=== PATIENT | female | born 1940 | race Caucasian/White ===

== ENCOUNTER 2016-10-13 11:01 | Outpatient (RCR) | payer MEDICARE, MEDICAID ==
--- OUTSIDE RECORDS SUMMARY | 2016-07-18 08:12 | XMS REPORT | Continuity of Care Document ---
Author Author [facility] Organization [facility] Address Unknown Phone Unavailable Care Team Providers Care Prn Occupational Therapist Name Role Phone Kendal Carvalho PCP [phone] Source Comments Some departments are not documenting in the electronic medical record. If you do not see the information that you expected, contact Release of Information in the Health Information Management department at [phone] for further assistance in locating additional records.[facility] Active Allergies and Adverse Reactions No Known Allergies Current Medications Prescription Sig. Disp. Refills Start End Date Status Date enalapril (VASOTEC) 10 mg Take 10 mg by mouth Active tablet daily. pioglitazone (ACTOS) 15 Take 15 mg by mouth Active mg tablet daily. gabapentin (NEURONTIN) Take 300 mg by mouth Active 300 mg capsule three times daily. glimepiride (AMARYL) 4 mg Take 4 mg by mouth daily Active tablet with breakfast. aspirin EC 81 mg tablet Take 81 mg by mouth Active daily. omeprazole DR(+) Take 20 mg by mouth Active (PRILOSEC) 20 mg capsule daily. timolol (TIMOPTIC) 0.5 % Apply 1 Drop to both eyes 1 Bottle 4 Active ophthalmic solution daily. 14 predniSONE (DELTASONE) 20 Start at 40mg po qday for 90 Tab 1 10/03/20 Active mg tablet 2 week,then 30mg x 2 14 weeks, then 20 mg po qday latanoprost (XALATAN) INSTILL ONE DROP INTO 5 mL 5 02/17/20 Active 0.005 % ophthalmic EACH EYE AT BEDTIME DAILY 15 solution Active Problems Problem Noted Date Brachial plexus dysfunction 08/26/2014 Peripheral neuropathy (HCC) 08/26/2014 Breast cancer metastasized to axillary lymph node (HCC) 08/26/2014 Right arm weakness 08/26/2014 POAG (primary open-angle glaucoma) 03/18/2014 Overview: Severe, OS>OD L ast Assessment & Plan: Visual field worse by agustin scale interpretation left eye. Dense cataract OU affecting vision. Good IOP. Stable NFL by optic nerve OCT. CPM. NS (nuclear sclerosis) 03/18/2014 Overview: Symmetric OU and symptomatic L ast Assessment & Plan: Functional but symptomatic. Rec: Phaco/IOL OS topical MAC. Reviewed procedure and risks including loss of eye, loss of vision, IOL complication, inflammation and retinal swelling. She understands and desires procedure. Social History Tobacco Use Types Packs/Day Years Used Date Never Smoker Alcohol Use Drinks/Week oz/Week Comments No Last Filed Vital Signs Vital Sign Reading Time Taken Blood Pressure 160/85 08/21/2014 9:59 AM UNDERWATER ROBOTICIST Pulse 91 08/21/2014 9:59 AM UNDERWATER ROBOTICIST Temperature - - Respiratory Rate - - Height 1.727 m (5' 7.99") 12/22/2014 11:18 AM CDT Weight 68.04 kg (150 lb) 12/22/2014 11:18 AM CDT Body Mass Index 22.81 12/22/2014 11:18 AM CDT Oxygen Saturation - - Plan of Care Health Maintenance Due Date Last Done Comments Physical (Comprehensive) 1949 Exam Pertussis Vaccine 1953 Tetanus Vaccine 1959 Breast Cancer Screening 1982 Colorectal Cancer 1992 Screening Shingles Vaccine 2002 Osteoporosis Screening 2007 Prevnar/Pneumovax (#1) 2007 Influenza Vaccine 06/16/2016 Results from Last 3 Months Not on file
[2016-08-19 10:03] LABS: BASOPHILS % (AUTO) 1 % (0-10); EOSINOPHILS # (AUTO) 0.2 10^3/uL (0.0-0.3); EOSINOPHILS % (AUTO) 5 % (0-10); LYMPHOCYTES # (AUTO) 0.5 X 10^3 (1.0-4.0); LYMPHOCYTES % (AUTO) 12 % (12-44); MEAN CORPUSCULAR HEMOGLOBIN 29 PG (25-34); MEAN CORPUSCULAR HGB CONC 32 G/DL (32-36); MEAN CORPUSCULAR VOLUME 90 FL (80-99); MEAN PLATELET VOLUME 10.3 FL (7.4-10.4); MONOCYTES # (AUTO) 0.6 X 10^3 (0.0-1.0); MONOCYTES % (AUTO) 12 % (0-12); NEUTROPHILS # (AUTO) 3.2 X 10^3 (1.8-7.8); NEUTROPHILS % (AUTO) 70 % (42-75); PLATELET COUNT 183 10^3/uL (130-400); RED BLOOD COUNT 3.84 10^6/uL (4.35-5.85); RED CELL DISTRIBUTION WIDTH 17.8 % (10.0-14.5); WHITE BLOOD COUNT 4.5 10^3/uL (4.3-11.0)
[2016-08-19 10:21] LABS: ALANINE AMINOTRANSFERASE 17 U/L (0-55); ALBUMIN 3.6 G/DL (3.2-4.5); ANION GAP 11 MMOL/L (5-14); ASPARTATE AMINO TRANSFERASE 20 U/L (5-34); BILIRUBIN,TOTAL 0.4 MG/DL (0.1-1.0); BLOOD UREA NITROGEN 11 MG/DL (7-18); BUN/CREATININE RATIO 13; CALCIUM 9.2 MG/DL (8.5-10.1); CARBON DIOXIDE 24 MMOL/L (21-32); CHLORIDE 104 MMOL/L (98-107); CREATININE SERUM 0.83 MG/DL (0.60-1.30); GFR ESTIMATED > 60; GLUCOSE 304 MG/DL (70-105); POTASSIUM 4.3 MMOL/L (3.6-5.0); SODIUM 139 MMOL/L (135-145); TOTAL PROTEIN 6.3 G/DL (6.4-8.2)
[2016-09-15 09:46] LABS: BASOPHILS % (AUTO) 1 % (0-10); EOSINOPHILS # (AUTO) 0.2 10^3/uL (0.0-0.3); EOSINOPHILS % (AUTO) 4 % (0-10); LYMPHOCYTES # (AUTO) 0.6 X 10^3 (1.0-4.0); LYMPHOCYTES % (AUTO) 15 % (12-44); MEAN CORPUSCULAR HEMOGLOBIN 29 PG (25-34); MEAN CORPUSCULAR HGB CONC 32 G/DL (32-36); MEAN CORPUSCULAR VOLUME 89 FL (80-99); MEAN PLATELET VOLUME 10.2 FL (7.4-10.4); MONOCYTES # (AUTO) 0.6 X 10^3 (0.0-1.0); MONOCYTES % (AUTO) 13 % (0-12); NEUTROPHILS # (AUTO) 2.8 X 10^3 (1.8-7.8); NEUTROPHILS % (AUTO) 67 % (42-75); PLATELET COUNT 138 10^3/uL (130-400); RED BLOOD COUNT 3.74 10^6/uL (4.35-5.85); RED CELL DISTRIBUTION WIDTH 15.9 % (10.0-14.5); WHITE BLOOD COUNT 4.2 10^3/uL (4.3-11.0)
[2016-09-15 10:12] LABS: ALANINE AMINOTRANSFERASE 12 U/L (0-55); ALBUMIN 3.7 G/DL (3.2-4.5); ANION GAP 9 MMOL/L (5-14); ASPARTATE AMINO TRANSFERASE 19 U/L (5-34); BILIRUBIN,TOTAL 0.4 MG/DL (0.1-1.0); BLOOD UREA NITROGEN 14 MG/DL (7-18); BUN/CREATININE RATIO 18; CALCIUM 9.1 MG/DL (8.5-10.1); CARBON DIOXIDE 22 MMOL/L (21-32); CHLORIDE 106 MMOL/L (98-107); CREATININE SERUM 0.78 MG/DL (0.60-1.30); GFR ESTIMATED > 60; GLUCOSE 272 MG/DL (70-105); POTASSIUM 3.7 MMOL/L (3.6-5.0); SODIUM 137 MMOL/L (135-145); TOTAL PROTEIN 6.3 G/DL (6.4-8.2)
[2016-09-22 10:09] LABS: BASOPHILS % (AUTO) 0 % (0-10); EOSINOPHILS # (AUTO) 0.2 10^3/uL (0.0-0.3); EOSINOPHILS % (AUTO) 5 % (0-10); LYMPHOCYTES # (AUTO) 0.5 X 10^3 (1.0-4.0); LYMPHOCYTES % (AUTO) 11 % (12-44); MEAN CORPUSCULAR HEMOGLOBIN 29 PG (25-34); MEAN CORPUSCULAR HGB CONC 32 G/DL (32-36); MEAN CORPUSCULAR VOLUME 89 FL (80-99); MEAN PLATELET VOLUME 10.2 FL (7.4-10.4); MONOCYTES # (AUTO) 0.6 X 10^3 (0.0-1.0); MONOCYTES % (AUTO) 13 % (0-12); NEUTROPHILS # (AUTO) 3.2 X 10^3 (1.8-7.8); NEUTROPHILS % (AUTO) 71 % (42-75); PLATELET COUNT 89 10^3/uL (130-400); RED BLOOD COUNT 3.76 10^6/uL (4.35-5.85); RED CELL DISTRIBUTION WIDTH 15.5 % (10.0-14.5); WHITE BLOOD COUNT 4.5 10^3/uL (4.3-11.0)
[2016-09-22 10:46] LABS: ANION GAP 10 MMOL/L (5-14); BLOOD UREA NITROGEN 6 MG/DL (7-18); BUN/CREATININE RATIO 8; CALCIUM 7.5 MG/DL (8.5-10.1); CARBON DIOXIDE 21 MMOL/L (21-32); CHLORIDE 110 MMOL/L (98-107); CREATININE SERUM 0.73 MG/DL (0.60-1.30); GFR ESTIMATED > 60; GLUCOSE 250 MG/DL (70-105); POTASSIUM 3.7 MMOL/L (3.6-5.0); SODIUM 141 MMOL/L (135-145)
[2016-09-29 10:20] LABS: BASOPHILS % (AUTO) 1 % (0-10); EOSINOPHILS # (AUTO) 0.2 10^3/uL (0.0-0.3); EOSINOPHILS % (AUTO) 3 % (0-10); LYMPHOCYTES # (AUTO) 0.7 X 10^3 (1.0-4.0); LYMPHOCYTES % (AUTO) 16 % (12-44); MEAN CORPUSCULAR HEMOGLOBIN 29 PG (25-34); MEAN CORPUSCULAR HGB CONC 32 G/DL (32-36); MEAN CORPUSCULAR VOLUME 90 FL (80-99); MEAN PLATELET VOLUME 9.7 FL (7.4-10.4); MONOCYTES # (AUTO) 0.6 X 10^3 (0.0-1.0); MONOCYTES % (AUTO) 13 % (0-12); NEUTROPHILS % (AUTO) 68 % (42-75); PLATELET COUNT 142 10^3/uL (130-400); RED CELL DISTRIBUTION WIDTH 15.7 % (10.0-14.5); WHITE BLOOD COUNT 4.4 10^3/uL (4.3-11.0)
[2016-09-29 11:38] LABS: ANION GAP 8 MMOL/L (5-14); BLOOD UREA NITROGEN 10 MG/DL (7-18); BUN/CREATININE RATIO 13; CALCIUM 8.8 MG/DL (8.5-10.1); CARBON DIOXIDE 25 MMOL/L (21-32); CHLORIDE 107 MMOL/L (98-107); CREATININE SERUM 0.75 MG/DL (0.60-1.30); GFR ESTIMATED > 60; GLUCOSE 241 MG/DL (70-105); SODIUM 140 MMOL/L (135-145)
[2016-10-06 09:16] LABS: BASOPHILS % (AUTO) 1 % (0-10); EOSINOPHILS # (AUTO) 0.1 10^3/uL (0.0-0.3); EOSINOPHILS % (AUTO) 3 % (0-10); LYMPHOCYTES # (AUTO) 0.5 X 10^3 (1.0-4.0); LYMPHOCYTES % (AUTO) 15 % (12-44); MEAN CORPUSCULAR HEMOGLOBIN 29 PG (25-34); MEAN CORPUSCULAR HGB CONC 31 G/DL (32-36); MEAN CORPUSCULAR VOLUME 92 FL (80-99); MEAN PLATELET VOLUME 10.5 FL (7.4-10.4); MONOCYTES # (AUTO) 0.5 X 10^3 (0.0-1.0); MONOCYTES % (AUTO) 14 % (0-12); NEUTROPHILS # (AUTO) 2.5 X 10^3 (1.8-7.8); NEUTROPHILS % (AUTO) 69 % (42-75); PLATELET COUNT 155 10^3/uL (130-400); RED BLOOD COUNT 3.76 10^6/uL (4.35-5.85); RED CELL DISTRIBUTION WIDTH 15.2 % (10.0-14.5); WHITE BLOOD COUNT 3.6 10^3/uL (4.3-11.0)
[2016-10-06 09:47] LABS: ALANINE AMINOTRANSFERASE 17 U/L (0-55); ALBUMIN 3.6 G/DL (3.2-4.5); ANION GAP 9 MMOL/L (5-14); ASPARTATE AMINO TRANSFERASE 24 U/L (5-34); BILIRUBIN,TOTAL 0.4 MG/DL (0.1-1.0); BLOOD UREA NITROGEN 12 MG/DL (7-18); BUN/CREATININE RATIO 16; CALCIUM 8.1 MG/DL (8.5-10.1); CARBON DIOXIDE 23 MMOL/L (21-32); CHLORIDE 108 MMOL/L (98-107); CREATININE SERUM 0.76 MG/DL (0.60-1.30); GFR ESTIMATED > 60; GLUCOSE 250 MG/DL (70-105); POTASSIUM 3.9 MMOL/L (3.6-5.0); SODIUM 140 MMOL/L (135-145); TOTAL PROTEIN 6.1 G/DL (6.4-8.2)
[~2016-10-13 11:01] MED LIST: AC325T PO; ACC15GT EXT; ACET325T38 PO; ACTOS15 MG PO; ADO TRASTUZUMAB EMTANSINE IV SCH; AMLO5TAB2 PO; ASP81CT; ASP81CT PO; ASP81TEC PO; ASPI-587 PO; BP MED; CALC-140 PO; CALC-80 PO; CALC300T4 PO; CEPH-506 PO; CHOL10003 PO; CLOP75TA PO; DENO60DI SQ; DENOSUMAB 60 MG/1 ML (PROLIA) SQ SCH; DOCU-163 PO; DULO30CA3 PO; DULO60CA58 PO; ENAL10TA PO; FAMOTIDINE 20MG/2ML IV (CANCER CTR) IV SCH; FNT25TD TD; GABA-488 PO; GABA300C PO; GABA600T2 PO; GBPN300C; GBPN300C PO; GLIM4TAB PO; GLMP1T; GLMP4T PO; HERCEPTIN; HYDR-3454 PO; HYDR-3583; HYDR-3812 PO; HYDR-757 PO; IBUP-2055 PO; INSU100I10 SC; INSU100V6 SQ; INSULIN PEN; LATA2.5D19 OU; LATA2.5D5 OU; LEVO500T80 PO; LORazepam 0.5 MG (ATIVAN) TABLET CANCER CTR PO PRN; MELO7.5T PO; METO-354 PO; NORCO 5/325; NS (IVPB) CANCER CENTER 250 ML IV SCH; NS IV 1000 ML (CANCER CTR) IV SCH; NS IV 500 ML (CANCER CENTER) 500 ML ONE; NS IV SCH; OMEP20TA2 PO; OMEP40CA36 PO; ONDA8TAB6 PO; ONDA8TAB9 PO; ONDAN4ODT PO; PALONOSETRON HCL 0.25 MG, DEXAMETHASONE PF INJECTION 10 MG in NS (IVPB) 50 ML IV PRN; PANT40TA2 PO; PIOG15TA22 PO; PIOG15TA9 PO; PNT40TEC PO; PRV20T PO; SILV25CR TP; Sucralfate PO; TELM40T; TICA90TA PO; TML5OP2.5 OU; TRAM50TA2 PO; VALA100033 PO; diphenhydrAMINE 25 MG TAB (BENADRYL) CANCER CENTER PO SCH
[2016-10-13 11:17] LABS: BASOPHILS % (AUTO) 0 % (0-10); EOSINOPHILS # (AUTO) 0.1 10^3/uL (0.0-0.3); EOSINOPHILS % (AUTO) 3 % (0-10); LYMPHOCYTES # (AUTO) 0.5 X 10^3 (1.0-4.0); LYMPHOCYTES % (AUTO) 13 % (12-44); MEAN CORPUSCULAR HEMOGLOBIN 28 PG (25-34); MEAN CORPUSCULAR HGB CONC 31 G/DL (32-36); MEAN CORPUSCULAR VOLUME 91 FL (80-99); MEAN PLATELET VOLUME 10.9 FL (7.4-10.4); MONOCYTES # (AUTO) 0.5 X 10^3 (0.0-1.0); MONOCYTES % (AUTO) 13 % (0-12); NEUTROPHILS # (AUTO) 2.8 X 10^3 (1.8-7.8); NEUTROPHILS % (AUTO) 70 % (42-75); PLATELET COUNT 115 10^3/uL (130-400); RED BLOOD COUNT 3.95 10^6/uL (4.35-5.85); WHITE BLOOD COUNT 3.9 10^3/uL (4.3-11.0)
[2016-10-13 13:11] LABS: ANION GAP 11 MMOL/L (5-14); BLOOD UREA NITROGEN 12 MG/DL (7-18); BUN/CREATININE RATIO 15; CALCIUM 8.4 MG/DL (8.5-10.1); CARBON DIOXIDE 24 MMOL/L (21-32); CHLORIDE 101 MMOL/L (98-107); CREATININE SERUM 0.78 MG/DL (0.60-1.30); GFR ESTIMATED > 60; GLUCOSE 218 MG/DL (70-105); POTASSIUM 3.2 MMOL/L (3.6-5.0); SODIUM 136 MMOL/L (135-145)
== END 2016-10-16 | disposition home or self-care (01) ==
LOC: ONC 11:01
PROVIDERS: ATTEND Internal Medicine Hematology & Oncology
DX: Z51.0 Encounter for antineoplastic radiation therapy (principal); Z51.11 Encounter for antineoplastic chemotherapy; C50.411 Malignant neoplasm of upper-outer quadrant of right female breast; C77.3 Secondary and unspecified malignant neoplasm of axilla and upper limb lymph nodes; C78.02 Secondary malignant neoplasm of left lung; I89.0 Lymphedema, not elsewhere classified; M81.0 Age-related osteoporosis without current pathological fracture; G54.0 Brachial plexus disorders; Z17.1 Estrogen receptor negative status [ER-]; Z79.899 Other long term (current) drug therapy; Z90.11 Acquired absence of right breast and nipple
CPT/HCPCS: 36415; 36591; 77280; 77300; 77307; 77334; 77336; 77386; 77412; 77417; 80048; 80053; 85025; 86300; 96372; 96375; 96413; 99213

== ENCOUNTER → 2016-11-03 | Outpatient (CLI) | payer MEDICARE, MEDICAID ==
--- OUTSIDE RECORDS SUMMARY | 2016-10-27 14:25 | XMS REPORT | Continuity of Care Document ---
Author Author [facility] Organization [facility] Address Unknown Phone Unavailable Care Team Providers Care Nutrition Aides Teacher Name Role Phone Kendal Carvalho PCP [phone] Source Comments Some departments are not documenting in the electronic medical record. If you do not see the information that you expected, contact Release of Information in the Health Information Management department at [phone] for further assistance in locating additional records.[facility] Active Allergies and Adverse Reactions No [...] Taken Blood Pressure 160/85 08/21/2014 9:59 AM BACK FEEDER [employer] LINE Pulse 91 08/21/2014 9:59 AM BACK FEEDER [employer] LINE Temperature - - Respiratory Rate - - [...]
[~2016-11-03] MED LIST changes: -ADO TRASTUZUMAB EMTANSINE IV SCH; -DENOSUMAB 60 MG/1 ML (PROLIA) SQ SCH; -FAMOTIDINE 20MG/2ML IV (CANCER CTR) IV SCH; -LORazepam 0.5 MG (ATIVAN) TABLET CANCER CTR PO PRN; -NS (IVPB) CANCER CENTER 250 ML IV SCH; -NS IV 1000 ML (CANCER CTR) IV SCH; -NS IV 500 ML (CANCER CENTER) 500 ML ONE; -NS IV SCH; -PALONOSETRON HCL 0.25 MG, DEXAMETHASONE PF INJECTION 10 MG in NS (IVPB) 50 ML IV PRN; -diphenhydrAMINE 25 MG TAB (BENADRYL) CANCER CENTER PO SCH
--- OUTSIDE RECORDS SUMMARY | 2016-11-03 08:23 | XMS REPORT | Continuity of Care Document ---
Author Author [facility] Organization [facility] Address Unknown Phone Unavailable Care Team Providers Care Carroting Machine Operator Name Role Phone Kendal Carvalho PCP [phone] Source Comments Some departments are not documenting in the electronic medical record. If you do not see the information that you expected, contact Release of Information in the Health Information Management department at [phone] for further assistance in locating additional records.[facility] Active Allergies and Adverse Reactions No Known [...] Taken Blood Pressure 160/85 08/21/2014 9:59 AM ORAL HYGIENIST Pulse 91 08/21/2014 9:59 AM ORAL HYGIENIST Temperature - - Respiratory Rate - - [...]
[2016-11-03 10:06] LABS: THYROID STIMULATING HORMONE 3.5 UIU/ML (0.35-4.94)
== END ==
LOC: LAB 10-27 14:21
PROVIDERS: ATTEND Internal Medicine
DX: E11.9 Type 2 diabetes mellitus without complications (principal); E78.4 Other hyperlipidemia; Z79.899 Other long term (current) drug therapy
CPT/HCPCS: 36415; 80061; 83036; 84443

== ENCOUNTER → 2016-12-22 | Outpatient (CLI) | payer MEDICARE, MEDICAID ==
--- OUTSIDE RECORDS SUMMARY | 2016-12-22 08:46 | XMS REPORT | Continuity of Care Document ---
Author Author [facility] Organization [facility] Address Unknown Phone Unavailable Care Team Providers Care Tier In Name Role Phone Kendal Carvalho PCP [phone] Source Comments Some departments are not documenting in the electronic medical record. If you do not see the information that you expected, contact Release of Information in the Health Information Management department at [phone] for further assistance in locating additional records.[facility] [...] Taken Blood Pressure 160/85 08/21/2014 9:59 AM ENDOSCOPY SPECIALTY TECHNICIAN Pulse 91 08/21/2014 9:59 AM ENDOSCOPY SPECIALTY TECHNICIAN Temperature - - Respiratory Rate - - [...]
--- NOTE | 2016-12-25 11:38 | ECHOCARDIOGRAPHY REPORT ---
PROCEDURE PHYSICIAN: JU VALERO DATE OF PROCEDURE: 12/22/2016 TWO DIMENSIONAL ECHOCARDIOGRAM REPORT PRIMARY PHYSICIAN: Dr. Carvalho OTHER PHYSICIAN: REFERRING PHYSICIAN: ORDERING PHYSICIAN: Garrett Harrington APRN INDICATION FOR THE PROCEDURE: D51.8 MEASUREMENTS DERIVED VALUES LV DIAMETER (LAX) NORMALS NORMALS Diastolic 4.8 (3.6-5.2) Eject. Fract. (60%+/-6%) Systolic (2.3-3.9) Diastolic Vol. % Shortening (0.22-0.42) Systolic Vol. Aortic Root 2.7 IVS THICKNESS Diastolic 1.1 (0.6-1.1) LVPW THICKNESS Diastolic 1.1 (0.6-1.1) LA DIAMETER Systolic 3.3 (2.1-3.7) DESCRIPTION: 2-dimensional echocardiography shows normal global left ventricular systolic function with normal regional wall motion. Aortic, mitral and tricuspid valve leaflets show good leaflet excursion. There is mild mitral annular calcification. There is no significant pericardial effusion. Doppler imaging shows trivial, mitral, tricuspid and pulmonic regurgitation. There is no Doppler evidence of any significant valvular stenosis. Aortic valve appears to be trileaflet. Pulmonary artery systolic pressure is estimated to be approximately 35 mmHg. There is no evidence of significant intracardiac shunt on this transthoracic echocardiographic study. Inferior vena cava does not appear to be dilated and appears mostly collapsed on this study. CONCLUSION: 1. Normal global left ventricular systolic function with an ejection fraction of 60%, 2. Trivial, mitral, tricuspid and pulmonic regurgitation. 3. Pulmonary artery systolic pressure is estimated to be approximately 35 mmHg. 4. No evidence of significant valvular stenosis. Job ID: [id number] Dictated Date: 12/24/2016 17:35:28 Lei Seller Date: 12/25/2016 11:32:22 / [place]
== END ==
LOC: CARD 08:43
PROVIDERS: ATTEND Nurse Practitioner Adult Health
DX: Z51.81 Encounter for therapeutic drug level monitoring (principal); C50.411 Malignant neoplasm of upper-outer quadrant of right female breast; Z79.899 Other long term (current) drug therapy
CPT/HCPCS: 93306

== ENCOUNTER 2017-01-12 08:51 | Outpatient (RCR) | payer MEDICARE, MEDICAID ==
--- OUTSIDE RECORDS SUMMARY | 2016-10-20 09:29 | XMS REPORT | Continuity of Care Document ---
Author Author [facility] Organization [facility] Address Unknown Phone Unavailable Care Team Providers Care Account General Manager Name Role Phone Kendal Carvalho PCP [phone] Source Comments Some departments are not documenting in the electronic medical record. If you do not see the information that you expected, contact Release of Information in the Health Information Management department at [phone] for further assistance in locating additional records.[facility] Active Allergies and Adverse Reactions No [...] Taken Blood Pressure 160/85 08/21/2014 9:59 AM BALLASTER Pulse 91 08/21/2014 9:59 AM BALLASTER Temperature - - Respiratory Rate - - [...]
[2016-10-20 09:40] LABS: BASOPHILS % (AUTO) 1 % (0-10); EOSINOPHILS # (AUTO) 0.2 10^3/uL (0.0-0.3); EOSINOPHILS % (AUTO) 3 % (0-10); LYMPHOCYTES # (AUTO) 0.7 X 10^3 (1.0-4.0); LYMPHOCYTES % (AUTO) 15 % (12-44); MEAN CORPUSCULAR HEMOGLOBIN 28 PG (25-34); MEAN CORPUSCULAR HGB CONC 31 G/DL (32-36); MEAN CORPUSCULAR VOLUME 90 FL (80-99); MEAN PLATELET VOLUME 10.2 FL (7.4-10.4); MONOCYTES # (AUTO) 0.6 X 10^3 (0.0-1.0); MONOCYTES % (AUTO) 12 % (0-12); NEUTROPHILS # (AUTO) 3.4 X 10^3 (1.8-7.8); NEUTROPHILS % (AUTO) 69 % (42-75); PLATELET COUNT 155 10^3/uL (130-400); RED BLOOD COUNT 4.03 10^6/uL (4.35-5.85); WHITE BLOOD COUNT 4.9 10^3/uL (4.3-11.0)
[2016-10-20 10:19] LABS: ANION GAP 9 MMOL/L (5-14); BLOOD UREA NITROGEN 11 MG/DL (7-18); BUN/CREATININE RATIO 14; CALCIUM 8.3 MG/DL (8.5-10.1); CARBON DIOXIDE 25 MMOL/L (21-32); CHLORIDE 107 MMOL/L (98-107); CREATININE SERUM 0.77 MG/DL (0.60-1.30); GFR ESTIMATED > 60; GLUCOSE 221 MG/DL (70-105); POTASSIUM 3.8 MMOL/L (3.6-5.0); SODIUM 141 MMOL/L (135-145)
[2016-10-27 14:55] LABS: BASOPHILS % (AUTO) 1 % (0-10); EOSINOPHILS # (AUTO) 0.1 10^3/uL (0.0-0.3); EOSINOPHILS % (AUTO) 3 % (0-10); LYMPHOCYTES # (AUTO) 0.7 X 10^3 (1.0-4.0); LYMPHOCYTES % (AUTO) 17 % (12-44); MEAN CORPUSCULAR HGB CONC 32 G/DL (32-36); MEAN CORPUSCULAR VOLUME 89 FL (80-99); MEAN PLATELET VOLUME 10.2 FL (7.4-10.4); MONOCYTES # (AUTO) 0.5 X 10^3 (0.0-1.0); MONOCYTES % (AUTO) 12 % (0-12); NEUTROPHILS # (AUTO) 2.9 X 10^3 (1.8-7.8); NEUTROPHILS % (AUTO) 67 % (42-75); PLATELET COUNT 149 10^3/uL (130-400); RED BLOOD COUNT 3.93 10^6/uL (4.35-5.85); RED CELL DISTRIBUTION WIDTH 14.9 % (10.0-14.5); WHITE BLOOD COUNT 4.3 10^3/uL (4.3-11.0)
[2016-10-27 14:56] LABS: MEAN CORPUSCULAR HEMOGLOBIN 28 PG (25-34)
[2016-10-27 15:23] LABS: ALANINE AMINOTRANSFERASE 18 U/L (0-55); ALBUMIN 3.8 G/DL (3.2-4.5); ANION GAP 10 MMOL/L (5-14); ASPARTATE AMINO TRANSFERASE 26 U/L (5-34); BILIRUBIN,TOTAL 0.5 MG/DL (0.1-1.0); BLOOD UREA NITROGEN 9 MG/DL (7-18); BUN/CREATININE RATIO 13; CALCIUM 8.5 MG/DL (8.5-10.1); CARBON DIOXIDE 22 MMOL/L (21-32); CHLORIDE 108 MMOL/L (98-107); CREATININE SERUM 0.69 MG/DL (0.60-1.30); GFR ESTIMATED > 60; GLUCOSE 134 MG/DL (70-105); POTASSIUM 3.8 MMOL/L (3.6-5.0); SODIUM 140 MMOL/L (135-145); TOTAL PROTEIN 6.7 G/DL (6.4-8.2)
[2016-11-03 08:45] LABS: BASOPHILS % (AUTO) 1 % (0-10); EOSINOPHILS # (AUTO) 0.2 10^3/uL (0.0-0.3); EOSINOPHILS % (AUTO) 5 % (0-10); LYMPHOCYTES # (AUTO) 0.6 X 10^3 (1.0-4.0); LYMPHOCYTES % (AUTO) 16 % (12-44); MEAN CORPUSCULAR HEMOGLOBIN 29 PG (25-34); MEAN CORPUSCULAR HGB CONC 32 G/DL (32-36); MEAN CORPUSCULAR VOLUME 89 FL (80-99); MEAN PLATELET VOLUME 11.3 FL (7.4-10.4); MONOCYTES # (AUTO) 0.6 X 10^3 (0.0-1.0); MONOCYTES % (AUTO) 14 % (0-12); NEUTROPHILS # (AUTO) 2.5 X 10^3 (1.8-7.8); NEUTROPHILS % (AUTO) 64 % (42-75); PLATELET COUNT 98 10^3/uL (130-400); RED BLOOD COUNT 3.95 10^6/uL (4.35-5.85); RED CELL DISTRIBUTION WIDTH 14.9 % (10.0-14.5); WHITE BLOOD COUNT 3.9 10^3/uL (4.3-11.0)
[2016-11-03 09:42] LABS: ANION GAP 9 MMOL/L (5-14); BLOOD UREA NITROGEN 9 MG/DL (7-18); BUN/CREATININE RATIO 13; CALCIUM 8.3 MG/DL (8.5-10.1); CARBON DIOXIDE 23 MMOL/L (21-32); CHLORIDE 110 MMOL/L (98-107); GFR ESTIMATED > 60; GLUCOSE 90 MG/DL (70-105); POTASSIUM 3.8 MMOL/L (3.6-5.0); SODIUM 142 MMOL/L (135-145)
[2016-11-11 10:29] LABS: BASOPHILS % (AUTO) 0 % (0-10); EOSINOPHILS # (AUTO) 0.2 10^3/uL (0.0-0.3); EOSINOPHILS % (AUTO) 4 % (0-10); LYMPHOCYTES # (AUTO) 0.7 X 10^3 (1.0-4.0); LYMPHOCYTES % (AUTO) 15 % (12-44); MEAN CORPUSCULAR HEMOGLOBIN 28 PG (25-34); MEAN CORPUSCULAR HGB CONC 32 G/DL (32-36); MEAN CORPUSCULAR VOLUME 89 FL (80-99); MEAN PLATELET VOLUME 10.5 FL (7.4-10.4); MONOCYTES # (AUTO) 0.6 X 10^3 (0.0-1.0); MONOCYTES % (AUTO) 12 % (0-12); NEUTROPHILS # (AUTO) 3.2 X 10^3 (1.8-7.8); NEUTROPHILS % (AUTO) 69 % (42-75); PLATELET COUNT 130 10^3/uL (130-400); RED CELL DISTRIBUTION WIDTH 14.9 % (10.0-14.5); WHITE BLOOD COUNT 4.7 10^3/uL (4.3-11.0)
[2016-11-11 10:46] LABS: ANION GAP 9 MMOL/L (5-14); BLOOD UREA NITROGEN 9 MG/DL (7-18); BUN/CREATININE RATIO 12; CALCIUM 8.6 MG/DL (8.5-10.1); CARBON DIOXIDE 25 MMOL/L (21-32); CHLORIDE 106 MMOL/L (98-107); CREATININE SERUM 0.73 MG/DL (0.60-1.30); GFR ESTIMATED > 60; GLUCOSE 180 MG/DL (70-105); POTASSIUM 3.4 MMOL/L (3.6-5.0); SODIUM 140 MMOL/L (135-145)
[2016-11-17 11:09] LABS: BASOPHILS % (AUTO) 1 % (0-10); EOSINOPHILS # (AUTO) 0.2 10^3/uL (0.0-0.3); EOSINOPHILS % (AUTO) 4 % (0-10); LYMPHOCYTES # (AUTO) 0.7 X 10^3 (1.0-4.0); LYMPHOCYTES % (AUTO) 18 % (12-44); MEAN CORPUSCULAR HEMOGLOBIN 28 PG (25-34); MEAN CORPUSCULAR HGB CONC 31 G/DL (32-36); MEAN CORPUSCULAR VOLUME 88 FL (80-99); MEAN PLATELET VOLUME 10.4 FL (7.4-10.4); MONOCYTES # (AUTO) 0.5 X 10^3 (0.0-1.0); MONOCYTES % (AUTO) 13 % (0-12); NEUTROPHILS # (AUTO) 2.6 X 10^3 (1.8-7.8); NEUTROPHILS % (AUTO) 65 % (42-75); PLATELET COUNT 134 10^3/uL (130-400); RED CELL DISTRIBUTION WIDTH 15.1 % (10.0-14.5); WHITE BLOOD COUNT 3.9 10^3/uL (4.3-11.0)
[2016-11-17 11:44] LABS: ALANINE AMINOTRANSFERASE 16 U/L (0-55); ALBUMIN 3.5 G/DL (3.2-4.5); ANION GAP 9 MMOL/L (5-14); ASPARTATE AMINO TRANSFERASE 24 U/L (5-34); BILIRUBIN,TOTAL 0.5 MG/DL (0.1-1.0); BLOOD UREA NITROGEN 10 MG/DL (7-18); BUN/CREATININE RATIO 14; CALCIUM 7.5 MG/DL (8.5-10.1); CARBON DIOXIDE 23 MMOL/L (21-32); CHLORIDE 107 MMOL/L (98-107); CREATININE SERUM 0.71 MG/DL (0.60-1.30); GFR ESTIMATED > 60; GLUCOSE 261 MG/DL (70-105); POTASSIUM 3.7 MMOL/L (3.6-5.0); SODIUM 139 MMOL/L (135-145); TOTAL PROTEIN 6.4 G/DL (6.4-8.2)
[2016-11-24 10:32] LABS: BASOPHILS % (AUTO) 0 % (0-10); EOSINOPHILS # (AUTO) 0.2 10^3/uL (0.0-0.3); EOSINOPHILS % (AUTO) 3 % (0-10); LYMPHOCYTES # (AUTO) 0.6 X 10^3 (1.0-4.0); LYMPHOCYTES % (AUTO) 14 % (12-44); MEAN CORPUSCULAR HEMOGLOBIN 27 PG (25-34); MEAN CORPUSCULAR HGB CONC 31 G/DL (32-36); MEAN CORPUSCULAR VOLUME 87 FL (80-99); MEAN PLATELET VOLUME 10.3 FL (7.4-10.4); MONOCYTES # (AUTO) 0.7 X 10^3 (0.0-1.0); MONOCYTES % (AUTO) 14 % (0-12); NEUTROPHILS # (AUTO) 3.3 X 10^3 (1.8-7.8); NEUTROPHILS % (AUTO) 69 % (42-75); PLATELET COUNT 122 10^3/uL (130-400); RED BLOOD COUNT 4.04 10^6/uL (4.35-5.85); RED CELL DISTRIBUTION WIDTH 15.3 % (10.0-14.5); WHITE BLOOD COUNT 4.7 10^3/uL (4.3-11.0)
[2016-11-24 11:16] LABS: ANION GAP 10 MMOL/L (5-14); BLOOD UREA NITROGEN 9 MG/DL (7-18); BUN/CREATININE RATIO 12; CALCIUM 8.4 MG/DL (8.5-10.1); CARBON DIOXIDE 23 MMOL/L (21-32); CHLORIDE 105 MMOL/L (98-107); CREATININE SERUM 0.78 MG/DL (0.60-1.30); GFR ESTIMATED > 60; GLUCOSE 312 MG/DL (70-105); POTASSIUM 3.6 MMOL/L (3.6-5.0); SODIUM 138 MMOL/L (135-145)
[2016-12-01 08:58] LABS: BASOPHILS % (AUTO) 0 % (0-10); EOSINOPHILS # (AUTO) 0.2 10^3/uL (0.0-0.3); EOSINOPHILS % (AUTO) 4 % (0-10); LYMPHOCYTES # (AUTO) 0.7 X 10^3 (1.0-4.0); LYMPHOCYTES % (AUTO) 14 % (12-44); MEAN CORPUSCULAR HEMOGLOBIN 27 PG (25-34); MEAN CORPUSCULAR HGB CONC 32 G/DL (32-36); MEAN CORPUSCULAR VOLUME 87 FL (80-99); MEAN PLATELET VOLUME 10.2 FL (7.4-10.4); MONOCYTES # (AUTO) 0.6 X 10^3 (0.0-1.0); MONOCYTES % (AUTO) 13 % (0-12); NEUTROPHILS # (AUTO) 3.5 X 10^3 (1.8-7.8); NEUTROPHILS % (AUTO) 69 % (42-75); PLATELET COUNT 137 10^3/uL (130-400); RED BLOOD COUNT 4.12 10^6/uL (4.35-5.85); RED CELL DISTRIBUTION WIDTH 15.2 % (10.0-14.5); WHITE BLOOD COUNT 5.1 10^3/uL (4.3-11.0)
[2016-12-01 10:00] LABS: ANION GAP 8 MMOL/L (5-14); BLOOD UREA NITROGEN 9 MG/DL (7-18); BUN/CREATININE RATIO 12; CALCIUM 8.6 MG/DL (8.5-10.1); CARBON DIOXIDE 25 MMOL/L (21-32); CHLORIDE 106 MMOL/L (98-107); CREATININE SERUM 0.73 MG/DL (0.60-1.30); GFR ESTIMATED > 60; GLUCOSE 246 MG/DL (70-105); POTASSIUM 4.2 MMOL/L (3.6-5.0); SODIUM 139 MMOL/L (135-145)
[2016-12-08 11:25] LABS: BASOPHILS % (AUTO) 0 % (0-10); EOSINOPHILS # (AUTO) 0.1 10^3/uL (0.0-0.3); EOSINOPHILS % (AUTO) 2 % (0-10); LYMPHOCYTES # (AUTO) 0.8 X 10^3 (1.0-4.0); LYMPHOCYTES % (AUTO) 17 % (12-44); MEAN CORPUSCULAR HEMOGLOBIN 28 PG (25-34); MEAN CORPUSCULAR HGB CONC 32 G/DL (32-36); MEAN CORPUSCULAR VOLUME 87 FL (80-99); MEAN PLATELET VOLUME 10.1 FL (7.4-10.4); MONOCYTES # (AUTO) 0.6 X 10^3 (0.0-1.0); MONOCYTES % (AUTO) 14 % (0-12); NEUTROPHILS % (AUTO) 67 % (42-75); PLATELET COUNT 137 10^3/uL (130-400); RED BLOOD COUNT 4.14 10^6/uL (4.35-5.85); RED CELL DISTRIBUTION WIDTH 15.5 % (10.0-14.5); WHITE BLOOD COUNT 4.5 10^3/uL (4.3-11.0)
[2016-12-08 11:53] LABS: ALANINE AMINOTRANSFERASE 21 U/L (0-55); ALBUMIN 3.5 G/DL (3.2-4.5); ANION GAP 9 MMOL/L (5-14); ASPARTATE AMINO TRANSFERASE 28 U/L (5-34); BILIRUBIN,TOTAL 0.6 MG/DL (0.1-1.0); BLOOD UREA NITROGEN 13 MG/DL (7-18); BUN/CREATININE RATIO 16; CALCIUM 8.8 MG/DL (8.5-10.1); CARBON DIOXIDE 25 MMOL/L (21-32); CHLORIDE 107 MMOL/L (98-107); CREATININE SERUM 0.79 MG/DL (0.60-1.30); GFR ESTIMATED > 60; GLUCOSE 209 MG/DL (70-105); POTASSIUM 3.9 MMOL/L (3.6-5.0); SODIUM 141 MMOL/L (135-145); TOTAL PROTEIN 6.8 G/DL (6.4-8.2)
[2016-12-15 10:08] LABS: BASOPHILS % (AUTO) 0 % (0-10); EOSINOPHILS # (AUTO) 0.2 10^3/uL (0.0-0.3); EOSINOPHILS % (AUTO) 5 % (0-10); LYMPHOCYTES # (AUTO) 0.7 X 10^3 (1.0-4.0); LYMPHOCYTES % (AUTO) 16 % (12-44); MEAN CORPUSCULAR HEMOGLOBIN 27 PG (25-34); MEAN CORPUSCULAR HGB CONC 32 G/DL (32-36); MEAN CORPUSCULAR VOLUME 86 FL (80-99); MEAN PLATELET VOLUME 11.4 FL (7.4-10.4); MONOCYTES # (AUTO) 0.6 X 10^3 (0.0-1.0); MONOCYTES % (AUTO) 15 % (0-12); NEUTROPHILS # (AUTO) 2.7 X 10^3 (1.8-7.8); NEUTROPHILS % (AUTO) 64 % (42-75); PLATELET COUNT 97 10^3/uL (130-400); RED CELL DISTRIBUTION WIDTH 15.6 % (10.0-14.5); WHITE BLOOD COUNT 4.2 10^3/uL (4.3-11.0)
[2016-12-15 10:38] LABS: ANION GAP 9 MMOL/L (5-14); BLOOD UREA NITROGEN 12 MG/DL (7-18); BUN/CREATININE RATIO 15; CARBON DIOXIDE 26 MMOL/L (21-32); CHLORIDE 104 MMOL/L (98-107); GFR ESTIMATED > 60; GLUCOSE 225 MG/DL (70-105); POTASSIUM 3.5 MMOL/L (3.6-5.0); SODIUM 139 MMOL/L (135-145)
[2016-12-22 10:19] LABS: BASOPHILS % (AUTO) 1 % (0-10); EOSINOPHILS # (AUTO) 0.2 10^3/uL (0.0-0.3); EOSINOPHILS % (AUTO) 4 % (0-10); LYMPHOCYTES # (AUTO) 0.7 X 10^3 (1.0-4.0); LYMPHOCYTES % (AUTO) 15 % (12-44); MEAN CORPUSCULAR HEMOGLOBIN 27 PG (25-34); MEAN CORPUSCULAR HGB CONC 32 G/DL (32-36); MEAN CORPUSCULAR VOLUME 86 FL (80-99); MEAN PLATELET VOLUME 11.2 FL (7.4-10.4); MONOCYTES # (AUTO) 0.6 X 10^3 (0.0-1.0); MONOCYTES % (AUTO) 15 % (0-12); NEUTROPHILS # (AUTO) 2.9 X 10^3 (1.8-7.8); NEUTROPHILS % (AUTO) 66 % (42-75); PLATELET COUNT 108 10^3/uL (130-400); RED BLOOD COUNT 4.38 10^6/uL (4.35-5.85); RED CELL DISTRIBUTION WIDTH 15.9 % (10.0-14.5); WHITE BLOOD COUNT 4.3 10^3/uL (4.3-11.0)
[2016-12-22 11:11] LABS: ANION GAP 10 MMOL/L (5-14); BLOOD UREA NITROGEN 9 MG/DL (7-18); BUN/CREATININE RATIO 12; CALCIUM 9.3 MG/DL (8.5-10.1); CARBON DIOXIDE 27 MMOL/L (21-32); CHLORIDE 105 MMOL/L (98-107); CREATININE SERUM 0.77 MG/DL (0.60-1.30); GFR ESTIMATED > 60; GLUCOSE 218 MG/DL (70-105); POTASSIUM 3.5 MMOL/L (3.6-5.0); SODIUM 142 MMOL/L (135-145)
[2016-12-29 09:18] LABS: BASOPHILS % (AUTO) 1 % (0-10); EOSINOPHILS # (AUTO) 0.2 10^3/uL (0.0-0.3); EOSINOPHILS % (AUTO) 5 % (0-10); LYMPHOCYTES # (AUTO) 0.7 X 10^3 (1.0-4.0); LYMPHOCYTES % (AUTO) 19 % (12-44); MEAN CORPUSCULAR HEMOGLOBIN 27 PG (25-34); MEAN CORPUSCULAR HGB CONC 31 G/DL (32-36); MEAN CORPUSCULAR VOLUME 86 FL (80-99); MEAN PLATELET VOLUME 10.7 FL (7.4-10.4); MONOCYTES # (AUTO) 0.5 X 10^3 (0.0-1.0); MONOCYTES % (AUTO) 15 % (0-12); NEUTROPHILS % (AUTO) 60 % (42-75); PLATELET COUNT 105 10^3/uL (130-400); RED BLOOD COUNT 4.06 10^6/uL (4.35-5.85); RED CELL DISTRIBUTION WIDTH 15.7 % (10.0-14.5); WHITE BLOOD COUNT 3.4 10^3/uL (4.3-11.0)
[2016-12-29 09:42] LABS: ALANINE AMINOTRANSFERASE 22 U/L (0-55); ALBUMIN 3.4 G/DL (3.2-4.5); ANION GAP 10 MMOL/L (5-14); ASPARTATE AMINO TRANSFERASE 29 U/L (5-34); BILIRUBIN,TOTAL 0.7 MG/DL (0.1-1.0); BLOOD UREA NITROGEN 15 MG/DL (7-18); BUN/CREATININE RATIO 20; CALCIUM 8.8 MG/DL (8.5-10.1); CARBON DIOXIDE 24 MMOL/L (21-32); CHLORIDE 108 MMOL/L (98-107); CREATININE SERUM 0.76 MG/DL (0.60-1.30); GFR ESTIMATED > 60; GLUCOSE 224 MG/DL (70-105); MAGNESIUM 1.7 MG/DL (1.8-2.4); POTASSIUM 3.5 MMOL/L (3.6-5.0); SODIUM 142 MMOL/L (135-145); TOTAL PROTEIN 6.3 G/DL (6.4-8.2)
[2017-01-05 10:32] LABS: BASOPHILS % (AUTO) 0 % (0-10); EOSINOPHILS # (AUTO) 0.2 10^3/uL (0.0-0.3); EOSINOPHILS % (AUTO) 5 % (0-10); LYMPHOCYTES # (AUTO) 0.6 X 10^3 (1.0-4.0); LYMPHOCYTES % (AUTO) 15 % (12-44); MEAN CORPUSCULAR HEMOGLOBIN 27 PG (25-34); MEAN CORPUSCULAR HGB CONC 31 G/DL (32-36); MEAN CORPUSCULAR VOLUME 86 FL (80-99); MEAN PLATELET VOLUME 10.7 FL (7.4-10.4); MONOCYTES # (AUTO) 0.6 X 10^3 (0.0-1.0); MONOCYTES % (AUTO) 15 % (0-12); NEUTROPHILS # (AUTO) 2.5 X 10^3 (1.8-7.8); NEUTROPHILS % (AUTO) 65 % (42-75); PLATELET COUNT 93 10^3/uL (130-400); RED BLOOD COUNT 4.11 10^6/uL (4.35-5.85); WHITE BLOOD COUNT 3.9 10^3/uL (4.3-11.0)
[2017-01-05 11:06] LABS: ANION GAP 11 MMOL/L (5-14); BLOOD UREA NITROGEN 8 MG/DL (7-18); BUN/CREATININE RATIO 10; CALCIUM 9.4 MG/DL (8.5-10.1); CARBON DIOXIDE 24 MMOL/L (21-32); CHLORIDE 104 MMOL/L (98-107); CREATININE SERUM 0.82 MG/DL (0.60-1.30); GFR ESTIMATED > 60; GLUCOSE 268 MG/DL (70-105); SODIUM 139 MMOL/L (135-145)
[~2017-01-12] VITALS: Ht 170.2 cm; Wt 69.9 kg
[~2017-01-12 08:51] MED LIST changes: +ADO TRASTUZUMAB EMTANSINE IV SCH; +DENOSUMAB 60 MG/1 ML (PROLIA) SQ SCH; +FAMOTIDINE 20MG/2ML IV (CANCER CTR) IV SCH; +LORazepam 0.5 MG (ATIVAN) TABLET CANCER CTR PO PRN; +NS (IVPB) CANCER CENTER 250 ML IV SCH; +NS IV 1000 ML (CANCER CTR) IV SCH; +NS IV 500 ML (CANCER CENTER) 500 ML ONE; +NS IV SCH; +PALONOSETRON HCL 0.25 MG, DEXAMETHASONE PF INJECTION 10 MG in NS (IVPB) 50 ML IV PRN; +diphenhydrAMINE 25 MG TAB (BENADRYL) CANCER CENTER PO SCH
[2017-01-12 09:29] LABS: BASOPHILS % (AUTO) 1 % (0-10); EOSINOPHILS # (AUTO) 0.1 10^3/uL (0.0-0.3); EOSINOPHILS % (AUTO) 4 % (0-10); LYMPHOCYTES # (AUTO) 0.7 X 10^3 (1.0-4.0); LYMPHOCYTES % (AUTO) 18 % (12-44); MEAN CORPUSCULAR HEMOGLOBIN 26 PG (25-34); MEAN CORPUSCULAR HGB CONC 31 G/DL (32-36); MEAN CORPUSCULAR VOLUME 85 FL (80-99); MONOCYTES # (AUTO) 0.7 X 10^3 (0.0-1.0); MONOCYTES % (AUTO) 16 % (0-12); NEUTROPHILS # (AUTO) 2.5 X 10^3 (1.8-7.8); NEUTROPHILS % (AUTO) 62 % (42-75); PLATELET COUNT 99 10^3/uL (130-400); RED BLOOD COUNT 4.15 10^6/uL (4.35-5.85)
[2017-01-12 10:19] LABS: ANION GAP 5 MMOL/L (5-14); BLOOD UREA NITROGEN 11 MG/DL (7-18); BUN/CREATININE RATIO 13; CALCIUM 9.2 MG/DL (8.5-10.1); CARBON DIOXIDE 30 MMOL/L (21-32); CHLORIDE 104 MMOL/L (98-107); CREATININE SERUM 0.83 MG/DL (0.60-1.30); GFR ESTIMATED > 60; GLUCOSE 239 MG/DL (70-105); POTASSIUM 3.8 MMOL/L (3.6-5.0); SODIUM 139 MMOL/L (135-145)
== END 2017-01-18 | disposition home or self-care (01) ==
LOC: ONC 08:51
PROVIDERS: ATTEND Internal Medicine Hematology & Oncology
DX: Z51.11 Encounter for antineoplastic chemotherapy (principal); C50.911 Malignant neoplasm of unspecified site of right female breast; C77.3 Secondary and unspecified malignant neoplasm of axilla and upper limb lymph nodes; C77.0 Secondary and unspecified malignant neoplasm of lymph nodes of head, face and neck; C78.00 Secondary malignant neoplasm of unspecified lung; G54.0 Brachial plexus disorders; M85.80 Other specified disorders of bone density and structure, unspecified site; Z79.899 Other long term (current) drug therapy
CPT/HCPCS: 36415; 36591; 80048; 80053; 82306; 83735; 85025; 86300; 96375; 96413; 99213

== ENCOUNTER 2017-01-26 08:56 | Emergency (ER) | payer MEDICARE, MEDICAID ==
[~2017-01-26] VITALS: Ht 172.7 cm; Wt 68.9 kg
[~2017-01-26 08:56] MED LIST changes: -ADO TRASTUZUMAB EMTANSINE IV SCH; -DENOSUMAB 60 MG/1 ML (PROLIA) SQ SCH; -FAMOTIDINE 20MG/2ML IV (CANCER CTR) IV SCH; -LORazepam 0.5 MG (ATIVAN) TABLET CANCER CTR PO PRN; -NS (IVPB) CANCER CENTER 250 ML IV SCH; -NS IV 1000 ML (CANCER CTR) IV SCH; -NS IV 500 ML (CANCER CENTER) 500 ML ONE; -NS IV SCH; -PALONOSETRON HCL 0.25 MG, DEXAMETHASONE PF INJECTION 10 MG in NS (IVPB) 50 ML IV PRN; -diphenhydrAMINE 25 MG TAB (BENADRYL) CANCER CENTER PO SCH
--- NOTE | 2017-01-26 10:02 | ED Upper Extremity ---
General Chief Complaint: Upper Extremity Stated Complaint: FALL/RIGHT ARM INJURY Nursing Triage Note: TO ED PER W/C REPORTS FELL THIS AM HAVING PAIN IN R SHOULDER. ARM SWOLLEN FROM LYMPHEDEMA Nursing Sepsis Screen: No Definite Risk Source: patient Exam Limitations: no limitations History of Present Illness Time seen by provider: 09:45 Initial Comments The patient is a 76-year-old white female who presents to the emergency room with complaints of right shoulder pain after a fall. She had a right breast cancer with an extensive axillary exploration some years ago. She has significant lymphedema. Recently she has been found to have metastases. She is undergoing chemotherapy as a result. She sees Dr. Roe in the cancer center. A bone scan done in August 2016 showed no evidence of bony metastases. She reports she has little use of the right arm because of the lymphedema. Onset: just prior to arrival Pain/Injury Location: right shoulder Method of Injury: fell Allergies and Home Medications Allergies Coded Allergies: No Known Drug Allergies (Unverified , 04/07/16) Home Medications Acetaminophen 325 Mg Tablet, 650 MG PO Q4H PRN for PAIN, (Reported) TAKES 2 (325 MG) TABLETS Aspirin 81 Mg Chew, 81 MG PO DAILY, (Reported) Calcium Carbonate 300 Mg Tab.chew, 300 MG PO DAILY, (Reported) Denosumab 60 Mg/1 Ml Disp.syrin, 60 MG SQ EVERY 6 MONTHS, (Reported) LAST RECEIVED DECEMBER 2015 Docusate Sodium 100 Mg Capsule, 100 MG PO DAILY, (Reported) Enalapril Maleate 10 Mg Tablet, 10 MG PO BID, (Reported) LAST FILLED #60 02-21-16 Gabapentin 600 Mg Tablet, 600 MG PO TID, (Reported) LAST FILLED #270 12-04-16 Glimepiride 4 Mg Tablet, 8 MG PO DAILY, (Reported) TAKES 2 (4MG) TABLETS Hydrocodone/Acetaminophen 1 Each Tablet, 0.5-1 TAB PO Q6H PRN for PAIN, #30 Prescribed by: MARICRUZ NIETO on 04/15/16 0824 Ibuprofen 200 Mg Tablet, 400 MG PO Q8H PRN for PAIN, (Reported) TAKES 2 (200MG) TABLETS Insulin Glargine,Hum.rec.anlog 100 Unit/1 Ml Insuln.pen, 10 UNITS SC HS, ( Reported) Omeprazole 40 Mg Capsule.dr, 40 MG PO DAILY, (Reported) Pioglitazone HCl 15 Mg Tablet, 15 MG PO DAILY, (Reported) Constitutional: see HPI EENTM: no symptoms reported Respiratory: no symptoms reported Cardiovascular: no symptoms reported Gastrointestinal: no symptoms reported Musculoskeletal: see HPI Skin: no symptoms reported Psychiatric/Neurological: No Symptoms Reported Past Zkszcgj-Ygayag-Qcnoho Hx Patient Social History Alcohol Use: Denies Use Recreational Drug Use: No Smoking Status: Never a Smoker Recent Foreign Travel: No Contact w/Someone Who Travel: No Recent Infectious Disease Expo: No Recent Hopitalizations: No Immunizations Up To Date Tetanus Booster (TDap): More than 5yrs Date of Pneumonia Vaccine: Oct 15, 2013 Seasonal Allergies Seasonal Allergies: No Surgeries HX Surgeries: Yes (PORT PLACEMENT, carpal tunnel right) Surgeries: Breast, Orthopedic, Tonsillectomy Respiratory Hx Respiratory Disorders: No Cardiovascular Hx Cardiac Disorders: Yes Cardiac Disorders: Hypertension Neurological Hx Neurological Disorders: No Reproductive System Hx Reproductive Disorders: No Sexually Transmitted Disease: No HIV/AIDS: No Female Reproductive Disorders: Denies Genitourinary Hx Genitourinary Disorders: No Gastrointestinal Hx Gastrointestinal Disorders: Yes Gastrointestinal Disorders: Gastroesophageal Reflux Musculoskeletal Hx Musculoskeletal Disorders: Yes Musculoskeletal Disorders: Arthritis Endocrine Hx Endocrine Disorders: Yes Endocrine Disorders: Diabetes, Non-Insulin dep HEENT HX ENT Disorders: Yes HEENT Disorders: Cataract, Glaucoma Loss of Vision: Denies Hearing Impairment: Denies Cancer Hx Cancer: Yes (LYMPH NODES, RIGHT BREAST) Cancer: Breast Psychosocial Hx Psychiatric Problems: No Integumentary HX Skin/Integumentary Disorder: No Blood Transfusions Hx Blood Disorders: No Adverse Reaction to a Blood Tr: No Family Medical History Significant Family History: Cancer, CVA, Psychiatric Problems Family Medial History: Alzheimer's disease 19 MOTHER Arthritis 19 MOTHER Cardiovascular disease 19 MOTHER Completed stroke Grandmother FH: breast cancer Grandmother FH: multiple sclerosis 19 FATHER FHx: multiple sclerosis Myocardial infarction 19 MOTHER G8 BROTHER Physical Exam Vital Signs Vital Sign - Last 12Hours 01/26/17 09:03 Temp 97.0 Pulse 92 Resp 16 B/P (MAP) 138/70 Pulse Ox 99 O2 Delivery Room Air Capillary Refill : Less Than 3 Seconds General Appearance: mild distress HEENT: normal ENT inspection Neck: non-tender, full range of motion, supple, normal inspection Cardiovascular: normal peripheral pulses, regular rate, rhythm, no edema, no gallop, no JVD, no murmur Respiratory: chest non-tender, lungs clear, normal breath sounds, no respiratory distress, no accessory muscle use Gastrointestinal: normal bowel sounds, non tender, soft, no organomegaly, no pulsatile mass, abnormal bowel sounds Shoulder: normal inspection, pain Elbow/Forearm: normal inspection, non-tender, no evidence of injury, normal ROM Neurologic/Psychiatric: social security benefits interviewer II-XII nml as tested, no motor/sensory deficits, alert, normal mood/affect, oriented x 3 Skin: normal color, warm/dry Comments There is extensive lymphedema of the right arm from the fingertips upward. The skin is a floridalma color. There is no deformity noted at the shoulder. Splinting and Joint Reduction : Arm Sling: Medium Progress/Results/Core Measures Results/Orders My Orders Orders - KATHY FONTENOT MD Shoulder, Right, 3 Views (01/26/17 09:09) Vital Signs/I&O Vital Sign - Last 12Hours 01/26/17 09:03 Temp 97.0 Pulse 92 Resp 16 B/P (MAP) 138/70 Pulse Ox 99 O2 Delivery Room Air Blood Pressure Mean: 92 Departure Communication Progress Notes Shoulder films by my review shows a minimally displaced subcapital fracture of the right humerus Impression Impression: Primary Impression: humeral neck fracture Disposition: 01 HOME, SELF-CARE Departure-Patient Inst. Decision time for Depature: 10:02 Referrals: MACY JOHANSEN MD (PCP/Family) Primary Care Physician Patient Instructions: How to Use a Shoulder Sling Add. Discharge Instructions: All discharge instructions reviewed with patient and/or family. Voiced understanding. Use your pain medications as necessary. The sling should be useful in reducing pain. Resume other activities as tolerated. KATHY FONTENOT MD Jan 26, 2017 10:02
--- NOTE | 2017-01-26 10:04 | Diagnostic Imaging Report ---
3 views of the right shoulder. INDICATION: Pain in the right shoulder after fall. FINDINGS: There is a transverse fracture at the surgical neck of the right humerus with minimal comminution. There is no significant displacement, however due to slight abduction. There is slightly more distraction at the fracture site laterally. There is degenerative change seen in the acromioclavicular and glenohumeral joints. Surgical clips in the right axilla seen and infusion port is also noted. IMPRESSION: Transverse fracture at the surgical neck of the right humerus with mild distraction laterally secondary to slight abduction of the humeral head. Dictated by: Dictated on workstation # [id number]
[2017-01-26 10:07] VITALS: BP 138/70
== END 2017-01-26 10:07 | disposition home or self-care (01) ==
LOC: EDUNIT# 08:56 → ER 08:59
DX: S42.321A Displaced transverse fracture of shaft of humerus, right arm, initial encounter for closed fracture (principal); I97.2 Postmastectomy lymphedema syndrome; C79.9 Secondary malignant neoplasm of unspecified site; E11.9 Type 2 diabetes mellitus without complications; I10 Essential (primary) hypertension; Z79.82 Long term (current) use of aspirin; Z79.4 Long term (current) use of insulin; Z79.899 Other long term (current) drug therapy; Z85.3 Personal history of malignant neoplasm of breast; W19.XXXA Unspecified fall, initial encounter; Y99.8 Other external cause status
CPT/HCPCS: 73030; 99283

== ENCOUNTER → 2017-01-30 | Outpatient (CLI) | payer MEDICARE, MEDICAID ==
--- NOTE | 2017-01-30 18:06 | Diagnostic Imaging Report ---
Left breast diagnostic mammogram. INDICATION: History of breast cancer status post mastectomy on the right side. Left breast lump. The current study was also evaluated with a Computer Aided Detection (CAD) system. FINDINGS: Medial left breast lump is marked with no definite underlying abnormality seen in that location. There is, however, heterogeneously dense parenchyma in the rest of the breast which may decrease mammographic sensitivity. Scattered benign-appearing calcifications are also seen. IMPRESSION: Stable dense breast parenchyma with no definite suspicious abnormality. Ultrasound evaluation pending. ACR BI-RADS Category 0: Incomplete. (Needs additional imaging evaluation). Result letter will be mailed to the patient. Note: At least 10% of breast cancer is not imaged by mammography. Dictated by: Dictated on workstation # [id number]
--- NOTE | 2017-01-30 18:14 | Diagnostic Imaging Report ---
Left breast ultrasound. INDICATION: Left breast lump. FINDINGS: The retroareolar region and the four quadrants of the left breast are scanned with no underlying abnormality seen. IMPRESSION: Negative study. Clinical follow-up recommended. ACR BI-RADS Category 1: Negative. Dictated by: Dictated on workstation # [id number]
== END ==
LOC: RAD 08:03
PROVIDERS: ATTEND Nurse Practitioner Adult Health
DX: N63 Unspecified lump in breast (principal); C50.411 Malignant neoplasm of upper-outer quadrant of right female breast
CPT/HCPCS: 76641

== ENCOUNTER → 2017-04-19 | Outpatient (RCR) | payer MEDICARE, MEDICAID ==
[2017-01-19 09:12] LABS: BASOPHILS % (AUTO) 1 % (0-10); EOSINOPHILS # (AUTO) 0.1 10^3/uL (0.0-0.3); EOSINOPHILS % (AUTO) 3 % (0-10); LYMPHOCYTES # (AUTO) 0.7 X 10^3 (1.0-4.0); LYMPHOCYTES % (AUTO) 18 % (12-44); MEAN CORPUSCULAR HEMOGLOBIN 27 PG (25-34); MEAN CORPUSCULAR HGB CONC 32 G/DL (32-36); MEAN CORPUSCULAR VOLUME 85 FL (80-99); MEAN PLATELET VOLUME 11.4 FL (7.4-10.4); MONOCYTES # (AUTO) 0.4 X 10^3 (0.0-1.0); MONOCYTES % (AUTO) 12 % (0-12); NEUTROPHILS # (AUTO) 2.4 X 10^3 (1.8-7.8); NEUTROPHILS % (AUTO) 66 % (42-75); PLATELET COUNT 99 10^3/uL (130-400); RED BLOOD COUNT 4.05 10^6/uL (4.35-5.85); RED CELL DISTRIBUTION WIDTH 16.2 % (10.0-14.5); WHITE BLOOD COUNT 3.6 10^3/uL (4.3-11.0)
[2017-01-19 09:40] LABS: ALANINE AMINOTRANSFERASE 22 U/L (0-55); ALBUMIN 3.4 G/DL (3.2-4.5); ANION GAP 7 MMOL/L (5-14); ASPARTATE AMINO TRANSFERASE 34 U/L (5-34); BILIRUBIN,TOTAL 0.7 MG/DL (0.1-1.0); BLOOD UREA NITROGEN 11 MG/DL (7-18); BUN/CREATININE RATIO 14; CALCIUM 9.1 MG/DL (8.5-10.1); CARBON DIOXIDE 25 MMOL/L (21-32); CHLORIDE 106 MMOL/L (98-107); CREATININE SERUM 0.79 MG/DL (0.60-1.30); GFR ESTIMATED > 60; GLUCOSE 273 MG/DL (70-105); POTASSIUM 3.7 MMOL/L (3.6-5.0); SODIUM 138 MMOL/L (135-145); TOTAL PROTEIN 6.6 G/DL (6.4-8.2)
[2017-01-26 10:47] LABS: BASOPHILS % (AUTO) 0 % (0-10); EOSINOPHILS # (AUTO) 0.1 10^3/uL (0.0-0.3); EOSINOPHILS % (AUTO) 2 % (0-10); LYMPHOCYTES # (AUTO) 0.5 X 10^3 (1.0-4.0); LYMPHOCYTES % (AUTO) 12 % (12-44); MEAN CORPUSCULAR HEMOGLOBIN 27 PG (25-34); MEAN CORPUSCULAR HGB CONC 31 G/DL (32-36); MEAN CORPUSCULAR VOLUME 85 FL (80-99); MEAN PLATELET VOLUME 11.5 FL (7.4-10.4); MONOCYTES # (AUTO) 0.4 X 10^3 (0.0-1.0); MONOCYTES % (AUTO) 10 % (0-12); NEUTROPHILS # (AUTO) 3.4 X 10^3 (1.8-7.8); NEUTROPHILS % (AUTO) 76 % (42-75); PLATELET COUNT 88 10^3/uL (130-400); RED BLOOD COUNT 3.98 10^6/uL (4.35-5.85); RED CELL DISTRIBUTION WIDTH 16.4 % (10.0-14.5); WHITE BLOOD COUNT 4.5 10^3/uL (4.3-11.0)
[2017-01-26 11:29] LABS: ANION GAP 11 MMOL/L (5-14); BLOOD UREA NITROGEN 14 MG/DL (7-18); BUN/CREATININE RATIO 16; CALCIUM 9.2 MG/DL (8.5-10.1); CARBON DIOXIDE 24 MMOL/L (21-32); CHLORIDE 103 MMOL/L (98-107); GFR ESTIMATED > 60; GLUCOSE 336 MG/DL (70-105); POTASSIUM 3.6 MMOL/L (3.6-5.0); SODIUM 138 MMOL/L (135-145)
[2017-02-02 10:29] LABS: BASOPHILS % (AUTO) 1 % (0-10); EOSINOPHILS # (AUTO) 0.1 10^3/uL (0.0-0.3); EOSINOPHILS % (AUTO) 3 % (0-10); LYMPHOCYTES # (AUTO) 0.6 X 10^3 (1.0-4.0); LYMPHOCYTES % (AUTO) 14 % (12-44); MEAN CORPUSCULAR HEMOGLOBIN 27 PG (25-34); MEAN CORPUSCULAR HGB CONC 31 G/DL (32-36); MEAN CORPUSCULAR VOLUME 85 FL (80-99); MEAN PLATELET VOLUME 10.4 FL (7.4-10.4); MONOCYTES # (AUTO) 0.5 X 10^3 (0.0-1.0); MONOCYTES % (AUTO) 12 % (0-12); NEUTROPHILS # (AUTO) 2.9 X 10^3 (1.8-7.8); NEUTROPHILS % (AUTO) 70 % (42-75); PLATELET COUNT 124 10^3/uL (130-400); RED BLOOD COUNT 3.78 10^6/uL (4.35-5.85); RED CELL DISTRIBUTION WIDTH 16.8 % (10.0-14.5); WHITE BLOOD COUNT 4.2 10^3/uL (4.3-11.0)
[2017-02-02 11:03] LABS: ANION GAP 7 MMOL/L (5-14); BLOOD UREA NITROGEN 12 MG/DL (7-18); BUN/CREATININE RATIO 16; CALCIUM 8.9 MG/DL (8.5-10.1); CARBON DIOXIDE 28 MMOL/L (21-32); CHLORIDE 105 MMOL/L (98-107); CREATININE SERUM 0.77 MG/DL (0.60-1.30); GFR ESTIMATED > 60; GLUCOSE 217 MG/DL (70-105); POTASSIUM 3.7 MMOL/L (3.6-5.0); SODIUM 140 MMOL/L (135-145)
[2017-02-09 11:24] LABS: BASOPHILS % (AUTO) 1 % (0-10); EOSINOPHILS # (AUTO) 0.1 10^3/uL (0.0-0.3); EOSINOPHILS % (AUTO) 4 % (0-10); LYMPHOCYTES # (AUTO) 0.6 X 10^3 (1.0-4.0); LYMPHOCYTES % (AUTO) 19 % (12-44); MEAN CORPUSCULAR HEMOGLOBIN 26 PG (25-34); MEAN CORPUSCULAR HGB CONC 30 G/DL (32-36); MEAN CORPUSCULAR VOLUME 86 FL (80-99); MEAN PLATELET VOLUME 10.6 FL (7.4-10.4); MONOCYTES # (AUTO) 0.4 X 10^3 (0.0-1.0); MONOCYTES % (AUTO) 13 % (0-12); NEUTROPHILS % (AUTO) 64 % (42-75); PLATELET COUNT 131 10^3/uL (130-400); RED BLOOD COUNT 3.92 10^6/uL (4.35-5.85); RED CELL DISTRIBUTION WIDTH 16.9 % (10.0-14.5); WHITE BLOOD COUNT 3.2 10^3/uL (4.3-11.0)
[2017-02-09 11:46] LABS: ALANINE AMINOTRANSFERASE 19 U/L (0-55); ALBUMIN 3.5 G/DL (3.2-4.5); ANION GAP 11 MMOL/L (5-14); ASPARTATE AMINO TRANSFERASE 28 U/L (5-34); BLOOD UREA NITROGEN 12 MG/DL (7-18); BUN/CREATININE RATIO 15; CALCIUM 9.4 MG/DL (8.5-10.1); CARBON DIOXIDE 23 MMOL/L (21-32); CHLORIDE 106 MMOL/L (98-107); CREATININE SERUM 0.82 MG/DL (0.60-1.30); GFR ESTIMATED > 60; GLUCOSE 231 MG/DL (70-105); POTASSIUM 3.7 MMOL/L (3.6-5.0); SODIUM 140 MMOL/L (135-145); TOTAL PROTEIN 6.5 G/DL (6.4-8.2)
[2017-02-16 09:04] LABS: BASOPHILS % (AUTO) 1 % (0-10); EOSINOPHILS # (AUTO) 0.2 10^3/uL (0.0-0.3); EOSINOPHILS % (AUTO) 5 % (0-10); LYMPHOCYTES # (AUTO) 0.8 X 10^3 (1.0-4.0); LYMPHOCYTES % (AUTO) 17 % (12-44); MEAN CORPUSCULAR HEMOGLOBIN 27 PG (25-34); MEAN CORPUSCULAR HGB CONC 31 G/DL (32-36); MEAN CORPUSCULAR VOLUME 86 FL (80-99); MEAN PLATELET VOLUME 10.6 FL (7.4-10.4); MONOCYTES # (AUTO) 0.6 X 10^3 (0.0-1.0); MONOCYTES % (AUTO) 14 % (0-12); NEUTROPHILS # (AUTO) 2.8 X 10^3 (1.8-7.8); NEUTROPHILS % (AUTO) 64 % (42-75); PLATELET COUNT 107 10^3/uL (130-400); RED BLOOD COUNT 3.95 10^6/uL (4.35-5.85); RED CELL DISTRIBUTION WIDTH 17.3 % (10.0-14.5); WHITE BLOOD COUNT 4.4 10^3/uL (4.3-11.0)
[2017-02-16 09:56] LABS: ANION GAP 9 MMOL/L (5-14); BLOOD UREA NITROGEN 10 MG/DL (7-18); BUN/CREATININE RATIO 13; CALCIUM 9.4 MG/DL (8.5-10.1); CARBON DIOXIDE 27 MMOL/L (21-32); CHLORIDE 105 MMOL/L (98-107); GFR ESTIMATED > 60; GLUCOSE 259 MG/DL (70-105); POTASSIUM 3.4 MMOL/L (3.6-5.0); SODIUM 141 MMOL/L (135-145)
[2017-02-23 10:06] LABS: BASOPHILS % (AUTO) 1 % (0-10); EOSINOPHILS # (AUTO) 0.2 10^3/uL (0.0-0.3); EOSINOPHILS % (AUTO) 4 % (0-10); LYMPHOCYTES # (AUTO) 0.7 X 10^3 (1.0-4.0); LYMPHOCYTES % (AUTO) 17 % (12-44); MEAN CORPUSCULAR HEMOGLOBIN 26 PG (25-34); MEAN CORPUSCULAR HGB CONC 31 G/DL (32-36); MEAN CORPUSCULAR VOLUME 86 FL (80-99); MEAN PLATELET VOLUME 10.6 FL (7.4-10.4); MONOCYTES # (AUTO) 0.6 X 10^3 (0.0-1.0); MONOCYTES % (AUTO) 15 % (0-12); NEUTROPHILS # (AUTO) 2.6 X 10^3 (1.8-7.8); NEUTROPHILS % (AUTO) 64 % (42-75); PLATELET COUNT 92 10^3/uL (130-400); RED BLOOD COUNT 3.99 10^6/uL (4.35-5.85); RED CELL DISTRIBUTION WIDTH 17.5 % (10.0-14.5); WHITE BLOOD COUNT 4.2 10^3/uL (4.3-11.0)
[2017-02-23 10:39] LABS: ANION GAP 9 MMOL/L (5-14); BLOOD UREA NITROGEN 10 MG/DL (7-18); BUN/CREATININE RATIO 12; CALCIUM 9.9 MG/DL (8.5-10.1); CARBON DIOXIDE 28 MMOL/L (21-32); CHLORIDE 103 MMOL/L (98-107); CREATININE SERUM 0.82 MG/DL (0.60-1.30); GFR ESTIMATED > 60; GLUCOSE 242 MG/DL (70-105); POTASSIUM 3.9 MMOL/L (3.6-5.0); SODIUM 140 MMOL/L (135-145)
[2017-03-02 14:19] LABS: BASOPHILS % (AUTO) 1 % (0-10); EOSINOPHILS # (AUTO) 0.1 10^3/uL (0.0-0.3); EOSINOPHILS % (AUTO) 3 % (0-10); LYMPHOCYTES # (AUTO) 0.7 X 10^3 (1.0-4.0); LYMPHOCYTES % (AUTO) 17 % (12-44); MEAN CORPUSCULAR HEMOGLOBIN 27 PG (25-34); MEAN CORPUSCULAR HGB CONC 31 G/DL (32-36); MEAN CORPUSCULAR VOLUME 86 FL (80-99); MEAN PLATELET VOLUME 10.9 FL (7.4-10.4); MONOCYTES # (AUTO) 0.6 X 10^3 (0.0-1.0); MONOCYTES % (AUTO) 13 % (0-12); NEUTROPHILS # (AUTO) 2.8 X 10^3 (1.8-7.8); NEUTROPHILS % (AUTO) 66 % (42-75); PLATELET COUNT 88 10^3/uL (130-400); RED BLOOD COUNT 3.86 10^6/uL (4.35-5.85); RED CELL DISTRIBUTION WIDTH 16.8 % (10.0-14.5); WHITE BLOOD COUNT 4.2 10^3/uL (4.3-11.0)
[2017-03-02 14:39] LABS: ALANINE AMINOTRANSFERASE 23 U/L (0-55); ALBUMIN 3.4 G/DL (3.2-4.5); ANION GAP 7 MMOL/L (5-14); ASPARTATE AMINO TRANSFERASE 33 U/L (5-34); BILIRUBIN,TOTAL 1.1 MG/DL (0.1-1.0); BLOOD UREA NITROGEN 9 MG/DL (7-18); BUN/CREATININE RATIO 12; CALCIUM 9.8 MG/DL (8.5-10.1); CARBON DIOXIDE 28 MMOL/L (21-32); CHLORIDE 102 MMOL/L (98-107); CREATININE SERUM 0.78 MG/DL (0.60-1.30); GFR ESTIMATED > 60; GLUCOSE 241 MG/DL (70-105); MAGNESIUM 1.6 MG/DL (1.8-2.4); POTASSIUM 3.6 MMOL/L (3.6-5.0); SODIUM 137 MMOL/L (135-145); TOTAL PROTEIN 6.4 G/DL (6.4-8.2)
[2017-03-15 09:54] LABS: BASOPHILS % (AUTO) 1 % (0-10); EOSINOPHILS # (AUTO) 0.2 10^3/uL (0.0-0.3); EOSINOPHILS % (AUTO) 6 % (0-10); LYMPHOCYTES # (AUTO) 0.6 X 10^3 (1.0-4.0); LYMPHOCYTES % (AUTO) 20 % (12-44); MEAN CORPUSCULAR HEMOGLOBIN 27 PG (25-34); MEAN CORPUSCULAR HGB CONC 32 G/DL (32-36); MEAN CORPUSCULAR VOLUME 85 FL (80-99); MEAN PLATELET VOLUME 10.8 FL (7.4-10.4); MONOCYTES # (AUTO) 0.5 X 10^3 (0.0-1.0); MONOCYTES % (AUTO) 15 % (0-12); NEUTROPHILS # (AUTO) 1.8 X 10^3 (1.8-7.8); NEUTROPHILS % (AUTO) 58 % (42-75); PLATELET COUNT 82 10^3/uL (130-400); RED CELL DISTRIBUTION WIDTH 17.3 % (10.0-14.5); WHITE BLOOD COUNT 3.1 10^3/uL (4.3-11.0)
[2017-03-15 10:27] LABS: ALANINE AMINOTRANSFERASE 20 U/L (0-55); ALBUMIN 3.2 G/DL (3.2-4.5); ANION GAP 11 MMOL/L (5-14); ASPARTATE AMINO TRANSFERASE 34 U/L (5-34); BILIRUBIN,TOTAL 0.8 MG/DL (0.1-1.0); BLOOD UREA NITROGEN 12 MG/DL (7-18); BUN/CREATININE RATIO 16; CALCIUM 9.9 MG/DL (8.5-10.1); CARBON DIOXIDE 23 MMOL/L (21-32); CHLORIDE 107 MMOL/L (98-107); CREATININE SERUM 0.76 MG/DL (0.60-1.30); GFR ESTIMATED > 60; GLUCOSE 225 MG/DL (70-105); MAGNESIUM 1.4 MG/DL (1.8-2.4); POTASSIUM 3.6 MMOL/L (3.6-5.0); SODIUM 141 MMOL/L (135-145); TOTAL PROTEIN 6.4 G/DL (6.4-8.2)
[2017-03-22 09:51] LABS: BASOPHILS % (AUTO) 0 % (0-10); EOSINOPHILS # (AUTO) 0.2 10^3/uL (0.0-0.3); EOSINOPHILS % (AUTO) 6 % (0-10); LYMPHOCYTES # (AUTO) 0.7 X 10^3 (1.0-4.0); LYMPHOCYTES % (AUTO) 18 % (12-44); MEAN CORPUSCULAR HEMOGLOBIN 27 PG (25-34); MEAN CORPUSCULAR HGB CONC 31 G/DL (32-36); MEAN CORPUSCULAR VOLUME 86 FL (80-99); MEAN PLATELET VOLUME 11.3 FL (7.4-10.4); MONOCYTES # (AUTO) 0.6 X 10^3 (0.0-1.0); MONOCYTES % (AUTO) 14 % (0-12); NEUTROPHILS # (AUTO) 2.5 X 10^3 (1.8-7.8); NEUTROPHILS % (AUTO) 62 % (42-75); PLATELET COUNT 62 10^3/uL (130-400); RED BLOOD COUNT 3.91 10^6/uL (4.35-5.85); WHITE BLOOD COUNT 4.1 10^3/uL (4.3-11.0)
[2017-03-22 10:13] LABS: ANION GAP 10 MMOL/L (5-14); BLOOD UREA NITROGEN 12 MG/DL (7-18); BUN/CREATININE RATIO 15; CALCIUM 9.8 MG/DL (8.5-10.1); CARBON DIOXIDE 25 MMOL/L (21-32); CHLORIDE 106 MMOL/L (98-107); CREATININE SERUM 0.81 MG/DL (0.60-1.30); GFR ESTIMATED > 60; GLUCOSE 257 MG/DL (70-105); MAGNESIUM 1.7 MG/DL (1.8-2.4); POTASSIUM 3.7 MMOL/L (3.6-5.0); SODIUM 141 MMOL/L (135-145)
[2017-03-29 10:28] LABS: BASOPHILS % (AUTO) 1 % (0-10); EOSINOPHILS # (AUTO) 0.2 10^3/uL (0.0-0.3); EOSINOPHILS % (AUTO) 4 % (0-10); LYMPHOCYTES # (AUTO) 0.7 X 10^3 (1.0-4.0); LYMPHOCYTES % (AUTO) 15 % (12-44); MEAN CORPUSCULAR HEMOGLOBIN 27 PG (25-34); MEAN CORPUSCULAR HGB CONC 31 G/DL (32-36); MEAN CORPUSCULAR VOLUME 87 FL (80-99); MEAN PLATELET VOLUME 11.4 FL (7.4-10.4); MONOCYTES # (AUTO) 0.6 X 10^3 (0.0-1.0); MONOCYTES % (AUTO) 13 % (0-12); NEUTROPHILS % (AUTO) 68 % (42-75); PLATELET COUNT 76 10^3/uL (130-400); RED BLOOD COUNT 3.88 10^6/uL (4.35-5.85); RED CELL DISTRIBUTION WIDTH 16.9 % (10.0-14.5); WHITE BLOOD COUNT 4.4 10^3/uL (4.3-11.0)
[2017-03-29 10:53] LABS: ANION GAP 10 MMOL/L (5-14); BLOOD UREA NITROGEN 10 MG/DL (7-18); BUN/CREATININE RATIO 12 (0-20); CALCIUM 9.7 MG/DL (8.5-10.1); CARBON DIOXIDE 26 MMOL/L (21-32); CHLORIDE 105 MMOL/L (98-107); CREATININE SERUM 0.81 MG/DL (0.60-1.30); GFR ESTIMATED > 60; GLUCOSE 301 MG/DL (70-105); MAGNESIUM 1.6 MG/DL (1.8-2.4); POTASSIUM 3.7 MMOL/L (3.6-5.0); SODIUM 141 MMOL/L (135-145)
[2017-04-06 11:20] LABS: BASOPHILS % (AUTO) 1 % (0-10); EOSINOPHILS # (AUTO) 0.1 10^3/uL (0.0-0.3); EOSINOPHILS % (AUTO) 4 % (0-10); LYMPHOCYTES # (AUTO) 0.7 X 10^3 (1.0-4.0); LYMPHOCYTES % (AUTO) 17 % (12-44); MEAN CORPUSCULAR HEMOGLOBIN 27 PG (25-34); MEAN CORPUSCULAR HGB CONC 31 G/DL (32-36); MEAN CORPUSCULAR VOLUME 87 FL (80-99); MEAN PLATELET VOLUME 10.6 FL (7.4-10.4); MONOCYTES # (AUTO) 0.5 X 10^3 (0.0-1.0); MONOCYTES % (AUTO) 13 % (0-12); NEUTROPHILS # (AUTO) 2.5 X 10^3 (1.8-7.8); NEUTROPHILS % (AUTO) 65 % (42-75); PLATELET COUNT 85 10^3/uL (130-400); RED BLOOD COUNT 3.94 10^6/uL (4.35-5.85); RED CELL DISTRIBUTION WIDTH 16.8 % (10.0-14.5); WHITE BLOOD COUNT 3.8 10^3/uL (4.3-11.0)
[2017-04-06 11:56] LABS: ALBUMIN 3.2 GM/DL (3.2-4.5); BILIRUBIN,TOTAL 0.8 MG/DL (0.1-1.0); CALCIUM 9.7 MG/DL (8.5-10.1); CREATININE SERUM 0.91 MG/DL (0.60-1.30); ICTERUS 0.9 (-100-1.9); MAGNESIUM 1.7 MG/DL (1.8-2.4); POTASSIUM 3.8 MMOL/L (3.6-5.0); TOTAL PROTEIN 6.5 GM/DL (6.4-8.2)
[2017-04-13 10:34] LABS: BASOPHILS % (AUTO) 1 % (0-10); EOSINOPHILS # (AUTO) 0.2 10^3/uL (0.0-0.3); EOSINOPHILS % (AUTO) 4 % (0-10); LYMPHOCYTES # (AUTO) 0.9 X 10^3 (1.0-4.0); LYMPHOCYTES % (AUTO) 20 % (12-44); MEAN CORPUSCULAR HEMOGLOBIN 27 PG (25-34); MEAN CORPUSCULAR HGB CONC 31 G/DL (32-36); MEAN CORPUSCULAR VOLUME 86 FL (80-99); MEAN PLATELET VOLUME 10.4 FL (7.4-10.4); MONOCYTES # (AUTO) 0.8 X 10^3 (0.0-1.0); MONOCYTES % (AUTO) 18 % (0-12); NEUTROPHILS # (AUTO) 2.5 X 10^3 (1.8-7.8); NEUTROPHILS % (AUTO) 58 % (42-75); PLATELET COUNT 87 10^3/uL (130-400); RED BLOOD COUNT 3.99 10^6/uL (4.35-5.85); WHITE BLOOD COUNT 4.3 10^3/uL (4.3-11.0)
[2017-04-13 11:18] LABS: ANION GAP 10 MMOL/L (5-14); BLOOD UREA NITROGEN 11 MG/DL (7-18); BUN/CREATININE RATIO 14; CALCIUM 9.7 MG/DL (8.5-10.1); CARBON DIOXIDE 25 MMOL/L (21-32); CHLORIDE 106 MMOL/L (98-107); CREATININE SERUM 0.77 MG/DL (0.60-1.30); GFR ESTIMATED > 60; GLUCOSE 208 MG/DL (70-105); POTASSIUM 3.6 MMOL/L (3.6-5.0); SODIUM 141 MMOL/L (135-145)
[~2017-04-19] VITALS: Ht 170.2 cm; Wt 67.1 kg
[~2017-04-19] MED LIST changes: +ACET-93 PO; +ADO TRASTUZUMAB EMTANSINE IV SCH; +DENOSUMAB 60 MG/1 ML (PROLIA) SQ SCH; +FAMOTIDINE 20MG/2ML IV (CANCER CTR) IV SCH; +LORazepam 0.5 MG (ATIVAN) TABLET CANCER CTR PO PRN; +NS (IVPB) CANCER CENTER 250 ML IV SCH; +NS IV 1000 ML (CANCER CTR) IV SCH; +NS IV SCH; +PALONOSETRON HCL 0.25 MG, DEXAMETHASONE PF INJECTION 10 MG in NS (IVPB) 50 ML IV PRN; +diphenhydrAMINE 25 MG TAB (BENADRYL) CANCER CENTER PO SCH
[2017-04-19 11:10] LABS: BASOPHILS % (AUTO) 1 % (0-10); EOSINOPHILS # (AUTO) 0.2 10^3/uL (0.0-0.3); EOSINOPHILS % (AUTO) 4 % (0-10); LYMPHOCYTES # (AUTO) 0.7 X 10^3 (1.0-4.0); LYMPHOCYTES % (AUTO) 17 % (12-44); MEAN CORPUSCULAR HEMOGLOBIN 27 PG (25-34); MEAN CORPUSCULAR HGB CONC 31 G/DL (32-36); MEAN CORPUSCULAR VOLUME 85 FL (80-99); MEAN PLATELET VOLUME 10.3 FL (7.4-10.4); MONOCYTES # (AUTO) 0.6 X 10^3 (0.0-1.0); MONOCYTES % (AUTO) 14 % (0-12); NEUTROPHILS # (AUTO) 2.8 X 10^3 (1.8-7.8); NEUTROPHILS % (AUTO) 65 % (42-75); PLATELET COUNT 97 10^3/uL (130-400); RED BLOOD COUNT 4.33 10^6/uL (4.35-5.85); RED CELL DISTRIBUTION WIDTH 16.9 % (10.0-14.5); WHITE BLOOD COUNT 4.3 10^3/uL (4.3-11.0)
[2017-04-19 12:08] LABS: ANION GAP 10 MMOL/L (5-14); BLOOD UREA NITROGEN 9 MG/DL (7-18); BUN/CREATININE RATIO 11; CALCIUM 9.9 MG/DL (8.5-10.1); CARBON DIOXIDE 27 MMOL/L (21-32); CHLORIDE 104 MMOL/L (98-107); CREATININE SERUM 0.79 MG/DL (0.60-1.30); GFR ESTIMATED > 60; GLUCOSE 303 MG/DL (70-105); MAGNESIUM 1.7 MG/DL (1.8-2.4); POTASSIUM 3.6 MMOL/L (3.6-5.0); SODIUM 141 MMOL/L (135-145)
== END | disposition home or self-care (01) ==
LOC: ONC 01-19 08:57
PROVIDERS: ATTEND Internal Medicine Hematology & Oncology
DX: Z51.11 Encounter for antineoplastic chemotherapy (principal); C50.411 Malignant neoplasm of upper-outer quadrant of right female breast; C77.3 Secondary and unspecified malignant neoplasm of axilla and upper limb lymph nodes; C77.0 Secondary and unspecified malignant neoplasm of lymph nodes of head, face and neck; C78.02 Secondary malignant neoplasm of left lung; G54.0 Brachial plexus disorders; M85.80 Other specified disorders of bone density and structure, unspecified site; Z79.899 Other long term (current) drug therapy
CPT/HCPCS: 36415; 36591; 80048; 80053; 83735; 85025; 96375; 96413; 99213

== ENCOUNTER → 2017-05-15 | Outpatient (CLI) | payer MEDICARE, MEDICAID ==
[~2017-05-15] MED LIST changes: -ADO TRASTUZUMAB EMTANSINE IV SCH; +BARIUM SUSPENSION 2.1% (VANILLA SILQ) 450 ML PO ONE; +CATHETER FLUSH 10 ML SYR IV PRN; -DENOSUMAB 60 MG/1 ML (PROLIA) SQ SCH; -FAMOTIDINE 20MG/2ML IV (CANCER CTR) IV SCH; +IOHEXOL 350 MG/ML 100 ML (OMNIPAQUE 350) VIAL IV ONE; -LORazepam 0.5 MG (ATIVAN) TABLET CANCER CTR PO PRN; -NS (IVPB) CANCER CENTER 250 ML IV SCH; +NS 100 ML (IVPB) BAG IV ONE; -NS IV 1000 ML (CANCER CTR) IV SCH; -NS IV SCH; -PALONOSETRON HCL 0.25 MG, DEXAMETHASONE PF INJECTION 10 MG in NS (IVPB) 50 ML IV PRN; -diphenhydrAMINE 25 MG TAB (BENADRYL) CANCER CENTER PO SCH
--- NOTE | 2017-05-15 10:56 | Diagnostic Imaging Report ---
EXAM: CT NECK/CHEST/ABDOMEN W INDICATION: BREAST CA C50.411 COMPARISON: CT neck, chest and abdomen 08/23/2016. Nuclear medicine FDG PET/CT 05/31/2016. FINDINGS: NECK: Since the prior exam, there has been interval improvement of the ill-defined soft tissue attenuation in the supraclavicular right neck, lateral to the anterior scalene musculature. This measures approximately 1.0 x 1.9 x 0.8 cm (LR x AP x SI), previously 2.2 x 1.3 x 1.4 cm. The right anterior scalene musculature remains prominent compared to the contralateral side. Persistent pleural thickening in the right lung apex may be related to treatment. No cervical lymphadenopathy. No new mass or fluid collection. The pharyngeal and laryngeal soft tissues are symmetric bilaterally with no focal mass or enhancement. Mild arterial calcifications including the carotid bifurcations. The thyroid and major salivary glands are unremarkable. The cervical, carotid and vertebral arteries are widely patent on this nondedicated exam. Moderate spondylotic changes in the cervical spine. The skull base, mastoids and visualized intracranial contents are unremarkable. Minimal mucosal thickening in the left maxillary sinus. CHEST: Right mastectomy and postoperative changes in the right axilla. There is a mildly enhancing soft tissue nodule in the right axilla along the medial margin of the surgical clips measuring approximately 1.4 x 1.1 x 1.9 cm. This has progressed since the prior exam. Stable right apical pleural thickening. Mild scarring in the right lung base and posterior left lower lobe. Mild groundglass opacities in the medial right lower lobe are new since the prior exam. Stable calcified pleural plaques. No mediastinal or hilar lymphadenopathy. Mild atherosclerotic calcifications. No thoracic aortic aneurysm or dissection or pulmonary artery filling defects on this nondedicated exam. Postoperative changes in the right axilla. Right IJ tunneled port CVC catheter tip is obscured by contrast. No pleural or pericardial effusion. Mild spondylotic changes in the thoracic spine. No new suspicious osteoblastic or lytic osseous lesions. ABDOMEN: Stable, calcified 1.6 cm splenic artery aneurysm. Advanced atherosclerotic calcifications including a normal caliber abdominal aorta. Tiny fat-containing umbilical hernia. The liver, gallbladder, pancreas, spleen, adrenals, kidneys and visualized collecting systems are negative. No lymphadenopathy, free intraperitoneal air/fluid or evidence of bowel obstruction in the visualized upper abdomen. Spondylotic changes in the lumbar spine are most advanced at L4-L5. No suspicious osteoblastic or lytic osseous lesions. IMPRESSION: 1. Continued improvement of the ill-defined soft tissue attenuation in the supraclavicular right neck. 2. Increasing soft tissue nodule in the right axilla along the postoperative changes measuring up to 1.9 cm. 3. New nonspecific groundglass opacity in the medial right lower lobe. Dictated by: Dictated on workstation # [id number]
== END ==
LOC: RAD 09:37
PROVIDERS: ATTEND Internal Medicine Hematology & Oncology
DX: R91.8 Other nonspecific abnormal finding of lung field (principal); R93.8 Abnormal findings on diagnostic imaging of other specified body structures; Z90.11 Acquired absence of right breast and nipple; C50.411 Malignant neoplasm of upper-outer quadrant of right female breast; C78.02 Secondary malignant neoplasm of left lung; C79.51 Secondary malignant neoplasm of bone
CPT/HCPCS: 70491; 71260; 74160

== ENCOUNTER 2017-05-16 21:11 | Observation (INO) | payer MEDICARE, MEDICAID ==
[~2017-05-16] VITALS: Ht 172.7 cm; Wt 64.9 kg
[~2017-05-16 21:11] MED LIST changes: -ACET-93 PO; -BARIUM SUSPENSION 2.1% (VANILLA SILQ) 450 ML PO ONE; -CATHETER FLUSH 10 ML SYR IV PRN; -IOHEXOL 350 MG/ML 100 ML (OMNIPAQUE 350) VIAL IV ONE; -NS 100 ML (IVPB) BAG IV ONE
--- NOTE | 2017-05-16 21:21 | ED Fall/Injury ---
General Chief Complaint: Trauma-Non Activation Stated Complaint: PT FELL Source: patient Exam Limitations: no limitations History of Present Illness Time seen by provider: 21:19 Initial Comments To ER per EMS from home with reports of generalized weakness for the past 24-48 hours and a fall that occurred tonight. She was walking tonight when she states that her right leg "gave out" on her. She states this has happened before for unknown reason about 6 weeks ago. She complains of pain to the right ankle and foot. Ems reports that she was too weak to walk to the cot and they ended up carrying her due to her weakness. She denies fevers or chills. She currently receives chemotherapy every other for rest cancer. When asked where the cancer has spread, she points to her neck but is not specific about the details. She does have chronic lymphedema and pain in the right arm. Occurred: just prior to arrival Severity: moderate Loss of Consciousness: no loss of consciousness Allergies and Home Medications Allergies Coded Allergies: No Known Drug Allergies (Unverified , 04/07/16) Home Medications Acetaminophen 325 Mg Tablet, 650 MG PO Q4H PRN for PAIN, (Reported) TAKES 2 (325 MG) TABLETS Aspirin 81 Mg Chew, 81 MG PO DAILY, (Reported) Calcium Carbonate 300 Mg Tab.chew, 300 MG PO DAILY, (Reported) Denosumab 60 Mg/1 Ml Disp.syrin, 60 MG SQ EVERY 6 MONTHS, (Reported) LAST RECEIVED DECEMBER 2015 Docusate Sodium 100 Mg Capsule, 100 MG PO DAILY, (Reported) Enalapril Maleate 10 Mg Tablet, 10 MG PO BID, (Reported) LAST FILLED #60 02-21-16 Gabapentin 600 Mg Tablet, 600 MG PO TID, (Reported) LAST FILLED #270 16 Glimepiride 4 Mg Tablet, 8 MG PO DAILY, (Reported) TAKES 2 (4MG) TABLETS Hydrocodone/Acetaminophen 1 Each Tablet, 0.5-1 TAB PO Q6H PRN for PAIN, #30 Prescribed by: MARICRUZ NIETO on 04/15/16 0825 Ibuprofen 200 Mg Tablet, 400 MG PO Q8H PRN for PAIN, (Reported) TAKES 2 (200MG) TABLETS Insulin Glargine,Hum.rec.anlog 100 Unit/1 Ml Insuln.pen, 10 UNITS SC HS, ( Reported) Omeprazole 40 Mg Capsule.dr, 40 MG PO DAILY, (Reported) Pioglitazone HCl 15 Mg Tablet, 15 MG PO DAILY, (Reported) Constitutional: see HPI Eyes: No Symptoms Reported Ears, Nose, Mouth, Throat: no symptoms reported Respiratory: no symptoms reported Cardiovascular: no symptoms reported Genitourinary: no symptoms reported Musculoskeletal: see HPI Skin: no symptoms reported Psychiatric/Neurological: No Symptoms Reported Past Smbrrck-Mbajmb-Xtmzzs Hx Patient Social History Recent Foreign Travel: No Contact w/Someone Who Travel: No Recent Hopitalizations: No Immunizations Up To Date Tetanus Booster (TDap): More than 5yrs Date of Pneumonia Vaccine: Oct 15, 2013 Seasonal Allergies Seasonal Allergies: No Surgeries HX Surgeries: Yes (PORT PLACEMENT, carpal tunnel right) Surgeries: Breast, Orthopedic, Tonsillectomy Respiratory Hx Respiratory Disorders: No Cardiovascular Hx Cardiac Disorders: Yes Cardiac Disorders: Hypertension Neurological Hx Neurological Disorders: No Reproductive System Hx Reproductive Disorders: No Sexually Transmitted Disease: No HIV/AIDS: No Female Reproductive Disorders: Denies Genitourinary Hx Genitourinary Disorders: No Gastrointestinal Hx Gastrointestinal Disorders: Yes Gastrointestinal Disorders: Gastroesophageal Reflux Musculoskeletal Hx Musculoskeletal Disorders: Yes Musculoskeletal Disorders: Arthritis Endocrine Hx Endocrine Disorders: Yes Endocrine Disorders: Diabetes, Non-Insulin dep HEENT HX ENT Disorders: Yes HEENT Disorders: Cataract, Glaucoma Loss of Vision: Denies Hearing Impairment: Denies Cancer Hx Cancer: Yes (LYMPH NODES, RIGHT BREAST) Cancer: Breast Psychosocial Hx Psychiatric Problems: No Integumentary HX Skin/Integumentary Disorder: No Blood Transfusions Hx Blood Disorders: No Adverse Reaction to a Blood Tr: No Family Medical History Significant Family History: Cancer, CVA, Psychiatric Problems Family Medial History: Alzheimer's disease 19 MOTHER Arthritis 19 MOTHER Cardiovascular disease 19 MOTHER Completed stroke Grandmother FH: breast cancer Grandmother FH: multiple sclerosis 19 FATHER FHx: multiple sclerosis Myocardial infarction 19 MOTHER G8 BROTHER Physical Exam Vital Signs Vital Sign - Last 12Hours 05/16/17 21:11 Temp 98.9 Pulse 108 Resp 20 B/P (MAP) 130/63 Pulse Ox 98 O2 Delivery Room Air Capillary Refill : General Appearance: WD/WN, no apparent distress HEENT: PERRL/EOMI, normal ENT inspection Neck: non-tender, full range of motion Respiratory: no respiratory distress, no accessory muscle use Gastrointestinal: normal bowel sounds, non tender, soft Extremities: normal range of motion, non-tender (S) Neurologic/Psychiatric: alert, normal mood/affect, oriented x 3 Skin: normal color, warm/dry [place] Coma Score Best Eye Response: (4) Open Spontaneously Best Verbal Response: (5) Oriented Best Motor Response: (6) Obeys Commands Emelia Total: 15 Progress/Results/Core Measures Results/Orders Lab Results Laboratory Tests Test 05/16/17 21:18 05/16/17 22:38 Range/Units White Blood Count 7.3 4.3-11.0 10^3/uL Red Blood Count 4.05 L 4.35-5.85 10^6/uL Hemoglobin 11.0 L 11.5-16.0 G/DL Hematocrit 34 L 35-52 % Mean Corpuscular Volume 85 80-99 FL Mean Corpuscular Hemoglobin 27 25-34 PG Mean Corpuscular Hemoglobin Concent 32 32-36 G/DL Red Cell Distribution Width 17.3 H 10.0-14.5 % Platelet Count 85 L 130-400 10^3/uL Mean Platelet Volume 11.3 H 7.4-10.4 FL Neutrophils (%) (Auto) 82 H 42-75 % Lymphocytes (%) (Auto) 8 L 12-44 % Monocytes (%) (Auto) 9 0-12 % Eosinophils (%) (Auto) 1 0-10 % Basophils (%) (Auto) 0 0-10 % Neutrophils # (Auto) 5.9 1.8-7.8 X 10^3 Lymphocytes # (Auto) 0.6 L 1.0-4.0 X 10^3 Monocytes # (Auto) 0.7 0.0-1.0 X 10^3 Eosinophils # (Auto) 0.1 0.0-0.3 10^3/uL Basophils # (Auto) 0.0 0.0-0.1 10^3/uL Neutrophils % (Manual) 84 % Lymphocytes % (Manual) 10 % Monocytes % (Manual) 3 % Eosinophils % (Manual) 2 % Basophils % (Manual) 1 % Band Neutrophils 0 % Blood Morphology Comment NORMAL Sodium Level 137 135-145 MMOL/L Potassium Level 3.5 L 3.6-5.0 MMOL/L Chloride Level 104 98-107 MMOL/L Carbon Dioxide Level 24 21-32 MMOL/L Anion Gap 9 5-14 MMOL/L Blood Urea Nitrogen 13 7-18 MG/DL Creatinine 0.89 0.60-1.30 MG/DL Estimat Glomerular Filtration Rate > 60 BUN/Creatinine Ratio 15 Glucose Level 221 H 70-105 MG/DL Calcium Level 9.7 8.5-10.1 MG/DL Total Bilirubin 1.4 H 0.1-1.0 MG/DL Aspartate Amino Transf (AST/SGOT) 44 H 5-34 U/L Alanine Aminotransferase (ALT/SGPT) 36 0-55 U/L Alkaline Phosphatase 183 H 40-136 U/L Troponin I < 0.30 <0.30 NG/ML Total Protein 6.5 6.4-8.2 GM/DL Albumin 3.2 3.2-4.5 GM/DL My Orders Orders - QUINTIN LOPEZ APRN Cbc With Automated Diff (05/16/17 21:18) Ct Head Wo (05/16/17 21:18) Comprehensive Metabolic Panel (05/16/17 21:18) Ua Culture If Indicated (05/16/17 21:18) Saline Lock/Iv-Start (05/16/17 21:18) Troponin I (05/16/17 21:18) Ekg Tracing (05/16/17 21:18) Chest 1 View, Ap/Pa Only (05/16/17 21:21) Foot, Right, 3 View (05/16/17 21:22) Ankle, Right, 3 Views (05/16/17 21:22) Lidocaine 2% Injection 20 Ml (Xylocaine (05/16/17 21:22) Manual Differential (05/16/17 21:18) Ns Iv 500 Ml (Sodium Chloride 0.9%) (05/16/17 22:15) Vital Signs/I&O Vital Sign - Last 12Hours 05/16/17 21:11 Temp 98.9 Pulse 108 Resp 20 B/P (MAP) 130/63 Pulse Ox 98 O2 Delivery Room Air Diagnostic Imaging Diagonstic Imaging: Xray Comments NAME: TAHIR JOYNER [facility] REC#: [id number] PT STATUS: REG ER : 1940 PHYSICIAN: QUINTIN LOPEZ APRN ADMIT DATE: 05/16/17/ER Draft Date of Exam:05/16/17 CT HEAD WO INDICATION: Fall with injury to head. EXAM: Noncontrast brain CT is performed. COMPARISON: 02/26/2009. FINDINGS: There are patchy low-density changes throughout the deep white matter compatible with chronic ischemic change. There is no acute hemorrhage, mass effect or midline shift. The ventricles are normal in size for age. Calvarial windows are unremarkable, except for a trace of fluid in the left maxillary sinus. There is no calvarial fracture. IMPRESSION: Patchy low-density changes throughout the deep white matter compatible with chronic ischemic change. There is no intracranial hemorrhage or calvarial fracture. There is a trace of fluid in the left maxillary sinus. Dictated on workstation # [id number] Dict: 05/16/17 2148 Trans: 05/16/17 2153 [facility] [id number] Interpreted by: JAYDON DURAN MD Electronically signed by: Departure Communication Time/Spoke to Admitting Phy: 22:46 Communication [phone]- I did discuss the case with Dr. Cash was most gracious and agreed to admit the patient given the absence of any significant findings other than weakness. Communication/Consulting [phone]- when discussing a discharge disposition with the patient, she states that she is very scared to go home because she doesn't feel that she could safely take care of herself at home without falling and her is not able to help her much either. Her right arm is not much use to her secondary to lymphedema of the right arm Progress Notes CT report from 05/15/17: IMPRESSION: 1. Continued improvement of the ill-defined soft tissue attenuation in the supraclavicular right neck. 2. Increasing soft tissue nodule in the right axilla along the postoperative changes measuring up to 1.9 cm. 3. New nonspecific groundglass opacity in the medial right lower lobe. Dictated by: Dictated on workstation # [id number] Dict: 05/15/17 1027 Trans: 05/15/17 1138 Impression Impression: Primary Impression: Lymphedema of right upper extremity Additional Impressions: Breast cancer Weakness Disposition: ADMITTED INPATIENT Condition: Stable Departure-Patient Inst. Referrals: MACY JOHANSEN MD (PCP/Family) Primary Care Physician QUINTIN LOPEZ APRN May 16, 2017 21:21
[2017-05-16] MEDS ORDERED: LIDOCAINE 2% 20 ML (XYLOCAINE) VIAL ONE (21:22)
[2017-05-16 21:30] LABS: BASOPHILS % (AUTO) 0 % (0-10); EOSINOPHILS # (AUTO) 0.1 10^3/uL (0.0-0.3); EOSINOPHILS % (AUTO) 1 % (0-10); LYMPHOCYTES # (AUTO) 0.6 X 10^3 (1.0-4.0); LYMPHOCYTES % (AUTO) 8 % (12-44); MEAN CORPUSCULAR HEMOGLOBIN 27 PG (25-34); MEAN CORPUSCULAR HGB CONC 32 G/DL (32-36); MEAN CORPUSCULAR VOLUME 85 FL (80-99); MEAN PLATELET VOLUME 11.3 FL (7.4-10.4); MONOCYTES # (AUTO) 0.7 X 10^3 (0.0-1.0); MONOCYTES % (AUTO) 9 % (0-12); NEUTROPHILS # (AUTO) 5.9 X 10^3 (1.8-7.8); NEUTROPHILS % (AUTO) 82 % (42-75); PLATELET COUNT 85 10^3/uL (130-400); RED BLOOD COUNT 4.05 10^6/uL (4.35-5.85); RED CELL DISTRIBUTION WIDTH 17.3 % (10.0-14.5); WHITE BLOOD COUNT 7.3 10^3/uL (4.3-11.0)
[2017-05-16 21:45] LABS: BAND NEUTROPHILS 0 %; BASOPHILS % (MANUAL) 1 %; EOSINOPHILS % (MANUAL) 2 %; LYMPHOCYTES % (MANUAL) 10 %; NEUTROPHILS % (MANUAL) 84 %
[2017-05-16 21:49] LABS: ALANINE AMINOTRANSFERASE 36 U/L (0-55); ALBUMIN 3.2 GM/DL (3.2-4.5); ANION GAP 9 MMOL/L (5-14); ASPARTATE AMINO TRANSFERASE 44 U/L (5-34); BILIRUBIN,TOTAL 1.4 MG/DL (0.1-1.0); BLOOD UREA NITROGEN 13 MG/DL (7-18); BUN/CREATININE RATIO 15; CALCIUM 9.7 MG/DL (8.5-10.1); CARBON DIOXIDE 24 MMOL/L (21-32); CHLORIDE 104 MMOL/L (98-107); CREATININE SERUM 0.89 MG/DL (0.60-1.30); GFR ESTIMATED > 60; GLUCOSE 221 MG/DL (70-105); POTASSIUM 3.5 MMOL/L (3.6-5.0); SODIUM 137 MMOL/L (135-145); TOTAL PROTEIN 6.5 GM/DL (6.4-8.2)
--- NOTE | 2017-05-16 21:53 | Diagnostic Imaging Report ---
INDICATION: Fall with injury to head. EXAM: Noncontrast brain CT is performed. COMPARISON: 02/26/2009. FINDINGS: There are patchy low-density changes throughout the deep white matter compatible with chronic ischemic change. There is no acute hemorrhage, mass effect or midline shift. The ventricles are normal in size for age. Calvarial windows are unremarkable, except for a trace of fluid in the left maxillary sinus. There is no calvarial fracture. IMPRESSION: Patchy low-density changes throughout the deep white matter compatible with chronic ischemic change. There is no intracranial hemorrhage or calvarial fracture. There is a trace of fluid in the left maxillary sinus. Dictated by: Dictated on workstation # [id number]
[2017-05-16 21:55] LABS: TROPONIN I < 0.30 NG/ML (<0.30)
--- NOTE | 2017-05-16 21:58 | Diagnostic Imaging Report ---
INDICATION: Fall with injury to right foot AP, oblique, and lateral views of the right foot are obtained. There is osteopenia. There is diffuse degenerative change throughout the interphalangeal joints and first MTP joint. There is posterior calcaneal spurring. There is degenerative change throughout the tarsal bones. IMPRESSION: Chronic findings as above with no acute fracture or acute bony abnormality. Dictated by: Dictated on workstation # [id number]
--- NOTE | 2017-05-16 22:00 | Diagnostic Imaging Report ---
INDICATION: Fall with right ankle pain AP, oblique, and lateral views of the right ankle were obtained. There is osteopenia. There is posterior calcaneal spurring. There is no acute fracture or acute bony abnormality. IMPRESSION: No acute abnormality of right ankle. Dictated by: Dictated on workstation # [id number]
--- NOTE | 2017-05-16 22:02 | Diagnostic Imaging Report ---
INDICATION: Status post fall with chest pain. FINDINGS: Frontal chest obtained at 9:48 hours p.m. COMPARISON: 11/13/2015. FINDINGS: Heart is normal in size. There are chronic appearing increased interstitial markings with chronic infiltrate or scarring in the right medial base. Port-A-Cath is seen over the right chest, unchanged compared to the prior study. There are surgical clips in the right axilla. There is no pneumothorax or pleural fluid. There is an apparent right humeral neck fracture which appears subacute, see previous right shoulder dictation of 01/26/17. There is chronic right apical pleural thickening. IMPRESSION: Chronic appearing increased interstitial markings with chronic scarring or infiltrate in the right medial base. No pneumothorax or pleural fluid. Postop changes, as above. Subacute right humeral neck fracture. There is chronic right apical pleural thickening. Dictated by: Dictated on workstation # [id number]
[2017-05-16] MEDS ORDERED: NS IV 500 ML 500 ML IV SCH (22:15)
[2017-05-16 22:43] LABS: BILIRUBIN,URINE NEGATIVE (NEGATIVE); KETONES,URINE NEGATIVE (NEGATIVE); LEUKOCYTE ESTERASE ,URINE 1+ (NEGATIVE); NITRITE,URINE NEGATIVE (NEGATIVE); PH,URINE 5 (5-9); PROTEIN,URINE 1+ (NEGATIVE); UROBILINOGEN,URINE 4 MG/DL (NORMAL)
[2017-05-16] MEDS ORDERED: cefTRIAXone INJECTION 1,000 MG in NS (IVPB) 50 ML IV ONE (23:15)
[2017-05-16 23:50] VITALS: BP 122/57
[2017-05-17] MEDS: NS IV 1000 ML 1,000 ML IV SCH ×2 (02:46→04:11)
[2017-05-17 04:15] VITALS: BP 123/57
[2017-05-17 08:00] VITALS: BP 125/63
[2017-05-17] MEDS ORDERED: ACET-93 PO (10:05)
--- NOTE | 2017-05-17 10:55 | History & Physical-Hospitalist ---
HPI History of Present Illness: HPI/Chief Complaint CC: Fall with weakness HPI: This is a 77[address]WF pt of Dr. Carvalho with hx of breast cancer with metastasis who presented to ER via EMS due to fall and weakness. WBC 7.3, platelets 85k, K + 3.5, AP 183. Head CT showed chronic ischemic changes, CXR was negative, foot X -ray and ankle X-ray were negative for fracture as well. Ua showed 1+ LE, placed empirically on Rocephin but pt is scared to go home because her cannot take care of her so will order PT/OT, public health social worker for possible facility placement, and rehab eval SW Review: Pt is not interested in NH, but would do well DC on PT/OT PT/OT/Rehab eval are indicated Patient Interview: Pt confirms soreness from fall. X-rays discussed and nothing looks broken Pt confirms cancer doctor as Dr. Zee. Pt has chemo every [address] Zee is gone today and I informed the pt that Dr. Smyth will be conferred with Confirms PCP as Dr. Carvalho Pt confirms that she has been eating and drinking and had breakfast this am Physical exam is stable. Pt had a fall 6 weeks ago as well Early UTI and abx discussed, but I do not believe this was the cause of fall Pt confirms using walker at home and confirms living with Fluids discussed Scribed by Leora Downing under the direct supervision of Dr. Nieto. Source: patient Exam Limitations: no limitations Date Seen 05/17/17 Time Seen by Provider: 10:30 Attending Physician Laureano Cash MD PCP Walter Carvalho MD Referring Physician Date of Admission May 16, 2017 at 22:10 Home Medications & Allergies Home Medications Reviewed patient Home Medication Reconciliation Form Allergies Allergies Coded Allergies No Known Drug Allergies (Unverified04/07/16) Past Lwsjeye-Awhqnf-Ymwohv Hx Patient Social History Marrital Status: Employed/Student: retired Alcohol Use: Denies Use Recreational Drug Use: No Smoking Status: Never a Smoker Physical Abuse Screen: No Sexual Abuse: No Recent Foreign Travel: No Contact w/other who traveled: No Recent Hopitalizations: No Recent Infectious Disease Expo: No Immunizations Up To Date Tetanus Booster (TDap): More than 5yrs Date of Pneumonia Vaccine: Oct 15, 2013 Seasonal Allergies Seasonal Allergies: No Surgeries HX Surgeries: Yes (PORT PLACEMENT, carpal tunnel right) Surgeries: Breast, Orthopedic, Tonsillectomy Respiratory Hx Respiratory Disorders: No Cardiovascular Hx Cardiovascular Disorders: Yes Cardiac Disorders: Hypertension Neurological Hx Neurological Disorders: No Reproductive System Hx Reproductive Disorders: No Sexually Transmitted Disease: No HIV/AIDS: No Female Reproductive Disorders: Denies Genitourinary Hx Genitourinary Disorders: No Genitourinary Disorders: UTI-Chronic Gastrointestinal Hx Gastrointestinal Disorders: Yes Gastrointestinal Disorders: Gastroesophageal Reflux, Chronic Constipation Musculoskeletal Hx Musculoskeletal Disorders: Yes Musculoskeletal Disorders: Arthritis, Fractures Endocrine Hx Endocrine Disorders: Yes Endocrine Disorders: Diabetes, Non-Insulin dep HEENT HX ENT Disorders: Yes HEENT Disorders: Cataract, Glaucoma Loss of Vision: Denies Hearing Impairment: Denies Cancer Hx Cancer: Yes (LYMPH NODES, RIGHT BREAST) Cancer: Breast Psychosocial Hx Psychiatric Problems: No Integumentary HX Skin/Integumentary Disorder: No Blood Transfusions Hx Blood Disorders: No Adverse Reaction to a Blood Tr: No Family Medical History Significant Family History: Cancer, CVA, Psychiatric Problems Family Hx: Alzheimer's disease 19 MOTHER Arthritis 19 MOTHER Cardiovascular disease 19 MOTHER Completed stroke Grandmother FH: breast cancer Grandmother FH: multiple sclerosis 19 FATHER FHx: multiple sclerosis Myocardial infarction 19 MOTHER G8 BROTHER Review of Systems Constitutional: see HPI, dizziness, weakness EENTM: no symptoms reported Respiratory: no symptoms reported Cardiovascular: no symptoms reported Gastrointestinal: no symptoms reported Genitourinary: no symptoms reported Musculoskeletal: back pain Skin: no symptoms reported Psychiatric/Neurological: No Symptoms Reported All Other Systems Reviewed Negative Unless Noted: Yes Physical Exam Physical Exam Vital Signs Vital Sign - Last 12Hours 05/16/17 21:11 Temp 98.9 Pulse 108 Resp 20 B/P (MAP) 130/63 Pulse Ox 98 O2 Delivery Room Air Capillary Refill : Less Than 3 Seconds General Appearance: No Apparent Distress, WD/WN Eyes: Bilateral Eye Normal Inspection, Bilateral Eye PERRL HEENT: PERRL/EOMI, Normal ENT Inspection, Pharynx Normal Neck: Full Range of Motion, Normal Inspection, Non Tender, Supple, Carotid Bruit Respiratory: Chest Non Tender, Lungs Clear, Normal Breath Sounds, No Accessory Muscle Use, No Respiratory Distress Cardiovascular: Regular Rate, Rhythm, No Edema, No Gallop, No JVD, No Murmur, Normal Peripheral Pulses Gastrointestinal: Normal Bowel Sounds, No Organomegaly, No Pulsatile Mass, Non Tender, Soft Back: Normal Inspection, No CVA Tenderness, No Vertebral Tenderness Extremity: Normal Capillary Refill, Normal Inspection, Normal Range of Motion, Non Tender, No Calf Tenderness, No Pedal Edema Neurologic/Psychiatric: Alert, Oriented x3, No Motor/Sensory Deficits, Normal Mood/Affect Skin: Normal Color, Warm/Dry Lymphatic: No Adenopathy Results Results/Procedures Lab Laboratory Tests 05/16/17 21:18 Assessment/Plan Admission Diagnosis Assessment: Generalized weakness and debility with multiple falls in need of therapy prior to returning home Breast cancer in active treatment Diabetes mellitus Hypertension Chronic pain Osteoarthritis GERD Abnl UA without signs of infection so will stop abx Assessment and Plan Plan: fluids Reconcile home meds Case management evaluation of in-pt status: Observation Possible rehab placement PT/OT/Rehab eval Stop abx Clinical Quality Measures DVT/VTE Risk/Contraindication: Risk Factor Score Per Nursin RFS Level Per Nursing on Admit: 4+=Very High MARICRUZ NIETO DO May 17, 2017 10:55
[2017-05-17] MEDS ORDERED: IBUPROFEN TABLET 200 MG TAB PO PRN (11:30)
[2017-05-17] MEDS ORDERED: ACETAMINOPHEN 500 MG TAB (TYLENOL) PO PRN (11:30)
--- NOTE | 2017-05-17 11:53 | Physical Therapy Evaluation ---
PT Evaluation-General Medical Diagnosis Admission Date May 16, 2017 at 22:10 Medical Diagnosis: weakness Onset Date: May 16, 2017 Therapy Diagnosis Therapy Diagnosis: impaired mobility, strength, endurance, balance Height/Weight Height (Feet): 5 Height (Inches): 8.00 Weight (Pounds): 143 Weight (Ounces): 0.0 Precautions Precautions/Isolations: Fall Prevention, Standard Precautions, Pressure Ulcer Referral Physician: Gissell Hussein DO Reason for Referral: Evaluation/Treatment Medical History Pertinent Medical History: Arthritis, Breast CA S/P Mastectomy, CAD, DM, GERD, HTN, Neuropathy Additional Medical History UTI-chronic, chronic constipation, fractures, cataracts, glaucoma, surg (port placement, right carpal tunnel, breast, orthopedic, tonsillectomy) Current History Patient went to ER via EMS after a fall. Reviewed History: Yes Social History Home: Single Level Entry Into Home: Level Entry Prior/Core FIM Prior Level of Function Functional [place] Measure 0=Not Assessed/NA 4=Minimal Assistance 1=Total Assistance 5=Supervision or Setup 2=Maximal Assistance 6=Modified [place] 3=Moderate Assistance 7=Complete [place] Bed Mobility: 7 Transfers (B,C,W/C) (FIM): 7 Gait: 7 Patient state she would hold onto furniture when walking in the home. PT Evaluation-Current Subjective Patient in bed pre tx, agrees to PT, has a significant amount of pain in her right ankle, she says she "bent it backwards", /. Pt/Family Goals "to not go to a correction" Objective Patient Orientation: Person, Place, Situation Attachments: SCD's, IV ROM/Strength ROM Lower Extremities WNL, right ankle not tested due to pain Strenght Lower Extremities 4/5 gross bilateral lower extremities, right ankle not tested due to pain Sensory Vision: Sensation Right Lower Extremit: Impaired Sensation Left Lower Extremity: Impaired Sensation Lower Extremities Patient has decreased light touch sensation from the knees down bilaterally. Transfers Functional [place] Measure 0=Not Assessed/NA 4=Minimal Assistance 1=Total Assistance 5=Supervision or Setup 2=Maximal Assistance 6=Modified [place] 3=Moderate Assistance 7=Complete [place] Transfers (B, C, W/C) (FIM): 4 Scootin Rollin Supine to/from Sit: 4 Sit to/from Stand: 4 bed t/f WC(FIM only if WC use): 4 Patient performs bed mobility with SBA, supine to sit with min assist to help with her right leg, sit to stand with min assist, and bed to chair transfer with min assist. Gait Gait (FIM): 1 Distance: 3' Gait Level of Assist: 4 Gait Persons Needed: 1 Gait Assistive Device: FWW Comments/Gait Description Patient ambulated just a few steps from the bed to a chair. She needs assist guiding the walker because she cannot use her right arm. Balance Sitting Static: Normal Sitting Dynamic: Normal Standing Static: Fair Standing Dynamic: Fair Treatment seated exercises x20 (AP, LAQ) Assessment/Needs Patient has weakness and impaired mobility, endurance, balance, fall risk Rehab Potential: Fair PT History Professor Goals History Professor Goals PT Fdc Goals Time Frame: May 24, 2017 Transfers (B,C,W/C) (FIM): 5 Gait (FIM): 1 Distance: 30' Gait Level of Assist: 4 Gait Assistive Device: Cane Large Base Quad PT Plan Problem List Problem List: Activity Tolerance, Functional Strength, Safety, Balance, Gait, Transfer, Bed Mobility, ROM Treatment/Plan Treatment Plan: Continue Plan of Care Treatment Plan: Bed Mobility, Education, Functional Activity Vincent, Functional Strength, Gait, Safety, Therapeutic Exercise, Transfers Treatment Duration: May 24, 2017 Frequency: 6 times per week (Daily during the week and on monday) Estimated Hrs Per Day: .25 hour per day (15-30 min) Patient and/or Family Agrees t: Yes Safety Risks/Education Patient Education: Gait Training, Transfer Techniques, Correct Positioning, Safety Issues Teaching Recipient: Patient Teaching Methods: Demonstration, Discussion Response to Teaching: Reinforcement Needed Discharge Recommendations Plan Patient will perform bed mobility and transfer training, balance and endurance training, functional strengthening, stair training, gait training, and education to improve functional mobility and independence at home. Therapy D/C Recommendations: Acute Rehab, Home w/ Family Support, Correction (TCU/NH) Time/GCodes Time In: 1130 Time Out: 1145 Total Billed Treatment Time: 15 Total Billed Treatment 1 visit ANDREWS 15' MILKA BLACK PT May 17, 2017 11:53
[2017-05-17 12:00] VITALS: BP 141/64
[2017-05-17] MEDS: GABAPENTIN 600 MG (NEURONTIN) TAB PO SCH ×2 (13:13→20:55)
[2017-05-17] MEDS: inSUlin ASPART (NovoLOG) 1 UNIT/0.01 ML (CHARGE PER UNIT) SC PRN ×2 (13:14→17:06)
--- NOTE | 2017-05-17 15:30 | Occ Therapy Progress Note ---
Therapy Progress Note Order received for OT eval and treat. Attempted evaluation at 1500. Pt in bed, tearful, states "It's all just so much. The cancer and now this." Pt declined therapy, states she does not feel like participating at this time. Pt states she will be going to [facility] tomorrow. Education provided regarding role of OT and what to expect on rehab. Pt states understanding of education and states will participate tomorrow. Pt denied needs at this time. Pt in bed with needs met. RN notified. IRAM GIBSON OT May 17, 2017 15:30
[2017-05-17 16:00] VITALS: BP 139/71
--- NOTE | 2017-05-17 16:50 | Oncology Consultation ---
Visit Information Visit Information Date of Admission May 16, 2017 at 22:10 Attending Physician Laureano Cash MD Admitting Physician Walter Carvalho MD Chief Complaint generalized weakness and fell at home. Breast cancer with mets on chemo. Interval History is a 77 year old white female with metastatic HER-2/roxane positive breast cancer to lungs, lymph nodes and to the spinal canal at C7 required palliative radiation therapy completed in July 2016. She is currently on palliative chemotherapy with Kadcyla and has completed 11 courses, last dose given . She has been slowly getting weaker since the last treatment and became shaky and fell this morning at home. She was evaluated at ER today and she did not feel comfortable to home because she does not have enough care at home. She cried a lot and worried that she might fall again if she goes home. Therefore, she was admitted for PT/OT. PMH: 1. Metastatic ER negative, [place] negative and HER-2/roxane positive right breast cancer to lungs. diagnosed in September 2006, status post right modified radical mastectomy and axillary node dissection followed by initial chemotherapy with weekly Herceptin and paclitaxel until February 2007 followed by high-dose Taxol plus Herceptin with significant toxicity. 2. On Herceptin alone from mid-2006 until mid 2012 with clinical and radiographic complete response. Off treatment for approximately 6 months . 3. Recurrent disease in the right supraclavicular and axillary lymph nodes, Kadcyla. Patient has completed 12 cycles so far. I consulted the patient on: 05/17/17 16:44 Time Seen by Provider: 16:20 Constitutional: weakness EENTM: no symptoms reported Respiratory: no symptoms reported Cardiovascular: no symptoms reported Gastrointestinal: no symptoms reported Health Status Allergies Coded Allergies: No Known Drug Allergies (Unverified , 04/07/16) Home Medications Acetaminophen (Acetaminophen) 500 Mg Tablet, 1,000 MG PO DAILY PRN for PAIN-MILD , (Reported) TAKES 2 (500 MG) TABLETS / ALTERNATES WITH IBUPROFEN Aspirin (Baby Aspirin Chewable Tablet) 81 Mg Chew, 81 MG PO DAILY, (Reported) Denosumab (Prolia) 60 Mg/1 Ml Disp.syrin, 60 MG SQ EVERY 6 MONTHS, (Reported) Docusate Sodium (Dulcolax Stool Softener) 100 Mg Capsule, 100 MG PO DAILY, ( Reported) Enalapril Maleate (Enalapril Maleate) 10 Mg Tablet, 10 MG PO BID, (Reported) LAST FILLED 03/17/17 #60 Gabapentin (Gabapentin) 600 Mg Tablet, 600 MG PO TID, (Reported) LAST FILLED 02/07/17 #270 Glimepiride (Glimepiride) 4 Mg Tablet, 8 MG PO DAILY, (Reported) TAKES 2 (4 MG) TABLETS Ibuprofen (Ibuprofen) 200 Mg Tablet, 400 MG PO DAILY PRN for PAIN-MILD, ( Reported) TAKES 2 (200MG) TABLETS / ALTERNATES WITH ACETAMINOPHEN Omeprazole (Omeprazole) 40 Mg Capsule.dr, 40 MG PO DAILY, (Reported) LAST FILLED 04/03/17 #30 QTW-[id number]-Nnhtse Hx Patient Social History Marrital Status: Employed/Student: retired Alcohol Use: Denies Use Recreational Drug Use: No Smoking Status: Never a Smoker Recent Foreign Travel: No Contact w/other who traveled: No Recent Infectious Disease Expo: No Recent Hopitalizations: No Physical Abuse Screen: No Sexual Abuse: No Immunizations Up To Date Tetanus Booster (TDap): More than 5yrs Date of Pneumonia Vaccine: Oct 15, 2013 Family Medical History Significant Family History: Cancer, CVA, Psychiatric Problems Family History: Alzheimer's disease 19 MOTHER Arthritis 19 MOTHER Cardiovascular disease 19 MOTHER Completed stroke Grandmother FH: breast cancer Grandmother FH: multiple sclerosis 19 FATHER FHx: multiple sclerosis Myocardial infarction 19 MOTHER G8 BROTHER Physical Exam Vital Signs Vital Sign - Last 12Hours 05/16/17 21:11 Temp 98.9 Pulse 108 Resp 20 B/P (MAP) 130/63 Pulse Ox 98 O2 Delivery Room Air Capillary Refill : Less Than 3 Seconds General Appearance: Thin HEENT: PERRL/EOMI Neck: Supple Respiratory: Lungs Clear, No Accessory Muscle Use, No Respiratory Distress Cardiovascular: Regular Rate, Rhythm Gastrointestinal: Non Tender, Soft Extremity: Swelling Neurologic/Psychiatric: Alert, Oriented x3 Data Review Labs Laboratory Tests 05/16/17 21:18 Laboratory Tests 05/16/17 21:18: Red Blood Count 4.05L, Hemoglobin 11.0L, Hematocrit 34L, Red Cell Distribution Width 17.3H, Platelet Count 85L, Mean Platelet Volume 11.3H, Neutrophils (%) ( Auto) 82H, Lymphocytes (%) (Auto) 8L, Lymphocytes # (Auto) 0.6L, Potassium Level 3.5L, Glucose Level 221H, Total Bilirubin 1.4H, Aspartate Amino Transf ( AST/SGOT) 44H, Alkaline Phosphatase 183H 05/16/17 22:38: Urine Specific Christine 1.015L, Urine Protein 1+H, Urine Glucose (UA) 4+H, Urine Urobilinogen 4H, Urine Leukocyte Esterase 1+H, Urine Hyaline Casts 2-5H 05/17/17 12:07: Glucometer 249H Impression & Plan Impression & Plan 1. Stage IV breast cancer with bone mets and lung mets on Kadcyla last dose given 04/26/[address] Zee. 2. Thrombocytopenia 2nd to Kadcyla. Will hold off treatment for now 3. General weakness, possible related to the chemo and cancer. If not better in 1-2 weeks after her Plt recover, we may need to scan her head as out -pt. In the meantime, PT/OT 4. 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
[2017-05-17 19:00] VITALS: BP 128/75
[2017-05-17] MEDS: ENALAPRIL 10 MG (VASOTEC) TAB PO SCH (20:54)
[2017-05-17 23:45] VITALS: BP 136/64
[2017-05-18] MEDS ORDERED: cefTRIAXone INJECTION 1,000 MG in NS (IVPB) 50 ML IV SCH ×2
[2017-05-18] MEDS ORDERED: GLIMEPIRIDE 4 MG (AMARYL) TAB PO SCH (07:00)
[2017-05-18] MEDS ORDERED: PANTOPRAZOLE 40 MG (PROTONIX) TAB PO SCH (07:00)
[2017-05-18 08:00] VITALS: BP 118/58
--- NOTE | 2017-05-18 08:40 | Discharge Summary-Hospitalist ---
Diagnosis/Chief Complaint Date of Admission May 16, 2017 at 22:10 Date of Discharge Discharge Date: May 18, 2017 Admission Diagnosis Assessment: Generalized weakness and debility with multiple falls in need of therapy prior to returning home Breast cancer in active treatment Diabetes mellitus Hypertension Chronic pain Osteoarthritis GERD Abnl UA without signs of infection so will stop abx Discharge Diagnosis Assessment: Generalized weakness and debility with multiple falls in need of IRU prior to returning home Breast cancer in active treatment Diabetes mellitus Hypertension Chronic pain Osteoarthritis GERD Abnl UA without signs of infection so will stop abx Plan: HL fluids Reconcile home meds Case management evaluation of in-pt status: Observation Possible rehab placement PT/OT/Rehab eval Stop abx Notes from 05/18/17 Patient Interview: Pt was ordering breakfast prior to interview Rehab was discussed, she will be moved today. I discussed that she will need to build Physical exam stable. Lungs sound perfect Pt confirms having BMs Pt confirms seeing Dr. Bruner this am Plan: DC to Rehab Scribed by Leora Downing under the direct supervision of Dr. Hussein. Discharge Summary Discharge Physical Examination Allergies: Coded Allergies: No Known Drug Allergies (Unverified , 04/07/16) Vitals & I&Os Vital Signs Date Time Temp Pulse Resp B/P (MAP) Pulse Ox O2 Delivery O2 Flow Rate FiO2 05/18/17 08:00 96.7 67 20 118/58 94 Room Air Hospital Course Labs (last 24 hrs) Laboratory Tests 05/17/17 12:07: Glucometer 249H 05/17/17 15:54: Glucometer 300H 05/17/17 20:32: Glucometer 76 05/18/17 05:54: Glucometer 141H Microbiology 05/16/17 Blood Culture - Preliminary, Resulted No growth Pending Labs Laboratory Tests 05/18/17 05:54: Glucometer 141 Discharge Home Medications: Active Scripts Active Reported Acetaminophen 500 Mg Tablet 1,000 Mg PO DAILY PRN TAKES 2 (500 MG) TABLETS / ALTERNATES WITH IBUPROFEN Ibuprofen 200 Mg Tablet 400 Mg PO DAILY PRN TAKES 2 (200MG) TABLETS / ALTERNATES WITH ACETAMINOPHEN Enalapril Maleate 10 Mg Tablet 10 Mg PO BID LAST FILLED 03/17/17 #60 Omeprazole 40 Mg Capsule.dr 40 Mg PO DAILY LAST FILLED 04/03/17 #30 Gabapentin 600 Mg Tablet 600 Mg PO TID LAST FILLED 02/07/17 #270 Glimepiride 4 Mg Tablet 8 Mg PO DAILY TAKES 2 (4 MG) TABLETS Prolia (Denosumab) 60 Mg/1 Ml Disp.syrin 60 Mg SQ EVERY 6 MONTHS Dulcolax Stool Softener (Docusate Sodium) 100 Mg Capsule 100 Mg PO DAILY Baby Aspirin Chewable Tablet (Aspirin) 81 Mg Chew 81 Mg PO DAILY Instructions to patient/family Please see electonic discharge instructions given to patient. Clinical Quality Measures DVT/VTE Risk/Contraindication: Risk Factor Score Per Nursin RFS Level Per Nursing on Admit: 4+=Very High MARICRUZ HUSSEIN DO May 18, 2017 08:40
[2017-05-18] MEDS ORDERED: NON-FORMULARY MEDICATION 1 EA EA (Omeprazole 40 MG) PO SCH (09:00)
[2017-05-18] MEDS ORDERED: DOCUSATE SODIUM 100 MG (COLACE) CAP PO SCH (09:00)
[2017-05-18] MEDS ORDERED: ASPIRIN 81 MG CHEW (CHILDREN'S ASA) PO SCH (09:00)
[2017-05-18] MEDS: ENALAPRIL 10 MG (VASOTEC) TAB PO SCH (10:10)
[2017-05-18] MEDS: GABAPENTIN 600 MG (NEURONTIN) TAB PO SCH (10:10)
[2017-05-18] MEDS: inSUlin ASPART (NovoLOG) 1 UNIT/0.01 ML (CHARGE PER UNIT) SC PRN (10:56)
[2017-09-14] MEDS ORDERED: PROLIA 60 MG SQ SCH (11:30)
== END 2017-05-18 11:05 ==
LOC: EDUNIT# 21:11 → ER 21:12 → INTOOBSV 22:10 → 4TH 22:10
PROVIDERS: ADMIT Internal Medicine; ATTEND Internal Medicine
DX: R53.1 Weakness (principal); R53.81 Other malaise; C50.911 Malignant neoplasm of unspecified site of right female breast; C79.51 Secondary malignant neoplasm of bone; C78.00 Secondary malignant neoplasm of unspecified lung; C77.3 Secondary and unspecified malignant neoplasm of axilla and upper limb lymph nodes; I89.0 Lymphedema, not elsewhere classified; R82.99 Other abnormal findings in urine; I10 Essential (primary) hypertension; E11.9 Type 2 diabetes mellitus without complications; S99.911A Unspecified injury of right ankle, initial encounter; K21.9 Gastro-esophageal reflux disease without esophagitis; M19.91 Primary osteoarthritis, unspecified site; H40.9 Unspecified glaucoma; Z79.84 Long term (current) use of oral hypoglycemic drugs; Z79.4 Long term (current) use of insulin; Z79.82 Long term (current) use of aspirin; Z79.899 Other long term (current) drug therapy; Z91.81 History of falling; Z90.11 Acquired absence of right breast and nipple
CPT/HCPCS: 36415; 70450; 71010; 73610; 73630; 80053; 81000; 82962; 84484; 85007; 85025; 85027; 87040; 93005; 96365; G0378

== ENCOUNTER 2017-05-18 10:06 | Inpatient (IN) | payer MEDICARE, MEDICAID ==
[~2017-05-18] VITALS: Ht 172.7 cm; Wt 64.9 kg
[~2017-05-18 10:06] MED LIST changes: +ACET-93 PO
[2017-05-18 11:13] VITALS: BP 135/84
--- NOTE | 2017-05-18 11:58 | Physical Therapy Evaluation ---
PT Evaluation-General Medical Diagnosis Admission Date 05/18/17 Medical Diagnosis: weakness Onset Date: May 16, 2017 Therapy Diagnosis Therapy Diagnosis: impaired mobility, strength, endurance, balance Height/Weight Height (Feet): 5 Height (Inches): 8.00 Weight (Pounds): 143 Weight (Ounces): 0.0 Referral Physician: Munir Reason for Referral: Evaluation/Treatment Medical History Pertinent Medical History: Arthritis, Breast CA S/P Mastectomy, CAD, DM, GERD, HTN, Neuropathy Additional Medical History UTI-chronic, chronic constipation, fractures, cataracts, glaucoma, surg (port placement, right carpal tunnel, breast, orthopedic, tonsillectomy) Current History Patient went to ER via EMS after a fall. Reviewed History: Yes Social History Home: Single Level Current Living Status: Spouse Patient states she has one small step to enter her home. Prior/Core FIM Prior Level of Function Functional [place] Measure 0=Not Assessed/NA 4=Minimal Assistance 1=Total Assistance 5=Supervision or Setup 2=Maximal Assistance 6=Modified [place] 3=Moderate Assistance 7=Complete [place] Bed Mobility: 6 Transfers (B,C,W/C) (FIM): 6 Gait: 6 Patient states she was holding onto furniture when walking in the home PT Evaluation-Current Subjective Patient in wheelchair pre tx, agrees to PT, has no complaints of pain. Patient will need to get dressed. She has a lot of edema in her right arm and little use of it post breast cancer and mastectomy. Pt/Family Goals "to get stronger and go home" Objective Patient Orientation: Person, Place, Situation ROM/Strength ROM Lower Extremities WNL Strenght Lower Extremities 4/5 gross bilateral lower extremities, patient has neuropathy and significant ankle weakness, dorsiflexion 2/5 bilaterally Integumentary/Posture Bowel Incontinence: No Bladder Incontinence: No Sensory Vision: Functional Hearing: Functional Sensation Right Lower Extremit: Impaired Sensation Left Lower Extremity: Impaired Sensation Lower Extremities Patient has decreased light touch sensation from the knees down bilaterally. Transfers Functional [place] Measure 0=Not Assessed/NA 4=Minimal Assistance 1=Total Assistance 5=Supervision or Setup 2=Maximal Assistance 6=Modified [place] 3=Moderate Assistance 7=Complete IndependenceIRFPAI Quality Coding Scale 6 Independent with activity with or without an assistive device 5 Patient requires set up or clean up by helper. Patient completes activity by themselves 4 Supervision or touching assist (CGA). [place] provide cues , steadying assist 3 The helper provides less than half the effort to complete the activity 2 The helper provides more than half the effort to complete the activity 1 Dependent. The helper does all the effort to complete an activity 7 Patient refused to complete or attempt activity 9 The patient did not perform the activity before the current illness or injury 88 Not attempted due to Medical conditions or safety concerns Transfers (B, C, W/C) (FIM): 4 Scootin Rollin Roll Left to Right (QC): 4 Supine to/from Sit: 5 Sit to/from Stand: 4 bed t/f WC(FIM only if WC use): 3 Sit to Lying (QC): 4 Lying to Sitting/Side of Bed(Q: 4 Sit to Stand (QC): 3 Chair/Oxy-zr-Xurip Xfer(QC): 3 Patient performs bed mobility with SBA, sit to stand with min assist, and bed to chair transfer with Lucy. Cues for safety and hand placement. Gait Does the Patient Walk?: Yes Mode of Locomotion: Walk Anticipated Mode of Locomotion: Walk Gait (FIM): 1 Walk 10 feet (QC): 4 Walk 50 ft with 2 Turns(QC): 88 Walk 150 ft (QC): 88 Walking 10ft/uneven surface-QC: 4 Distance: 20' Gait Level of Assist: 4 Gait Persons Needed: 1 Gait Assistive Device: Walker [place] Comments/Gait Description Patient can ambulate 20' with a [place] walker with min assist, including 10' over an uneven surface. She needs occasional assist with her balance. Slow ambulation, cues for safety and placement of AD. Wheelchair Training Does the Pt Use a Wheelchair?: Yes Wheelchair (FIM): 4 Distance: 150' Wheelchair Level of Assist: 4 Wheel 50 ft with 2 turns (QC): 3 Wheel 150 ft (QC): 3 Type of Wheelchair: Manual Patient can propel a manual wheelchair 150' with min assist. She needs some assist because only her toes touch the floor and she cant assist much with them. Stairs Stairs (FIM): 1 #of Steps: 1 Level of Assist: 4 1 Step (curb) (QC): 3 4 Steps (QC): 88 12 Steps (QC): 88 Patient can go up and down 1 step using a [place] walker with min assist. She needs assist with balance. Balance Sitting Static: Normal Sitting Dynamic: Normal Standing Static: Poor Standing Dynamic: Poor Picking up an Object (QC): 88 Treatment Patient was dressed upper and lower extremity with min assist. Assessment/Needs Patient has impaired mobility, strength, endurance, balance, is a fall risk as this time. Rehab Potential: Fair PT Short Term Goals Short Term Goals Time Frame: May 25, 2017 Transfers (B,C,W/C) (FIM): 4 (CGA) Gait (FIM): 2 Gait Distance Comment: 50' Gait Level of Assist: 4 (CGA) Gait Assistive Device: FWW PT Manager Leadership Development Goals Manager Leadership Development Goals PT Usp Goals Time Frame: Jun 08, 2017 Transfers (B,C,W/C) (FIM): 5 Sit to Lying (QC): 4 Lying-Sitting on Side/Bed(QC): 4 Sit to Stand (QC): 4 Rollin Roll Left to Right (QC): 4 Chair/Bhi-qr-Absja Xfer(QC): 4 Car Transfer (QC): 4 Gait (FIM): 5 Distance: 150' Walk 10 feet (QC): 4 Walk 10ft-Uneven Surface(QC): 4 Walk 50ft with 2 Turns (QC): 4 Walk 150 ft (QC): 4 Gait Level of Assist: 5 Gait Assistive Device: Cane Large Base Quad Stairs (FIM): 2 # of Steps: 4 1 Step (curb) (QC): 4 4 Steps (QC): 4 Stairs Level Of Assist: 4 PT Plan Problem List Problem List: Activity Tolerance, Functional Strength, Safety, Balance, Gait, Transfer, Bed Mobility, ROM Treatment/Plan Treatment Plan: Continue Plan of Care Treatment Plan: Bed Mobility, Education, Functional Activity Vincent, Functional Strength, Group Therapy, Gait, Safety, Therapeutic Exercise, Transfers Treatment Duration: Jun 08, 2017 Frequency: At least 5-7 days/Wk (IRF) Estimated Hrs Per Day: 1.5 hours per day Patient and/or Family Agrees t: Yes Safety Risks/Education Patient Education: Gait Training, Transfer Techniques, Steps, Correct Positioning, W/C Management, Safety Issues Teaching Recipient: Patient Teaching Methods: Demonstration, Discussion Response to Teaching: Reinforcement Needed Discharge Recommendations Plan Patient will perform bed mobility and transfer training, balance and endurance training, functional strengthening, stair training, gait training, and education , to improve functional mobility and independence at home. Therapy D/C Recommendations: Home w/ Family Support Time/GCodes Time In: 1100 Time Out: 1200 Total Billed Treatment Time: 60 Total Billed Treatment 1 visit EV 30' FA 15' GT 15' MILKA BLACK PT May 18, 2017 11:58
[2017-05-18] MEDS ORDERED: ACETAMINOPHEN 500 MG TAB (TYLENOL) PO PRN (12:00)
[2017-05-18] MEDS ORDERED: IBUPROFEN TABLET 200 MG TAB PO PRN (12:00)
[2017-05-18] MEDS ORDERED: DOCUSATE SODIUM 100 MG (COLACE) CAP PO PRN (12:00)
[2017-05-18] MEDS: GABAPENTIN 600 MG (NEURONTIN) TAB PO SCH ×2 (12:47→20:06)
--- NOTE | 2017-05-18 13:13 | ST Cognitive Linguistic Eval ---
Speech Evaluation-General Medical Diagnosis Debility, Weakness (right leg) Onset Date: May 16, 2017 Therapy Diagnosis Therapy Diagnosis: Cognitive Linguistic Skills WNL Precautions Precautions/Isolations: Fall Prevention, Standard Precautions Referral Referring Physician: Dr. Eh Amaral Reason for Referral: Evaluation/Treatment Cognitive Evaluation Medical History Pertinent Medical History: Arthritis, Breast CA S/P Mastectomy, CAD, DM, GERD, HTN, Neuropathy Reviewed History: Yes Social History Current Living Status: Spouse Speech PLF-Current Status Prior Level of Function The patient denied prior challenges with speech, language, or cognition. Subjective The patient was recently admitted to [facility] with a diagnosis of weakness/debility. The patient greeted the clinician appropriately and was agreeable to participation in the cognitive evaluation. Language Eval: Auditory Comprehends Simple Yes/No Ques: Functional Indent/Objects Multiple [place]: Functional Ident/Pics in Multiple [place]: Functional Follows 1-Step Commands: Functional Follows Complex Directions: Functional Follows General Conversations: Functional Language Eval: Verbal Language Completes Spontaneous Greeting: Functional Produces Auto, Serial Info: Functional Imitates Simple Words/Phrases: Functional Word Finding: Functional Requests Basic Needs: Functional States Basic Personal Info: Functional Expresses Complex Ideas: Functional Cognitive Patient Orientation The patient was independently oriented to month, day of week, date, and year. Objective Cognitive Domain Memory: WNL Problem Solving: Functional Executive Functions: WNL Objective Impression The patient demonstrated cognitive linguistic skills within normal limits and appropriate for completion of ADL's. Communication/Social Cognition Comprehension: 6 Expression: 7 Social Interaction: 7 Problem Solvin Memory: 6 Speech Patient Assess Expression of Ideas/Wants: Expression (4) Understanding [place] Content: Understands (4) Brief Interview-Mental Status: Yes Repetition of Three Words: Three (3) Temporal Orientation: Year: Correct (3) Temporal Orientation: Month: Accurate within 5 days(2) Temporal Orientation: Day: Correct (1) Recall : Wear to say "Sock": Yes, no cue required (2) Recall : Color: Yes, no cue required (2) Recall : Bed: Yes, no cue required (2) Speech-Plan Treatment Plan Speech Therapy Treatment Plan: Discontinue ST Evaluation, only. Frequency: Modified Program (IRF) Estimated Hrs Per Day: .25 hour per day (Evaluation, only.) Rehab Potential: Good Safety Risks/Education Teaching Recipient: Patient Teaching Methods: Discussion Response to Teaching: Verbalize Understanding Education Topics Provided: Plan of Care, Results, Recommendations Time Speech Therapy Time In: 11:55 Speech Therapy Time Out: 12:10 Total Billed Time: 15 Billed Treatment Time 1, GLENN AYALA May 18, 2017 13:13
--- NOTE | 2017-05-18 15:22 | Occupational Therapy Eval ---
OT Evaluation-General/PLF Medical Diagnosis Admission Date May 18, 2017 at 11:07 Medical Diagnosis: Debility, Weakness (right leg) Onset Date: May 16, 2017 Therapy Diagnosis Therapy Diagnosis: Weakness Height/Weight Height (Feet): 5 Height (Inches): 8.00 Weight (Pounds): 143 Weight (Ounces): 0.0 Precautions Precautions/Isolations: Fall Prevention, Standard Precautions Weight Bear Status Weight Bearing Restriction: Weight Bearing/Tolerated Referral Physician: Munir Referral Reason: Activity Tolerance, Self Care, Evaluation/Treatment, Strengthening/ROM Medical History Pertinent Medical History: Arthritis, Breast CA S/P Mastectomy, CAD, DM, GERD, HTN, Neuropathy Additional Medical History UTI, Carpal tunnel, 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 Current History Pt. states that she has began to fall more recently. States that she is unsure why. Pt. has severe lymphedema in right UE. States that she was getting in wrapped by Dr. Zee. However, due to recent cellulitis and now continued redness/heat, she is no longer supposed to wrap it. Pt. has a sling that she puts on to keep it from handing at side. Pt. states that she had recent right humeral head fx due to fall. It healed on its own and she has been cleared by orthopedic surgeon. Reviewed History: Yes Social History Home: Single Level Current Living Status: Spouse Entry Into Home: Stairs With Railing Steps Into Home: 1 (1 small step off of porch to get into house.) ADL-Prior Level of Function ADL PLOF Comments Pt. states that her assisted her into and out of shower due to balance, and assisted with bathing her left UE. She was able to do all other activities on her own. Pt. and spouse are raising their great grandchild. DME/Equipment: Bath Chair, Tub/Shower DME/Equipment Comments Pt. has walker and quad cane. However, she states that she mainly either "furniture walked" in her house, or held onto her . 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 Drive Self: No OT Current Status Subjective No pain reported. Pt. does state that she is "fearful" of getting up on her own. Appearance Pt. up in chair. Agrees to work with OT. Mental Status/Objective Patient Orientation: Person, Place, Time, Situation Current Dentures/Partials: Yes Hand Dominance: Right Upper Extremity ROM Left- WFL Right-no active movement due to 2 year old injury Upper Extremity Coordination left-intact right-no movement Upper Extremity Sensation Pt. states that she has no sensation in right UE. In fact, she states that she has burnt her hand twice on the stove, and did not feel it. States that her no longer lets her cook. Upper Extremity Strength Left- WFL Right- NA Edema: Pt. demonstrates significant edema in right UE. Due to recent diagnosis of cellulitis, pt. states that her cancer doctor will no longer wrap her UE. Retrograde massage contraindicated. ADL-Treatment Functional [place] Measure 0=Not Assessed/NA 4=Minimal Assistance 1=Total Assistance 5=Supervision or Setup 2=Maximal Assistance 6=Modified [place] 3=Moderate Assistance 7=Complete IndependenceIRFPAI Quality Coding Scale 6 Independent with activity with or without an assistive device 5 Patient requires set up or clean up by helper. Patient completes activity by themselves 4 Supervision or touching assist (CGA). [place] provide cues , steadying assist 3 The helper provides less than half the effort to complete the activity 2 The helper provides more than half the effort to complete the activity 1 Dependent. The helper does all the effort to complete an activity 7 Patient refused to complete or attempt activity 9 The patient did not perform the activity before the current illness or injury 88 Not attempted due to Medical conditions or safety concerns Eating (FIM): 5 Eating (QC): 5 Grooming (FIM): 5 (SBA to brush teeth and hair seated.) Bathing (FIM): 4 (Pt. requires min assist to wash left UE. Is able to move side to side seated to wash katlyn areas.) Shower/Bathe Self (QC): 4 Upper Body Dressing (FIM): 5 (Pt. struggles to don shirt, but is able to do it with increased time needed.) Upper Body Dressing (QC): 5 Lower Body Dressing (FIM): 3 (Pt. requires assistance to don socks over toes with one hand. Is able to don underwear and pants. CGA in stance to pull up over hips.) Lower Body Dressing (QC): 3 On/Off Footwear (QC): 3 Transfers (B, C, W/C) (FIM): 4 (Pt. requires CGA/Min assist for sit-stand and transfer to wheelchair.) Other Treatments Pt. declined showering but agreed to spongebathe. Pt. able to complete all tasks in chair. Transferred to wheelchair after ADL task. Went to therapy gym. Tolerated armbike at min resistance using left UE to increase overall strength and endurance. Pt. also donned 1 lb. wrist weight and completed peg activity to increase overall strength with upper body. Spouse to bring in arm sling. Education OT Patient Education: Correct positioning, Exercise program, Modified ADL techniques, Progress toward Goal/Update tx plan, Purpose of tx/functional activities, Reviewed precautions, Rehab process, Transfer techniques Teaching Recipient: Patient Teaching Methods: Demonstration, Discussion Response to Teaching: Verbalize Understanding, Return Demonstration OT Short Term Goals Short Term Goals Time Frame: Jun 01, 2017 Eating(FIM): 6 Grooming(FIM): 6 Bathing(FIM): 5 Upper Body Dressing(FIM): 5 Lower Body Dressing(FIM): 5 Toileting(FIM): 5 Transfers (B,C,W/C) (FIM): 5 Toilet/Commode Transfer(FIM): 5 Shower Transfer(FIM): 4 Additional Short Term Goals: 1-Demonstrate ADL Tasks, 2-Verbalize Understanding , 3-ImproveStrength/Vincent 1=Demonstrate adherence to instructed precautions during ADL tasks. 2=Patient will verbalize/demonstrate understanding of assistive devices/ modifications for ADL. 3=Patient will improve strength/tolerance for activity to enable patient to perform ADL's. OT Steam Plant Records Clerk Goals Residential Goals Time Frame: Jun 15, 2017 Eating (FIM): 6 Eating (QC): 6 Groomin Oral Hygiene (QC): 6 Bathing(FIM): 5 Shower/Bathe Self (QC): 5 Upper Body Dressing(FIM): 6 Upper Body Dressing (QC): 6 Lower Body Dressing(FIM): 6 Lower Body Dressing (QC): 6 On/Off Footwear (QC): 6 Toileting(FIM): 6 Toileting Hygiene (QC): 6 Transfers (B,C,W/C) (FIM): 6 Toilet/Commode Transfer(FIM): 6 Toilet/Commode Transfer (QC): 6 Additional Goals: 1-Demonstrate ADL Tasks, 2-Verbalize Understanding, 3- ImproveStrength/Vincent 1=Demonstrate adherence to instructed precautions during ADL tasks. 2=Patient will verbalize/demonstrate understanding of assistive devices/ modifications for ADL. 3=Patient will improve strength/tolerance for activity to enable patient to perform ADL's. OT Education/Plan Problem List/Assessment Assessment: Decreased Activ Tolerance, Dependent Transfers, Impaired Funct Balance, Impaired I ADL's, Impaired Self-Care Skills Discharge Recommendations Plan/Recommendations: Continue POC Therapy D/C Recommendations: Home w/ Family Support, Occupational Therapy Home Care Equpiment Recommendations-D/C: Extended Bath Bench, Hip Kit Patient/Family Goals Pt. would like to return home with spouse. Treatment Plan/Plan of Care Treatment,Training & Education: Yes Patient would benefit from OT for education, treatment and training to promote independence in ADL's, mobility, safety and/or upper extremity function for ADL' s. Plan of Care: ADL Retraining, Functional Mobility, Group Exercise/Act as Ind, UE Funct Exercise/Act Treatment Duration: Jun 15, 2017 Frequency: At least 5-7 days/Wk (IRF) Estimated Hrs Per Day: 1.5 hours per day Rehab Potential: Good Time/GCodes Start Time: 13:00 Stop Time: 14:30 Total Time Billed (hr/min): 90 Billed Treatment Time 1, EVhigh x 15minutes, ADL x 45minutes, Ex x 30minutes MYNOR VENTURA OT May 18, 2017 15:22
--- NOTE | 2017-05-18 15:31 | Physical Therapy Daily Note ---
PT Daily Note-Current Subjective Agreeable to PT. After ambulation, pt noted, "it felt good to walk." Transfers Functional [place] Measure 0=Not Assessed/NA 4=Minimal Assistance 1=Total Assistance 5=Supervision or Setup 2=Maximal Assistance 6=Modified [place] 3=Moderate Assistance 7=Complete IndependenceIRFPAI Quality Coding Scale 6 Independent with activity with or without an assistive device 5 Patient requires set up or clean up by helper. Patient completes activity by themselves 4 Supervision or touching assist (CGA). [place] provide cues , steadying assist 3 The helper provides less than half the effort to complete the activity 2 The helper provides more than half the effort to complete the activity 1 Dependent. The helper does all the effort to complete an activity 7 Patient refused to complete or attempt activity 9 The patient did not perform the activity before the current illness or injury 88 Not attempted due to Medical conditions or safety concerns Treatments Pt is CGA with sit to stand to steady her balance. Pt ambulated x 150 ft with hemiwalker with CGA. Toilted with SB-CGA for transfers and clothing management. Pt able to perform pericare with SBA; stood at sink to wash her left hand with CGA. Seated LE ther ex x 15 for AP< LAQ, hip flexion and hip abduction; sit to stand x 10 all to increase LE strength for functional transfers and gait. Pt in chair after treatment with needs met. Assessment Current Status: Good Progress Progressing. PT Short Term Goals Short Term Goals Time Frame: May 25, 2017 Transfers (B,C,W/C) (FIM): 4 (CGA) Gait (FIM): 2 Gait Distance Comment: 50' Gait Level of Assist: 4 (CGA) Gait Assistive Device: FWW Wheelchair Distance: 150' PT Fpc Goals Liner Worker Goals PT Liner Worker Goals Time Frame: Jun 08, 2017 Transfers (B,C,W/C) (FIM): 5 Sit to Lying (QC): 4 Lying-Sitting on Side/Bed(QC): 4 Sit to Stand (QC): 4 Rollin Roll Left to Right (QC): 4 Chair/Wsa-tx-Jycoz Xfer(QC): 4 Car Transfer (QC): 4 Gait (FIM): 5 Distance: 150' Walk 10 feet (QC): 4 Walk 10ft-Uneven Surface(QC): 4 Walk 50ft with 2 Turns (QC): 4 Walk 150 ft (QC): 4 Gait Level of Assist: 5 Gait Assistive Device: Cane Large Base Quad Stairs (FIM): 2 # of Steps: 4 1 Step (curb) (QC): 4 4 Steps (QC): 4 Stairs Level Of Assist: 4 PT Plan Problem List Problem List: Activity Tolerance, Functional Strength Treatment/Plan Treatment Plan: Continue Plan of Care Treatment Plan: Bed Mobility, Education, Functional Activity Vincent, Functional Strength, Group Therapy, Gait, Safety, Therapeutic Exercise, Transfers Treatment Duration: Jun 08, 2017 Frequency: At least 5-7 days/Wk (IRF) Estimated Hrs Per Day: 1.5 hours per day Patient and/or Family Agrees t: Yes Safety Risks/Education Patient Education: Safety Issues Teaching Recipient: Patient Teaching Methods: Discussion Response to Teaching: Reinforcement Needed Time/GCodes Time In: 1430 Time Out: 1454 Total Billed Treatment Time: 24 Total Billed Treatment visit EX 10 GT 14 KAMAR ESCOBAR PT May 18, 2017 15:31
--- NOTE | 2017-05-18 16:48 | Podiatry Progress Note ---
Standard Progress Note Progress Notes/Assess & Plan Date Seen by Provider: May 18, 2017 Time Seen by Provider: 16:47 Progress/Assessment & Plan Consult dictated. Foot care given. Diabetic neuropathy Onychomycosis Final Diagnosis Diabetic Neuropathy Onychomycosis ELDER STANFORD DPM May 18, 2017 16:48
[2017-05-18] MEDS: inSUlin ASPART (NovoLOG) 1 UNIT/0.01 ML (CHARGE PER UNIT) SC SCH ×2 (17:49→20:49)
[2017-05-18 18:20] VITALS: BP 157/75
--- NOTE | 2017-05-18 19:35 | PM&R Post Admission Assessment ---
Post Admission Physician Asses The preadmission screen agrees with the post admission assessment that the patient is a good candidate for inpatient rehabilitation. The patient will have a comprehensive program of inpatient rehabilitation with a goal of maximizing level of functional independence prior to discharge home with spouse. The patient will have PT/OT ninety minutes per day, each discipline, five days a week for gait, strengthening, conditioning, balance, ADLs, any patient/family/caregiver training as necessary. Speech therapy to do cognitive assessment and treat as indicated. Rehabilitation nursing to assist with bowel, bladder, skin, medication administration, pain management. Upward Bound Director to assist with discharge planning, community reentry. SCD's for DVT prophylaxis. She appears to be well motivated to participate in three hours of therapy a day. She should be able to tolerate three hours of therapy a day from a medical standpoint. She should benefit from the three hours of therapy a day. She has a reasonable discharge plan, reasonable discharge rehabilitation goals and a supportive family. She has various comorbidities that need to be closely monitored with medications and treatments adjusted on a daily basis as needed. 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 Risks for this patient include: 1. Fall 2. Fracture 3. DVT 4. Pulmonary embolism 5. recurrent cellulitis 6. Skin breakdown 7. Contractures 8. Poorly controlled pain 9. Urinary retention 10. UTI 11. Respiratory infection 12. Aspiration 13.Worsening Lymphedema/Peripheral edema 14. Poorly controlled DM 15. Poorly controlled HTN Estimated Length of Stay: []days Prognosis: Rehab prognosis appears good for goal of discharge home with [family ] modified independent to supervision for ADLs and mobility skills. LESLI COLEY MD May 18, 2017 19:35
--- NOTE | 2017-05-18 20:01 | CONSULTATION REPORT ---
DATE OF SERVICE: 05/18/2017 REASON FOR CONSULTATION: Diabetic foot care. This 77-year-old female was admitted for rehabilitation after apparently a significant fall. She denies any fracture, however, she indicates that she has started to fall a little more frequently than even is normal for her. The patient has difficulty reaching for and caring for her feet. She is concerned about her nails, especially the left great. She felt that she may have tripped over it that it has been so long. PAST MEDICAL HISTORY: Includes diabetes, coronary artery disease, GERD, hypertension, neuropathy, arthritis and breast CA with mastectomy. ADDITIONAL SURGICAL INTERVENTION: Has included carpal tunnel release. Apparently there was a severed nerve in the right upper extremity causing flaccidity, lymphedema, and she had past surgery for a broke humeral head approximately 6 weeks ago. She has no known drug allergies. CURRENT MEDICATIONS: Listed on the patient's chart. SOCIAL HISTORY: The patient lives with her spouse in a single level home. She denies tobacco, alcohol or illicit drug use. This is a well-developed female in no apparent distress. She is currently afebrile. She has 2/4 dorsalis pedis pulse, 0/4 posterior tibial pulse bilaterally. Cap refill time is less than 3 seconds. No digital hair growth is noted bilaterally. Neurologically, the patient has decreased protective sensation for 10 gram monofilament wire examination bilaterally. Diminished deep tendon reflexes. Diminished vibratory sensation bilaterally. Musculoskeletal findings, she has contracted toes of the 5th digit bilaterally. She has 4/5 muscle strength of the 4 major quadrants of the foot. Dermatologically, she has no open lesions noted bilaterally. She has thick, yellow, dystrophic toenail with subungual debris R1, 3, 4, 5; L1 and 5 digits. The hallux toenails are very loose back to the proximal half of the nail plate area. ASSESSMENT: 1. Diabetic neuropathy. 2. Onychomycosis and onycholysis. PLAN: Various treatment options were discussed with the patient. Her toenails were debrided mechanically, Betadine applied. We discussed diabetic foot care in general. I believe it to be appropriate for her to follow up with a social media content specialist some time in the future on a regular basis. She is welcome to follow up in the office as necessary. Job ID: [id number] DocumentID: [id number] Dictated Date: 05/18/2017 16:56:17 Machine Room Engineer Date: 05/18/2017 20:01:05 Dictated By: ELDER STANFORD DPM
[2017-05-18] MEDS: ENALAPRIL 10 MG (VASOTEC) TAB PO SCH (20:06)
--- NOTE | 2017-05-18 21:52 | HISTORY AND PHYSICAL ---
DATE OF SERVICE: 05/18/2017 CHIEF COMPLAINT: Difficulty with walking. HISTORY OF PRESENT ILLNESS: The patient is a 77-year-old female with breast cancer with metastases to the spine who was undergoing chemotherapy when she had falls at home. She was admitted to [facility] to hospitalist service on 05/16/2017. She had abnormal UA, started on antibiotic empirically. Culture was negative. This was discontinued. She complains of increased numbness in both legs. She does have a history of diabetes mellitus. There is a question of chemotherapy induced neuropathy. The patient had been receiving chemotherapy on a scheduled basis. It is currently on hold. She had been modified independent prior to this, living with her spouse in [place], but she apparently furniture walked, holding on to furniture to support herself and did not use a gait aid. She has had imaging studies of the ankles which are negative for fracture. She is now referred to inpatient rehabilitation unit for a comprehensive program with inpatient rehabilitation. She does have chronic edema and paralysis in the right hand which is her dominant side, since right carpal tunnel surgery which apparently was not successful. She now uses her left hand. She is mod assist for transfers at this point. She is reportedly continent of bowel and bladder. She is min assist for ambulation with a bhavana-walker. She is set-up for eating and grooming, min assist for bathing, set-up for upper body dressing, mod assist for lower body dressing, min assist for wheelchair transfers. PAST MEDICAL HISTORY: Breast cancer with mets to the spine, chronic constipation, chronic UTIs, glaucoma, cataracts, carpal tunnel syndrome right, arthritis, hypertension, diabetes mellitus, osteoarthritis, chronic pain, GERD. PAST SURGICAL HISTORY: She has had a port placement for chemotherapy. She is followed by Dr. Zee, medical oncology. She has had mastectomy right breast and lymph node resection. ALLERGIES: No known medication allergies. FAMILY HISTORY: Cancer, stroke, depression, multiple sclerosis. SOCIAL HISTORY: Lives with spouse in [place]. PCP is Dr. Carvalho. REVIEW OF SYSTEMS: A 10-point review of systems is significant for falls, numbness in feet, swelling and weakness in the right hand and arm. MEDICATIONS: 1. ASA 81 mg p.o. daily. 2. Protonix 40 mg p.o. daily. 3. Amaryl 8 mg p.o. daily. 4. Vasotec 10 mg p.o. b.i.d. 5. NovoLog insulin sliding scale regimen A. 6. Gabapentin 600 mg p.o. t.i.d. 7. Tylenol 500 mg p.o. q.6 hours p.r.n. mild pain. 8. Colace 100 mg p.o. daily p.r.n. constipation. 9. Ibuprofen 400 mg p.o. q.6 hours p.r.n. mild pain alternating with Tylenol. PHYSICAL EXAMINATION: GENERAL: A pleasant female appearing her stated age, alert and oriented, in no acute distress. BMI 21.7. VITAL SIGNS: She is afebrile, pulse is 100, respirations 20, blood pressure 135/84, O2 sat 98% on room air. HEENT: The patient's speech and hearing grossly intact. No oral lesion is noted. NECK: Supple without mass. HEART: Regular rhythm. LUNGS: Clear. BREASTS: She is status post right mastectomy. ABDOMEN: Soft, nontender. Bowel sounds present. EXTREMITIES: She has edema present in the right forearm and hand. MUSCULOSKELETAL: She has functional passive range of motion of the right upper limb but no active movement due to prior injury. Functional active range of motion left upper limb and both lower limbs. NEUROLOGIC: Reports no sensation in right upper limb. This is associated with significant edema in the right upper limb due to recent diagnosis cellulitis. Medical oncologist no longer wraps her right upper limb. Strength of lower extremities 4/5 bilateral other than ankle weakness, dorsiflexion 2/5 bilaterally with decreased sensation to touch below the knees. Cognition appears grossly intact to touch. IMPRESSION: 1. Ambulatory dysfunction secondary to chemotherapy induced neuropathy with prior diabetic peripheral neuropathy most likely. 2. Breast cancer with metastasis, status post right mastectomy, status post chemotherapy associated with lymphedema right upper limb. 3. Prior right carpal tunnel release with injury to the nerve and resulting paralysis and loss of sensation. 4. Diabetes mellitus, controlled with medication. 5. Hypertension, controlled with medication. 6. Chronic pain. 7. Osteoarthritis. 8. Gastroesophageal reflux disease, on medication. PLAN: The patient will have a comprehensive program of inpatient rehabilitation with goal of maximizing level of functional independence prior to discharge home with spouse. The patient will have PT and OT 90 minutes per day each, 5 days a week for strengthening, conditioning, ADLs, any patient family caregiver training necessary, any type of equipment and any training necessary. Speech therapy to do cognitive assessment, treat as indicated. Rehabilitation nursing to assist with bowel, bladder, skin care, medication administration, pain management. social services manager to assist with discharge planning, followup with hospitalist service and medical oncology as per their schedule. Therapy with cardiac and fall precautions. Elevate right upper limb as much as possible to limit dependent edema. ESTIMATED LENGTH OF STAY: Two weeks. PROGNOSIS: Fair. Progress appears good. Goal is to try to get home with spouse, modified independence, supervision for ADLs and mobility skills. DIET: Carb consistent. CODE STATUS: Full code. Job ID: [id number] DocumentID: [id number] Dictated Date: 05/18/2017 19:28:55 Transmission Maintenance Supervisor Date: 05/18/2017 21:51:21 Dictated By: LESLI COLEY MD MTDD
[2017-05-19] MEDS: inSUlin ASPART (NovoLOG) 1 UNIT/0.01 ML (CHARGE PER UNIT) SC SCH ×4 (05:16→21:57)
[2017-05-19 05:40] VITALS: BP 113/64
[2017-05-19] MEDS: PANTOPRAZOLE 40 MG (PROTONIX) TAB PO SCH (06:05)
[2017-05-19] MEDS: GLIMEPIRIDE 4 MG (AMARYL) TAB PO SCH (06:05)
[2017-05-19] MEDS: ASPIRIN E.C. 81 MG (ECOTRIN) TAB PO SCH (09:08)
[2017-05-19] MEDS: ENALAPRIL 10 MG (VASOTEC) TAB PO SCH ×2 (09:08→20:34)
[2017-05-19] MEDS: GABAPENTIN 600 MG (NEURONTIN) TAB PO SCH ×3 (09:08→20:34)
--- NOTE | 2017-05-19 09:35 | PM & R (SOAP) Progress Note ---
Subjective Time Seen by Provider: 08:05 Subjective/Events-last exam Patient was seen in her room this AM Patient contact guard for Transfers and gait Patient reports long history of diabetic Peripheral neuropathy but she has had worse symptoms since chemo begun for metastatic Breast CA Objective Exam Last Set of Vital Signs Vital Signs Date Time Temp Pulse Resp B/P (MAP) Pulse Ox O2 Delivery O2 Flow Rate FiO2 05/19/17 05:40 98.1 80 20 113/64 95 Room Air Capillary Refill : I&O Bad tableGeneral: Alert, Oriented X3, Cooperative, No Acute Distress HEENT: Atraumatic, PERRLA, EOMI, Mucous Memb Moist/[place] Neck: Supple, No JVD Lungs: Clear to Auscultation Heart: Regular Rate Abdomen: Normal Bowel Sounds, Soft Extremities: Other (plus edema both feet and rt arm) Neuro: Other (fairly flaccid rt UE Weakness both lower extremities with decreased sensation below both knees) Other physical findings s/p rt mastectomy Results Lab Laboratory Tests 05/18/17 15:59: Glucometer 315H 05/18/17 20:44: Glucometer 208H 05/19/17 05:08: Glucometer 168H Assessment/Plan Assessment Chemotherapy induced Peripheral Neuropathy superimposed upon Diabetic Peripheral neuropathy Metatstatic Breast CA s/p Rt Mastectomy and course of chemotherapy DR Merritt Dinh Prior rt carpal tunnel release with paralysis RUE DM Controlled with meds HTN controlled with meds Chronic pain OA GERD on meds Onychomycosis Onycholysis Plan Continue PT/OT/Pain management F/U with DR Blevins .Merritt and LESLI Casey MD May 19, 2017 09:35
--- NOTE | 2017-05-19 09:42 | Individualized Plan of Care ---
Individualized Plan of Care Rehab Nursing IPOC Order Admission Date May 18, 2017 at 11:07 Current Orders Orders Admission (Physician Order) (05/18/17 11:07) Admission Arrival Bed Request (05/18/17 11:07) Admission-Acute Rehab Unit (05/18/17 11:52) Vital Signs: Routine 08,16,00 (05/18/17 11:52) Social Service (05/18/17 11:52) Rehab Nursing Orders-Ipoc (05/18/17 11:52) Physical Therapy Rehab Orders (05/18/17 11:52) Occupational Therapy Rehab Ord (05/18/17 11:52) Speech Therapy Rehab Orders (05/18/17 11:52) Turn And Reposition Q2HR (05/18/17 11:52) Intake & Output Shift Assessme 06,14,22 (05/18/17 11:52) Precautions (Aru) (05/18/17 11:52) Weekly Weight (Lbs) WEEK (05/18/17 11:52) Cho 60g/M 1snack (16-2000 Luis F) (05/18/17 Lunch) Acetaminophen Tablet (Tylenol Tablet) (05/18/17 12:00) Aspirin Enteric Coated Tablet (Ecotrin T (05/19/17 09:00) Docusate Sodium Capsule (Colace Capsule) (05/18/17 12:00) Enalapril Tablet (Vasotec Tablet) (05/18/17 21:00) Gabapentin Capsule/Tablet (Neurontin Cap (05/18/17 13:00) Glimepiride Tablet (Amaryl Tablet) (05/19/17 06:30) Pantoprazole Tablet (Protonix Tablet) (05/19/17 07:00) Ibuprofen Tablet (Motrin Tablet) (05/18/17 12:00) Consult Physician (05/18/17 12:02) Patient Visit (05/18/17 ) Speech Sound Lang Comp (05/18/17 ) Consult Physician (05/18/17 14:09) Patient Visit (05/18/17 ) Pt Eval Moderate Complexity (05/18/17 ) Functional Activities, Ea 15 (05/18/17 ) Gait Training, Ea 15 Min (05/18/17 ) Exercise Therap, Ea 15 Min (05/18/17 ) Insulin Aspart (Novolog) (Novolog (Charg (05/18/17 16:00) Accucheck Achs ACHS (05/18/17 16:41) Consult Physician (05/18/17 17:14) Dietary Consult (05/18/17 17:36) Rehab Nursing Orders: Diseage Management, Edu in Press Rel Techn, Hydration Management, Nutrition Management, Pain Management Other Nursing Orders: Monitor for urinary retention and Constipation PT IPOC Problem List: Activity Tolerance, Functional Strength Treatment Plan: Continue Plan of Care Bed Mobility, Education, Functional Activity Vincent, Functional Strength, Group Therapy, Gait, Safety, Therapeutic Exercise, Transfers Treatment Duration: Jun 08, 2017 Frequency: At least 5-7 days/Wk (IRF) Estimated Hrs Per Day: 1.5 hours per day OT IPOC Problems: Decreased Activ Tolerance, Dependent Transfers, Impaired Funct Balance, Impaired I ADL's, Impaired Self-Care Skills Plan of Care: ADL Retraining, Functional Mobility, Group Exercise/Act as Ind, UE Funct Exercise/Act Treatment Duration: Jun 15, 2017 Frequency: At least 5-7 days/Wk (IRF) Estimated Hrs Per Day: 1.[address] IPOC Speech Therapy Treatment Plan: Discontinue ST Frequency: Modified Program (IRF) Estimated Hrs Per Day: .25 hour per day (Evaluation, only.) Physician IPOC Medical Issues being managed closely and that require the 24 hour availability of a physician:Pain management,DM HTN Peripheral edema Medical Issues: DVT Prophylaxis, Falls Precautions, Fluid/Electrolyte/ Nutrition Balance, Infection Protection, Pain Management, Other (List) (as per above) Brief Synthesis of Preadmission Screen, Post-Admission Evaluation, and Therapy Evaluations: 77 yo female with progressive weakness since chemo begun for metastatic breats CA s/p mastectomy with resulting falls and a decline in functional [place] Had been Independent prior to this and living with spouse.Hs HX of Diabetes and diabetic peripheral neuropathy Medical Prognosis: good Anticipated Length of Stay: 06-15-17 Rehab Goals Modified Independent for adls and mobility skills Anticipated discharge destinat: Home with spouse and [facility] LESLI COLEY MD May 19, 2017 09:42
--- NOTE | 2017-05-19 11:21 | Occupational Ther Daily Note ---
OT Current Status-Daily Note Subjective Pt in bed, agrees to treatment. Pt reports 2/10 pain in right UE. Mental Status/Objective Functional [place] Measure 0=Not Assessed/NA 4=Minimal Assistance 1=Total Assistance 5=Supervision or Setup 2=Maximal Assistance 6=Modified [place] 3=Moderate Assistance 7=Complete [place] ADL-Treatment Pt supine to sit with SBA. Pt declined bathing today and has already dressed. Would like to brush teeth. Pt sit to stand with CGA. Gait to sink with bhavana- walker. Pt stood at sink with SBA to brush teeth. Pt able to open toothpaste and place it on toothbrush using left hand. Pt places denture cream on partial and places it in mouth with SBA. Pt requires increased time for tasks. Functional [place] Measure 0=Not Assessed/NA 4=Minimal Assistance 1=Total Assistance 5=Supervision or Setup 2=Maximal Assistance 6=Modified [place] 3=Moderate Assistance 7=Complete IndependenceIRFPAI Quality Coding Scale 6 Independent with activity with or without an assistive device 5 Patient requires set up or clean up by helper. Patient completes activity by themselves 4 Supervision or touching assist (CGA). [place] provide cues , steadying assist 3 The helper provides less than half the effort to complete the activity 2 The helper provides more than half the effort to complete the activity 1 Dependent. The helper does all the effort to complete an activity 7 Patient refused to complete or attempt activity 9 The patient did not perform the activity before the current illness or injury 88 Not attempted due to Medical conditions or safety concerns Grooming (FIM): 5 Oral Hygiene (QC): 5 Other Treatment Gait to therapy gym with bhavana-walker, slow pace. Occasional CGA for balance. Pt requires cues for safety during mobility. Pt completed tabletop peg activity with left hand with 1# weight in place to increase strength needed for functional tasks. Putty activity completed with left hand to increase strength and coordination. Pt able to remove small beads from putty with increased time. Graded clothespin activity with left hand to increase human services assistant/pinch strength. Pt able to tolerate arm bike activity with left UE with minimal resistance to increase overall strength and endurance. Pt returned to room, completed sit to supine with SBA. Pt in bed with needs met after session. OT Short Term Goals Short Term Goals Time Frame: Jun 01, 2017 Eating(FIM): 6 Grooming(FIM): 6 Bathing(FIM): 5 Upper Body Dressing(FIM): 5 Lower Body Dressing(FIM): 5 Toileting(FIM): 5 Transfers (B,C,W/C) (FIM): 5 Toilet/Commode Transfer(FIM): 5 Shower Transfer(FIM): 4 Additional Short Term Goals: 1-Demonstrate ADL Tasks, 2-Verbalize Understanding , 3-ImproveStrength/Vincent 1=Demonstrate adherence to instructed precautions during ADL tasks. 2=Patient will verbalize/demonstrate understanding of assistive devices/ modifications for ADL. 3=Patient will improve strength/tolerance for activity to enable patient to perform ADL's. OT Manager Research Goals Manager Research Goals Time Frame: Jun 15, 2017 Eating (FIM): 6 Eating (QC): 6 Groomin Oral Hygiene (QC): 6 Bathing(FIM): 5 Shower/Bathe Self (QC): 5 Upper Body Dressing(FIM): 6 Upper Body Dressing (QC): 6 Lower Body Dressing(FIM): 6 Lower Body Dressing (QC): 6 On/Off Footwear (QC): 6 Toileting(FIM): 6 Toileting Hygiene (QC): 6 Transfers (B,C,W/C) (FIM): 6 Toilet/Commode Transfer(FIM): 6 Toilet/Commode Transfer (QC): 6 Additional Goals: 1-Demonstrate ADL Tasks, 2-Verbalize Understanding, 3- ImproveStrength/Vincent 1=Demonstrate adherence to instructed precautions during ADL tasks. 2=Patient will verbalize/demonstrate understanding of assistive devices/ modifications for ADL. 3=Patient will improve strength/tolerance for activity to enable patient to perform ADL's. OT Education/Plan Discharge Recommendations Plan/Recommendations: Continue POC Treatment Plan/Plan of Care Patient would benefit from OT for education, treatment and training to promote independence in ADL's, mobility, safety and/or upper extremity function for ADL' s. Plan of Care: ADL Retraining, Functional Mobility, Group Exercise/Act as Ind, UE Funct Exercise/Act Treatment Duration: Jun 15, 2017 Frequency: At least 5-7 days/Wk (IRF) Estimated Hrs Per Day: 1.5 hours per day Rehab Potential: Good Time/GCodes Start Time: 09:00 Stop Time: 10:00 Total Time Billed (hr/min): 60 Billed Treatment Time 1 visit, ADL(20minutes), EXx3(40minutes) IRAM GIBSON OT May 19, 2017 11:20
--- NOTE | 2017-05-19 11:23 | Physical Therapy Daily Note ---
PT Daily Note-Current Subjective Agreeable to PT. No complaints. Pain Numeric Pain Scale: 0-No Pain Location: No Pain Reported Mental Status Patient Orientation: Person, Place, Time, Situation Transfers Functional [place] Measure 0=Not Assessed/NA 4=Minimal Assistance 1=Total Assistance 5=Supervision or Setup 2=Maximal Assistance 6=Modified [place] 3=Moderate Assistance 7=Complete IndependenceIRFPAI Quality Coding Scale 6 Independent with activity with or without an assistive device 5 Patient requires set up or clean up by helper. Patient completes activity by themselves 4 Supervision or touching assist (CGA). [place] provide cues , steadying assist 3 The helper provides less than half the effort to complete the activity 2 The helper provides more than half the effort to complete the activity 1 Dependent. The helper does all the effort to complete an activity 7 Patient refused to complete or attempt activity 9 The patient did not perform the activity before the current illness or injury 88 Not attempted due to Medical conditions or safety concerns Transfers (B, C, W/C) (FIM): 4 Supine to/from Sit: 4 (light assist to left right leg into bed; light assist to lift trunk to sit up. ) Sit to Stand (QC): 4 (depending on attempt; CGA-min assist.) Sit to from supine in the bed x 1 reps with HOB slightly elevated and sit tofrom supine from the treatment mat x 1 rep with skilled cues for sequencing 50 % of the time and light assist. Sit to from stand x 15 reps with skilled reminders/cues for hand placemnt and sequencing 25% of the time. Gait Training Does the Patient Walk?: Yes Gait (FIM): 4 Distance: 150 ft x2; 30 ft x 2 4 ft Gait Assistive Device: Walker [place] Initially, gait very unsteady and needed min assist for balance; then as she moved more, she was only CGA for gait and her balance was better. Pt did transfer on/off the toilet and stood at sink to wash her hands with CGA. Stair Training Attempted to ambulate up/down a curb step with hemiwalker and min assist, but pt unable to step up onto the step safely. Exercises Supine Ex: Bridging, Ankle pumps, Quad Set, Glut sets, Heel Slides, Short Arc Quads, Straight leg raise, Hip abd/add Supine Reps: 15 (for LE strength to improve gait and transfer ability.) NuStep Minutes: 10 (to increase B LE strength and functional act jatin) Assessment Current Status: Good Progress Pt progressing wth her ability to ambulate and transfer; unable to step us a curb step due to LE weakness. PT Short Term Goals Short Term Goals Time Frame: May 25, 2017 Transfers (B,C,W/C) (FIM): 5 Gait (FIM): 2 Gait Distance Comment: 50' Gait Level of Assist: 4 (CGA) Gait Assistive Device: FWW Wheelchair Distance: 150' PT Assisted Goals Rubber Compounder Supervisor Goals PT Rubber Compounder Supervisor Goals Time Frame: Jun 08, 2017 Transfers (B,C,W/C) (FIM): 5 Sit to Lying (QC): 4 Lying-Sitting on Side/Bed(QC): 4 Sit to Stand (QC): 4 Rollin Roll Left to Right (QC): 4 Chair/Jec-tc-Otmwl Xfer(QC): 4 Car Transfer (QC): 4 Gait (FIM): 5 Distance: 150' Walk 10 feet (QC): 4 Walk 10ft-Uneven Surface(QC): 4 Walk 50ft with 2 Turns (QC): 4 Walk 150 ft (QC): 4 Gait Level of Assist: 5 Gait Assistive Device: Cane Large Base Quad Stairs (FIM): 2 # of Steps: 4 1 Step (curb) (QC): 4 4 Steps (QC): 4 Stairs Level Of Assist: 4 PT Plan Problem List Problem List: Activity Tolerance, Functional Strength Treatment/Plan Treatment Plan: Continue Plan of Care Treatment Plan: Bed Mobility, Education, Functional Activity Vincent, Functional Strength, Group Therapy, Gait, Safety, Therapeutic Exercise, Transfers Treatment Duration: Jun 08, 2017 Frequency: At least 5-7 days/Wk (IRF) Estimated Hrs Per Day: 1.5 hours per day Patient and/or Family Agrees t: Yes Safety Risks/Education Patient Education: Safety Issues Teaching Recipient: Patient Teaching Methods: Demonstration, Discussion Response to Teaching: Reinforcement Needed Time/GCodes Time In: 720 Time Out: 820 Total Billed Treatment Time: 60 Total Billed Treatment visit EX 25 GT 20 FA 15 KAMAR ESCOBAR PT May 19, 2017 11:23
--- NOTE | 2017-05-19 15:15 | Therapy Group Daily Note ---
Therapy Daily Group Note Patient Education Topic Other List Below (Memory Strategies) Exercises LE Seated Exercise, UE Exercise Other/Notes Pt ambulated to PT/OT Group using FWW. Group consisted of Introduction (Name, Where you are from & Childhood School Memory), Memory Strategies to use for every tasks as well as a Memory Activity used to reenforce those Memory Strategies. Pt actively participated in Group by verbally giving Introduction and what strategies pt uses to help remember. Pt also used those strategies when working on Memory Activity. Pt ambulated back to room to rest at end of tx with all needs met. Start Time: 13:00 Stop Time: 14:00 Total Billed Treatment Time: 60 Total Billed Treatment 1, GRP ALBARO HER MINERAL ECONOMIST May 19, 2017 15:15
[2017-05-19 17:37] VITALS: BP 134/74
[2017-05-20 05:00] VITALS: BP 119/66
[2017-05-20] MEDS: inSUlin ASPART (NovoLOG) 1 UNIT/0.01 ML (CHARGE PER UNIT) SC SCH ×4 (06:00→21:03)
[2017-05-20] MEDS: PANTOPRAZOLE 40 MG (PROTONIX) TAB PO SCH (06:27)
[2017-05-20] MEDS: GLIMEPIRIDE 4 MG (AMARYL) TAB PO SCH (06:27)
--- NOTE | 2017-05-20 07:53 | Physical Therapy Daily Note ---
PT Daily Note-Current Subjective Patient agrees to PT. No c/o on this date. Pain Numeric Pain Scale: 0-No Pain Location: No Pain Reported Mental Status Patient Orientation: Normal For Age Transfers Functional [place] Measure 0=Not Assessed/NA 4=Minimal Assistance 1=Total Assistance 5=Supervision or Setup 2=Maximal Assistance 6=Modified [place] 3=Moderate Assistance 7=Complete IndependenceIRFPAI Quality Coding Scale 6 Independent with activity with or without an assistive device 5 Patient requires set up or clean up by helper. Patient completes activity by themselves 4 Supervision or touching assist (CGA). [place] provide cues , steadying assist 3 The helper provides less than half the effort to complete the activity 2 The helper provides more than half the effort to complete the activity 1 Dependent. The helper does all the effort to complete an activity 7 Patient refused to complete or attempt activity 9 The patient did not perform the activity before the current illness or injury 88 Not attempted due to Medical conditions or safety concerns Transfers (B, C, W/C) (FIM): 5 Scootin Supine to/from Sit: 5 Sit to/from Stand: 5 Sit to Lying (QC): 4 Sit to Stand (QC): 4 Chair/Jjj-fw-Ertib Xfer(QC): 4 Car Transfer (QC): 4 Gait Training Does the Patient Walk?: Yes Gait (FIM): 5 Distance (FIM): 3=150 ft Distance: 150' x 2 Walk 10 feet (QC): 4 Walk 50 ft with 2 Turns(QC): 4 Walk 150 ft (QC): 4 Gait Level of Assist: 5 Gait Persons Needed: 1 Gait Assistive Device: Walker [place] step to gait sequence Exercises NuStep Minutes: 13 NuStep Workload: 2 (to increase strength and mobility to return safely to home with spouse) Assessment Current Status: Excellent Progress Patient is highly motivated with progress. Patient progressing with treatment plan. PT Short Term Goals Short Term Goals Time Frame: May 25, 2017 Transfers (B,C,W/C) (FIM): 5 Gait (FIM): 2 Gait Distance Comment: 50' Gait Level of Assist: 4 (CGA) Gait Assistive Device: FWW Wheelchair Distance: 150' PT Mcc Goals Mcc Goals PT Mcc Goals Time Frame: Jun 08, 2017 Transfers (B,C,W/C) (FIM): 5 Sit to Lying (QC): 4 Lying-Sitting on Side/Bed(QC): 4 Sit to Stand (QC): 4 Rollin Roll Left to Right (QC): 4 Chair/Cpk-yg-Nuysp Xfer(QC): 4 Car Transfer (QC): 4 Gait (FIM): 5 Distance: 150' Walk 10 feet (QC): 4 Walk 10ft-Uneven Surface(QC): 4 Walk 50ft with 2 Turns (QC): 4 Walk 150 ft (QC): 4 Gait Level of Assist: 5 Gait Assistive Device: Cane Large Base Quad Stairs (FIM): 2 # of Steps: 4 1 Step (curb) (QC): 4 4 Steps (QC): 4 Stairs Level Of Assist: 4 PT Plan Treatment/Plan Treatment Plan: Continue Plan of Care Treatment Plan: Bed Mobility, Education, Functional Activity Vincent, Functional Strength, Group Therapy, Gait, Safety, Therapeutic Exercise, Transfers Treatment Duration: Jun 08, 2017 Frequency: At least 5-7 days/Wk (IRF) Estimated Hrs Per Day: 1.5 hours per day Patient and/or Family Agrees t: Yes Time/GCodes Time In: 725 Time Out: 748 Total Billed Treatment Time: 23 Total Billed Treatment 1 visit GT 10 min EX 13 min JANA PRADO PT May 20, 2017 07:53
[2017-05-20] MEDS: ASPIRIN E.C. 81 MG (ECOTRIN) TAB PO SCH (08:00)
[2017-05-20] MEDS: GABAPENTIN 600 MG (NEURONTIN) TAB PO SCH ×3 (08:00→20:18)
[2017-05-20] MEDS: ENALAPRIL 10 MG (VASOTEC) TAB PO SCH ×2 (08:00→20:18)
[2017-05-20 17:42] VITALS: BP 163/78
[2017-05-21 05:56] VITALS: BP 116/71
[2017-05-21] MEDS: inSUlin ASPART (NovoLOG) 1 UNIT/0.01 ML (CHARGE PER UNIT) SC SCH ×4 (05:59→20:33)
[2017-05-21] MEDS: GLIMEPIRIDE 4 MG (AMARYL) TAB PO SCH (06:11)
[2017-05-21] MEDS: PANTOPRAZOLE 40 MG (PROTONIX) TAB PO SCH (06:11)
[2017-05-21] MEDS: ASPIRIN E.C. 81 MG (ECOTRIN) TAB PO SCH (08:06)
[2017-05-21] MEDS: GABAPENTIN 600 MG (NEURONTIN) TAB PO SCH ×3 (08:06→20:33)
[2017-05-21] MEDS: ENALAPRIL 10 MG (VASOTEC) TAB PO SCH ×2 (08:06→20:33)
[2017-05-21 19:00] VITALS: BP 133/70
[2017-05-22 06:09] VITALS: BP 106/61
[2017-05-22] MEDS: inSUlin ASPART (NovoLOG) 1 UNIT/0.01 ML (CHARGE PER UNIT) SC SCH ×4 (06:11→20:40)
[2017-05-22] MEDS: PANTOPRAZOLE 40 MG (PROTONIX) TAB PO SCH (06:12)
[2017-05-22] MEDS: GLIMEPIRIDE 4 MG (AMARYL) TAB PO SCH (06:12)
[2017-05-22 08:34] VITALS: BP 122/69
[2017-05-22] MEDS: GABAPENTIN 600 MG (NEURONTIN) TAB PO SCH ×3 (08:34→20:21)
[2017-05-22] MEDS: ENALAPRIL 10 MG (VASOTEC) TAB PO SCH ×2 (08:34→20:22)
[2017-05-22] MEDS: ASPIRIN E.C. 81 MG (ECOTRIN) TAB PO SCH (08:34)
--- NOTE | 2017-05-22 11:05 | Physical Therapy Daily Note ---
PT Daily Note-Current Subjective Wants to go home tomorrow or PAMELA. Admits she is a furniture walker at home and that she has nueropathy and it is progressing. Pt. states she is not open to AFOs and might use a [place] walker at home but never a walker, her home is too crowded Appearance edin foot drop, right arm in handkerchief sling Mental Status Patient Orientation: Normal For Age Attachments: Other-See Comments (sling) Transfers Functional [place] Measure 0=Not Assessed/NA 4=Minimal Assistance 1=Total Assistance 5=Supervision or Setup 2=Maximal Assistance 6=Modified [place] 3=Moderate Assistance 7=Complete IndependenceIRFPAI Quality Coding Scale 6 Independent with activity with or without an assistive device 5 Patient requires set up or clean up by helper. Patient completes activity by themselves 4 Supervision or touching assist (CGA). [place] provide cues , steadying assist 3 The helper provides less than half the effort to complete the activity 2 The helper provides more than half the effort to complete the activity 1 Dependent. The helper does all the effort to complete an activity 7 Patient refused to complete or attempt activity 9 The patient did not perform the activity before the current illness or injury 88 Not attempted due to Medical conditions or safety concerns Transfers (B, C, W/C) (FIM): 6 Scootin Rollin Supine to/from Sit: 6 Sit to/from Stand: 6 Gait Training Does the Patient Walk?: Yes Gait (FIM): 4 Distance (FIM): 3=150 ft (x2) Gait Level of Assist: 4 Gait Persons Needed: 1 Gait Assistive Device: Walker [place] hip hikes to clear feet secondary to foot drop, little slap of forefoot bilat, pt. has some DF , declines trial of AFOs Stair Training Stair Training: Handrails/: 1 handrail Stairs (FIM): 2 #of Steps: 4 Stairs: Pattern: Step to Level of Assist: 4 Exercises Supine Ex: Bridging, Ankle pumps, Quad Set, Rolling, Glut sets, Heel Slides, Short Arc Quads, Scooting, Straight leg raise, Hip abd/add Supine Reps: 15 NuStep Minutes: 10 NuStep Workload: 2 Assessment Current Status: Good Progress edin foot drop, limited to use of [place] walker as RUE is non functioning, at risk for falls PT Short Term Goals Short Term Goals Time Frame: May 25, 2017 Transfers (B,C,W/C) (FIM): 5 Gait (FIM): 2 Gait Distance Comment: 50' Gait Level of Assist: 4 (CGA) Gait Assistive Device: FWW Wheelchair Distance: 150' PT Mcc Goals Waiter/Waitress [place] Goals PT Waiter/Waitress [place] Goals Time Frame: Jun 08, 2017 Transfers (B,C,W/C) (FIM): 5 Sit to Lying (QC): 4 Lying-Sitting on Side/Bed(QC): 4 Sit to Stand (QC): 4 Rollin Roll Left to Right (QC): 4 Chair/Fkt-pm-Deasr Xfer(QC): 4 Car Transfer (QC): 4 Gait (FIM): 5 Distance: 150' Walk 10 feet (QC): 4 Walk 10ft-Uneven Surface(QC): 4 Walk 50ft with 2 Turns (QC): 4 Walk 150 ft (QC): 4 Gait Level of Assist: 5 Gait Assistive Device: Cane Large Base Quad Stairs (FIM): 2 # of Steps: 4 1 Step (curb) (QC): 4 4 Steps (QC): 4 Stairs Level Of Assist: 4 PT Plan Treatment/Plan Treatment Plan: Continue Plan of Care Treatment Plan: Bed Mobility, Education, Functional Activity Vincent, Functional Strength, Group Therapy, Gait, Safety, Therapeutic Exercise, Transfers Treatment Duration: Jun 08, 2017 Frequency: At least 5-7 days/Wk (IRF) Estimated Hrs Per Day: 1.5 hours per day Patient and/or Family Agrees t: Yes Safety Risks/Education Patient Education: Gait Training, Transfer Techniques, Steps Teaching Recipient: Patient Teaching Methods: Demonstration, Discussion Response to Teaching: Verbalize Understanding, Return Demonstration, Reinforcement Needed Time/GCodes Time In: 1000 Time Out: 1100 Total Billed Treatment Time: 60 Total Billed Treatment 1,GT30m,FA15m,EX15m G Codes Necessary: BECKY Cantrell LINE MANAGER May 22, 2017 11:05
--- NOTE | 2017-05-22 12:17 | Occupational Ther Daily Note ---
OT Current Status-Daily Note Subjective No pain reported. Appearance Pt. up in chair. Dressed and declines showering or bathing. States that she would like to go home. Agrees to work with OT. Mental Status/Objective Patient Orientation: Person, Place, Time, Situation Functional [place] Measure 0=Not Assessed/NA 4=Minimal Assistance 1=Total Assistance 5=Supervision or Setup 2=Maximal Assistance 6=Modified [place] 3=Moderate Assistance 7=Complete [place] ADL-Treatment Functional [place] Measure 0=Not Assessed/NA 4=Minimal Assistance 1=Total Assistance 5=Supervision or Setup 2=Maximal Assistance 6=Modified [place] 3=Moderate Assistance 7=Complete IndependenceIRFPAI Quality Coding Scale 6 Independent with activity with or without an assistive device 5 Patient requires set up or clean up by helper. Patient completes activity by themselves 4 Supervision or touching assist (CGA). [place] provide cues , steadying assist 3 The helper provides less than half the effort to complete the activity 2 The helper provides more than half the effort to complete the activity 1 Dependent. The helper does all the effort to complete an activity 7 Patient refused to complete or attempt activity 9 The patient did not perform the activity before the current illness or injury 88 Not attempted due to Medical conditions or safety concerns Lower Body Dressing (FIM): 4 (Pt. requires CGA when pulling up or down pants to toilet. Is able to take off pants and put fresh ones on, as she slightly soiled her underpants.) Lower Body Dressing (QC): 4 Toileting (FIM): 4 (CGA in stance to balance self. Pt. soiled self, but states that it is because nursing did "not give me enough time" earlier to cleanse [place] area thoroughly.) Toileting Hygiene (QC): 4 Transfers (B, C, W/C) (FIM): 4 (Pt. requires min assist at times to stand out of chair.) Toilet/Commode Transfer (FIM): 4 Toilet Transfer (QC): 4 Other Treatment Pt. agrees to work with OT. Ambulated with CGA to therapy gym. Completed armbike x 15minutes at min resistance with several brief rest breaks using left UE only. Pt. has a sling from home on, that holds her right UE in place. Pt. states that she is ready to go home. States that she feels that her right LE weakness has resolved, and that she is stronger now. Pt. taken to kitchen. Practiced simple kitchen task of retrieving items from high and low cabinets with support from countertops, as she does at home. Pt. able to do this, and had little difficulty. Pt. states that her spouse will be able to assist her at home. Pt. states that she is ready to go home, and really wants to be there. All needs met back in room after kitchen task. Pt. requested to use bathroom, and then changed underwear and pants during toileting task, (see above.) All needs met. Will speak with physical therapist and social worker palliative care to [place] when pt. ready for discharge. Education OT Patient Education: Correct positioning, Exercise program, Modified ADL techniques, Progress toward Goal/Update tx plan, Purpose of tx/functional activities, Reviewed precautions, Transfer techniques Teaching Recipient: Patient, Family Teaching Methods: Demonstration, Discussion Response to Teaching: Verbalize Understanding, Return Demonstration OT Short Term Goals Short Term Goals Time Frame: Jun 01, 2017 Eating(FIM): 6 Grooming(FIM): 6 Bathing(FIM): 5 Upper Body Dressing(FIM): 5 Lower Body Dressing(FIM): 5 Toileting(FIM): 5 Transfers (B,C,W/C) (FIM): 5 Toilet/Commode Transfer(FIM): 5 Shower Transfer(FIM): 4 Additional Short Term Goals: 1-Demonstrate ADL Tasks, 2-Verbalize Understanding , 3-ImproveStrength/Vincent 1=Demonstrate adherence to instructed precautions during ADL tasks. 2=Patient will verbalize/demonstrate understanding of assistive devices/ modifications for ADL. 3=Patient will improve strength/tolerance for activity to enable patient to perform ADL's. OT Manager Game Goals Alf Goals Time Frame: Jun 15, 2017 Eating (FIM): 6 Eating (QC): 6 Groomin Oral Hygiene (QC): 6 Bathing(FIM): 5 Shower/Bathe Self (QC): 5 Upper Body Dressing(FIM): 6 Upper Body Dressing (QC): 6 Lower Body Dressing(FIM): 6 Lower Body Dressing (QC): 6 On/Off Footwear (QC): 6 Toileting(FIM): 6 Toileting Hygiene (QC): 6 Transfers (B,C,W/C) (FIM): 6 Toilet/Commode Transfer(FIM): 6 Toilet/Commode Transfer (QC): 6 Additional Goals: 1-Demonstrate ADL Tasks, 2-Verbalize Understanding, 3- ImproveStrength/Vincent 1=Demonstrate adherence to instructed precautions during ADL tasks. 2=Patient will verbalize/demonstrate understanding of assistive devices/ modifications for ADL. 3=Patient will improve strength/tolerance for activity to enable patient to perform ADL's. OT Education/Plan Problem List/Assessment Assessment: Decreased Activ Tolerance, Decreased UE Strength, Dependent Transfers, Impaired Bed Mobility, Impaired Funct Balance, Impaired I ADL's, Impaired Self-Care Skills, Restricted Funct UE ROM Discharge Recommendations Plan/Recommendations: Continue POC Therapy D/C Recommendations: Home w/ Family Support, Occupational Therapy Home Care Comment Pt. would benefit from a bhavana walker. Target Placement Home with spouse and great grandson. Treatment Plan/Plan of Care Treatment,Training & Education: Yes Patient would benefit from OT for education, treatment and training to promote independence in ADL's, mobility, safety and/or upper extremity function for ADL' s. Plan of Care: ADL Retraining, Functional Mobility, Group Exercise/Act as Ind, UE Funct Exercise/Act Treatment Duration: Jun 15, 2017 Frequency: At least 5-7 days/Wk (IRF) Estimated Hrs Per Day: 1.5 hours per day Agreement: Yes Rehab Potential: Good Time/GCodes Start Time: 09:00 Stop Time: 10:00 Total Time Billed (hr/min): 60 Billed Treatment Time 1, ADL x 30minutes, EX x 30minutes MYNOR VENTURA OT May 22, 2017 12:17
--- NOTE | 2017-05-22 13:48 | Occupational Ther Daily Note ---
OT Current Status-Daily Note Subjective No pain reported. Appearance Pt. up in chair. Agrees to work with OT. Mental Status/Objective Patient Orientation: Person, Place, Time, Situation Functional [place] Measure 0=Not Assessed/NA 4=Minimal Assistance 1=Total Assistance 5=Supervision or Setup 2=Maximal Assistance 6=Modified [place] 3=Moderate Assistance 7=Complete [place] ADL-Treatment Functional [place] Measure 0=Not Assessed/NA 4=Minimal Assistance 1=Total Assistance 5=Supervision or Setup 2=Maximal Assistance 6=Modified [place] 3=Moderate Assistance 7=Complete IndependenceIRFPAI Quality Coding Scale 6 Independent with activity with or without an assistive device 5 Patient requires set up or clean up by helper. Patient completes activity by themselves 4 Supervision or touching assist (CGA). [place] provide cues , steadying assist 3 The helper provides less than half the effort to complete the activity 2 The helper provides more than half the effort to complete the activity 1 Dependent. The helper does all the effort to complete an activity 7 Patient refused to complete or attempt activity 9 The patient did not perform the activity before the current illness or injury 88 Not attempted due to Medical conditions or safety concerns Transfers (B, C, W/C) (FIM): 5 (Pt. able to ambulate to and from gym from room with bhavana cane with SBA. Pt. states that she has to "think" about how to place her feet when ambulating.) Went to therapy gym. Pt. donned 1 lb. wrist weight on left UE. Completed arm exercise with peg board, using left UE to put pegs into peg board for continued strengthening and overall endurance. Pt. tolerated well with several brief rest breaks. All needs met back in room after pt. ambulated back using bhavana cane. Education OT Patient Education: Correct positioning, Exercise program, Progress toward Goal/Update tx plan, Purpose of tx/functional activities, Reviewed precautions, Rehab process, Transfer techniques Teaching Recipient: Patient Teaching Methods: Demonstration, Discussion Response to Teaching: Verbalize Understanding, Return Demonstration OT Short Term Goals Short Term Goals Time Frame: Jun 01, 2017 Eating(FIM): 6 Grooming(FIM): 6 Bathing(FIM): 5 Upper Body Dressing(FIM): 5 Lower Body Dressing(FIM): 5 Toileting(FIM): 5 Transfers (B,C,W/C) (FIM): 5 Toilet/Commode Transfer(FIM): 5 Shower Transfer(FIM): 4 Additional Short Term Goals: 1-Demonstrate ADL Tasks, 2-Verbalize Understanding , 3-ImproveStrength/Vincent 1=Demonstrate adherence to instructed precautions during ADL tasks. 2=Patient will verbalize/demonstrate understanding of assistive devices/ modifications for ADL. 3=Patient will improve strength/tolerance for activity to enable patient to perform ADL's. OT Skilled Nursing Goals Admittance Attendant Goals Time Frame: Jun 15, 2017 Eating (FIM): 6 Eating (QC): 6 Groomin Oral Hygiene (QC): 6 Bathing(FIM): 5 Shower/Bathe Self (QC): 5 Upper Body Dressing(FIM): 6 Upper Body Dressing (QC): 6 Lower Body Dressing(FIM): 6 Lower Body Dressing (QC): 6 On/Off Footwear (QC): 6 Toileting(FIM): 6 Toileting Hygiene (QC): 6 Transfers (B,C,W/C) (FIM): 6 Toilet/Commode Transfer(FIM): 6 Toilet/Commode Transfer (QC): 6 Additional Goals: 1-Demonstrate ADL Tasks, 2-Verbalize Understanding, 3- ImproveStrength/Vincent 1=Demonstrate adherence to instructed precautions during ADL tasks. 2=Patient will verbalize/demonstrate understanding of assistive devices/ modifications for ADL. 3=Patient will improve strength/tolerance for activity to enable patient to perform ADL's. OT Education/Plan Problem List/Assessment Assessment: Decreased Activ Tolerance, Impaired I ADL's Discharge Recommendations Plan/Recommendations: Continue POC Therapy D/C Recommendations: Home w/ Family Support, Occupational Therapy Home Care Treatment Plan/Plan of Care Treatment,Training & Education: Yes Patient would benefit from OT for education, treatment and training to promote independence in ADL's, mobility, safety and/or upper extremity function for ADL' s. Plan of Care: ADL Retraining, Functional Mobility, Group Exercise/Act as Ind, UE Funct Exercise/Act Treatment Duration: Jun 15, 2017 Frequency: At least 5-7 days/Wk (IRF) Estimated Hrs Per Day: 1.5 hours per day Agreement: Yes Rehab Potential: Good Time/GCodes Start Time: 13:00 Stop Time: 13:30 Total Time Billed (hr/min): 30 Billed Treatment Time 1, EX x 2 MYNOR VENTURA OT May 22, 2017 13:48
--- NOTE | 2017-05-22 14:44 | Physical Therapy Daily Note ---
PT Daily Note-Current Subjective Pt. again inquires as to when she can go home. Discussed her Tinetti score after todays Rx and her high risk for falling. Pt. states she had been told this before and realizes that she could fall but is determined to go home soon. Pt. shares her CA history and that she has had progressive neuropathy since receiving chemo. Pt. declines w/c training and states her home is too small for a w/c. Is open to use of richmond walker at home Pain Numeric Pain Scale: 0-No Pain Mental Status Patient Orientation: Normal For Age Attachments: Other-See Comments (home made sling right arm) Transfers Functional [place] Measure 0=Not Assessed/NA 4=Minimal Assistance 1=Total Assistance 5=Supervision or Setup 2=Maximal Assistance 6=Modified [place] 3=Moderate Assistance 7=Complete IndependenceIRFPAI Quality Coding Scale 6 Independent with activity with or without an assistive device 5 Patient requires set up or clean up by helper. Patient completes activity by themselves 4 Supervision or touching assist (CGA). [place] provide cues , steadying assist 3 The helper provides less than half the effort to complete the activity 2 The helper provides more than half the effort to complete the activity 1 Dependent. The helper does all the effort to complete an activity 7 Patient refused to complete or attempt activity 9 The patient did not perform the activity before the current illness or injury 88 Not attempted due to Medical conditions or safety concerns CGA for TRFs, some near LOB upon initial stance x 1 this RX Gait Training Gait Assistive Device: Walker [place] gait [id number], 50x2 with Tinetti balance scoring Balance Special Test Comments Tinetti score: gait 9/10, balance 9/16, Total 18/28 : high fall risk Assessment Current Status: Good Progress improved use of richmond walker, better sequence PT Short Term Goals Short Term Goals Time Frame: May 25, 2017 Transfers (B,C,W/C) (FIM): 5 Gait (FIM): 2 Gait Distance Comment: 50' Gait Level of Assist: 4 (CGA) Gait Assistive Device: FWW Wheelchair Distance: 150' PT [place] Blind Worker Goals Shelter Goals PT Shelter Goals Time Frame: Jun 08, 2017 Transfers (B,C,W/C) (FIM): 5 Sit to Lying (QC): 4 Lying-Sitting on Side/Bed(QC): 4 Sit to Stand (QC): 4 Rollin Roll Left to Right (QC): 4 Chair/Gkx-ri-Zblly Xfer(QC): 4 Car Transfer (QC): 4 Gait (FIM): 5 Distance: 150' Walk 10 feet (QC): 4 Walk 10ft-Uneven Surface(QC): 4 Walk 50ft with 2 Turns (QC): 4 Walk 150 ft (QC): 4 Gait Level of Assist: 5 Gait Assistive Device: Cane Large Base Quad Stairs (FIM): 2 # of Steps: 4 1 Step (curb) (QC): 4 4 Steps (QC): 4 Stairs Level Of Assist: 4 PT Plan Treatment/Plan Treatment Plan: Continue Plan of Care Treatment Plan: Bed Mobility, Education, Functional Activity Vincent, Functional Strength, Group Therapy, Gait, Safety, Therapeutic Exercise, Transfers Treatment Duration: Jun 08, 2017 Frequency: At least 5-7 days/Wk (IRF) Estimated Hrs Per Day: 1.5 hours per day Patient and/or Family Agrees t: Yes Safety Risks/Education Patient Education: Gait Training, Transfer Techniques, Correct Positioning, Disease Process, Safety Issues Teaching Recipient: Patient Teaching Methods: Demonstration, Discussion Response to Teaching: Verbalize Understanding, Return Demonstration, Reinforcement Needed Time/GCodes Time In: 1405 Time Out: 1435 Total Billed Treatment Time: 30 Total Billed Treatment 1,NM30m G Codes Necessary: BECKY Cantrell GREASE MAKER HEAD May 22, 2017 14:44
[2017-05-22 17:09] VITALS: BP 138/73
--- NOTE | 2017-05-22 21:14 | PM & R (SOAP) Progress Note ---
Subjective Time Seen by Provider: 20:55 Subjective/Events-last exam Patient was seen in her room this evening Patient CGA for transfers Objective Exam Last Set of Vital Signs Vital Signs Date Time Temp Pulse Resp B/P (MAP) Pulse Ox O2 Delivery O2 Flow Rate FiO2 05/22/17 17:09 85 19 138/73 99 Room Air 05/22/17 06:09 98.1 Capillary Refill : I&O Intake and Output 05/22/17 00:00 Intake Total 1180 ml Balance 1180 ml Intake Oral 1180 ml # Voids 6 General: Alert, Oriented X3, Cooperative, No Acute Distress HEENT: Atraumatic, PERRLA, EOMI, Mucous Memb Moist/[place] Neck: Supple, No JVD Lungs: Clear to Auscultation Heart: Regular Rate Abdomen: Normal Bowel Sounds, Soft Extremities: Other (plus edema both feet and rt arm) Neuro: Other (fairly flaccid rt UE Weakness both lower extremities with decreased sensation below both knees) Results Lab Laboratory Tests 05/19/17 21:51: Glucometer 243H 05/20/17 05:42: Glucometer 124H 05/20/17 11:20: Glucometer 237H 05/20/17 15:54: Glucometer 246H 05/20/17 20:54: Glucometer 239H 05/21/17 05:43: Glucometer 161H 05/21/17 10:58: Glucometer 256H 05/21/17 16:00: Glucometer 238H 05/21/17 20:26: Glucometer 231H 05/22/17 06:11: Glucometer 177H 05/22/17 10:56: Glucometer 355H 05/22/17 16:02: Glucometer 123H 05/22/17 20:30: Glucometer 237H Assessment/Plan Assessment 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
[2017-05-23 05:28] VITALS: BP 106/65
[2017-05-23] MEDS: inSUlin ASPART (NovoLOG) 1 UNIT/0.01 ML (CHARGE PER UNIT) SC SCH ×4 (05:34→20:52)
[2017-05-23] MEDS: PANTOPRAZOLE 40 MG (PROTONIX) TAB PO SCH (06:33)
[2017-05-23] MEDS: GLIMEPIRIDE 4 MG (AMARYL) TAB PO SCH (06:33)
[2017-05-23] MEDS: GABAPENTIN 600 MG (NEURONTIN) TAB PO SCH ×3 (08:01→20:53)
[2017-05-23] MEDS: ASPIRIN E.C. 81 MG (ECOTRIN) TAB PO SCH (08:01)
[2017-05-23] MEDS: ENALAPRIL 10 MG (VASOTEC) TAB PO SCH ×2 (08:02→20:53)
[2017-05-23 08:03] VITALS: BP 111/63
--- NOTE | 2017-05-23 10:01 | Physical Therapy Daily Note ---
PT Daily Note-Current Subjective Pt. agrees to Rx, hopes she is getting stronger and has better balance. Looking forward to going home Thurs Pain Numeric Pain Scale: 0-No Pain Mental Status Patient Orientation: Normal For Age Attachments: Other-See Comments (handkerchief sling right arm) Transfers Functional [place] Measure 0=Not Assessed/NA 4=Minimal Assistance 1=Total Assistance 5=Supervision or Setup 2=Maximal Assistance 6=Modified [place] 3=Moderate Assistance 7=Complete IndependenceIRFPAI Quality Coding Scale 6 Independent with activity with or without an assistive device 5 Patient requires set up or clean up by helper. Patient completes activity by themselves 4 Supervision or touching assist (CGA). [place] provide cues , steadying assist 3 The helper provides less than half the effort to complete the activity 2 The helper provides more than half the effort to complete the activity 1 Dependent. The helper does all the effort to complete an activity 7 Patient refused to complete or attempt activity 9 The patient did not perform the activity before the current illness or injury 88 Not attempted due to Medical conditions or safety concerns Transfers (B, C, W/C) (FIM): 5 Scootin Rollin Roll Left to Right (QC): 6 Supine to/from Sit: 6 Sit to/from Stand: 5 Sit to Lying (QC): 6 Sit to Stand (QC): 6 Gait Training Does the Patient Walk?: Yes Gait (FIM): 5 Distance (FIM): 3=150 ft (200x2) Walk 10 feet (QC): 5 Walk 50 ft with 2 Turns(QC): 5 Walk 150 ft (QC): 5 Walking 10ft/uneven surface-QC: 5 Gait Level of Assist: 5 Gait Persons Needed: 1 gait improved with better safety habits, emphasized safety while approaching chair and turning to approach etc Stair Training Stair Training: Handrails/: 1 handrail Stairs (FIM): 2 #of Steps: 4 Stairs: Pattern: Step to Level of Assist: 4 Exercises Supine Ex: Bridging, Ankle pumps, Quad Set, Rolling, Glut sets, Heel Slides, Short Arc Quads, Scooting, Hip abd/add Supine Reps: 15 Standing: Hip Abduction, Heel/toe raises, Marching, Mini squats, Sit to Stand, Side steps Standing Reps: 20 NuStep Minutes: 8 NuStep Workload: 1 Assessment Current Status: Good Progress anxious to DC, attempting to build safety habits PT Short Term Goals Short Term Goals Time Frame: May 25, 2017 Transfers (B,C,W/C) (FIM): 5 Gait (FIM): 2 Gait Distance Comment: 50' Gait Level of Assist: 4 (CGA) Gait Assistive Device: FWW Wheelchair Distance: 150' PT Usp Goals Remote Sensing Advisor Goals PT Remote Sensing Advisor Goals Time Frame: Jun 08, 2017 Transfers (B,C,W/C) (FIM): 5 Sit to Lying (QC): 4 Lying-Sitting on Side/Bed(QC): 4 Sit to Stand (QC): 4 Rollin Roll Left to Right (QC): 4 Chair/Qcj-wn-Wetav Xfer(QC): 4 Car Transfer (QC): 4 Gait (FIM): 5 Distance: 150' Walk 10 feet (QC): 4 Walk 10ft-Uneven Surface(QC): 4 Walk 50ft with 2 Turns (QC): 4 Walk 150 ft (QC): 4 Gait Level of Assist: 5 Gait Assistive Device: Cane Large Base Quad Stairs (FIM): 2 # of Steps: 4 1 Step (curb) (QC): 4 4 Steps (QC): 4 Stairs Level Of Assist: 4 PT Plan Treatment/Plan Treatment Plan: Continue Plan of Care Treatment Plan: Bed Mobility, Education, Functional Activity Vincent, Functional Strength, Group Therapy, Gait, Safety, Therapeutic Exercise, Transfers Treatment Duration: Jun 08, 2017 Frequency: At least 5-7 days/Wk (IRF) Estimated Hrs Per Day: 1.5 hours per day Patient and/or Family Agrees t: Yes Safety Risks/Education Patient Education: Gait Training, Transfer Techniques, Steps Teaching Recipient: Patient Teaching Methods: Demonstration, Discussion Response to Teaching: Verbalize Understanding, Return Demonstration, Reinforcement Needed Time/GCodes Time In: 900 Time Out: 1000 Total Billed Treatment Time: 60 Total Billed Treatment 1,EX25m,FA15m,GT20m G Codes Necessary: BECKY Cantrell PIERCER OPERATOR May 23, 2017 10:01
--- NOTE | 2017-05-23 10:16 | PM & R (SOAP) Progress Note ---
Subjective Time Seen by Provider: 08:15 Subjective/Events-last exam Patient was seen in her room this AM Patient Modified Independent for transfers, Progressing well with therapies with marked improvement in strength and endurance. Objective Exam Last Set of Vital Signs Vital Signs Date Time Temp Pulse Resp B/P (MAP) Pulse Ox O2 Delivery O2 Flow Rate FiO2 05/23/17 08:34 Room Air 05/23/17 08:03 78 111/63 05/23/17 05:28 97.7 16 96 Capillary Refill : I&O Intake and Output 05/23/17 00:00 Intake Total 1750 ml Balance 1750 ml Intake Oral 1750 ml # Voids 6 # Bowel Movements 1 General: Alert, Oriented X3, Cooperative, No Acute Distress HEENT: Atraumatic, PERRLA, EOMI, Mucous Memb Moist/[place] Neck: Supple, No JVD Lungs: Clear to Auscultation Heart: Regular Rate Abdomen: Normal Bowel Sounds, Soft Extremities: Other (plus edema both feet and rt arm) Neuro: Other (fairly flaccid rt UE Weakness both lower extremities with decreased sensation below both knees) Results Lab Laboratory Tests 05/20/17 11:20: Glucometer 237H 05/20/17 15:54: Glucometer 246H 05/20/17 20:54: Glucometer 239H 05/21/17 05:43: Glucometer 161H 05/21/17 10:58: Glucometer 256H 05/21/17 16:00: Glucometer 238H 05/21/17 20:26: Glucometer 231H 05/22/17 06:11: Glucometer 177H 05/22/17 10:56: Glucometer 355H 05/22/17 16:02: Glucometer 123H 05/22/17 20:30: Glucometer 237H 05/23/17 05:23: Glucometer 150H Assessment/Plan Assessment 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
--- NOTE | 2017-05-23 12:20 | Occupational Ther Daily Note ---
OT Current Status-Daily Note Subjective No pain reported. Appearance Pt. agrees to work with OT. Mental Status/Objective Patient Orientation: Person, Place, Time, Situation Functional [place] Measure 0=Not Assessed/NA 4=Minimal Assistance 1=Total Assistance 5=Supervision or Setup 2=Maximal Assistance 6=Modified [place] 3=Moderate Assistance 7=Complete [place] ADL-Treatment Functional [place] Measure 0=Not Assessed/NA 4=Minimal Assistance 1=Total Assistance 5=Supervision or Setup 2=Maximal Assistance 6=Modified [place] 3=Moderate Assistance 7=Complete IndependenceIRFPAI Quality Coding Scale 6 Independent with activity with or without an assistive device 5 Patient requires set up or clean up by helper. Patient completes activity by themselves 4 Supervision or touching assist (CGA). Marilla provide cues , steadying assist 3 The helper provides less than half the effort to complete the activity 2 The helper provides more than half the effort to complete the activity 1 Dependent. The helper does all the effort to complete an activity 7 Patient refused to complete or attempt activity 9 The patient did not perform the activity before the current illness or injury 88 Not attempted due to Medical conditions or safety concerns Bathing (FIM): 5 (Pt. is able to shower with SBA.) Shower/Bathe Self (QC): 4 Upper Body (FIM): 5 (Pt. requires increased time to doff/don sweatshirt, but is able to do it. States that at home it just "takes me awhile.") Upper Body Dressing (QC): 4 Lower Body Dressing (FIM): 5 (Pt. is able to don underwear, pants, and shoes with SBA.) Lower Body Dressing (QC): 4 On/Off Footwear (QC): 5 Transfers (B, C, W/C) (FIM): 5 (Pt. requires SBA to ambulate with bhavana cane. Does require several "tries" at times to stand.) Shower Transfer(FIM): 5 (SBA) Other Treatment After ADL task, pt. ambulated with bhavana cane to therapy gym. Required increased time. Completed 15 minutes on armbike to increase overall strength and endurance. Required several brief rest breaks during this time. Donned 1 lb. wrist weight and completed series of UE activities with weight on, to increase overall strength and endurance. Tolerated this well. Pt. ambulated back to room. All needs met in room. Education OT Patient Education: Correct positioning, Exercise program, Modified ADL techniques, Progress toward Goal/Update tx plan, Purpose of tx/functional activities, Reviewed precautions, Rehab process, Transfer techniques Teaching Recipient: Patient Teaching Methods: Demonstration, Discussion Response to Teaching: Verbalize Understanding, Return Demonstration OT Short Term Goals Short Term Goals Time Frame: Jun 01, 2017 Eating(FIM): 6 Grooming(FIM): 6 Bathing(FIM): 5 Upper Body Dressing(FIM): 5 Lower Body Dressing(FIM): 5 Toileting(FIM): 5 Transfers (B,C,W/C) (FIM): 5 Toilet/Commode Transfer(FIM): 5 Shower Transfer(FIM): 4 Additional Short Term Goals: 1-Demonstrate ADL Tasks, 2-Verbalize Understanding , 3-ImproveStrength/Vincent 1=Demonstrate adherence to instructed precautions during ADL tasks. 2=Patient will verbalize/demonstrate understanding of assistive devices/ modifications for ADL. 3=Patient will improve strength/tolerance for activity to enable patient to perform ADL's. OT Custodial Goals Custodial Goals Time Frame: Jun 15, 2017 Eating (FIM): 6 Eating (QC): 6 Groomin Oral Hygiene (QC): 6 Bathing(FIM): 5 Shower/Bathe Self (QC): 5 Upper Body Dressing(FIM): 6 Upper Body Dressing (QC): 6 Lower Body Dressing(FIM): 6 Lower Body Dressing (QC): 6 On/Off Footwear (QC): 6 Toileting(FIM): 6 Toileting Hygiene (QC): 6 Transfers (B,C,W/C) (FIM): 6 Toilet/Commode Transfer(FIM): 6 Toilet/Commode Transfer (QC): 6 Additional Goals: 1-Demonstrate ADL Tasks, 2-Verbalize Understanding, 3- ImproveStrength/Vincent 1=Demonstrate adherence to instructed precautions during ADL tasks. 2=Patient will verbalize/demonstrate understanding of assistive devices/ modifications for ADL. 3=Patient will improve strength/tolerance for activity to enable patient to perform ADL's. OT Education/Plan Problem List/Assessment Assessment: Decreased Activ Tolerance, Impaired I ADL's Discharge Recommendations Plan/Recommendations: Continue POC Therapy D/C Recommendations: Home w/ Family Support, Occupational Therapy Home Care Treatment Plan/Plan of Care Treatment,Training & Education: Yes Patient would benefit from OT for education, treatment and training to promote independence in ADL's, mobility, safety and/or upper extremity function for ADL' s. Plan of Care: ADL Retraining, Functional Mobility, Group Exercise/Act as Ind, UE Funct Exercise/Act Treatment Duration: Jun 15, 2017 Frequency: At least 5-7 days/Wk (IRF) Estimated Hrs Per Day: 1.5 hours per day Agreement: Yes Rehab Potential: Good Time/GCodes Start Time: 10:00 Stop Time: 11:30 Total Time Billed (hr/min): 90 Billed Treatment Time 1, ADL x 45minutes, Ex x 45minutes MYNOR VENTURA OT May 23, 2017 12:20
--- NOTE | 2017-05-23 12:55 | Physical Therapy Daily Note ---
PT Daily Note-Current Subjective Patient states she feels depressed and wants to go home. Pain Numeric Pain Scale: 0-No Pain Location: No Pain Reported Mental Status Patient Orientation: Normal For Age Transfers Functional [place] Measure 0=Not Assessed/NA 4=Minimal Assistance 1=Total Assistance 5=Supervision or Setup 2=Maximal Assistance 6=Modified [place] 3=Moderate Assistance 7=Complete IndependenceIRFPAI Quality Coding Scale 6 Independent with activity with or without an assistive device 5 Patient requires set up or clean up by helper. Patient completes activity by themselves 4 Supervision or touching assist (CGA). [place] provide cues , steadying assist 3 The helper provides less than half the effort to complete the activity 2 The helper provides more than half the effort to complete the activity 1 Dependent. The helper does all the effort to complete an activity 7 Patient refused to complete or attempt activity 9 The patient did not perform the activity before the current illness or injury 88 Not attempted due to Medical conditions or safety concerns Transfers (B, C, W/C) (FIM): 6 Scootin Sit to/from Stand: 6 Sit to Stand (QC): 5 Car Transfer (QC): 5 Gait Training Does the Patient Walk?: Yes Gait (FIM): 5 Distance (FIM): 3=150 ft Distance: 150' x 2 Walk 10 feet (QC): 4 Walk 50 ft with 2 Turns(QC): 4 Walk 150 ft (QC): 4 Gait Level of Assist: 5 Gait Assistive Device: Walker [place] safe and functional Exercises Seated Therapy Exercises: Ankle pumps, Long arc quads, Hip flexion Seated Reps: 25 (2 sets) NuStep Minutes: 15 NuStep Workload: 4 (to increase strength and mobility to return safely to home with family) Assessment Current Status: Excellent Progress PT Short Term Goals Short Term Goals Time Frame: May 25, 2017 Transfers (B,C,W/C) (FIM): 5 Gait (FIM): 2 Gait Distance Comment: 50' Gait Level of Assist: 4 (CGA) Gait Assistive Device: FWW Wheelchair Distance: 150' PT Fdc Goals Fdc Goals PT Fdc Goals Time Frame: Jun 08, 2017 Transfers (B,C,W/C) (FIM): 5 Sit to Lying (QC): 4 Lying-Sitting on Side/Bed(QC): 4 Sit to Stand (QC): 4 Rollin Roll Left to Right (QC): 4 Chair/Vxn-pn-Wosbx Xfer(QC): 4 Car Transfer (QC): 4 Gait (FIM): 5 Distance: 150' Walk 10 feet (QC): 4 Walk 10ft-Uneven Surface(QC): 4 Walk 50ft with 2 Turns (QC): 4 Walk 150 ft (QC): 4 Gait Level of Assist: 5 Gait Assistive Device: Cane Large Base Quad Stairs (FIM): 2 # of Steps: 4 1 Step (curb) (QC): 4 4 Steps (QC): 4 Stairs Level Of Assist: 4 PT Plan Treatment/Plan Treatment Plan: Continue Plan of Care Treatment Plan: Bed Mobility, Education, Functional Activity Vincent, Functional Strength, Group Therapy, Gait, Safety, Therapeutic Exercise, Transfers Treatment Duration: Jun 08, 2017 Frequency: At least 5-7 days/Wk (IRF) Estimated Hrs Per Day: 1.5 hours per day Patient and/or Family Agrees t: Yes Time/GCodes Time In: 1225 Time Out: 1255 Total Billed Treatment Time: 30 Total Billed Treatment 1 visit EX 20 min GT 10 min JANA PRADO PT May 23, 2017 12:55
[2017-05-23 19:30] VITALS: BP 146/70
[2017-05-24] MEDS ORDERED: CATHETER FLUSH 10 ML SYR IV PRN (05:00)
[2017-05-24] MEDS: inSUlin ASPART (NovoLOG) 1 UNIT/0.01 ML (CHARGE PER UNIT) SC SCH (05:48)
[2017-05-24 06:00] VITALS: BP 127/69
[2017-05-24] MEDS: GLIMEPIRIDE 4 MG (AMARYL) TAB PO SCH (06:04)
[2017-05-24] MEDS: PANTOPRAZOLE 40 MG (PROTONIX) TAB PO SCH (06:04)
--- NOTE | 2017-05-24 08:28 | PM & R (SOAP) Progress Note ---
Subjective Time Seen by Provider: 08:10 Subjective/Events-last exam Patient was seen in her room this AM Has progressed well Strength and endurance all improved. Therapy notes reviewed Accuchecks noted Objective Exam Last Set of Vital Signs Vital Signs Date Time Temp Pulse Resp B/P (MAP) Pulse Ox O2 Delivery O2 Flow Rate FiO2 05/24/17 06:00 97.9 91 20 127/69 96 Room Air Capillary Refill : I&O Intake and Output 05/24/17 00:00 Intake Total 1700 ml Balance 1700 ml Intake Oral 1700 ml # Voids 5 General: Alert, Oriented X3, Cooperative, No Acute Distress HEENT: Atraumatic, PERRLA, EOMI, Mucous Memb Moist/[place] Neck: Supple, No JVD Lungs: Clear to Auscultation Heart: Regular Rate Abdomen: Normal Bowel Sounds, Soft Extremities: Other (plus edema both feet and rt arm) Neuro: Other (fairly flaccid rt UE Weakness both lower extremities with decreased sensation below both knees) Results Lab Laboratory Tests 05/21/17 10:58: Glucometer 256H 05/21/17 16:00: Glucometer 238H 05/21/17 20:26: Glucometer 231H 05/22/17 06:11: Glucometer 177H 05/22/17 10:56: Glucometer 355H 05/22/17 16:02: Glucometer 123H 05/22/17 20:30: Glucometer 237H 05/23/17 05:23: Glucometer 150H 05/23/17 11:01: Glucometer 343H 05/23/17 16:21: Glucometer 146H 05/23/17 20:31: Glucometer 259H 05/24/17 05:39: Glucometer 148H Assessment/Plan Assessment 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
[2017-05-24 08:48] VITALS: BP 108/63
[2017-05-24] MEDS: GABAPENTIN 600 MG (NEURONTIN) TAB PO SCH (08:48)
[2017-05-24] MEDS: ASPIRIN E.C. 81 MG (ECOTRIN) TAB PO SCH (08:48)
[2017-05-24] MEDS: ENALAPRIL 10 MG (VASOTEC) TAB PO SCH (08:48)
--- NOTE | 2017-05-24 09:10 | Therapy Team Discharge Summary ---
Therapy Discharge Summary Discharge Recommendations Date of Discharge Therapy D/C Recommendations: Home w/ Family Support, Occupational Therapy Home Care Physical Therapy Patient came to rehab with a diagnosis of weakness. Upon evaluation patient performed bed mobility with SBA, sit to stand with min assist, and bed to chair transfer with Lucy, ambulated 20' with a bhavana walker with min assist, including 10' over an uneven surface, patient can propel a manual wheelchair 150' with min assist, and she can go up and down 1 step using a bhavana walker with min assist. Patient has been performing bed mobility and transfer training, balance and endurance training, functional strengthening, stair training, gait training, and education. Patient has made good progress and has met all of her retirement goals. Now, patient performs bed mobility and transfers with mod I, ambulates 200' with a rolling walker (including 50' with at least 2 turns of 90 degrees and 10' over an uneven surface), and she can go up and down 4 steps using 1 handrail with CGA. Patient is being discharged from this facility today and will be discharged from PT at this time. PT Prison Goals Elevated Guard Goals PT Elevated Guard Goals Time Frame: Jun 08, 2017 Transfers (B,C,W/C) (FIM): 5 Roll Left to Right (QC): 4 Sit to Lying (QC): 4 Lying-Sitting on Side/Bed(QC): 4 Sit to Stand (QC): 4 Chair/Bce-fv-Llybk Xfer(QC): 4 Car Transfer (QC): 4 Gait (FIM): 5 Distance: 150' Walk 10 feet (QC): 4 Walk 10ft-Uneven Surface(QC): 4 Walk 50ft with 2 Turns (QC): 4 Walk 150 ft (QC): 4 Gait Level of Assist: 5 Gait Assistive Device: Cane Large Base Quad Stairs (FIM): 2 # of Steps: 4 1 Step (curb) (QC): 4 4 Steps (QC): 4 Stairs Level Of Assist: 4 OT Elevated Guard Goals Prison Goals Time Frame: Jun 15, 2017 Eating (FIM): 6 Eating (QC): 6 Oral Hygiene (QC): 6 Grooming(FIM): 6 Bathing(FIM): 5 Shower/Bathe Self (QC): 5 Upper Body Dressing(FIM): 6 Upper Body Dressing (QC): 6 Lower Body Dressing(FIM): 6 Lower Body Dressing (QC): 6 On/Off Footwear (QC): 6 Toileting(FIM): 6 Toileting Hygiene (QC): 6 Transfers (B,C,W/C) (FIM): 6 Toilet/Commode Transfer(FIM): 6 Toilet/Commode Transfer (QC): 6 Additional Goals: 1-Demonstrate ADL Tasks, 2-Verbalize Understanding, 3- ImproveStrength/Vincent 1=Demonstrate adherence to instructed precautions during ADL tasks. 2=Patient will verbalize/demonstrate understanding of assistive devices/ modifications for ADL. 3=Patient will improve strength/tolerance for activity to enable patient to perform ADL's. MILKA BLACK PT May 24, 2017 09:10
--- NOTE | 2017-05-24 09:32 | Therapy Team Discharge Summary ---
Therapy Discharge Summary Discharge Recommendations Date of Discharge 05-24-17 Therapy D/C Recommendations: Home w/ Family Support, Occupational Therapy Home Care Occupational Therapy Pt. has been seen by occupational therapy to increase overall strength and independence with daily tasks. Pt., at discharge still requires Min assistance/ SBA with most tasks. Goals not met. However, requires assistance possibly due to unfamiliar environment, and system that is not completely like hers at home. Pt. is adamant that spouse can assist her, and that she is at baseline level. Pt. states that she is really ready to go home. No adaptive equipment needed at this time. Pt. would benefit from home health OT if willing to increase overall safety in the home,and to make possible recommendations as needed to encourage safe and easy ADLs/transfers. 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 PT Retirement Goals Time Frame: Jun 08, 2017 Transfers (B,C,W/C) (FIM): 5 Roll Left to Right (QC): 4 Sit to Lying (QC): 4 Lying-Sitting on Side/Bed(QC): 4 Sit to Stand (QC): 4 Chair/Tyo-wj-Bqcyl Xfer(QC): 4 Car Transfer (QC): 4 Gait (FIM): 5 Distance: 150' Walk 10 feet (QC): 4 Walk 10ft-Uneven Surface(QC): 4 Walk 50ft with 2 Turns (QC): 4 Walk 150 ft (QC): 4 Gait Level of Assist: 5 Gait Assistive Device: Cane Large Base Quad Stairs (FIM): 2 # of Steps: 4 1 Step (curb) (QC): 4 4 Steps (QC): 4 Stairs Level Of Assist: 4 OT Retirement Goals Retirement Goals Time Frame: Jun 15, 2017 Eating (FIM): 6 (not met) Eating (QC): 6 (not met) Oral Hygiene (QC): 6 (not met) Grooming(FIM): 6 (not met) Bathing(FIM): 5 (met) Shower/Bathe Self (QC): 5 (not met- SBA) Upper Body Dressing(FIM): 6 (not met) Upper Body Dressing (QC): 6 (not met) Lower Body Dressing(FIM): 6 (not met) Lower Body Dressing (QC): 6 (not met) On/Off Footwear (QC): 6 (not met) Toileting(FIM): 6 (not met) Toileting Hygiene (QC): 6 (not met) Transfers (B,C,W/C) (FIM): 6 (not met) Toilet/Commode Transfer(FIM): 6 (not met) Toilet/Commode Transfer (QC): 6 (not met) Additional Goals: 1-Demonstrate ADL Tasks, 2-Verbalize Understanding, 3- ImproveStrength/Vnicent 1=Demonstrate adherence to instructed precautions during ADL tasks. 2=Patient will verbalize/demonstrate understanding of assistive devices/ modifications for ADL. 3=Patient will improve strength/tolerance for activity to enable patient to perform ADL's. MYNOR VENTURA OT May 24, 2017 09:32
--- NOTE | 2017-05-24 10:38 | Progress Note-Hospitalist ---
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 Carvalho AFVSS, [place], O x 3 RRR, CTAB Right arm lymphedema Plan: Maintain in rehab but DC soon Scribed by Leora Downing under the direct supervision of Dr. Hussein. MARICRUZ HUSSEIN DO May 24, 2017 10:38
== END 2017-05-24 18:08 | disposition home health service (06) | DRG 74 ==
LOC: ENPENDDIS 05-24 12:00
PROVIDERS: ADMIT Physical Medicine & Rehabilitation; ATTEND Physical Medicine & Rehabilitation
DX: G62.0 Drug-induced polyneuropathy (principal); T45.1X5A Adverse effect of antineoplastic and immunosuppressive drugs, initial encounter; E11.42 Type 2 diabetes mellitus with diabetic polyneuropathy; C79.51 Secondary malignant neoplasm of bone; G83.21 Monoplegia of upper limb affecting right dominant side; I25.10 Atherosclerotic heart disease of native coronary artery without angina pectoris; I10 Essential (primary) hypertension; M19.90 Unspecified osteoarthritis, unspecified site; K21.9 Gastro-esophageal reflux disease without esophagitis; B35.1 Tinea unguium; L60.1 Onycholysis; Z85.3 Personal history of malignant neoplasm of breast
CPT/HCPCS: 82962

== ENCOUNTER → 2017-05-31 | Outpatient (CLI) | payer MEDICARE, MEDICAID | LOC: LAB 13:01 | PROVIDERS: ATTEND Internal Medicine | DX: E11.9 Type 2 diabetes mellitus without complications (principal) | CPT/HCPCS: 83036 ==

== ENCOUNTER 2017-07-11 09:17 | Outpatient (RCR) | payer MEDICARE, MEDICAID ==
[2017-04-26 09:09] LABS: BASOPHILS % (AUTO) 1 % (0-10); EOSINOPHILS # (AUTO) 0.2 10^3/uL (0.0-0.3); EOSINOPHILS % (AUTO) 5 % (0-10); LYMPHOCYTES # (AUTO) 0.8 X 10^3 (1.0-4.0); LYMPHOCYTES % (AUTO) 23 % (12-44); MEAN CORPUSCULAR HEMOGLOBIN 27 PG (25-34); MEAN CORPUSCULAR HGB CONC 31 G/DL (32-36); MEAN CORPUSCULAR VOLUME 85 FL (80-99); MEAN PLATELET VOLUME 11.1 FL (7.4-10.4); MONOCYTES # (AUTO) 0.5 X 10^3 (0.0-1.0); MONOCYTES % (AUTO) 14 % (0-12); NEUTROPHILS % (AUTO) 58 % (42-75); PLATELET COUNT 81 10^3/uL (130-400); RED BLOOD COUNT 3.93 10^6/uL (4.35-5.85); WHITE BLOOD COUNT 3.4 10^3/uL (4.3-11.0)
[2017-04-26 09:38] LABS: ALANINE AMINOTRANSFERASE 39 U/L (0-55); ALBUMIN 3.2 GM/DL (3.2-4.5); ANION GAP 8 MMOL/L (5-14); ASPARTATE AMINO TRANSFERASE 51 U/L (5-34); BILIRUBIN,TOTAL 0.8 MG/DL (0.1-1.0); BLOOD UREA NITROGEN 11 MG/DL (7-18); BUN/CREATININE RATIO 13; CALCIUM 9.6 MG/DL (8.5-10.1); CARBON DIOXIDE 24 MMOL/L (21-32); CHLORIDE 105 MMOL/L (98-107); CREATININE SERUM 0.85 MG/DL (0.60-1.30); GFR ESTIMATED > 60; GLUCOSE 243 MG/DL (70-105); MAGNESIUM 1.6 MG/DL (1.8-2.4); POTASSIUM 4.1 MMOL/L (3.6-5.0); SODIUM 137 MMOL/L (135-145); TOTAL PROTEIN 6.3 GM/DL (6.4-8.2)
[2017-05-04 10:41] LABS: BASOPHILS % (AUTO) 1 % (0-10); EOSINOPHILS # (AUTO) 0.2 10^3/uL (0.0-0.3); EOSINOPHILS % (AUTO) 4 % (0-10); LYMPHOCYTES # (AUTO) 0.6 X 10^3 (1.0-4.0); LYMPHOCYTES % (AUTO) 16 % (12-44); MEAN CORPUSCULAR HEMOGLOBIN 27 PG (25-34); MEAN CORPUSCULAR HGB CONC 32 G/DL (32-36); MEAN CORPUSCULAR VOLUME 85 FL (80-99); MEAN PLATELET VOLUME 10.5 FL (7.4-10.4); MONOCYTES # (AUTO) 0.6 X 10^3 (0.0-1.0); MONOCYTES % (AUTO) 16 % (0-12); NEUTROPHILS # (AUTO) 2.3 X 10^3 (1.8-7.8); NEUTROPHILS % (AUTO) 63 % (42-75); PLATELET COUNT 78 10^3/uL (130-400); RED BLOOD COUNT 3.93 10^6/uL (4.35-5.85); RED CELL DISTRIBUTION WIDTH 17.4 % (10.0-14.5); WHITE BLOOD COUNT 3.7 10^3/uL (4.3-11.0)
[2017-05-04 11:19] LABS: CALCIUM 9.5 MG/DL (8.5-10.1); CREATININE SERUM 0.98 MG/DL (0.60-1.30); POTASSIUM 4.4 MMOL/L (3.6-5.0)
[2017-05-11 10:02] LABS: BASOPHILS % (AUTO) 1 % (0-10); EOSINOPHILS # (AUTO) 0.2 10^3/uL (0.0-0.3); EOSINOPHILS % (AUTO) 5 % (0-10); LYMPHOCYTES # (AUTO) 0.7 X 10^3 (1.0-4.0); LYMPHOCYTES % (AUTO) 21 % (12-44); MEAN CORPUSCULAR HEMOGLOBIN 27 PG (25-34); MEAN CORPUSCULAR HGB CONC 32 G/DL (32-36); MEAN CORPUSCULAR VOLUME 86 FL (80-99); MEAN PLATELET VOLUME 10.7 FL (7.4-10.4); MONOCYTES # (AUTO) 0.4 X 10^3 (0.0-1.0); MONOCYTES % (AUTO) 14 % (0-12); NEUTROPHILS % (AUTO) 60 % (42-75); PLATELET COUNT 83 10^3/uL (130-400); RED BLOOD COUNT 3.91 10^6/uL (4.35-5.85); RED CELL DISTRIBUTION WIDTH 17.3 % (10.0-14.5); WHITE BLOOD COUNT 3.3 10^3/uL (4.3-11.0)
[2017-05-11 10:50] LABS: ANION GAP 12 MMOL/L (5-14); BLOOD UREA NITROGEN 13 MG/DL (7-18); BUN/CREATININE RATIO 15; CALCIUM 9.5 MG/DL (8.5-10.1); CARBON DIOXIDE 21 MMOL/L (21-32); CHLORIDE 108 MMOL/L (98-107); CREATININE SERUM 0.85 MG/DL (0.60-1.30); GFR ESTIMATED > 60; GLUCOSE 252 MG/DL (70-105); POTASSIUM 3.6 MMOL/L (3.6-5.0); SODIUM 141 MMOL/L (135-145)
[2017-05-31 13:13] LABS: BASOPHILS % (AUTO) 1 % (0-10); EOSINOPHILS # (AUTO) 0.1 10^3/uL (0.0-0.3); EOSINOPHILS % (AUTO) 3 % (0-10); LYMPHOCYTES # (AUTO) 0.7 X 10^3 (1.0-4.0); LYMPHOCYTES % (AUTO) 16 % (12-44); MEAN CORPUSCULAR HEMOGLOBIN 28 PG (25-34); MEAN CORPUSCULAR HGB CONC 32 G/DL (32-36); MEAN CORPUSCULAR VOLUME 88 FL (80-99); MEAN PLATELET VOLUME 10.4 FL (7.4-10.4); MONOCYTES # (AUTO) 0.5 X 10^3 (0.0-1.0); MONOCYTES % (AUTO) 10 % (0-12); NEUTROPHILS # (AUTO) 3.2 X 10^3 (1.8-7.8); NEUTROPHILS % (AUTO) 70 % (42-75); PLATELET COUNT 115 10^3/uL (130-400); RED BLOOD COUNT 3.84 10^6/uL (4.35-5.85); RED CELL DISTRIBUTION WIDTH 18.4 % (10.0-14.5); WHITE BLOOD COUNT 4.6 10^3/uL (4.3-11.0)
[2017-05-31 13:42] LABS: ALANINE AMINOTRANSFERASE 28 U/L (0-55); ALBUMIN 3.3 GM/DL (3.2-4.5); ANION GAP 8 MMOL/L (5-14); ASPARTATE AMINO TRANSFERASE 35 U/L (5-34); BILIRUBIN,TOTAL 1.1 MG/DL (0.1-1.0); BLOOD UREA NITROGEN 11 MG/DL (7-18); BUN/CREATININE RATIO 15; CALCIUM 9.7 MG/DL (8.5-10.1); CARBON DIOXIDE 25 MMOL/L (21-32); CHLORIDE 107 MMOL/L (98-107); CREATININE SERUM 0.74 MG/DL (0.60-1.30); GFR ESTIMATED > 60; GLUCOSE 268 MG/DL (70-105); POTASSIUM 3.7 MMOL/L (3.6-5.0); SODIUM 140 MMOL/L (135-145); TOTAL PROTEIN 6.5 GM/DL (6.4-8.2)
[2017-06-08 10:15] LABS: BASOPHILS % (AUTO) 1 % (0-10); EOSINOPHILS # (AUTO) 0.2 10^3/uL (0.0-0.3); EOSINOPHILS % (AUTO) 4 % (0-10); LYMPHOCYTES # (AUTO) 0.8 X 10^3 (1.0-4.0); LYMPHOCYTES % (AUTO) 16 % (12-44); MEAN CORPUSCULAR HEMOGLOBIN 28 PG (25-34); MEAN CORPUSCULAR HGB CONC 32 G/DL (32-36); MEAN CORPUSCULAR VOLUME 87 FL (80-99); MEAN PLATELET VOLUME 11.5 FL (7.4-10.4); MONOCYTES # (AUTO) 0.7 X 10^3 (0.0-1.0); MONOCYTES % (AUTO) 15 % (0-12); NEUTROPHILS # (AUTO) 3.2 X 10^3 (1.8-7.8); NEUTROPHILS % (AUTO) 65 % (42-75); PLATELET COUNT 97 10^3/uL (130-400); RED BLOOD COUNT 3.87 10^6/uL (4.35-5.85); WHITE BLOOD COUNT 4.9 10^3/uL (4.3-11.0)
[2017-06-08 10:46] LABS: ANION GAP 10 MMOL/L (5-14); BLOOD UREA NITROGEN 9 MG/DL (7-18); BUN/CREATININE RATIO 12; CALCIUM 9.7 MG/DL (8.5-10.1); CARBON DIOXIDE 25 MMOL/L (21-32); CHLORIDE 103 MMOL/L (98-107); CREATININE SERUM 0.75 MG/DL (0.60-1.30); GFR ESTIMATED > 60; GLUCOSE 258 MG/DL (70-105); POTASSIUM 3.6 MMOL/L (3.6-5.0); SODIUM 138 MMOL/L (135-145)
[2017-06-15 09:42] LABS: BASOPHILS % (AUTO) 1 % (0-10); EOSINOPHILS # (AUTO) 0.2 10^3/uL (0.0-0.3); EOSINOPHILS % (AUTO) 4 % (0-10); LYMPHOCYTES # (AUTO) 0.8 X 10^3 (1.0-4.0); LYMPHOCYTES % (AUTO) 20 % (12-44); MEAN CORPUSCULAR HEMOGLOBIN 28 PG (25-34); MEAN CORPUSCULAR HGB CONC 32 G/DL (32-36); MEAN CORPUSCULAR VOLUME 88 FL (80-99); MEAN PLATELET VOLUME 11.2 FL (7.4-10.4); MONOCYTES # (AUTO) 0.5 X 10^3 (0.0-1.0); MONOCYTES % (AUTO) 12 % (0-12); NEUTROPHILS # (AUTO) 2.5 X 10^3 (1.8-7.8); NEUTROPHILS % (AUTO) 63 % (42-75); PLATELET COUNT 92 10^3/uL (130-400); RED BLOOD COUNT 4.03 10^6/uL (4.35-5.85); RED CELL DISTRIBUTION WIDTH 17.5 % (10.0-14.5)
[2017-06-15 10:00] LABS: ANION GAP 7 MMOL/L (5-14); BLOOD UREA NITROGEN 10 MG/DL (7-18); BUN/CREATININE RATIO 14; CALCIUM 9.6 MG/DL (8.5-10.1); CARBON DIOXIDE 28 MMOL/L (21-32); CHLORIDE 106 MMOL/L (98-107); CREATININE SERUM 0.73 MG/DL (0.60-1.30); GFR ESTIMATED > 60; GLUCOSE 220 MG/DL (70-105); POTASSIUM 3.4 MMOL/L (3.6-5.0); SODIUM 141 MMOL/L (135-145)
[2017-06-20 09:47] LABS: BASOPHILS % (AUTO) 1 % (0-10); EOSINOPHILS # (AUTO) 0.2 10^3/uL (0.0-0.3); EOSINOPHILS % (AUTO) 4 % (0-10); LYMPHOCYTES # (AUTO) 0.8 X 10^3 (1.0-4.0); LYMPHOCYTES % (AUTO) 14 % (12-44); MEAN CORPUSCULAR HEMOGLOBIN 28 PG (25-34); MEAN CORPUSCULAR HGB CONC 32 G/DL (32-36); MEAN CORPUSCULAR VOLUME 88 FL (80-99); MEAN PLATELET VOLUME 10.8 FL (7.4-10.4); MONOCYTES # (AUTO) 0.6 X 10^3 (0.0-1.0); MONOCYTES % (AUTO) 11 % (0-12); NEUTROPHILS # (AUTO) 3.8 X 10^3 (1.8-7.8); NEUTROPHILS % (AUTO) 70 % (42-75); PLATELET COUNT 90 10^3/uL (130-400); RED BLOOD COUNT 3.85 10^6/uL (4.35-5.85); RED CELL DISTRIBUTION WIDTH 17.3 % (10.0-14.5); WHITE BLOOD COUNT 5.5 10^3/uL (4.3-11.0)
[2017-06-20 10:11] LABS: ALANINE AMINOTRANSFERASE 24 U/L (0-55); ALBUMIN 3.2 GM/DL (3.2-4.5); ANION GAP 11 MMOL/L (5-14); ASPARTATE AMINO TRANSFERASE 34 U/L (5-34); BILIRUBIN,TOTAL 1.4 MG/DL (0.1-1.0); BLOOD UREA NITROGEN 10 MG/DL (7-18); BUN/CREATININE RATIO 13; CALCIUM 9.4 MG/DL (8.5-10.1); CARBON DIOXIDE 23 MMOL/L (21-32); CHLORIDE 107 MMOL/L (98-107); CREATININE SERUM 0.79 MG/DL (0.60-1.30); GFR ESTIMATED > 60; GLUCOSE 239 MG/DL (70-105); POTASSIUM 3.4 MMOL/L (3.6-5.0); SODIUM 141 MMOL/L (135-145); TOTAL PROTEIN 6.4 GM/DL (6.4-8.2)
[2017-06-27 10:17] LABS: BASOPHILS % (AUTO) 1 % (0-10); EOSINOPHILS # (AUTO) 0.2 10^3/uL (0.0-0.3); EOSINOPHILS % (AUTO) 5 % (0-10); LYMPHOCYTES # (AUTO) 0.8 X 10^3 (1.0-4.0); LYMPHOCYTES % (AUTO) 18 % (12-44); MEAN CORPUSCULAR HEMOGLOBIN 28 PG (25-34); MEAN CORPUSCULAR HGB CONC 32 G/DL (32-36); MEAN CORPUSCULAR VOLUME 88 FL (80-99); MEAN PLATELET VOLUME 10.8 FL (7.4-10.4); MONOCYTES # (AUTO) 0.7 X 10^3 (0.0-1.0); MONOCYTES % (AUTO) 16 % (0-12); NEUTROPHILS # (AUTO) 2.6 X 10^3 (1.8-7.8); NEUTROPHILS % (AUTO) 60 % (42-75); PLATELET COUNT 97 10^3/uL (130-400); RED BLOOD COUNT 3.81 10^6/uL (4.35-5.85); RED CELL DISTRIBUTION WIDTH 17.4 % (10.0-14.5); WHITE BLOOD COUNT 4.3 10^3/uL (4.3-11.0)
[2017-06-27 10:56] LABS: ANION GAP 10 MMOL/L (5-14); BLOOD UREA NITROGEN 9 MG/DL (7-18); BUN/CREATININE RATIO 11; CALCIUM 9.5 MG/DL (8.5-10.1); CARBON DIOXIDE 25 MMOL/L (21-32); CHLORIDE 102 MMOL/L (98-107); CREATININE SERUM 0.81 MG/DL (0.60-1.30); GFR ESTIMATED > 60; GLUCOSE 376 MG/DL (70-105); POTASSIUM 3.7 MMOL/L (3.6-5.0); SODIUM 137 MMOL/L (135-145)
[2017-07-04 09:42] LABS: BASOPHILS % (AUTO) 1 % (0-10); EOSINOPHILS # (AUTO) 0.2 10^3/uL (0.0-0.3); EOSINOPHILS % (AUTO) 5 % (0-10); LYMPHOCYTES # (AUTO) 0.6 X 10^3 (1.0-4.0); LYMPHOCYTES % (AUTO) 14 % (12-44); MEAN CORPUSCULAR HEMOGLOBIN 28 PG (25-34); MEAN CORPUSCULAR HGB CONC 32 G/DL (32-36); MEAN CORPUSCULAR VOLUME 89 FL (80-99); MEAN PLATELET VOLUME 10.4 FL (7.4-10.4); MONOCYTES # (AUTO) 0.6 X 10^3 (0.0-1.0); MONOCYTES % (AUTO) 14 % (0-12); NEUTROPHILS # (AUTO) 2.7 X 10^3 (1.8-7.8); NEUTROPHILS % (AUTO) 66 % (42-75); PLATELET COUNT 95 10^3/uL (130-400); RED CELL DISTRIBUTION WIDTH 17.1 % (10.0-14.5)
[2017-07-04 10:12] LABS: ANION GAP 10 MMOL/L (5-14); BLOOD UREA NITROGEN 10 MG/DL (7-18); BUN/CREATININE RATIO 13; CALCIUM 9.4 MG/DL (8.5-10.1); CARBON DIOXIDE 27 MMOL/L (21-32); CHLORIDE 102 MMOL/L (98-107); CREATININE SERUM 0.77 MG/DL (0.60-1.30); GFR ESTIMATED > 60; GLUCOSE 244 MG/DL (70-105); POTASSIUM 3.7 MMOL/L (3.6-5.0); SODIUM 139 MMOL/L (135-145)
[~2017-07-11] VITALS: Ht 170.2 cm; Wt 64.0 kg
[~2017-07-11 09:17] MED LIST changes: +ADO TRASTUZUMAB EMTANSINE IV SCH; +DENOSUMAB 60 MG/1 ML (PROLIA) SQ SCH; +FAMOTIDINE 20MG/2ML IV (CANCER CTR) IV SCH; +LORazepam 0.5 MG (ATIVAN) TABLET CANCER CTR PO PRN; +NS (IVPB) CANCER CENTER 250 ML IV SCH; +NS IV 1000 ML (CANCER CTR) IV SCH; +NS IV 500 ML (CANCER CENTER) 500 ML ONE; +NS IV SCH; +PALONOSETRON HCL 0.25 MG, DEXAMETHASONE PF INJECTION 10 MG in NS (IVPB) 50 ML IV PRN; +diphenhydrAMINE 25 MG TAB (BENADRYL) CANCER CENTER PO SCH
[2017-07-11 09:43] LABS: BASOPHILS % (AUTO) 1 % (0-10); EOSINOPHILS # (AUTO) 0.2 10^3/uL (0.0-0.3); EOSINOPHILS % (AUTO) 5 % (0-10); LYMPHOCYTES # (AUTO) 0.8 X 10^3 (1.0-4.0); LYMPHOCYTES % (AUTO) 22 % (12-44); MEAN CORPUSCULAR HEMOGLOBIN 29 PG (25-34); MEAN CORPUSCULAR HGB CONC 32 G/DL (32-36); MEAN CORPUSCULAR VOLUME 90 FL (80-99); MEAN PLATELET VOLUME 11.5 FL (7.4-10.4); MONOCYTES # (AUTO) 0.5 X 10^3 (0.0-1.0); MONOCYTES % (AUTO) 13 % (0-12); NEUTROPHILS # (AUTO) 2.1 X 10^3 (1.8-7.8); NEUTROPHILS % (AUTO) 60 % (42-75); PLATELET COUNT 86 10^3/uL (130-400); RED BLOOD COUNT 3.72 10^6/uL (4.35-5.85); RED CELL DISTRIBUTION WIDTH 16.7 % (10.0-14.5); WHITE BLOOD COUNT 3.5 10^3/uL (4.3-11.0)
[2017-07-11 10:04] LABS: ALANINE AMINOTRANSFERASE 31 U/L (0-55); ALBUMIN 3.3 GM/DL (3.2-4.5); ANION GAP 10 MMOL/L (5-14); ASPARTATE AMINO TRANSFERASE 44 U/L (5-34); BILIRUBIN,TOTAL 1.1 MG/DL (0.1-1.0); BLOOD UREA NITROGEN 10 MG/DL (7-18); BUN/CREATININE RATIO 13; CALCIUM 9.4 MG/DL (8.5-10.1); CARBON DIOXIDE 24 MMOL/L (21-32); CHLORIDE 105 MMOL/L (98-107); CREATININE SERUM 0.78 MG/DL (0.60-1.30); GFR ESTIMATED > 60; GLUCOSE 255 MG/DL (70-105); POTASSIUM 3.7 MMOL/L (3.6-5.0); SODIUM 139 MMOL/L (135-145); TOTAL PROTEIN 6.7 GM/DL (6.4-8.2)
== END 2017-07-15 | disposition home or self-care (01) ==
LOC: ONC 09:17
PROVIDERS: ATTEND Internal Medicine Hematology & Oncology
DX: Z51.11 Encounter for antineoplastic chemotherapy (principal); C50.411 Malignant neoplasm of upper-outer quadrant of right female breast; C77.3 Secondary and unspecified malignant neoplasm of axilla and upper limb lymph nodes; C77.0 Secondary and unspecified malignant neoplasm of lymph nodes of head, face and neck; C78.02 Secondary malignant neoplasm of left lung; G54.0 Brachial plexus disorders; M85.80 Other specified disorders of bone density and structure, unspecified site; E55.9 Vitamin D deficiency, unspecified; D64.9 Anemia, unspecified; I25.10 Atherosclerotic heart disease of native coronary artery without angina pectoris; I12.9 Hypertensive chronic kidney disease with stage 1 through stage 4 chronic kidney disease, or unspecified chronic kidney disease; N18.3 Chronic kidney disease, stage 3 (moderate); E11.22 Type 2 diabetes mellitus with diabetic chronic kidney disease; E78.5 Hyperlipidemia, unspecified; E83.51 Hypocalcemia; E83.42 Hypomagnesemia; Z79.899 Other long term (current) drug therapy
CPT/HCPCS: 36415; 36591; 80048; 80053; 82306; 83735; 85025; 93005; 96375; 96413

== ENCOUNTER → 2017-07-11 | Outpatient (CLI) | payer MEDICARE, MEDICAID | LOC: LAB 09:18 | PROVIDERS: ATTEND Internal Medicine | DX: E11.9 Type 2 diabetes mellitus without complications (principal) | CPT/HCPCS: 36415; 83036 ==

== ENCOUNTER 2017-08-01 08:16 | Outpatient (RCR) | payer MEDICARE, MEDICAID ==
[2017-07-18 09:58] LABS: BASOPHILS % (AUTO) 0 % (0-10); EOSINOPHILS # (AUTO) 0.1 10^3/uL (0.0-0.3); EOSINOPHILS % (AUTO) 3 % (0-10); LYMPHOCYTES # (AUTO) 0.8 X 10^3 (1.0-4.0); LYMPHOCYTES % (AUTO) 14 % (12-44); MEAN CORPUSCULAR HEMOGLOBIN 28 PG (25-34); MEAN CORPUSCULAR HGB CONC 32 G/DL (32-36); MEAN CORPUSCULAR VOLUME 89 FL (80-99); MEAN PLATELET VOLUME 10.8 FL (7.4-10.4); MONOCYTES # (AUTO) 0.8 X 10^3 (0.0-1.0); MONOCYTES % (AUTO) 15 % (0-12); NEUTROPHILS # (AUTO) 3.5 X 10^3 (1.8-7.8); NEUTROPHILS % (AUTO) 67 % (42-75); PLATELET COUNT 81 10^3/uL (130-400); RED BLOOD COUNT 3.84 10^6/uL (4.35-5.85); RED CELL DISTRIBUTION WIDTH 16.4 % (10.0-14.5); WHITE BLOOD COUNT 5.3 10^3/uL (4.3-11.0)
[2017-07-18 10:21] LABS: ANION GAP 8 MMOL/L (5-14); BLOOD UREA NITROGEN 10 MG/DL (7-18); BUN/CREATININE RATIO 13; CALCIUM 9.2 MG/DL (8.5-10.1); CARBON DIOXIDE 27 MMOL/L (21-32); CHLORIDE 105 MMOL/L (98-107); CREATININE SERUM 0.78 MG/DL (0.60-1.30); GFR ESTIMATED > 60; GLUCOSE 265 MG/DL (70-105); POTASSIUM 3.4 MMOL/L (3.6-5.0); SODIUM 140 MMOL/L (135-145)
[2017-07-25 10:06] LABS: BASOPHILS % (AUTO) 1 % (0-10); EOSINOPHILS # (AUTO) 0.2 10^3/uL (0.0-0.3); EOSINOPHILS % (AUTO) 5 % (0-10); LYMPHOCYTES # (AUTO) 0.8 X 10^3 (1.0-4.0); LYMPHOCYTES % (AUTO) 20 % (12-44); MEAN CORPUSCULAR HEMOGLOBIN 28 PG (25-34); MEAN CORPUSCULAR HGB CONC 32 G/DL (32-36); MEAN CORPUSCULAR VOLUME 90 FL (80-99); MEAN PLATELET VOLUME 10.8 FL (7.4-10.4); MONOCYTES # (AUTO) 0.5 X 10^3 (0.0-1.0); MONOCYTES % (AUTO) 12 % (0-12); NEUTROPHILS # (AUTO) 2.6 X 10^3 (1.8-7.8); NEUTROPHILS % (AUTO) 62 % (42-75); PLATELET COUNT 93 10^3/uL (130-400); RED BLOOD COUNT 3.82 10^6/uL (4.35-5.85); RED CELL DISTRIBUTION WIDTH 16.5 % (10.0-14.5); WHITE BLOOD COUNT 4.1 10^3/uL (4.3-11.0)
[2017-07-25 10:21] LABS: ANION GAP 9 MMOL/L (5-14); BLOOD UREA NITROGEN 8 MG/DL (7-18); BUN/CREATININE RATIO 10; CALCIUM 9.7 MG/DL (8.5-10.1); CARBON DIOXIDE 27 MMOL/L (21-32); CHLORIDE 104 MMOL/L (98-107); CREATININE SERUM 0.78 MG/DL (0.60-1.30); GFR ESTIMATED > 60; GLUCOSE 254 MG/DL (70-105); POTASSIUM 3.7 MMOL/L (3.6-5.0); SODIUM 140 MMOL/L (135-145)
[~2017-08-01 08:16] MED LIST changes: -FAMOTIDINE 20MG/2ML IV (CANCER CTR) IV SCH; -LORazepam 0.5 MG (ATIVAN) TABLET CANCER CTR PO PRN; -NS IV 500 ML (CANCER CENTER) 500 ML ONE
[2017-08-01 08:37] LABS: BASOPHILS % (AUTO) 1 % (0-10); EOSINOPHILS # (AUTO) 0.2 10^3/uL (0.0-0.3); EOSINOPHILS % (AUTO) 5 % (0-10); LYMPHOCYTES # (AUTO) 0.9 X 10^3 (1.0-4.0); LYMPHOCYTES % (AUTO) 24 % (12-44); MEAN CORPUSCULAR HEMOGLOBIN 29 PG (25-34); MEAN CORPUSCULAR HGB CONC 32 G/DL (32-36); MEAN CORPUSCULAR VOLUME 90 FL (80-99); MEAN PLATELET VOLUME 11.1 FL (7.4-10.4); MONOCYTES # (AUTO) 0.4 X 10^3 (0.0-1.0); MONOCYTES % (AUTO) 12 % (0-12); NEUTROPHILS % (AUTO) 58 % (42-75); PLATELET COUNT 96 10^3/uL (130-400); RED BLOOD COUNT 3.64 10^6/uL (4.35-5.85); RED CELL DISTRIBUTION WIDTH 16.1 % (10.0-14.5); WHITE BLOOD COUNT 3.5 10^3/uL (4.3-11.0)
[2017-08-01 08:57] LABS: ALANINE AMINOTRANSFERASE 30 U/L (0-55); ALBUMIN 3.2 GM/DL (3.2-4.5); ANION GAP 9 MMOL/L (5-14); ASPARTATE AMINO TRANSFERASE 41 U/L (5-34); BILIRUBIN,TOTAL 1.1 MG/DL (0.1-1.0); BLOOD UREA NITROGEN 7 MG/DL (7-18); BUN/CREATININE RATIO 10; CALCIUM 9.5 MG/DL (8.5-10.1); CARBON DIOXIDE 25 MMOL/L (21-32); CHLORIDE 105 MMOL/L (98-107); CREATININE SERUM 0.73 MG/DL (0.60-1.30); GFR ESTIMATED > 60; GLUCOSE 290 MG/DL (70-105); POTASSIUM 3.6 MMOL/L (3.6-5.0); SODIUM 139 MMOL/L (135-145); TOTAL PROTEIN 6.6 GM/DL (6.4-8.2)
== END 2017-08-09 09:08 | disposition home or self-care (01) ==
LOC: ONC 08:16
PROVIDERS: ATTEND Internal Medicine Hematology & Oncology
DX: C50.411 Malignant neoplasm of upper-outer quadrant of right female breast (principal); C79.51 Secondary malignant neoplasm of bone; C77.3 Secondary and unspecified malignant neoplasm of axilla and upper limb lymph nodes; C77.0 Secondary and unspecified malignant neoplasm of lymph nodes of head, face and neck; C78.02 Secondary malignant neoplasm of left lung; G54.0 Brachial plexus disorders; M85.80 Other specified disorders of bone density and structure, unspecified site; Z79.899 Other long term (current) drug therapy; Z90.11 Acquired absence of right breast and nipple
CPT/HCPCS: 36415; 36591; 80048; 80053; 85025

== ENCOUNTER → 2017-08-10 | Outpatient (CLI) | payer MEDICARE, MEDICAID ==
[~2017-08-10] MED LIST changes: -ADO TRASTUZUMAB EMTANSINE IV SCH; -DENOSUMAB 60 MG/1 ML (PROLIA) SQ SCH; -NS (IVPB) CANCER CENTER 250 ML IV SCH; -NS IV 1000 ML (CANCER CTR) IV SCH; -NS IV SCH; -PALONOSETRON HCL 0.25 MG, DEXAMETHASONE PF INJECTION 10 MG in NS (IVPB) 50 ML IV PRN; -diphenhydrAMINE 25 MG TAB (BENADRYL) CANCER CENTER PO SCH
== END ==
LOC: WOUNDCARE 08:07
PROVIDERS: ATTEND Internal Medicine
DX: T23.361A Burn of third degree of back of right hand, initial encounter (principal); E11.622 Type 2 diabetes mellitus with other skin ulcer; I97.2 Postmastectomy lymphedema syndrome
CPT/HCPCS: 11042

== ENCOUNTER → 2017-08-17 | Outpatient (CLI) | payer MEDICARE, MEDICAID | LOC: WOUNDCARE 09:55 | PROVIDERS: ATTEND Internal Medicine | DX: T23.361A Burn of third degree of back of right hand, initial encounter (principal); E11.622 Type 2 diabetes mellitus with other skin ulcer; I97.2 Postmastectomy lymphedema syndrome | CPT/HCPCS: 16020 ==

== ENCOUNTER → 2017-08-31 | Outpatient (CLI) | payer MEDICARE, MEDICAID | LOC: WOUNDCARE 10:28 | PROVIDERS: ATTEND Internal Medicine | DX: E11.622 Type 2 diabetes mellitus with other skin ulcer (principal); I97.2 Postmastectomy lymphedema syndrome; T23.361A Burn of third degree of back of right hand, initial encounter | CPT/HCPCS: 16020; 87070; 87075; 87101; 87205 ==

== ENCOUNTER → 2017-09-05 | Outpatient (CLI) | payer MEDICARE, MEDICAID | LOC: WOUNDCARE 09:54 | PROVIDERS: ATTEND Nurse Practitioner | DX: T23.361D Burn of third degree of back of right hand, subsequent encounter (principal); E11.622 Type 2 diabetes mellitus with other skin ulcer; I97.2 Postmastectomy lymphedema syndrome; Z85.3 Personal history of malignant neoplasm of breast; X58.XXXD Exposure to other specified factors, subsequent encounter; Y99.8 Other external cause status | CPT/HCPCS: 16020 ==

== ENCOUNTER → 2017-09-11 | Outpatient (CLI) | payer MEDICARE, MEDICAID ==
[~2017-09-11] MED LIST changes: +BARIUM SUSPENSION 2.1% (VANILLA SILQ) 450 ML PO ONE; +CATHETER FLUSH 10 ML SYR IV PRN; +IOHEXOL 350 MG/ML 100 ML (OMNIPAQUE 350) VIAL IV ONE; +NS 100 ML (IVPB) BAG IV ONE
[2017-09-11] MEDS: CATHETER FLUSH 10 ML SYR IV PRN ×2 (11:42→12:09)
--- NOTE | 2017-09-11 15:18 | Diagnostic Imaging Report ---
Whole body bone scan. Technique: After the intravenous administration of 26.8 mCi of Technetium 99m MDP, whole body delayed phase bone scan images were obtained with lateral views of the head and neck and the chest regions. Indication: Breast cancer. Findings: When compared to 08/23/2016, similar findings of increased activity in the lower lumbar spine, the cervical spine, sternoclavicular joints, shoulders, knees and in the ankles and feet are again seen suggestive of stable degenerative changes. No suspicious intense areas of increased uptake are noted in a pattern to suggest metastatic disease. Renal and urinary bladder activity is noted reflective of excretion of the tracer. IMPRESSION: Stable bone scan with no findings to suggest osseous metastasis. Dictated by: Dictated on workstation # [id number]
--- NOTE | 2017-09-11 17:13 | Diagnostic Imaging Report ---
CT neck, chest, and abdomen performed with contrast with abdominal portion performed without contrast as well. Coronal reconstructions are performed. INDICATION: Breast cancer with metastasis to the lungs and lymph nodes. Cough. 100 mL of Omnipaque 350 is administered intravenously. COMPARISON: 05/15/17. FINDINGS: CT neck: There is increased soft tissue fullness around the right scalene muscles and around the right subclavian vessels similar to the previous exam. There is no discrete new mass identified and no significant lymphadenopathy seen. The mucosal pharyngeal space appears unremarkable. The right internal jugular vein is patent with right IJ venous line in place. The right carotid artery and left IJ and carotid vascular enhancement is satisfactory. The thyroid gland, the submandibular and the parotid glands appear unremarkable. The osseous structures demonstrate moderate degenerative changes. CT chest: There are calcified plaques seen in the anterior aspect of the right pleural space. There is no significant consolidation, mass or suspicious nodule identified. There is pleural parenchymal thickening in the right lung apex seen. This is similar to the previous study. Surgical clips in the right axilla and changes of right lumpectomy or mastectomy are seen. The thoracic aorta is normal in caliber. No mediastinal, hilar or axillary lymphadenopathy is seen. No pleural or pericardial effusion. The osseous structures demonstrate mild degenerative changes. CT abdomen: The liver, gallbladder, spleen and adrenal glands and pancreas appear unremarkable. There is a stable splenic artery aneurysm measuring 1.5 cm similar to the previous exam. The kidneys have symmetric enhancement and contrast excretion. The unenhanced phase demonstrates no kidney stones. No para-aortic significantly enlarged lymph node is seen. The osseous structures demonstrate mild degenerative changes in lumbar spine and SI joints. IMPRESSION: CT neck: Stable soft tissue fullness around the right supraclavicular area without change, potentially related to scarring from prior treatment. CT chest: Stable pleural parenchymal thickening in the right lung apex and calcified pleural plaques anteriorly in the right chest. No evidence of metastasis. CT abdomen: 1. No evidence of metastasis. 2. Stable 1.5 cm splenic artery aneurysm. Dictated by: Dictated on workstation # [id number]
== END ==
LOC: CARD 11:24
PROVIDERS: ATTEND Internal Medicine Hematology & Oncology
DX: C50.411 Malignant neoplasm of upper-outer quadrant of right female breast (principal); C78.02 Secondary malignant neoplasm of left lung; C77.8 Secondary and unspecified malignant neoplasm of lymph nodes of multiple regions; I72.8 Aneurysm of other specified arteries
CPT/HCPCS: 70491; 71260; 74170; 78306

== ENCOUNTER → 2017-09-14 | Outpatient (CLI) | payer MEDICARE, MEDICAID ==
[~2017-09-14] MED LIST changes: -BARIUM SUSPENSION 2.1% (VANILLA SILQ) 450 ML PO ONE; -CATHETER FLUSH 10 ML SYR IV PRN; -IOHEXOL 350 MG/ML 100 ML (OMNIPAQUE 350) VIAL IV ONE; -NS 100 ML (IVPB) BAG IV ONE
== END ==
LOC: WOUNDCARE 10:10
PROVIDERS: ATTEND Internal Medicine
DX: E11.622 Type 2 diabetes mellitus with other skin ulcer (principal); I97.2 Postmastectomy lymphedema syndrome; T23.361A Burn of third degree of back of right hand, initial encounter
CPT/HCPCS: 16020

== ENCOUNTER → 2017-09-21 | Outpatient (CLI) | payer MEDICARE, MEDICAID | LOC: WOUNDCARE 09:49 | PROVIDERS: ATTEND Internal Medicine | DX: T23.361A Burn of third degree of back of right hand, initial encounter (principal); E11.622 Type 2 diabetes mellitus with other skin ulcer; I97.2 Postmastectomy lymphedema syndrome | CPT/HCPCS: 16020 ==

== ENCOUNTER → 2017-09-28 | Outpatient (CLI) | payer MEDICARE, MEDICAID | LOC: WOUNDCARE 10:22 | PROVIDERS: ATTEND Nurse Practitioner | DX: I97.2 Postmastectomy lymphedema syndrome (principal); T23.361A Burn of third degree of back of right hand, initial encounter; E11.622 Type 2 diabetes mellitus with other skin ulcer | CPT/HCPCS: 16020 ==

== ENCOUNTER → 2017-10-05 | Outpatient (CLI) | payer MEDICARE, MEDICAID | LOC: WOUNDCARE 10:05 | PROVIDERS: ATTEND Internal Medicine | DX: E11.622 Type 2 diabetes mellitus with other skin ulcer (principal); T23.361A Burn of third degree of back of right hand, initial encounter; I97.2 Postmastectomy lymphedema syndrome | CPT/HCPCS: 16020 ==

== ENCOUNTER → 2017-10-12 | Outpatient (CLI) | payer MEDICARE, MEDICAID ==
[~2017-10-12] MED LIST changes: +ACHD5005 PO; -HYDR-3812 PO
== END ==
LOC: WOUNDCARE 10:07
PROVIDERS: ATTEND Internal Medicine
DX: I97.2 Postmastectomy lymphedema syndrome (principal); T23.361A Burn of third degree of back of right hand, initial encounter; E11.622 Type 2 diabetes mellitus with other skin ulcer
CPT/HCPCS: 15275; 87070; 87075; 87101; 87205

== ENCOUNTER → 2017-10-12 | Outpatient (CLI) | payer MEDICARE, MEDICAID ==
[2017-10-12 13:17] LABS: ALANINE AMINOTRANSFERASE 56 U/L (0-55); ALBUMIN 3.6 GM/DL (3.2-4.5); ALKALINE PHOSPHATASE 319 U/L (40-136); BILIRUBIN,TOTAL 1.3 MG/DL (0.1-1.0); BUN/CREATININE RATIO 13; CALCIUM 9.8 MG/DL (8.5-10.1); CARBON DIOXIDE 28 MMOL/L (21-32); CHLORIDE 105 MMOL/L (98-107); CHOLESTEROL 216 MG/DL (< 200); CREATININE SERUM 0.75 MG/DL (0.60-1.30); GFR ESTIMATED > 60; GLUCOSE 225 MG/DL (70-105); HDL CHOLESTEROL 66 MG/DL (40-60); POTASSIUM 3.6 MMOL/L (3.6-5.0); SODIUM 141 MMOL/L (135-145); TOTAL PROTEIN 7.3 GM/DL (6.4-8.2); TRIGLYCERIDES 79 MG/DL (<150); VLDL CHOLESTEROL 16 MG/DL (5-40)
--- NOTE | 2017-10-12 14:00 | Diagnostic Imaging Report ---
EXAM: 3 views of the right hand. INDICATION: Evaluate for osteomyelitis. FINDINGS: There is focal ossification seen along the dorsal aspect of the base of the second finger at the level of the base of the proximal phalanx. This could relate to the prior injury. The dorsal aspect of the proximal phalanx of the second toe is not well seen on the lateral view due to the overlap with the other digits with question of a periosteal reaction. There is no grossly destructed bone and there is no fracture, dislocation or subluxation seen. There is deformity along the waist of the scaphoid, favored to be related to sequelae of old injury. There is osteopenia seen. IMPRESSION: Suggestion of periosteal reaction along the dorsal aspect of the base of the proximal phalanx, not well seen due to overlap with other fingers in the lateral projection. This is concerning for early osteomyelitis. Correlation with 3 phase bone scan or MRI of the right hand can be helpful. Dictated by: Dictated on workstation # [id number]
== END ==
LOC: LAB 11:04
PROVIDERS: ATTEND Internal Medicine
DX: I10 Essential (primary) hypertension (principal); E78.5 Hyperlipidemia, unspecified; Z79.899 Other long term (current) drug therapy; I97.2 Postmastectomy lymphedema syndrome; T23.361A Burn of third degree of back of right hand, initial encounter; E11.622 Type 2 diabetes mellitus with other skin ulcer; X58.XXXA Exposure to other specified factors, initial encounter
CPT/HCPCS: 36415; 73130; 80053; 80061; 83036; 84443

== ENCOUNTER 2017-10-19 13:54 | Outpatient (RCR) | payer MEDICARE, MEDICAID ==
[2017-08-09 09:38] LABS: BASOPHILS % (AUTO) 1 % (0-10); EOSINOPHILS # (AUTO) 0.2 10^3/uL (0.0-0.3); EOSINOPHILS % (AUTO) 4 % (0-10); HEMATOCRIT 35 % (35-52); HEMOGLOBIN 11.1 G/DL (11.5-16.0); LYMPHOCYTES # (AUTO) 0.8 X 10^3 (1.0-4.0); LYMPHOCYTES % (AUTO) 21 % (12-44); MEAN CORPUSCULAR HEMOGLOBIN 29 PG (25-34); MEAN CORPUSCULAR HGB CONC 32 G/DL (32-36); MEAN CORPUSCULAR VOLUME 90 FL (80-99); MEAN PLATELET VOLUME 11.7 FL (7.4-10.4); MONOCYTES # (AUTO) 0.5 X 10^3 (0.0-1.0); MONOCYTES % (AUTO) 12 % (0-12); NEUTROPHILS # (AUTO) 2.6 X 10^3 (1.8-7.8); NEUTROPHILS % (AUTO) 63 % (42-75); PLATELET COUNT 105 10^3/uL (130-400); RED BLOOD COUNT 3.86 10^6/uL (4.35-5.85); RED CELL DISTRIBUTION WIDTH 15.8 % (10.0-14.5)
[2017-08-09 10:00] LABS: ALANINE AMINOTRANSFERASE 24 U/L (0-55); ALBUMIN 3.3 GM/DL (3.2-4.5); ALKALINE PHOSPHATASE 246 U/L (40-136); BILIRUBIN,TOTAL 1.2 MG/DL (0.1-1.0); BUN/CREATININE RATIO 14; CALCIUM 9.6 MG/DL (8.5-10.1); CARBON DIOXIDE 27 MMOL/L (21-32); CHLORIDE 103 MMOL/L (98-107); CREATININE SERUM 0.78 MG/DL (0.60-1.30); GFR ESTIMATED > 60; GLUCOSE 262 MG/DL (70-105); POTASSIUM 3.6 MMOL/L (3.6-5.0); SODIUM 138 MMOL/L (135-145); TOTAL PROTEIN 6.9 GM/DL (6.4-8.2)
[2017-08-16 09:13] LABS: BASOPHILS % (AUTO) 1 % (0-10); EOSINOPHILS # (AUTO) 0.2 10^3/uL (0.0-0.3); EOSINOPHILS % (AUTO) 4 % (0-10); HEMATOCRIT 34 % (35-52); HEMOGLOBIN 11.1 G/DL (11.5-16.0); LYMPHOCYTES # (AUTO) 0.9 X 10^3 (1.0-4.0); LYMPHOCYTES % (AUTO) 23 % (12-44); MEAN CORPUSCULAR HEMOGLOBIN 29 PG (25-34); MEAN CORPUSCULAR HGB CONC 33 G/DL (32-36); MEAN CORPUSCULAR VOLUME 90 FL (80-99); MEAN PLATELET VOLUME 11.3 FL (7.4-10.4); MONOCYTES # (AUTO) 0.4 X 10^3 (0.0-1.0); MONOCYTES % (AUTO) 11 % (0-12); NEUTROPHILS # (AUTO) 2.4 X 10^3 (1.8-7.8); NEUTROPHILS % (AUTO) 61 % (42-75); PLATELET COUNT 99 10^3/uL (130-400); RED BLOOD COUNT 3.78 10^6/uL (4.35-5.85); RED CELL DISTRIBUTION WIDTH 15.7 % (10.0-14.5); WHITE BLOOD COUNT 3.9 10^3/uL (4.3-11.0)
[2017-08-16 09:39] LABS: ALANINE AMINOTRANSFERASE 27 U/L (0-55); ALBUMIN 3.3 GM/DL (3.2-4.5); ALKALINE PHOSPHATASE 239 U/L (40-136); BILIRUBIN,TOTAL 0.9 MG/DL (0.1-1.0); BUN/CREATININE RATIO 15; CALCIUM 9.6 MG/DL (8.5-10.1); CARBON DIOXIDE 22 MMOL/L (21-32); CHLORIDE 105 MMOL/L (98-107); CREATININE SERUM 0.73 MG/DL (0.60-1.30); GFR ESTIMATED > 60; GLUCOSE 314 MG/DL (70-105); POTASSIUM 3.5 MMOL/L (3.6-5.0); SODIUM 137 MMOL/L (135-145); TOTAL PROTEIN 6.5 GM/DL (6.4-8.2)
[2017-08-24 08:26] LABS: BASOPHILS % (AUTO) 1 % (0-10); EOSINOPHILS # (AUTO) 0.2 10^3/uL (0.0-0.3); EOSINOPHILS % (AUTO) 5 % (0-10); HEMATOCRIT 34 % (35-52); HEMOGLOBIN 11.1 G/DL (11.5-16.0); LYMPHOCYTES # (AUTO) 0.9 X 10^3 (1.0-4.0); LYMPHOCYTES % (AUTO) 24 % (12-44); MEAN CORPUSCULAR HEMOGLOBIN 30 PG (25-34); MEAN CORPUSCULAR HGB CONC 33 G/DL (32-36); MEAN CORPUSCULAR VOLUME 90 FL (80-99); MEAN PLATELET VOLUME 10.9 FL (7.4-10.4); MONOCYTES # (AUTO) 0.5 X 10^3 (0.0-1.0); MONOCYTES % (AUTO) 14 % (0-12); NEUTROPHILS # (AUTO) 2.2 X 10^3 (1.8-7.8); NEUTROPHILS % (AUTO) 58 % (42-75); PLATELET COUNT 95 10^3/uL (130-400); RED BLOOD COUNT 3.73 10^6/uL (4.35-5.85); RED CELL DISTRIBUTION WIDTH 15.5 % (10.0-14.5); WHITE BLOOD COUNT 3.8 10^3/uL (4.3-11.0)
[2017-08-24 08:42] LABS: ALANINE AMINOTRANSFERASE 29 U/L (0-55); ALBUMIN 3.3 GM/DL (3.2-4.5); ALKALINE PHOSPHATASE 221 U/L (40-136); BILIRUBIN,TOTAL 0.9 MG/DL (0.1-1.0); BUN/CREATININE RATIO 14; CALCIUM 9.6 MG/DL (8.5-10.1); CARBON DIOXIDE 24 MMOL/L (21-32); CHLORIDE 107 MMOL/L (98-107); CREATININE SERUM 0.72 MG/DL (0.60-1.30); GFR ESTIMATED > 60; GLUCOSE 221 MG/DL (70-105); POTASSIUM 3.7 MMOL/L (3.6-5.0); SODIUM 140 MMOL/L (135-145); TOTAL PROTEIN 6.5 GM/DL (6.4-8.2)
[2017-08-31 10:37] LABS: BASOPHILS % (AUTO) 1 % (0-10); EOSINOPHILS # (AUTO) 0.2 10^3/uL (0.0-0.3); EOSINOPHILS % (AUTO) 6 % (0-10); HEMATOCRIT 34 % (35-52); LYMPHOCYTES # (AUTO) 0.8 X 10^3 (1.0-4.0); LYMPHOCYTES % (AUTO) 18 % (12-44); MEAN CORPUSCULAR HEMOGLOBIN 29 PG (25-34); MEAN CORPUSCULAR HGB CONC 33 G/DL (32-36); MEAN CORPUSCULAR VOLUME 90 FL (80-99); MEAN PLATELET VOLUME 11.3 FL (7.4-10.4); MONOCYTES # (AUTO) 0.5 X 10^3 (0.0-1.0); MONOCYTES % (AUTO) 12 % (0-12); NEUTROPHILS # (AUTO) 2.7 X 10^3 (1.8-7.8); NEUTROPHILS % (AUTO) 63 % (42-75); PLATELET COUNT 93 10^3/uL (130-400); RED BLOOD COUNT 3.77 10^6/uL (4.35-5.85); RED CELL DISTRIBUTION WIDTH 15.5 % (10.0-14.5); WHITE BLOOD COUNT 4.3 10^3/uL (4.3-11.0)
[2017-08-31 10:58] LABS: BUN/CREATININE RATIO 14; CALCIUM 9.6 MG/DL (8.5-10.1); CARBON DIOXIDE 26 MMOL/L (21-32); CHLORIDE 105 MMOL/L (98-107); CREATININE SERUM 0.77 MG/DL (0.60-1.30); GFR ESTIMATED > 60; GLUCOSE 270 MG/DL (70-105); POTASSIUM 3.7 MMOL/L (3.6-5.0); SODIUM 139 MMOL/L (135-145)
[2017-09-05 12:32] LABS: BASOPHILS % (AUTO) 0 % (0-10); EOSINOPHILS # (AUTO) 0.2 10^3/uL (0.0-0.3); EOSINOPHILS % (AUTO) 5 % (0-10); HEMATOCRIT 34 % (35-52); HEMOGLOBIN 10.9 G/DL (11.5-16.0); LYMPHOCYTES # (AUTO) 0.9 X 10^3 (1.0-4.0); LYMPHOCYTES % (AUTO) 19 % (12-44); MEAN CORPUSCULAR HEMOGLOBIN 29 PG (25-34); MEAN CORPUSCULAR HGB CONC 32 G/DL (32-36); MEAN CORPUSCULAR VOLUME 89 FL (80-99); MEAN PLATELET VOLUME 11.2 FL (7.4-10.4); MONOCYTES # (AUTO) 0.6 X 10^3 (0.0-1.0); MONOCYTES % (AUTO) 12 % (0-12); NEUTROPHILS % (AUTO) 64 % (42-75); PLATELET COUNT 102 10^3/uL (130-400); RED BLOOD COUNT 3.78 10^6/uL (4.35-5.85); RED CELL DISTRIBUTION WIDTH 15.5 % (10.0-14.5); WHITE BLOOD COUNT 4.7 10^3/uL (4.3-11.0)
[2017-09-05 12:47] LABS: BUN/CREATININE RATIO 13; CALCIUM 9.4 MG/DL (8.5-10.1); CARBON DIOXIDE 26 MMOL/L (21-32); CHLORIDE 105 MMOL/L (98-107); CREATININE SERUM 0.71 MG/DL (0.60-1.30); GFR ESTIMATED > 60; GLUCOSE 203 MG/DL (70-105); POTASSIUM 3.6 MMOL/L (3.6-5.0); SODIUM 141 MMOL/L (135-145)
[2017-09-14 08:18] LABS: BASOPHILS % (AUTO) 1 % (0-10); EOSINOPHILS # (AUTO) 0.2 10^3/uL (0.0-0.3); EOSINOPHILS % (AUTO) 5 % (0-10); HEMATOCRIT 33 % (35-52); HEMOGLOBIN 10.8 G/DL (11.5-16.0); LYMPHOCYTES # (AUTO) 0.9 X 10^3 (1.0-4.0); LYMPHOCYTES % (AUTO) 24 % (12-44); MEAN CORPUSCULAR HEMOGLOBIN 30 PG (25-34); MEAN CORPUSCULAR HGB CONC 33 G/DL (32-36); MEAN CORPUSCULAR VOLUME 90 FL (80-99); MEAN PLATELET VOLUME 10.8 FL (7.4-10.4); MONOCYTES # (AUTO) 0.5 X 10^3 (0.0-1.0); MONOCYTES % (AUTO) 13 % (0-12); NEUTROPHILS # (AUTO) 2.2 X 10^3 (1.8-7.8); NEUTROPHILS % (AUTO) 58 % (42-75); PLATELET COUNT 90 10^3/uL (130-400); RED BLOOD COUNT 3.66 10^6/uL (4.35-5.85); RED CELL DISTRIBUTION WIDTH 15.3 % (10.0-14.5); WHITE BLOOD COUNT 3.8 10^3/uL (4.3-11.0)
[2017-09-14 08:36] LABS: ALANINE AMINOTRANSFERASE 33 U/L (0-55); ALBUMIN 3.2 GM/DL (3.2-4.5); ALKALINE PHOSPHATASE 238 U/L (40-136); BILIRUBIN,TOTAL 0.9 MG/DL (0.1-1.0); BUN/CREATININE RATIO 10; CALCIUM 9.5 MG/DL (8.5-10.1); CARBON DIOXIDE 25 MMOL/L (21-32); CHLORIDE 105 MMOL/L (98-107); CREATININE SERUM 0.72 MG/DL (0.60-1.30); GFR ESTIMATED > 60; GLUCOSE 233 MG/DL (70-105); POTASSIUM 3.7 MMOL/L (3.6-5.0); SODIUM 139 MMOL/L (135-145); TOTAL PROTEIN 6.1 GM/DL (6.4-8.2)
[2017-09-21 09:56] LABS: BASOPHILS % (AUTO) 1 % (0-10); EOSINOPHILS # (AUTO) 0.2 10^3/uL (0.0-0.3); EOSINOPHILS % (AUTO) 5 % (0-10); HEMATOCRIT 33 % (35-52); HEMOGLOBIN 10.4 G/DL (11.5-16.0); LYMPHOCYTES # (AUTO) 0.7 X 10^3 (1.0-4.0); LYMPHOCYTES % (AUTO) 17 % (12-44); MEAN CORPUSCULAR HEMOGLOBIN 29 PG (25-34); MEAN CORPUSCULAR HGB CONC 32 G/DL (32-36); MEAN CORPUSCULAR VOLUME 91 FL (80-99); MEAN PLATELET VOLUME 10.6 FL (7.4-10.4); MONOCYTES # (AUTO) 0.6 X 10^3 (0.0-1.0); MONOCYTES % (AUTO) 13 % (0-12); NEUTROPHILS # (AUTO) 2.8 X 10^3 (1.8-7.8); NEUTROPHILS % (AUTO) 65 % (42-75); PLATELET COUNT 84 10^3/uL (130-400); RED BLOOD COUNT 3.59 10^6/uL (4.35-5.85); RED CELL DISTRIBUTION WIDTH 15.8 % (10.0-14.5); WHITE BLOOD COUNT 4.4 10^3/uL (4.3-11.0)
[2017-09-21 10:11] LABS: BUN/CREATININE RATIO 12; CALCIUM 9.5 MG/DL (8.5-10.1); CARBON DIOXIDE 28 MMOL/L (21-32); CHLORIDE 103 MMOL/L (98-107); CREATININE SERUM 0.75 MG/DL (0.60-1.30); GFR ESTIMATED > 60; GLUCOSE 254 MG/DL (70-105); SODIUM 138 MMOL/L (135-145)
[2017-09-28 10:37] LABS: BASOPHILS % (AUTO) 1 % (0-10); EOSINOPHILS # (AUTO) 0.2 10^3/uL (0.0-0.3); EOSINOPHILS % (AUTO) 4 % (0-10); HEMATOCRIT 33 % (35-52); HEMOGLOBIN 10.5 G/DL (11.5-16.0); LYMPHOCYTES # (AUTO) 0.7 X 10^3 (1.0-4.0); LYMPHOCYTES % (AUTO) 15 % (12-44); MEAN CORPUSCULAR HEMOGLOBIN 29 PG (25-34); MEAN CORPUSCULAR HGB CONC 32 G/DL (32-36); MEAN CORPUSCULAR VOLUME 91 FL (80-99); MEAN PLATELET VOLUME 10.9 FL (7.4-10.4); MONOCYTES # (AUTO) 0.6 X 10^3 (0.0-1.0); MONOCYTES % (AUTO) 14 % (0-12); NEUTROPHILS # (AUTO) 3.1 X 10^3 (1.8-7.8); NEUTROPHILS % (AUTO) 67 % (42-75); PLATELET COUNT 86 10^3/uL (130-400); RED BLOOD COUNT 3.62 10^6/uL (4.35-5.85); WHITE BLOOD COUNT 4.6 10^3/uL (4.3-11.0)
[2017-09-28 11:04] LABS: BUN/CREATININE RATIO 14; CALCIUM 9.3 MG/DL (8.5-10.1); CARBON DIOXIDE 26 MMOL/L (21-32); CHLORIDE 102 MMOL/L (98-107); CREATININE SERUM 0.76 MG/DL (0.60-1.30); GFR ESTIMATED > 60; GLUCOSE 308 MG/DL (70-105); POTASSIUM 3.8 MMOL/L (3.6-5.0); SODIUM 137 MMOL/L (135-145)
[2017-10-05 13:17] LABS: BASOPHILS % (AUTO) 1 % (0-10); EOSINOPHILS # (AUTO) 0.1 10^3/uL (0.0-0.3); EOSINOPHILS % (AUTO) 3 % (0-10); HEMATOCRIT 31 % (35-52); HEMOGLOBIN 10.3 G/DL (11.5-16.0); LYMPHOCYTES # (AUTO) 0.8 X 10^3 (1.0-4.0); LYMPHOCYTES % (AUTO) 20 % (12-44); MEAN CORPUSCULAR HEMOGLOBIN 30 PG (25-34); MEAN CORPUSCULAR HGB CONC 33 G/DL (32-36); MEAN CORPUSCULAR VOLUME 91 FL (80-99); MEAN PLATELET VOLUME 10.7 FL (7.4-10.4); MONOCYTES # (AUTO) 0.5 X 10^3 (0.0-1.0); MONOCYTES % (AUTO) 13 % (0-12); NEUTROPHILS # (AUTO) 2.7 X 10^3 (1.8-7.8); NEUTROPHILS % (AUTO) 64 % (42-75); PLATELET COUNT 86 10^3/uL (130-400); RED BLOOD COUNT 3.45 10^6/uL (4.35-5.85); RED CELL DISTRIBUTION WIDTH 15.9 % (10.0-14.5); WHITE BLOOD COUNT 4.2 10^3/uL (4.3-11.0)
[2017-10-05 13:35] LABS: ALANINE AMINOTRANSFERASE 33 U/L (0-55); ALBUMIN 3.3 GM/DL (3.2-4.5); ALKALINE PHOSPHATASE 283 U/L (40-136); BILIRUBIN,TOTAL 1.2 MG/DL (0.1-1.0); BUN/CREATININE RATIO 14; CALCIUM 9.2 MG/DL (8.5-10.1); CARBON DIOXIDE 25 MMOL/L (21-32); CHLORIDE 104 MMOL/L (98-107); CREATININE SERUM 0.76 MG/DL (0.60-1.30); GFR ESTIMATED > 60; GLUCOSE 283 MG/DL (70-105); SODIUM 138 MMOL/L (135-145); TOTAL PROTEIN 6.7 GM/DL (6.4-8.2)
[2017-10-12 12:32] LABS: BASOPHILS % (AUTO) 1 % (0-10); EOSINOPHILS # (AUTO) 0.2 10^3/uL (0.0-0.3); EOSINOPHILS % (AUTO) 4 % (0-10); HEMATOCRIT 35 % (35-52); HEMOGLOBIN 11.2 G/DL (11.5-16.0); LYMPHOCYTES # (AUTO) 0.8 X 10^3 (1.0-4.0); LYMPHOCYTES % (AUTO) 18 % (12-44); MEAN CORPUSCULAR HEMOGLOBIN 29 PG (25-34); MEAN CORPUSCULAR HGB CONC 32 G/DL (32-36); MEAN CORPUSCULAR VOLUME 91 FL (80-99); MEAN PLATELET VOLUME 10.9 FL (7.4-10.4); MONOCYTES # (AUTO) 0.5 X 10^3 (0.0-1.0); MONOCYTES % (AUTO) 10 % (0-12); NEUTROPHILS % (AUTO) 67 % (42-75); PLATELET COUNT 101 10^3/uL (130-400); RED BLOOD COUNT 3.84 10^6/uL (4.35-5.85); RED CELL DISTRIBUTION WIDTH 15.8 % (10.0-14.5); WHITE BLOOD COUNT 4.5 10^3/uL (4.3-11.0)
[2017-10-12 12:50] LABS: BUN/CREATININE RATIO 13; CALCIUM 9.7 MG/DL (8.5-10.1); CARBON DIOXIDE 26 MMOL/L (21-32); CHLORIDE 104 MMOL/L (98-107); CREATININE SERUM 0.76 MG/DL (0.60-1.30); GFR ESTIMATED > 60; GLUCOSE 217 MG/DL (70-105); POTASSIUM 3.5 MMOL/L (3.6-5.0); SODIUM 141 MMOL/L (135-145)
[~2017-10-19 13:54] MED LIST changes: +ADO TRASTUZUMAB EMTANSINE IV SCH; +DENOSUMAB 60 MG/1 ML (PROLIA) SQ SCH; +NS (IVPB) CANCER CENTER 250 ML IV SCH; +NS IV 1000 ML (CANCER CTR) IV SCH; +NS IV SCH; +PALONOSETRON HCL 0.25 MG, DEXAMETHASONE PF INJECTION 10 MG in NS (IVPB) 50 ML IV PRN; +diphenhydrAMINE 25 MG TAB (BENADRYL) CANCER CENTER PO SCH
[2017-10-24 09:34] LABS: BASOPHILS % (AUTO) 1 % (0-10); EOSINOPHILS # (AUTO) 0.2 10^3/uL (0.0-0.3); EOSINOPHILS % (AUTO) 6 % (0-10); HEMATOCRIT 32 % (35-52); HEMOGLOBIN 10.5 G/DL (11.5-16.0); LYMPHOCYTES # (AUTO) 0.8 X 10^3 (1.0-4.0); LYMPHOCYTES % (AUTO) 25 % (12-44); MEAN CORPUSCULAR HEMOGLOBIN 30 PG (25-34); MEAN CORPUSCULAR HGB CONC 33 G/DL (32-36); MEAN CORPUSCULAR VOLUME 91 FL (80-99); MONOCYTES # (AUTO) 0.4 X 10^3 (0.0-1.0); MONOCYTES % (AUTO) 12 % (0-12); NEUTROPHILS # (AUTO) 1.9 X 10^3 (1.8-7.8); NEUTROPHILS % (AUTO) 57 % (42-75); PLATELET COUNT 95 10^3/uL (130-400); RED BLOOD COUNT 3.47 10^6/uL (4.35-5.85); RED CELL DISTRIBUTION WIDTH 15.4 % (10.0-14.5); WHITE BLOOD COUNT 3.4 10^3/uL (4.3-11.0)
[2017-10-24 09:55] LABS: ALANINE AMINOTRANSFERASE 34 U/L (0-55); ALBUMIN 3.4 GM/DL (3.2-4.5); ALKALINE PHOSPHATASE 257 U/L (40-136); BUN/CREATININE RATIO 16; CALCIUM 9.3 MG/DL (8.5-10.1); CARBON DIOXIDE 24 MMOL/L (21-32); CHLORIDE 105 MMOL/L (98-107); CREATININE SERUM 0.76 MG/DL (0.60-1.30); GFR ESTIMATED > 60; GLUCOSE 301 MG/DL (70-105); POTASSIUM 3.8 MMOL/L (3.6-5.0); SODIUM 140 MMOL/L (135-145); TOTAL PROTEIN 6.4 GM/DL (6.4-8.2)
== END 2017-10-23 15:43 | disposition home or self-care (01) ==
LOC: ONC 13:54
PROVIDERS: ATTEND Internal Medicine Hematology & Oncology
DX: Z51.11 Encounter for antineoplastic chemotherapy (principal); C50.411 Malignant neoplasm of upper-outer quadrant of right female breast; C79.51 Secondary malignant neoplasm of bone; C77.3 Secondary and unspecified malignant neoplasm of axilla and upper limb lymph nodes; C77.0 Secondary and unspecified malignant neoplasm of lymph nodes of head, face and neck; C78.02 Secondary malignant neoplasm of left lung; G54.0 Brachial plexus disorders; M85.80 Other specified disorders of bone density and structure, unspecified site; Z79.899 Other long term (current) drug therapy; Z90.11 Acquired absence of right breast and nipple
CPT/HCPCS: 36415; 36591; 80048; 80053; 85025; 96375; 96413; 99212

== ENCOUNTER → 2017-10-19 | Outpatient (CLI) | payer MEDICARE, MEDICAID | LOC: WOUNDCARE 12:56 | PROVIDERS: ATTEND Nurse Practitioner | DX: I97.2 Postmastectomy lymphedema syndrome (principal); T23.361A Burn of third degree of back of right hand, initial encounter; E11.622 Type 2 diabetes mellitus with other skin ulcer | CPT/HCPCS: 15275 ==

== ENCOUNTER → 2017-10-19 | Outpatient (CLI) | payer MEDICARE, MEDICAID ==
[2017-10-19 14:25] LABS: BASOPHILS % (AUTO) 1 % (0-10); EOSINOPHILS # (AUTO) 0.1 10^3/uL (0.0-0.3); EOSINOPHILS % (AUTO) 3 % (0-10); HEMATOCRIT 29 % (35-52); HEMOGLOBIN 10.9 G/DL (11.5-16.0); LYMPHOCYTES # (AUTO) 0.7 X 10^3 (1.0-4.0); LYMPHOCYTES % (AUTO) 16 % (12-44); MEAN CORPUSCULAR HEMOGLOBIN 30 PG (25-34); MEAN CORPUSCULAR HGB CONC 38 G/DL (32-36); MEAN CORPUSCULAR VOLUME 80 FL (80-99); MEAN PLATELET VOLUME 10.5 FL (7.4-10.4); MONOCYTES # (AUTO) 0.4 X 10^3 (0.0-1.0); MONOCYTES % (AUTO) 10 % (0-12); NEUTROPHILS # (AUTO) 3.1 X 10^3 (1.8-7.8); NEUTROPHILS % (AUTO) 72 % (42-75); PLATELET COUNT 103 10^3/uL (130-400); RED BLOOD COUNT 3.65 10^6/uL (4.35-5.85); RED CELL DISTRIBUTION WIDTH 15.1 % (10.0-14.5); WHITE BLOOD COUNT 4.3 10^3/uL (4.3-11.0)
[2017-10-19 14:42] LABS: BUN/CREATININE RATIO 16; CALCIUM 9.5 MG/DL (8.5-10.1); CARBON DIOXIDE 26 MMOL/L (21-32); CHLORIDE 105 MMOL/L (98-107); CREATININE SERUM 0.76 MG/DL (0.60-1.30); GFR ESTIMATED > 60; GLUCOSE 285 MG/DL (70-105); POTASSIUM 3.7 MMOL/L (3.6-5.0); SODIUM 141 MMOL/L (135-145)
== END ==
LOC: LAB 14:01
PROVIDERS: ATTEND Nurse Practitioner
DX: E11.622 Type 2 diabetes mellitus with other skin ulcer (principal); L98.499 Non-pressure chronic ulcer of skin of other sites with unspecified severity
CPT/HCPCS: 36415; 80048; 85025; 85652

== ENCOUNTER → 2017-10-26 | Outpatient (CLI) | payer MEDICARE, MEDICAID ==
[~2017-10-26] MED LIST changes: -ADO TRASTUZUMAB EMTANSINE IV SCH; -DENOSUMAB 60 MG/1 ML (PROLIA) SQ SCH; -NS (IVPB) CANCER CENTER 250 ML IV SCH; -NS IV 1000 ML (CANCER CTR) IV SCH; -NS IV SCH; -PALONOSETRON HCL 0.25 MG, DEXAMETHASONE PF INJECTION 10 MG in NS (IVPB) 50 ML IV PRN; -diphenhydrAMINE 25 MG TAB (BENADRYL) CANCER CENTER PO SCH
== END ==
LOC: WOUNDCARE 10:01
PROVIDERS: ATTEND Internal Medicine
DX: I97.2 Postmastectomy lymphedema syndrome (principal); T23.361A Burn of third degree of back of right hand, initial encounter; E11.622 Type 2 diabetes mellitus with other skin ulcer
CPT/HCPCS: 16020

== ENCOUNTER → 2017-10-27 | Outpatient (CLI) | payer MEDICARE, MEDICAID ==
[2017-10-27 10:04] LABS: BUN/CREATININE RATIO 13; CREATININE SERUM 0.68 MG/DL (0.60-1.30); GFR ESTIMATED > 60
== END ==
LOC: RAD 09:10
PROVIDERS: ATTEND Internal Medicine
DX: Z53.8 Procedure and treatment not carried out for other reasons (principal); L08.9 Local infection of the skin and subcutaneous tissue, unspecified
CPT/HCPCS: 36415; 82565; 84520

== ENCOUNTER → 2017-11-02 | Outpatient (CLI) | payer MEDICARE, MEDICAID | LOC: WOUNDCARE 09:38 | PROVIDERS: ATTEND Internal Medicine | DX: E11.622 Type 2 diabetes mellitus with other skin ulcer (principal); I97.2 Postmastectomy lymphedema syndrome; T23.361A Burn of third degree of back of right hand, initial encounter | CPT/HCPCS: 16020 ==

== ENCOUNTER → 2017-11-03 | Outpatient (CLI) | payer MEDICARE, MEDICAID ==
--- NOTE | 2017-11-03 13:05 | Diagnostic Imaging Report ---
INDICATION: Patient with an open sore on the top of the right hand for two months. TECHNIQUE: The patient was administered 26.7 mCi of technetium 99m MDP intravenously and dynamic blood flow, blood pool, and delayed imaging over bilateral hands and wrists was performed. FINDINGS: Dynamic blood flow images do show asymmetric increased perfusion to the right hand and wrist. There is also asymmetric increased activity in the right hand and wrist on the blood pool imaging. There is some mild uptake in the carpus on the delayed images for bilateral hands which could be degenerative. No definite abnormal focus of tracer accumulation is seen within the metacarpals or phalanges to suggest acute osteomyelitis. IMPRESSION: There is increased blood flow and blood pool activity identified in the right hand and wrist, perhaps on the basis of cellulitis. No definite findings to suggest acute osteomyelitis are seen. Dictated by: Dictated on workstation # [id number]
== END ==
LOC: CARD 09:13
PROVIDERS: ATTEND Nurse Practitioner
DX: I97.2 Postmastectomy lymphedema syndrome (principal); T23.361A Burn of third degree of back of right hand, initial encounter; E11.622 Type 2 diabetes mellitus with other skin ulcer
CPT/HCPCS: 78315

== ENCOUNTER → 2017-11-06 | Outpatient (CLI) | payer MEDICARE, MEDICAID ==
--- NOTE | 2017-11-06 15:45 | Diagnostic Imaging Report ---
INDICATION: Right arm lymphedema. TECHNIQUE: Grayscale, color-flow, and duplex Doppler evaluation of the right upper extremity arterial system was performed. FINDINGS: Triphasic waveforms within the subclavian and axillary arteries are noted. There do appear to be monophasic waveforms within the brachial artery as well as within the proximal radial artery and distal aspect of the ulnar artery. The distal radial artery does show some triphasic waveforms. The proximal ulnar artery is biphasic. The velocities however appear normal. No high-grade stenosis is seen. There is no occlusion. There is some edema in the subcutaneous tissues. No fluid collection is identified. IMPRESSION: Multiphasic waveforms are identified within the right upper extremity arterial system; however, no high-grade stenosis or occlusion is detected. Note is made of subcutaneous edema. Dictated by: Dictated on workstation # [id number]
== END ==
LOC: RAD 11:24
PROVIDERS: ATTEND Internal Medicine
DX: I97.2 Postmastectomy lymphedema syndrome (principal); T23.361A Burn of third degree of back of right hand, initial encounter; E11.622 Type 2 diabetes mellitus with other skin ulcer
CPT/HCPCS: 93931

== ENCOUNTER → 2017-11-09 | Outpatient (CLI) | payer MEDICARE, MEDICAID | LOC: WOUNDCARE 09:35 | PROVIDERS: ATTEND Internal Medicine | DX: I97.2 Postmastectomy lymphedema syndrome (principal); T23.361A Burn of third degree of back of right hand, initial encounter; E11.622 Type 2 diabetes mellitus with other skin ulcer | CPT/HCPCS: 15275 ==

== ENCOUNTER → 2017-11-16 | Outpatient (CLI) | payer MEDICARE, MEDICAID | LOC: WOUNDCARE 09:37 | PROVIDERS: ATTEND Internal Medicine | DX: T23.361A Burn of third degree of back of right hand, initial encounter (principal); I97.2 Postmastectomy lymphedema syndrome; E11.622 Type 2 diabetes mellitus with other skin ulcer | CPT/HCPCS: 16020 ==

== ENCOUNTER → 2017-11-23 | Outpatient (CLI) | payer MEDICARE, MEDICAID | LOC: WOUNDCARE 10:02 | PROVIDERS: ATTEND Internal Medicine | DX: I97.2 Postmastectomy lymphedema syndrome (principal); T23.361A Burn of third degree of back of right hand, initial encounter; E11.622 Type 2 diabetes mellitus with other skin ulcer | CPT/HCPCS: 16020 ==

== ENCOUNTER → 2017-11-30 | Outpatient (CLI) | payer MEDICARE, MEDICAID | LOC: WOUNDCARE 09:47 | PROVIDERS: ATTEND Internal Medicine | DX: E11.622 Type 2 diabetes mellitus with other skin ulcer (principal); I97.2 Postmastectomy lymphedema syndrome; T23.361A Burn of third degree of back of right hand, initial encounter | CPT/HCPCS: 15275 ==

== ENCOUNTER → 2017-12-07 | Outpatient (CLI) | payer MEDICARE, MEDICAID | LOC: WOUNDCARE 09:56 | PROVIDERS: ATTEND Internal Medicine | DX: E11.622 Type 2 diabetes mellitus with other skin ulcer (principal); I97.2 Postmastectomy lymphedema syndrome; T23.361A Burn of third degree of back of right hand, initial encounter | CPT/HCPCS: 11042 ==

== ENCOUNTER → 2017-12-14 | Outpatient (CLI) | payer MEDICARE, MEDICAID | LOC: WOUNDCARE 09:48 | PROVIDERS: ATTEND Internal Medicine | DX: E11.622 Type 2 diabetes mellitus with other skin ulcer (principal); I97.2 Postmastectomy lymphedema syndrome; T23.361A Burn of third degree of back of right hand, initial encounter | CPT/HCPCS: 11042 ==

== ENCOUNTER → 2017-12-21 | Outpatient (CLI) | payer MEDICARE, MEDICAID | LOC: WOUNDCARE 09:53 | PROVIDERS: ATTEND Internal Medicine | DX: I97.2 Postmastectomy lymphedema syndrome (principal); E11.622 Type 2 diabetes mellitus with other skin ulcer; T23.361A Burn of third degree of back of right hand, initial encounter | CPT/HCPCS: 15275 ==

== ENCOUNTER → 2017-12-28 | Outpatient (CLI) | payer MEDICARE, MEDICAID | LOC: WOUNDCARE 09:56 | PROVIDERS: ATTEND Internal Medicine | DX: T23.361A Burn of third degree of back of right hand, initial encounter (principal); E11.622 Type 2 diabetes mellitus with other skin ulcer; I97.2 Postmastectomy lymphedema syndrome | CPT/HCPCS: 11042 ==

== ENCOUNTER → 2018-01-04 | Outpatient (CLI) | payer MEDICARE, MEDICAID | LOC: WOUNDCARE 09:54 | PROVIDERS: ATTEND Nurse Practitioner | DX: I97.2 Postmastectomy lymphedema syndrome (principal); E11.622 Type 2 diabetes mellitus with other skin ulcer; T23.361A Burn of third degree of back of right hand, initial encounter | CPT/HCPCS: 15275 ==

== ENCOUNTER → 2018-01-04 | Outpatient (CLI) | payer MEDICARE, MEDICAID ==
[~2018-01-04] MED LIST changes: +BARIUM SUSPENSION 2.1% (VANILLA SILQ) 450 ML PO ONE; +CATHETER FLUSH 10 ML SYR IV PRN; +IOHEXOL 350 MG/ML 100 ML (OMNIPAQUE 350) VIAL IV ONE; +NS 250 ML (IVPB) BAG IV ONE; +RECEIVED CONTRAST (Hold Metformin) IV SCH
--- NOTE | 2018-01-04 14:12 | Diagnostic Imaging Report ---
PROCEDURE: CT chest and abdomen with contrast. TECHNIQUE: Multiple contiguous axial images were obtained through the chest and abdomen after the administration of intravenous contrast. INDICATION: Right breast carcinoma. Study is performed for follow-up. Correlation is made with prior CT from 09/11/2017. FINDINGS: Right chest wall port has the tip in the SVC. Previously noted soft tissue density in the right supraclavicular location appears similar to the prior exam. There are postsurgical changes of right axillary lymph node dissection. Apical pleural thickening on the right appears similar. No definite axillary, hilar, or mediastinal lymphadenopathy is seen. No pericardial or pleural fluid is seen. There is some pleural thickening with associated pleural plaquing in the posterior aspect of the right base as well as anteriorly in the right mid and upper chest, similar to prior exam. Parenchymal evaluation does show a small subpleural nodule in the left lower lobe laterally, image 33, measuring 7 mm in size. This compares with approximately [address] Minimal linear scarring or atelectasis in the right lower lobe and right middle lobe is seen. There is also lingular scarring/atelectasis. Bony structures are nonacute. IMPRESSION: No evidence of thoracic lymphadenopathy or effusion. Overall appearance is fairly stable when compared with prior CT from 09/11/2017 with the exception of a questionable enlarging nodule in the left lower lobe, subpleural location. Close follow-up is recommended. No other pulmonary nodules are identified. CT abdomen: No liver mass is identified. The gallbladder is unremarkable. The pancreas and spleen are unremarkable. The splenic artery aneurysm appears stable. No adrenal mass is detected. The kidneys are unremarkable. The aorta is nonaneurysmal. No central, retroperitoneal, or mesenteric lymphadenopathy is identified. There is no ascites. Bony structures are nonacute. Moderate stool throughout the colon is noted. IMPRESSION: Stable CT of the abdomen when compared with examination from 09/11/2017. Dictated by: Dictated on workstation # [id number]
--- NOTE | 2018-01-04 16:11 | Diagnostic Imaging Report ---
INDICATION: Right breast carcinoma, status post right mastectomy. TECHNIQUE: The patient was administered 26.4 mCi technetium 99m MDP intravenously and whole-body imaging was performed after a three-hour delay. COMPARISON: Comparison is made with prior whole body bone scan from 09/11/2017. FINDINGS: There is normal uptake of activity by the axial and appendicular skeleton. There is uptake by both kidneys with excretion into the urinary bladder. Mild uptake in the cervical spine on the right side is noted, likely degenerative facet disease and similar to prior. Mild uptake of the sternoclavicular joints is unchanged. Uptake in the lower lumbar spine at approximately L5 is similar to prior exam. No foci are identified to suggest osseous metastatic disease. IMPRESSION: Stable whole body bone scan. No findings to suggest osseous metastatic disease are identified. Dictated by: Dictated on workstation # [id number]
== END ==
LOC: CARD 11:48
PROVIDERS: ATTEND Nurse Practitioner Adult Health
DX: C50.411 Malignant neoplasm of upper-outer quadrant of right female breast (principal); C78.02 Secondary malignant neoplasm of left lung; C79.51 Secondary malignant neoplasm of bone
CPT/HCPCS: 71260; 74160; 78306

== ENCOUNTER 2018-01-09 13:49 | Outpatient (RCR) | payer MEDICARE, MEDICAID ==
[2017-11-14 09:42] LABS: HEMOGLOBIN 10.6 G/DL (11.5-16.0); RED BLOOD COUNT 3.53 10^6/uL (4.35-5.85)
[2017-11-14 09:43] LABS: BASOPHILS % (AUTO) 0 % (0-10); EOSINOPHILS # (AUTO) 0.1 10^3/uL (0.0-0.3); EOSINOPHILS % (AUTO) 3 % (0-10); HEMATOCRIT 32 % (35-52); LYMPHOCYTES # (AUTO) 0.6 X 10^3 (1.0-4.0); LYMPHOCYTES % (AUTO) 15 % (12-44); MEAN CORPUSCULAR HEMOGLOBIN 30 PG (25-34); MEAN CORPUSCULAR HGB CONC 33 G/DL (32-36); MEAN CORPUSCULAR VOLUME 92 FL (80-99); MEAN PLATELET VOLUME 11.2 FL (7.4-10.4); MONOCYTES # (AUTO) 0.4 X 10^3 (0.0-1.0); MONOCYTES % (AUTO) 11 % (0-12); NEUTROPHILS # (AUTO) 2.9 X 10^3 (1.8-7.8); NEUTROPHILS % (AUTO) 71 % (42-75); PLATELET COUNT 85 10^3/uL (130-400); RED CELL DISTRIBUTION WIDTH 14.8 % (10.0-14.5)
[2017-11-14 10:12] LABS: ALANINE AMINOTRANSFERASE 25 U/L (0-55); ALBUMIN 3.3 GM/DL (3.2-4.5); ALKALINE PHOSPHATASE 239 U/L (40-136); BILIRUBIN,TOTAL 0.8 MG/DL (0.1-1.0); BUN/CREATININE RATIO 19; CALCIUM 9.3 MG/DL (8.5-10.1); CARBON DIOXIDE 24 MMOL/L (21-32); CHLORIDE 106 MMOL/L (98-107); CREATININE SERUM 0.77 MG/DL (0.60-1.30); GFR ESTIMATED > 60; GLUCOSE 358 MG/DL (70-105); POTASSIUM 3.8 MMOL/L (3.6-5.0); SODIUM 138 MMOL/L (135-145); TOTAL PROTEIN 6.3 GM/DL (6.4-8.2)
[2017-12-12 11:05] LABS: BASOPHILS % (AUTO) 1 % (0-10); EOSINOPHILS # (AUTO) 0.3 10^3/uL (0.0-0.3); EOSINOPHILS % (AUTO) 6 % (0-10); HEMATOCRIT 34 % (35-52); HEMOGLOBIN 11.3 G/DL (11.5-16.0); LYMPHOCYTES # (AUTO) 0.9 X 10^3 (1.0-4.0); LYMPHOCYTES % (AUTO) 19 % (12-44); MEAN CORPUSCULAR HEMOGLOBIN 30 PG (25-34); MEAN CORPUSCULAR HGB CONC 33 G/DL (32-36); MEAN CORPUSCULAR VOLUME 91 FL (80-99); MEAN PLATELET VOLUME 10.4 FL (7.4-10.4); MONOCYTES # (AUTO) 0.5 X 10^3 (0.0-1.0); MONOCYTES % (AUTO) 11 % (0-12); NEUTROPHILS % (AUTO) 63 % (42-75); PLATELET COUNT 120 10^3/uL (130-400); RED BLOOD COUNT 3.77 10^6/uL (4.35-5.85); RED CELL DISTRIBUTION WIDTH 14.4 % (10.0-14.5); WHITE BLOOD COUNT 4.7 10^3/uL (4.3-11.0)
[2017-12-12 11:26] LABS: ALANINE AMINOTRANSFERASE 23 U/L (0-55); ALBUMIN 3.7 GM/DL (3.2-4.5); ALKALINE PHOSPHATASE 226 U/L (40-136); BILIRUBIN,TOTAL 0.9 MG/DL (0.1-1.0); BUN/CREATININE RATIO 15; CALCIUM 9.8 MG/DL (8.5-10.1); CARBON DIOXIDE 27 MMOL/L (21-32); CHLORIDE 105 MMOL/L (98-107); CREATININE SERUM 0.74 MG/DL (0.60-1.30); GFR ESTIMATED > 60; GLUCOSE 215 MG/DL (70-105); SODIUM 139 MMOL/L (135-145); TOTAL PROTEIN 7.1 GM/DL (6.4-8.2)
[~2018-01-09 13:49] MED LIST changes: +ADO TRASTUZUMAB EMTANSINE IV SCH; -BARIUM SUSPENSION 2.1% (VANILLA SILQ) 450 ML PO ONE; -CATHETER FLUSH 10 ML SYR IV PRN; -IOHEXOL 350 MG/ML 100 ML (OMNIPAQUE 350) VIAL IV ONE; +NS (IVPB) CANCER CENTER 250 ML IV SCH; -NS 250 ML (IVPB) BAG IV ONE; +NS IV 1000 ML (CANCER CTR) IV SCH; +NS IV SCH; +PALONOSETRON HCL 0.25 MG, DEXAMETHASONE PF INJECTION 10 MG in NS (IVPB) 50 ML IV PRN; -RECEIVED CONTRAST (Hold Metformin) IV SCH; +diphenhydrAMINE 25 MG TAB (BENADRYL) CANCER CENTER PO SCH
[2018-01-09 14:33] LABS: BASOPHILS % (AUTO) 1 % (0-10); EOSINOPHILS # (AUTO) 0.2 10^3/uL (0.0-0.3); EOSINOPHILS % (AUTO) 6 % (0-10); HEMATOCRIT 34 % (35-52); HEMOGLOBIN 11.2 G/DL (11.5-16.0); LYMPHOCYTES # (AUTO) 0.7 X 10^3 (1.0-4.0); LYMPHOCYTES % (AUTO) 17 % (12-44); MEAN CORPUSCULAR HEMOGLOBIN 30 PG (25-34); MEAN CORPUSCULAR HGB CONC 33 G/DL (32-36); MEAN CORPUSCULAR VOLUME 91 FL (80-99); MEAN PLATELET VOLUME 10.5 FL (7.4-10.4); MONOCYTES # (AUTO) 0.4 X 10^3 (0.0-1.0); MONOCYTES % (AUTO) 10 % (0-12); NEUTROPHILS # (AUTO) 2.6 X 10^3 (1.8-7.8); NEUTROPHILS % (AUTO) 67 % (42-75); PLATELET COUNT 109 10^3/uL (130-400); RED BLOOD COUNT 3.75 10^6/uL (4.35-5.85); RED CELL DISTRIBUTION WIDTH 14.3 % (10.0-14.5); WHITE BLOOD COUNT 3.9 10^3/uL (4.3-11.0)
[2018-01-09 14:54] LABS: ALANINE AMINOTRANSFERASE 22 U/L (0-55); ALBUMIN 3.7 GM/DL (3.2-4.5); ALKALINE PHOSPHATASE 219 U/L (40-136); BILIRUBIN,TOTAL 0.7 MG/DL (0.1-1.0); BUN/CREATININE RATIO 16; CALCIUM 9.2 MG/DL (8.5-10.1); CARBON DIOXIDE 26 MMOL/L (21-32); CHLORIDE 103 MMOL/L (98-107); CREATININE SERUM 0.81 MG/DL (0.60-1.30); GFR ESTIMATED > 60; GLUCOSE 355 MG/DL (70-105); SODIUM 136 MMOL/L (135-145); TOTAL PROTEIN 6.9 GM/DL (6.4-8.2)
== END 2018-01-22 | disposition home or self-care (01) ==
LOC: ONC 13:49
PROVIDERS: ATTEND Internal Medicine Hematology & Oncology
DX: C50.411 Malignant neoplasm of upper-outer quadrant of right female breast (principal); C78.02 Secondary malignant neoplasm of left lung; C77.8 Secondary and unspecified malignant neoplasm of lymph nodes of multiple regions; I72.8 Aneurysm of other specified arteries; I25.10 Atherosclerotic heart disease of native coronary artery without angina pectoris; E55.9 Vitamin D deficiency, unspecified; E11.22 Type 2 diabetes mellitus with diabetic chronic kidney disease; N18.3 Chronic kidney disease, stage 3 (moderate); E78.5 Hyperlipidemia, unspecified; M85.80 Other specified disorders of bone density and structure, unspecified site; Z79.4 Long term (current) use of insulin; Z79.82 Long term (current) use of aspirin; Z79.899 Other long term (current) drug therapy; Z90.11 Acquired absence of right breast and nipple
CPT/HCPCS: 36591; 80053; 83735; 85025

== ENCOUNTER → 2018-01-11 | Outpatient (CLI) | payer MEDICARE, MEDICAID ==
[~2018-01-11] MED LIST changes: -ADO TRASTUZUMAB EMTANSINE IV SCH; -NS (IVPB) CANCER CENTER 250 ML IV SCH; -NS IV 1000 ML (CANCER CTR) IV SCH; -NS IV SCH; -PALONOSETRON HCL 0.25 MG, DEXAMETHASONE PF INJECTION 10 MG in NS (IVPB) 50 ML IV PRN; -diphenhydrAMINE 25 MG TAB (BENADRYL) CANCER CENTER PO SCH
== END ==
LOC: WOUNDCARE 09:52
PROVIDERS: ATTEND Internal Medicine
DX: T23.361A Burn of third degree of back of right hand, initial encounter (principal); I97.2 Postmastectomy lymphedema syndrome; E11.622 Type 2 diabetes mellitus with other skin ulcer
CPT/HCPCS: 11042

== ENCOUNTER → 2018-01-18 | Outpatient (CLI) | payer MEDICARE, MEDICAID | LOC: WOUNDCARE 10:08 | PROVIDERS: ATTEND Internal Medicine | DX: E11.622 Type 2 diabetes mellitus with other skin ulcer (principal); T23.361A Burn of third degree of back of right hand, initial encounter; I97.2 Postmastectomy lymphedema syndrome | CPT/HCPCS: 15275 ==

== ENCOUNTER → 2018-01-25 | Outpatient (CLI) | payer MEDICARE, MEDICAID | LOC: LAB 10:25 | PROVIDERS: ATTEND Internal Medicine | DX: E11.622 Type 2 diabetes mellitus with other skin ulcer (principal); L98.499 Non-pressure chronic ulcer of skin of other sites with unspecified severity | CPT/HCPCS: 36415; 83036 ==

== ENCOUNTER → 2018-01-25 | Outpatient (CLI) | payer MEDICARE, MEDICAID | LOC: WOUNDCARE 09:49 | PROVIDERS: ATTEND Internal Medicine | DX: T23.361A Burn of third degree of back of right hand, initial encounter (principal); X58.XXXA Exposure to other specified factors, initial encounter; E11.622 Type 2 diabetes mellitus with other skin ulcer; I97.2 Postmastectomy lymphedema syndrome | CPT/HCPCS: 11042 ==

== ENCOUNTER → 2018-02-01 | Outpatient (CLI) | payer MEDICARE, MEDICAID ==
[~2018-02-01] MED LIST changes: +ASPI-999 PO; +FENT1PAT8 TD; +HYDR-3812 PO; +LINE600T7 PO; +ONDA4TAB11 PO; -PIOG15TA22 PO; +PIOG15TA67 PO; +SCOP1PAT11 TOP; +SORB1SOL2 MC
== END ==
LOC: WOUNDCARE 15:26
PROVIDERS: ATTEND Nurse Practitioner
DX: I97.2 Postmastectomy lymphedema syndrome (principal); E11.622 Type 2 diabetes mellitus with other skin ulcer; T23.361A Burn of third degree of back of right hand, initial encounter; X58.XXXA Exposure to other specified factors, initial encounter
CPT/HCPCS: 15275

== ENCOUNTER → 2018-02-08 | Outpatient (CLI) | payer MEDICARE, MEDICAID ==
[~2018-02-08] MED LIST changes: -FENT1PAT8 TD
== END ==
LOC: WOUNDCARE 08:28
PROVIDERS: ATTEND Internal Medicine
DX: E11.622 Type 2 diabetes mellitus with other skin ulcer (principal); I97.2 Postmastectomy lymphedema syndrome; T23.361A Burn of third degree of back of right hand, initial encounter; X58.XXXA Exposure to other specified factors, initial encounter
CPT/HCPCS: 11042

== ENCOUNTER → 2018-02-15 | Outpatient (CLI) | payer MEDICARE, MEDICAID | LOC: WOUNDCARE 10:02 | PROVIDERS: ATTEND Internal Medicine | DX: E11.622 Type 2 diabetes mellitus with other skin ulcer (principal); I97.2 Postmastectomy lymphedema syndrome; T23.361A Burn of third degree of back of right hand, initial encounter | CPT/HCPCS: 11042; 87070; 87075; 87077; 87101; 87186; 87205 ==

== ENCOUNTER → 2018-02-22 | Outpatient (CLI) | payer MEDICARE, MEDICAID | LOC: WOUNDCARE 09:25 | PROVIDERS: ATTEND Internal Medicine | DX: T23.361A Burn of third degree of back of right hand, initial encounter (principal); E11.622 Type 2 diabetes mellitus with other skin ulcer; I97.2 Postmastectomy lymphedema syndrome | CPT/HCPCS: 11042 ==

== ENCOUNTER 2018-03-07 13:14 | Outpatient (RCR) | payer MEDICARE, MEDICAID ==
[2018-02-20 13:47] LABS: BASOPHILS % (AUTO) 1 % (0-10); EOSINOPHILS # (AUTO) 0.2 10^3/uL (0.0-0.3); EOSINOPHILS % (AUTO) 5 % (0-10); HEMATOCRIT 31 % (35-52); HEMOGLOBIN 10.4 G/DL (11.5-16.0); LYMPHOCYTES # (AUTO) 0.9 X 10^3 (1.0-4.0); LYMPHOCYTES % (AUTO) 22 % (12-44); MEAN CORPUSCULAR HEMOGLOBIN 30 PG (25-34); MEAN CORPUSCULAR HGB CONC 33 G/DL (32-36); MEAN CORPUSCULAR VOLUME 91 FL (80-99); MEAN PLATELET VOLUME 10.4 FL (7.4-10.4); MONOCYTES # (AUTO) 0.4 X 10^3 (0.0-1.0); MONOCYTES % (AUTO) 10 % (0-12); NEUTROPHILS # (AUTO) 2.5 X 10^3 (1.8-7.8); NEUTROPHILS % (AUTO) 62 % (42-75); PLATELET COUNT 153 10^3/uL (130-400); RED BLOOD COUNT 3.42 10^6/uL (4.35-5.85); WHITE BLOOD COUNT 3.9 10^3/uL (4.3-11.0)
[2018-02-20 14:13] LABS: ALANINE AMINOTRANSFERASE 21 U/L (0-55); ALBUMIN 3.5 GM/DL (3.2-4.5); ALKALINE PHOSPHATASE 191 U/L (40-136); BILIRUBIN,TOTAL 0.6 MG/DL (0.1-1.0); BUN/CREATININE RATIO 19; CALCIUM 9.2 MG/DL (8.5-10.1); CARBON DIOXIDE 26 MMOL/L (21-32); CHLORIDE 105 MMOL/L (98-107); CREATININE SERUM 0.85 MG/DL (0.60-1.30); GFR ESTIMATED > 60; GLUCOSE 301 MG/DL (70-105); POTASSIUM 4.3 MMOL/L (3.6-5.0); SODIUM 139 MMOL/L (135-145); TOTAL PROTEIN 6.7 GM/DL (6.4-8.2)
[~2018-03-07 13:14] MED LIST changes: -ASPI-999 PO; -HYDR-3812 PO; -LINE600T7 PO; -ONDA4TAB11 PO; -SCOP1PAT11 TOP; -SORB1SOL2 MC
[2018-03-09] MEDS ORDERED: ASPI-999 PO (09:10)
[2018-03-15] MEDS ORDERED: ONDA4TAB11 PO (09:52)
[2018-03-15] MEDS ORDERED: SCOP1PAT11 TOP (09:52)
[2018-03-15] MEDS ORDERED: HYDR-3812 PO (09:54)
[2018-04-02] MEDS ORDERED: LINE600T7 PO (11:33)
== END 2018-03-21 09:50 | disposition home or self-care (01) ==
LOC: ONC 13:14
PROVIDERS: ATTEND Internal Medicine Hematology & Oncology
DX: Z51.0 Encounter for antineoplastic radiation therapy (principal); C50.411 Malignant neoplasm of upper-outer quadrant of right female breast; C78.02 Secondary malignant neoplasm of left lung; C77.8 Secondary and unspecified malignant neoplasm of lymph nodes of multiple regions; I72.8 Aneurysm of other specified arteries; I25.10 Atherosclerotic heart disease of native coronary artery without angina pectoris; E55.9 Vitamin D deficiency, unspecified; E11.22 Type 2 diabetes mellitus with diabetic chronic kidney disease; N18.3 Chronic kidney disease, stage 3 (moderate); E78.5 Hyperlipidemia, unspecified; M85.80 Other specified disorders of bone density and structure, unspecified site; Z79.4 Long term (current) use of insulin; Z79.82 Long term (current) use of aspirin; Z79.899 Other long term (current) drug therapy; Z90.11 Acquired absence of right breast and nipple
CPT/HCPCS: 36591; 77290; 77334; 80053; 85025; 99214

== ENCOUNTER 2018-03-08 20:34 | Inpatient (IN) | payer MEDICARE, MEDICAID ==
[~2018-03-08] VITALS: Ht 170.2 cm; Wt 63.1 kg
[~2018-03-08 20:34] MED LIST changes: -ASPI-999 PO; -HYDR-3812 PO; -LINE600T7 PO; -ONDA4TAB11 PO; -SCOP1PAT11 TOP; -SORB1SOL2 MC
--- OUTSIDE RECORDS SUMMARY | 2018-03-08 20:38 | XMS REPORT | Clinical Summary ---
Author Author [facility] Organization [facility] Address Unknown Phone Unavailable Care Team Providers Care Secondary School Teacher Name Role Phone Ron Chacko MD Unavailable Unavailable Sara Centeno MD Unavailable Walter Carvalho MD PCP Source Comments Some departments are not documenting in the electronic medical record. If you do not see the information that you expected, contact Release of Information in the Health Information Management department at [phone] for further assistance in locating additional records.[facility] Allergies No Known Allergies Current Medications Prescription Sig. [...] Date Brachial plexus dysfunction 08/26/2014 Peripheral neuropathy 08/26/2014 Breast cancer metastasized to axillary lymph [...] retinal swelling. She understands and desires procedure. Family History Relation Name Status Comments Social History Tobacco Use Types Packs/Day Years Used Date Never Smoker Alcohol Use Drinks/Week oz/Week Comments No Sex Assigned at Date Recorded Not on file Last Filed Vital Signs Vital Sign Reading Time Taken Blood Pressure 160/85 08/21/2014 9:59 AM SPECIAL CERTIFICATE DICTATOR Pulse 91 08/21/2014 9:59 AM SPECIAL CERTIFICATE DICTATOR Temperature - - Respiratory Rate - - Oxygen Saturation - - Inhaled Oxygen - - Concentration Weight 68 kg (150 lb) 12/22/2014 11:18 AM CDT Height 172.7 cm (5' 7.99") 12/22/2014 11:18 AM CDT Body Mass Index 22.81 12/22/2014 11:18 AM CDT Plan of Treatment Health Maintenance Due Date Last Done Comments PHYSICAL (COMPREHENSIVE) 1947 EXAM PERTUSSIS VACCINE 1953 TETANUS VACCINE 1959 COLORECTAL CANCER 1992 SCREENING SHINGLES VACCINE 2002 OSTEOPOROSIS SCREENING 2007 PREVNAR/PNEUMOVAX 2007 (retired) (#1) INFLUENZA VACCINE 07/16/2018 Results Not on filefrom Last 3 Months
[2018-03-08] MEDS ORDERED: NS IV 1000 ML 1,000 ML IV SCH (20:41)
[2018-03-08] MEDS ORDERED: ONDANSETRON 4 MG/2 ML (SDV) Z0FRAN IVP PRN (20:45)
--- NOTE | 2018-03-08 20:49 | ED GI ---
General Chief Complaint: Abdominal/GI Problems Stated Complaint: N/V DEHYDRATION Nursing Triage Note: pt brouhgt in by ems with complaint of nausea and vomiting. pt states vomiting started today. Sepsis Screen: No Definite Risk Source of Information: Patient, EMS, Spouse Exam Limitations: No Limitations History of Present Illness Date Seen by Provider: March 08, 2018 Time Seen by Provider: 20:37 Initial Comments The patient presents to the ER by EMS with a chief complaint that this morning she woke up having some nausea vomiting and started to feel better so she went to her doctor's appointment at her primary care doctor's office was seen for other things and she is being followed by Dr. Johansen's office for a wound on her right arm where she recently had a surgery for carpal tunnel syndrome it's had some swelling. She was feeling well at that time she didn't bring this up to her doctor but when she got home this evening she started having more nausea vomiting to the point she is only getting bile. She has not had any diarrhea or constipation. Her last bowel movement was earlier today. She is not had any intra-abdominal surgeries. She has had a breast biopsy and history of breast cancer since 2005 which she has been on continual chemotherapy for up until about [address] Garcia. She says she's having a little bit of tenderness in her mid epigastric region. She's had some chills and feeling like a fever but no measured fever. She denies any cough or shortness of breath. Allergies and Home Medications Allergies Coded Allergies: No Known Drug Allergies (Unverified , 04/07/16) Home Medications Acetaminophen 500 Mg Tablet, 1,000 MG PO DAILY PRN for PAIN-MILD, (Reported) TAKES 2 (500 MG) TABLETS / ALTERNATES WITH IBUPROFEN Aspirin 81 Mg Chew, 81 MG PO DAILY, (Reported) Denosumab 60 Mg/1 Ml Disp.syrin, 60 MG SQ EVERY 6 MONTHS, (Reported) Docusate Sodium 100 Mg Capsule, 100 MG PO DAILY, (Reported) Enalapril Maleate 10 Mg Tablet, 10 MG PO BID, (Reported) LAST FILLED 03/17/17 #60 Gabapentin 600 Mg Tablet, 600 MG PO TID, (Reported) LAST FILLED 02/07/17 #270 Glimepiride 4 Mg Tablet, 8 MG PO DAILY, (Reported) TAKES 2 (4 MG) TABLETS Ibuprofen 200 Mg Tablet, 400 MG PO DAILY PRN for PAIN-MILD, (Reported) TAKES 2 (200MG) TABLETS / ALTERNATES WITH ACETAMINOPHEN Omeprazole 40 Mg Capsule.dr, 40 MG PO DAILY, (Reported) LAST FILLED 04/03/17 #30 Patient Home Medication List Home Medication List Reviewed: Yes Review of Systems Constitutional: chills; No diaphoresis; fever, malaise EENTM: No Blurred Vision, No Double Vision Respiratory: Denies Cough, Denies Shortness of Air Cardiovascular: Denies Chest Pain; Edema (right arm); Denies Lightheadedness, Denies Palpitations, Denies Syncope Gastrointestinal: Denies Abdomen Distended; Abdominal Pain (epigastric); Denies Constipated, Denies Diarrhea, Denies Difficulty Swallowing; Nausea, Poor Fluid Intake; Denies Rectal Bleeding; Vomiting Genitourinary: Denies Burning, Denies Discharge, Denies Drainage Musculoskeletal: No back pain, No joint pain Skin: No pruritus, No rash Psychiatric/Neurological: Denies Headache, Denies Numbness, Denies Paresthesia Past Lrkdfin-Dgslrr-Pqefrr Hx Patient Social History Alcohol Use: Denies Use Recreational Drug Use: No Smoking Status: Never a Smoker Recent Foreign Travel: No Contact w/Someone Who Travel: No Recent Infectious Disease Expo: No Recent Hopitalizations: Yes Immunizations Up To Date Tetanus Booster (TDap): More than 5yrs Date of Pneumonia Vaccine: Oct 15, 2013 Seasonal Allergies Seasonal Allergies: No Past Medical History Surgeries: Yes (PORT PLACEMENT, CARPAL TUNNEL RT SIDE) Breast, Orthopedic, Tonsillectomy Respiratory: No Currently Using CPAP: No Currently Using BIPAP: No Cardiac: Yes (Heart stent x1) Hypertension Neurological: No Reproductive Disorders: No Female Reproductive Disorders: Denies Sexually Transmitted Disease: No HIV/AIDS: No Genitourinary: No UTI-Chronic Gastrointestinal: Yes Gastroesophageal Reflux, Chronic Constipation Musculoskeletal: Yes (right humeral neck fracture March 2017) Arthritis, Fractures Endocrine: Yes (Type 2 Diabetic) Diabetes, Non-Insulin dep HEENT: Yes Glaucoma Loss of Vision: Denies Hearing Impairment: Denies Cancer: Yes (LYMPH NODES, RIGHT BREAST) Breast Did You Recieve Any Treatments: Yes What Type of Treatment Did You: Chemotherapy, Radiation Psychosocial: No Integumentary: Yes (Patient states she had shingles a few years prior.) Blood Disorders: No Adverse Reaction/Blood Tranf: No Family Medical History Alzheimer's disease 19 MOTHER Arthritis 19 MOTHER Cardiovascular disease 19 MOTHER Completed stroke Grandmother FH: breast cancer Grandmother FH: multiple sclerosis 19 FATHER FHx: multiple sclerosis Myocardial infarction 19 MOTHER G8 BROTHER Cancer, CVA, Psychiatric Problems Physical Exam Vital Signs Vital Signs - First Documented 03/08/18 20:34 Temp 97.0 Pulse 94 Resp 28 B/P (MAP) 212/98 (136) Pulse Ox 94 O2 Delivery Room Air Capillary Refill : Less Than 3 Seconds General Appearance: WD/WN, mild distress HEENT: PERRL/EOMI, normal ENT inspection, TMs normal, pharynx normal Neck: non-tender, full range of motion, supple, normal inspection Respiratory: chest non-tender, lungs clear, normal breath sounds, no respiratory distress, no accessory muscle use Cardiovascular: normal peripheral pulses, regular rate, rhythm, other (right arm has chronic edema) Peripheral Pulses: 2+ Dorsalis Pedis (R), 2+ Left Dors-Pedis (L), 2+ Radial Pulses (R), 2+ Radial Pulses (L) Gastrointestinal: normal bowel sounds, soft, no organomegaly, tenderness ( midepigastric region) Extremities: no pedal edema, no calf tenderness, normal capillary refill Back: normal inspection, no CVA tenderness Neurologic/Psychiatric: alert, normal mood/affect, oriented x 3 Skin: normal color, warm/dry Focused Exam Lactate Level 03/08/18 21:02: Lactic Acid Level 1.27 Lactic Acid Level Laboratory Tests Test 03/08/18 21:02 Lactic Acid Level 1.27 MMOL/L (0.50-2.00) Progress/Results/Core Measures Results/Orders Lab Results Laboratory Tests Test 03/08/18 21:02 03/08/18 21:40 Range/Units White Blood Count 5.0 4.3-11.0 10^3/uL Red Blood Count 3.62 L 4.35-5.85 10^6/uL Hemoglobin 10.9 L 11.5-16.0 G/DL Hematocrit 33 L 35-52 % Mean Corpuscular Volume 91 80-99 FL Mean Corpuscular Hemoglobin 30 25-34 PG Mean Corpuscular Hemoglobin Concent 33 32-36 G/DL Red Cell Distribution Width 14.8 H 10.0-14.5 % Platelet Count 79 L 130-400 10^3/uL Mean Platelet Volume 10.3 7.4-10.4 FL Neutrophils (%) (Auto) 82 H 42-75 % Lymphocytes (%) (Auto) 9 L 12-44 % Monocytes (%) (Auto) 7 0-12 % Eosinophils (%) (Auto) 1 0-10 % Basophils (%) (Auto) 0 0-10 % Neutrophils # (Auto) 4.1 1.8-7.8 X 10^3 Lymphocytes # (Auto) 0.5 L 1.0-4.0 X 10^3 Monocytes # (Auto) 0.4 0.0-1.0 X 10^3 Eosinophils # (Auto) 0.0 0.0-0.3 10^3/uL Basophils # (Auto) 0.0 0.0-0.1 10^3/uL Prothrombin Time 15.3 H 12.2-14.7 SEC INR Comment 1.2 0.8-1.4 Activated Partial Thromboplast Time 30 24-35 SEC Sodium Level 139 135-145 MMOL/L Potassium Level 3.7 3.6-5.0 MMOL/L Chloride Level 106 98-107 MMOL/L Carbon Dioxide Level 22 21-32 MMOL/L Anion Gap 11 5-14 MMOL/L Blood Urea Nitrogen 11 7-18 MG/DL Creatinine 0.70 0.60-1.30 MG/DL Estimat Glomerular Filtration Rate > 60 BUN/Creatinine Ratio 16 Glucose Level 205 H 70-105 MG/DL Lactic Acid Level 1.27 0.50-2.00 MMOL/L Calcium Level 8.9 8.5-10.1 MG/DL Magnesium Level 1.7 L 1.8-2.4 MG/DL Total Bilirubin 0.9 0.1-1.0 MG/DL Aspartate Amino Transf (AST/SGOT) 34 5-34 U/L Alanine Aminotransferase (ALT/SGPT) 32 0-55 U/L Alkaline Phosphatase 159 H 40-136 U/L Troponin I < 0.30 <0.30 NG/ML Total Protein 7.0 6.4-8.2 GM/DL Albumin 3.8 3.2-4.5 GM/DL Lipase 117 H 8-78 U/L Urine Color YELLOW Urine Clarity CLEAR Urine pH 7 5-9 Urine Specific [place] 1.010 L 1.016-1.022 Urine Protein NEGATIVE NEGATIVE Urine Glucose (UA) 2+ H NEGATIVE Urine Ketones 1+ H NEGATIVE Urine Nitrite NEGATIVE NEGATIVE Urine Bilirubin NEGATIVE NEGATIVE Urine Urobilinogen NORMAL NORMAL MG/DL Urine Leukocyte Esterase 2+ H NEGATIVE Urine RBC (Auto) NEGATIVE NEGATIVE Urine RBC 0-2 /HPF Urine WBC 5-10 H /HPF Urine Squamous Epithelial Cells 2-5 /HPF Urine Crystals NONE /LPF Urine Bacteria TRACE /HPF Urine Casts NONE /LPF Urine Mucus NEGATIVE /LPF Urine Culture Indicated YES My Orders Orders - TANYA BELLA Ct Abdomen/Pelvis W (03/08/18 20:41) Saline Lock/Iv-Start (03/08/18 20:41) Chest 1 View, Ap/Pa Only (03/08/18 20:41) Cbc With Automated Diff (03/08/18 20:41) Comprehensive Metabolic Panel (03/08/18 20:41) Lactic Acid Analyzer (03/08/18 20:41) Blood Culture (03/08/18 20:41) Sputum Culture (03/08/18 20:41) Ua Culture If Indicated (03/08/18 20:41) Protime With Inr (03/08/18 20:41) Partial Thromboplastin Time (03/08/18 20:41) O2 (03/08/18 20:41) Ondansetron Injection (Zofran Injectio (03/08/18 20:45) Saline Lock/Iv-Start (03/08/18 20:41) Saline Lock/Iv-Start (03/08/18 20:41) Ekg Tracing (03/08/18 20:41) Troponin I (03/08/18 20:41) Vital Signs Adult Sepsis Patie Q1H (03/08/18 20:41) Remove Rings In Anticipation O (03/08/18 20:41) Saline Lock/Iv-Start (03/08/18 20:41) Ns Iv 1000 Ml (Sodium Chloride 0.9%) (03/08/18 20:41) Lipase (03/08/18 20:41) Magnesium (03/08/18 20:41) Urine Culture (03/08/18 21:40) Magnesium Oxide Tablet (Mag Ox Tablet) (03/08/18 22:15) Nitrofurantoin Capsule,Macro (Macrobid C (03/08/18 22:15) Promethazine Injection (Phenergan Injec (03/08/18 22:45) Iohexol Injection (Omnipaque 350 Mg/Ml 1 (03/08/18 23:15) Ns (Ivpb) (Sodium Chloride 0.9%) (03/08/18 23:15) Ceftriaxone Injection (Rocephin Injectio (03/08/18 23:45) Medications Given in ED Current Medications Medications Dose Ordered Sig/Alex Route Start Time Stop Time Status Last Admin Dose Admin Iohexol 100 ml ONCE ONCE IV 03/08/18 23:15 03/08/18 23:16 DC 03/08/18 23:22 100 ML Ondansetron HCl 4 mg ONCE PRN IVP 03/08/18 20:45 03/08/18 21:08 DC 03/08/18 21:07 4 MG Promethazine HCl 25 mg ONCE ONCE IVP 03/08/18 22:45 03/08/18 22:46 DC 03/08/18 22:50 25 MG Sodium Chloride 250 ml ONCE ONCE IV 03/08/18 23:15 03/08/18 23:16 DC 03/08/18 23:22 80 ML Vital Signs/I&O 03/08/18 20:34 Temp 97.0 Pulse 94 Resp 28 B/P (MAP) 212/98 (136) Pulse Ox 94 O2 Delivery Room Air Blood Pressure Mean: 136 Progress Progress Note : Time: 20:48 Progress Note She is having bilious vomiting and some mild gastric tenderness so we'll get a lipase and also the CT scan of her abdomen pelvis with contrast if possible. Plan to give her another liter of saline in addition to the liter that EMS started. Echocardiogram December [address] Perdue: Normal global left ventricular systolic function with an EF of 60%. Trivial mitral tricuspid and pulmonic regurgitation. Pulmonary artery systolic pressure of 35 mmHg. No significant valvular stenosis. Cardiac catheterization by Dr. Perdue, 2011; 99% stenosis of the mid left circumflex artery to a successful stenting was carried out. First by branch of the left anterior diet descending artery has 70 % ostial and proximal stenosis. Posterior descending branch of the right coronary artery has multiple 60% stenoses. EF 60% No significant wall motion abdomen mildly. Mild moderately regurgitation the mitral valve. Normal heart pressures on the right side. No evidence of significant pulmonary hypertension. Initial ECG Impression Date: March 08, 2018 Initial ECG Impression Time: 21:03 Initial ECG Rate: 90 Initial ECG Rhythm: Normal Sinus Initial ECG Intervals: QT (485) Initial ECG Impression: Normal, Nonspecific Changes Initial ECG Comparisson: Unchanged Comment Left ventricular hypertrophy without any significant ST elevation or depression. Diagnostic Imaging Diagonstic Imaging: Xray Plain Films/CT/US/NM/MRI: chest (1v) Comments NAME: [facility] REC#: [id number] PHYSICIAN: TANYA BELLA MD CC: ROWDY SALAZAR; TANYA BELLA Page 1 of 1 RADIOLOGY REPORT VIA [place], [place] CC: ROWDY SALAZAR; TANYA BELLA Page 1 of 1 RADIOLOGY REPORT NAME: [facility] REC#: [id number] PT STATUS: REG ER : 1940 PHYSICIAN: TANYA BELLA MD ADMIT DATE: 03/08/18/ER Signed Date of Exam: 03/08/18 CHEST 1 VIEW, AP/PA ONLY INDICATION: Nausea, vomiting, Port-A-Cath COMPARISON: 05/16/17 FINDINGS: Single view of the chest demonstrates senescent changes in both lung bases. There is no large effusion. The heart is prominent without pulmonary edema. There is no new infiltrate, effusion or pneumothorax. The central venous catheter stable. IMPRESSION: 1. Cardiac enlargement without pulmonary edema or infiltrate 2. Chronic senescent changes in both lung bases, stable. Dictated by: Dictated on workstation # [id number] Dict: 03/08/182140 Trans: 03/08/182151 Interpreted by: ROWDY SALAZAR Electronically signed by: ROWDY SALAZAR 03/08/182151 Reviewed: Reviewed by Me Diagonstic Imaging: CT (c/c) Plain Films/CT/US/NM/MRI: abdomen, pelvis Comments Multiple patchy nodular densities in the right lung base that may represent progression of metastatic disease. No acute intra-abdominal or intrapelvic process. Colonic fecal stasis noted. No evidence of small bowel obstruction. Reviewed: Reviewed by Me, Discussed w/Radiologist Departure Communication (Admissions) Time/Spoke to Admitting Phy: 23:25 Discussed the case with Dr. Hussein and she would like surgical consult. Time/Spoke to Consulting Phy: 23:[address] Crespo and he will see the patient. Impression Primary Impression: Pancreatitis Qualified Codes: K85.00 - Idiopathic acute pancreatitis without necrosis or infection Additional Impressions: Urinary tract infection Qualified Codes: N30.00 - Acute cystitis without hematuria Dehydration Disposition: ADMITTED INPATIENT Condition: Stable Admissions Decision to Admit Reason: Admit from ER (General) Decision to Admit/Date: March 08, 2018 Time/Decision to Admit Time: 23:53 Departure-Patient Inst. Referrals: MACY JOHANSEN MD (PCP/Family) Primary Care Physician Copy Copies To 1: MACY JOHANSEN MD, TITUS J March 08, 2018 20:49
[2018-03-08 21:22] LABS: BASOPHILS % (AUTO) 0 % (0-10); EOSINOPHILS % (AUTO) 1 % (0-10); HEMATOCRIT 33 % (35-52); HEMOGLOBIN 10.9 G/DL (11.5-16.0); LYMPHOCYTES # (AUTO) 0.5 X 10^3 (1.0-4.0); LYMPHOCYTES % (AUTO) 9 % (12-44); MEAN CORPUSCULAR HEMOGLOBIN 30 PG (25-34); MEAN CORPUSCULAR HGB CONC 33 G/DL (32-36); MEAN CORPUSCULAR VOLUME 91 FL (80-99); MEAN PLATELET VOLUME 10.3 FL (7.4-10.4); MONOCYTES # (AUTO) 0.4 X 10^3 (0.0-1.0); MONOCYTES % (AUTO) 7 % (0-12); NEUTROPHILS # (AUTO) 4.1 X 10^3 (1.8-7.8); NEUTROPHILS % (AUTO) 82 % (42-75); PLATELET COUNT 79 10^3/uL (130-400); RED BLOOD COUNT 3.62 10^6/uL (4.35-5.85); RED CELL DISTRIBUTION WIDTH 14.8 % (10.0-14.5)
[2018-03-08 21:26] LABS: INR 1.2 (0.8-1.4); PROTHROMBIN TIME PATIENT 15.3 SEC (12.2-14.7)
[2018-03-08 21:35] LABS: ALANINE AMINOTRANSFERASE 32 U/L (0-55); ALBUMIN 3.8 GM/DL (3.2-4.5); ALKALINE PHOSPHATASE 159 U/L (40-136); BILIRUBIN,TOTAL 0.9 MG/DL (0.1-1.0); BUN/CREATININE RATIO 16; CALCIUM 8.9 MG/DL (8.5-10.1); CARBON DIOXIDE 22 MMOL/L (21-32); CHLORIDE 106 MMOL/L (98-107); GFR ESTIMATED > 60; GLUCOSE 205 MG/DL (70-105); LIPASE 117 U/L (8-78); MAGNESIUM 1.7 MG/DL (1.8-2.4); POTASSIUM 3.7 MMOL/L (3.6-5.0); SODIUM 139 MMOL/L (135-145)
[2018-03-08 21:45] LABS: BILIRUBIN,URINE NEGATIVE (NEGATIVE); CLARITY,URINE CLEAR; COLOR,URINE YELLOW; GLUCOSE, URINE (UA) 2+ (NEGATIVE); KETONES,URINE 1+ (NEGATIVE); LEUKOCYTE ESTERASE ,URINE 2+ (NEGATIVE); NITRITE,URINE NEGATIVE (NEGATIVE); PH,URINE 7 (5-9); PROTEIN,URINE NEGATIVE (NEGATIVE); UROBILINOGEN,URINE NORMAL (NORMAL)
--- NOTE | 2018-03-08 21:49 | Diagnostic Imaging Report ---
INDICATION: Nausea, vomiting, Port-A-Cath COMPARISON: 05/16/17 FINDINGS: Single view of the chest demonstrates senescent changes in both lung bases. There is no large effusion. The heart is prominent without pulmonary edema. There is no new infiltrate, effusion or pneumothorax. The central venous catheter stable. IMPRESSION: 1. Cardiac enlargement without pulmonary edema or infiltrate 2. Chronic senescent changes in both lung bases, stable. Dictated by: Dictated on workstation # [id number]
[2018-03-08 21:53] LABS: BACTERIA,URINE TRACE /HPF; RBC,URINE 0-2 /HPF
[2018-03-08] MEDS ORDERED: MAGNESIUM OXIDE (MAG-OX)400 MG TAB PO ONE (22:15)
[2018-03-08] MEDS ORDERED: NITROFURANTOIN 100 MG (MACROBID) CAPSULE PO ONE (22:15)
[2018-03-08] MEDS ORDERED: PROMETHAZINE INJ 25 MG/ML (PHENERGAN) AMP IVP ONE (22:45)
[2018-03-08] MEDS ORDERED: NS 250 ML (IVPB) BAG IV ONE (23:15)
[2018-03-08] MEDS ORDERED: IOHEXOL 350 MG/ML 100 ML (OMNIPAQUE 350) VIAL IV ONE (23:15)
[2018-03-08] MEDS ORDERED: cefTRIAXone INJECTION 1,000 MG in NS (IVPB) 50 ML IV ONE (23:45)
--- OUTSIDE RECORDS SUMMARY | 2018-03-09 00:37 | XMS REPORT | Clinical Summary ---
Author Author [facility] Organization [facility] Address Unknown Phone Unavailable Care Team Providers Care Tax Accountant Name Role Phone Ron Chacko MD Unavailable Unavailable Sara Centeno MD Unavailable Walter Carvalho MD PCP Source Comments Some departments are not documenting in the electronic medical record. If you do not see the information that you expected, contact Release of Information in the Health Information Management department at [phone] for further assistance in locating additional records.[facility] Allergies No Known Allergies Current Medications Prescription [...] Taken Blood Pressure 160/85 08/21/2014 9:59 AM INTERACTIVE DEVELOPER Pulse 91 08/21/2014 9:59 AM INTERACTIVE DEVELOPER Temperature - - Respiratory Rate - - [...]
[2018-03-09] MEDS ORDERED: ONDANSETRON 4 MG/2 ML (SDV) Z0FRAN ONE (01:42)
[2018-03-09] MEDS ORDERED: 1/2 NS W/KCL 20 MEQ/L 1,000 ML IV ONE (01:57)
[2018-03-09] MEDS ORDERED: LORazepam INJ 2 MG/ML (ATIVAN) VIAL IV PRN (02:30)
[2018-03-09] MEDS ORDERED: fentaNYL INJECTION 100 MCG/2 ML AMP IV PRN ×2 (02:30)
[2018-03-09] MEDS ORDERED: PROMETHAZINE INJ 25 MG/ML (PHENERGAN) AMP IV PRN (02:30)
[2018-03-09] MEDS: 1/2 NS W/KCL 20 MEQ/L 1,000 ML IV SCH ×4 (02:45→19:52)
[2018-03-09 04:46] VITALS: BP 161/79
[2018-03-09 05:33] LABS: BASOPHILS % (AUTO) 0 % (0-10); EOSINOPHILS % (AUTO) 0 % (0-10); HEMATOCRIT 33 % (35-52); HEMOGLOBIN 11.2 G/DL (11.5-16.0); LYMPHOCYTES # (AUTO) 0.6 X 10^3 (1.0-4.0); LYMPHOCYTES % (AUTO) 5 % (12-44); MEAN CORPUSCULAR HEMOGLOBIN 30 PG (25-34); MEAN CORPUSCULAR HGB CONC 34 G/DL (32-36); MEAN CORPUSCULAR VOLUME 91 FL (80-99); MEAN PLATELET VOLUME 10.9 FL (7.4-10.4); MONOCYTES # (AUTO) 0.9 X 10^3 (0.0-1.0); MONOCYTES % (AUTO) 8 % (0-12); NEUTROPHILS # (AUTO) 10.3 X 10^3 (1.8-7.8); NEUTROPHILS % (AUTO) 87 % (42-75); PLATELET COUNT 82 10^3/uL (130-400); RED BLOOD COUNT 3.68 10^6/uL (4.35-5.85); RED CELL DISTRIBUTION WIDTH 14.9 % (10.0-14.5); WHITE BLOOD COUNT 11.8 10^3/uL (4.3-11.0)
[2018-03-09 05:48] LABS: BUN/CREATININE RATIO 15; CALCIUM 9.1 MG/DL (8.5-10.1); CARBON DIOXIDE 20 MMOL/L (21-32); CHLORIDE 101 MMOL/L (98-107); CREATININE SERUM 0.68 MG/DL (0.60-1.30); GFR ESTIMATED > 60; GLUCOSE 240 MG/DL (70-105); MAGNESIUM 1.5 MG/DL (1.8-2.4); POTASSIUM 3.9 MMOL/L (3.6-5.0); SODIUM 133 MMOL/L (135-145)
[2018-03-09 05:53] LABS: ANISOCYTOSIS SLIGHT; BAND NEUTROPHILS 3 %; BASOPHILS % (MANUAL) 0 %; EOSINOPHILS % (MANUAL) 0 %; LYMPHOCYTES % (MANUAL) 2 %; MONOCYTES % (MANUAL) 7 %; NEUTROPHILS % (MANUAL) 88 %
--- NOTE | 2018-03-09 07:18 | Diagnostic Imaging Report ---
PROCEDURE: CT abdomen and pelvis with contrast. TECHNIQUE: Multiple contiguous axial images were obtained through the abdomen and pelvis after administration of intravenous contrast. DATE: 03/08/2018. COMPARISON: CT chest and abdomen 01/04/2018. INDICATION: 77-year-old female, nausea and vomiting. History of breast cancer with lung metastasis. FINDINGS: There are peripheral predominantly reticular lung opacities bilaterally. There is nonspecific airspace consolidation in the right middle lobe and right lower lobe within their medial aspects as well as more peripherally noted within the right lower lobe. These areas of consolidation appear somewhat nodular with adjacent hazy attenuation. This is an interval change since the comparison CT of 01/04/2018. There is also an ill-defined hazy left lower lobe pulmonary nodule measuring 8mm in size on axial image 6 which is also a new finding since comparison exam. The peripheral reticular opacities are also more prominent on the current exam as well. The heart is not enlarged. There is no identified pericardial effusion. The liver is normal in size and contour. There is no identified liver lesion. The main, right, and left portal veins are patent. There is an area of nodular high attenuation along the nondependent gallbladder wall on axial image 31 which measures up to approximately 9 mm in size. This potentially could relate to a polyp. Metastatic disease to the gallbladder is uncommon but would be considered in the differential diagnosis based on imaging appearance alone. There is mild prominence of the common bile duct and very mild intrahepatic bile duct dilation which is similar to the comparison exam. The main pancreatic duct is not abnormally dilated. Unremarkable appearance of the pancreatic parenchyma. The spleen is not enlarged. The adrenal glands are unremarkable. There is a low-attenuation right renal lesion on axial image 24 which measures 5 mm size which is too small to characterize. The urinary collecting systems are not distended. There is no identified renal or ureteral stone. The urinary bladder is distended. There is no identified urinary bladder wall thickening. There is a large volume stool within the rectum and additional colon with mild to moderate distention of the rectum and distal sigmoid colon. There is nonspecific abnormal wall thickening at the level of the distal esophagus. There is a small hiatal hernia. There is no free intraperitoneal air. There is no drainable fluid collection. There is no sizable volume ascites. There is nonspecific wall thickening of the right colon. There are atherosclerotic calcifications. There is no identified abnormally enlarged lymph node within the abdomen or pelvis which meets CT size criteria for adenopathy. There are multilevel degenerative changes of the spine. There are right-sided pleural calcifications. There is no identified bone lesion to suggest a bone metastasis. IMPRESSION: CT ABDOMEN AND PELVIS. 1. Multiple ill-defined nodular opacities within the right middle lobe, right lower lobe, and left lower lobe which are new since comparison CT of 01/04/2018. Differential diagnostic considerations would include infectious and inflammatory etiologies. Metastatic disease would be also within the differential diagnosis. 2. Nonspecific wall thickening of the distal esophagus. Small hiatal hernia. 3. Wall thickening of the right colon which may potentially reflect an infectious or inflammatory colitis although is also nonspecific. 4. Large volume stool throughout the colon with mild to moderate distention of the rectum and distal sigmoid colon. Dictated by: Dictated on workstation # [id number]
[2018-03-09 08:00] VITALS: BP 142/70
[2018-03-09] MEDS ORDERED: ASPI-999 PO (09:10)
[2018-03-09] MEDS: MAGNESIUM 1 GM/D5W 100 ML IVPB IV SCH ×2 (09:34→15:29)
--- NOTE | 2018-03-09 09:59 | History & Physical-Hospitalist ---
History of Present Illness HPI/Chief Complaint CC: N/V HPI: This is 77-year-old white female clinic patient of Dr. Carvalho and Dr. Bang with history of breast cancer metastasis for the last several years who presented to the ER through the night with complaints of nausea vomiting found to have slightly elevated lipase consistent with pancreatitis but upon further assessment CT scan of the abdomen and pelvis showed widespread metastasis in the lungs and the lung exam today showed severe rhonchi and wheezing and rales consistent with end-stage metastatic breast cancer disease and we will need an advanced directives consult because she is still full code which is unreasonable and I did speak with Dr. Zee regarding this plan and he even agrees that there is not much we can do at this current time. Patient does live at home with her but she is so debilitated that patient needs hospice enrollment and discharge to keep her comfortable and her last days that she is alive. Very difficult situation and I did speak with Dr. Crespo who will evaluate any possibility of modifying her course of her end-stage illness. Exam Limitations: no limitations Date Seen 03/09/18 Time Seen by Provider: 09:30 Attending Physician Gissell Nieto DO PCP Walter Carvalho MD Referring Physician Date of Admission March 08, 2018 at 23:35 Home Medications & Allergies Home Medications Reviewed patient Home Medication Reconciliation performed by pharmacy medication reconciliations refrigerating technician and/or nursing. Patients Allergies have been reviewed. Allergies Allergies Coded Allergies No Known Drug Allergies (Unverified04/07/16) Past Gybzyzs-Whrowa-Tqbkkt Hx Past Med/Social Hx: Reviewed Nursing Past Med/Soc Hx, Reviewed and Corrections made Patient Social History Marrital Status: Employed/Student: retired Alcohol Use: Denies Use Recreational Drug Use: No Smoking Status: Never a Smoker Physical Abuse Screen: No Sexual Abuse: No Recent Foreign Travel: No Contact w/other who traveled: No Recent Hopitalizations: No Recent Infectious Disease Expo: No Immunizations Up To Date Tetanus Booster (TDap): More than 5yrs Date of Pneumonia Vaccine: Oct 15, 2013 Seasonal Allergies Seasonal Allergies: No Past Medical History Surgeries: Breast, Orthopedic, Tonsillectomy Currently Using CPAP: No Currently Using BIPAP: No Cardiac: Hypertension Reproductive: No Sexually Transmitted Disease: No HIV/AIDS: No Female Reproductive Disorders: Denies Genitourinary: UTI-Chronic Gastrointestinal: Gastroesophageal Reflux, Chronic Constipation Musculoskeletal: Arthritis, Fractures Endocrine: Diabetes, Non-Insulin dep HEENT: Glaucoma Loss of Vision: Denies Hearing Impairment: Denies Cancer: Breast Did You Recieve Any Treatments: Yes What Type of Treatment Did You: Chemotherapy, Radiation, Surgical Intervention History of Blood Disorders: No Adverse Reaction to Blood Cervantes: No Family History Alzheimer's disease 19 MOTHER Arthritis 19 MOTHER Cardiovascular disease 19 MOTHER Completed stroke Grandmother FH: breast cancer Grandmother FH: multiple sclerosis 19 FATHER FHx: multiple sclerosis Myocardial infarction 19 MOTHER G8 BROTHER Cancer, CVA, Psychiatric Problems Review of Systems Constitutional: see HPI, dizziness, malaise, weakness EENTM: no symptoms reported Respiratory: cough Cardiovascular: no symptoms reported Gastrointestinal: nausea, vomiting Genitourinary: no symptoms reported Musculoskeletal: no symptoms reported Skin: no symptoms reported Psychiatric/Neurological: Depressed All Other Systems Reviewed Negative Unless Noted: Yes Physical Exam Physical Exam Vital Signs Vital Signs - First Documented 03/08/18 20:34 Temp 97.0 Pulse 94 Resp 28 B/P (MAP) 212/98 (136) Pulse Ox 94 O2 Delivery Room Air Capillary Refill : Less Than 3 Seconds General Appearance: No Apparent Distress, WD/WN, Chronically ill, Thin, Other ( pale, end-stage) Eyes: Bilateral Eye Normal Inspection, Bilateral Eye PERRL HEENT: PERRL/EOMI, Normal ENT Inspection, Pharynx Normal Neck: Full Range of Motion, Normal Inspection, Non Tender, Supple, Carotid Bruit Respiratory: Chest Non Tender, No Accessory Muscle Use, No Respiratory Distress , Crackles, Decreased Breath Sounds, Wheezing Cardiovascular: Regular Rate, Rhythm, No Edema, No Gallop, No JVD, No Murmur, Normal Peripheral Pulses Gastrointestinal: Normal Bowel Sounds, No Organomegaly, No Pulsatile Mass, Soft , Tenderness (generalized) Back: Normal Inspection, No CVA Tenderness, No Vertebral Tenderness Extremity: Normal Capillary Refill, Normal Inspection, Normal Range of Motion, Non Tender, No Calf Tenderness, No Pedal Edema Neurologic/Psychiatric: Alert, Oriented x3, No Motor/Sensory Deficits, Depressed Affect Skin: Normal Color, Warm/Dry Lymphatic: No Adenopathy Results Results/Procedures Labs Laboratory Tests 03/08/18 21:02 03/09/18 04:57 Patient resulted labs reviewed. Assessment/Plan Admission Diagnosis Assessment: Acute pancreatitis Generalized abdominal pain Severe nausea and vomiting Widespread breast cancer metastasis to the lungs with abnormal lung exam Chronic debility Plan: Needs DNR Futility nnoted End stage process Needs Hospice Pain control in meantime along with anti-emetics Admission Status: Inpatient Order (span 2 midnights) Reason for Inpatient Admission: Widespread mets requiring N/V treatment Diagnosis/Problems Diagnosis/Problems (1) Pancreatitis Status: Acute Qualifiers: Chronicity: acute Pancreatitis type: idiopathic Acute pancreatitis complication: unspecified Qualified Codes: K85.00 - Idiopathic acute pancreatitis without necrosis or infection (2) Breast cancer metastasized to multiple sites Status: Acute Qualifiers: Laterality: unspecified laterality Qualified Codes: C50.919 - Malignant neoplasm of unspecified site of unspecified female breast (3) Debilitated patient Status: Chronic (4) Poor prognosis Status: Acute (5) Urinary tract infection Status: Acute Qualifiers: Urinary tract infection type: acute cystitis Hematuria presence: without hematuria Qualified Codes: N30.00 - Acute cystitis without hematuria Clinical Quality Measures DVT/VTE Risk/Contraindication: Risk Factor Score Per Nursin RFS Level Per Nursing on Admit: 3=High GISSELL NIETO DO March 09, 2018 09:59
--- NOTE | 2018-03-09 11:27 | Progress Note-Standard ---
Standard Progress Note Progress Notes/Assess & Plan Date Seen by Provider: March 09, 2018 Time Seen by Provider: 10:55 Progress/Assessment & Plan 03/09/18: This lady has metastatic disease with reference to her previously, resected breast carcinoma. Currently admitted with abdominal pain and nausea. Slight elevation of the lipase was discovered, but the exact significance is unclear. CT does not show any features of pancreatitis. It is therefore likely that her symptoms aren't related to metastatic disease and symptomatic management would be reasonable. Final Diagnosis Metastatic breast cancer. Nausea and epigastric abdominal pain Focused Exam Lactate Level 03/08/18 21:02: Lactic Acid Level 1.27 NATALIE MUNOZ MD March 09, 2018 11:27
[2018-03-09] MEDS: ONDANSETRON 4 MG/2 ML (SDV) Z0FRAN IV PRN ×3 (11:54→21:24)
[2018-03-09 12:00] VITALS: BP 150/58
[2018-03-09] MEDS ORDERED: PIPERACILLIN/TAZO 4.5 GM/D5W 100 ML IVPB IV NR ×2 (14:45)
[2018-03-09 17:01] VITALS: BP 150/58
[2018-03-09] MEDS: inSUlin ASPART (NovoLOG) 1 UNIT/0.01 ML (CHARGE PER UNIT) SC SCH ×2 (17:44→20:54)
[2018-03-09 18:15] VITALS: BP 182/81
[2018-03-09] MEDS: PIPERACILLIN SODIUM/TAZOBACTAM 4.5 GM in D5W 100 ML IVPB 100 ML IV SCH (20:54)
[2018-03-09 20:59] VITALS: BP 167/72
[2018-03-09] MEDS ORDERED: cefTRIAXone 1 GM/NS 50 ML IVPB IV SCH ×2 (21:00)
[2018-03-09] MEDS: RT-ALBUTEROL SULF 2.5 MG/3 ML PRE-MIX VIAL INH SCH (21:14)
[2018-03-10 00:40] VITALS: BP 170/70
[2018-03-10 03:55] VITALS: BP 173/72
[2018-03-10] MEDS: RT-ALBUTEROL SULF 2.5 MG/3 ML PRE-MIX VIAL INH SCH ×7 (04:49→21:56)
[2018-03-10] MEDS: PIPERACILLIN SODIUM/TAZOBACTAM 4.5 GM in D5W 100 ML IVPB 100 ML IV SCH ×3 (05:16→22:59)
[2018-03-10 05:27] LABS: BASOPHILS % (AUTO) 0 % (0-10); EOSINOPHILS % (AUTO) 0 % (0-10); HEMATOCRIT 29 % (35-52); LYMPHOCYTES # (AUTO) 0.7 X 10^3 (1.0-4.0); LYMPHOCYTES % (AUTO) 8 % (12-44); MEAN CORPUSCULAR HEMOGLOBIN 30 PG (25-34); MEAN CORPUSCULAR HGB CONC 34 G/DL (32-36); MEAN CORPUSCULAR VOLUME 89 FL (80-99); MEAN PLATELET VOLUME 9.7 FL (7.4-10.4); MONOCYTES # (AUTO) 0.9 X 10^3 (0.0-1.0); MONOCYTES % (AUTO) 10 % (0-12); NEUTROPHILS # (AUTO) 7.5 X 10^3 (1.8-7.8); NEUTROPHILS % (AUTO) 82 % (42-75); PLATELET COUNT 80 10^3/uL (130-400); RED BLOOD COUNT 3.29 10^6/uL (4.35-5.85); RED CELL DISTRIBUTION WIDTH 14.8 % (10.0-14.5); WHITE BLOOD COUNT 9.1 10^3/uL (4.3-11.0)
[2018-03-10 06:42] LABS: ALANINE AMINOTRANSFERASE 25 U/L (0-55); ALBUMIN 3.3 GM/DL (3.2-4.5); ALKALINE PHOSPHATASE 127 U/L (40-136); BILIRUBIN,TOTAL 1.3 MG/DL (0.1-1.0); BUN/CREATININE RATIO 18; CALCIUM 8.5 MG/DL (8.5-10.1); CARBON DIOXIDE 21 MMOL/L (21-32); CHLORIDE 101 MMOL/L (98-107); CREATININE SERUM 0.72 MG/DL (0.60-1.30); GFR ESTIMATED > 60; GLUCOSE 172 MG/DL (70-105); SODIUM 131 MMOL/L (135-145); TOTAL PROTEIN 5.8 GM/DL (6.4-8.2)
[2018-03-10] MEDS: inSUlin ASPART (NovoLOG) 1 UNIT/0.01 ML (CHARGE PER UNIT) SC SCH ×4 (06:53→22:59)
[2018-03-10 08:00] VITALS: BP 135/63
--- NOTE | 2018-03-10 13:41 | Progress Note-Hospitalist ---
Progress Note Progress Notes/Assess & Plan Date Seen 03/10/18 Time Seen by Provider: 13:37 Assessment & Plan The patient is a 77-year-old white female who was admitted with generalized weakness and prolonged nausea and vomiting. A very marginal elevation in lipase was noted however I do not believe this meets standards for pancreatitis. She was diagnosed as having breast cancer in 2005. She underwent a right mastectomy and axillary node dissection. She subsequently developed lymphedema of the right arm. She states that she has had a nonhealing eschar over her sternum for about 2 months. When it drains it has a small amount of serum and a pinkish color consistent with blood. She had been previously scheduled to have an outpatient biopsy next week. Dr. Crespo had scheduled this. CT of the chest at admission showed an a considerable number of nodules in both lungs consistent with metastasis. Physical exam: She is alert and pleasant. Lungs are clear to auscultation. There is a 1.5-2 cm black eschar noted at the mid sternal area. Impression: Widely metastatic breast cancer. 2.original diagnosis 2005. 3.nausea and vomiting improved. Plan: The patient expressed that she was hungry. I will order diet for her Focused Exam Lactate Level 03/08/18 21:02: Lactic Acid Level 1.27 KATHY FONTENOT MD March 10, 2018 13:41
--- NOTE | 2018-03-10 14:56 | Consultation ---
History of Present Illness History of Present Illness Patient Consulted On(juanito/time) 03/10/18 14:54 Date Seen by Provider: March 10, 2018 Time Seen by Provider: 14:20 Reason for Visit: Breast cancer intractable nausea vomiting History of Present Illness Cover for Dr Zee. Mrs. Miller was admitted yesterday with intractable nausea and vomiting, h/o metastatic breast cancer to the lungs. She was also found to have UTI and treated with IV antibiotics and IVF as well as IV antiemetics. She is feeling better today and wanted to eat. Low grade fever 100.2 In terms of her breast cancer, she is under the care of Dr Zee for metastatic HER-2/roxane positive breast cancer to lungs, lymph nodes and to the spinal canal at C7 requiring palliative radiation therapy completed in July 2016. She was on palliative chemotherapy with Kadcyla and completed 17 courses which has been on hold since 09/14/2017. She has lymphedema of the right upper extremity which is chronic and persistent. She developed an ulcer on the dorsum of right hand and is nearly healed. She describes the chest wall lesion is slightly bigger. Allergies and Home Medications Allergies Coded Allergies: No Known Drug Allergies (Unverified , 04/07/16) Home Medications Acetaminophen 500 Mg Tablet, 1,000 MG PO DAILY PRN for PAIN-MILD, (Reported) TAKES 2 (500 MG) TABLETS / ALTERNATES WITH IBUPROFEN Aspirin 81 Mg Tab.chew, 81 MG PO DAILY, (Reported) Docusate Sodium 100 Mg Capsule, 100 MG PO DAILY, (Reported) Enalapril Maleate 10 Mg Tablet, 10 MG PO BID, (Reported) Gabapentin 600 Mg Tablet, 600 MG PO BID, (Reported) Glimepiride 4 Mg Tablet, 8 MG PO DAILY, (Reported) TAKES 2 (4 MG) TABLETS Ibuprofen 200 Mg Tablet, 400 MG PO DAILY PRN for PAIN-MILD, (Reported) TAKES 2 (200MG) TABLETS / ALTERNATES WITH ACETAMINOPHEN Omeprazole 40 Mg Capsule.dr, 40 MG PO DAILY, (Reported) Patient Home Medication List Home Medication List Reviewed: Yes Past Fxzpihp-Kpbmep-Ouqidj Hx Past Med/Social Hx: Reviewed Nursing Past Med/Soc Hx, Reviewed and Corrections made Patient Social History Alcohol Use: Denies Use Recreational Drug Use: No Smoking Status: Never a Smoker Recent Foreign Travel: No Contact w/Someone Who Travel: No Recent Infectious Disease Expo: No Recent Hopitalizations: No Immunizations Up To Date Tetanus Booster (TDap): More than 5yrs Date of Pneumonia Vaccine: Oct 15, 2013 Seasonal Allergies Seasonal Allergies: No Past Medical History Surgeries: Yes (PORT PLACEMENT, CARPAL TUNNEL RT SIDE) Breast, Orthopedic, Tonsillectomy Respiratory: No Currently Using CPAP: No Currently Using BIPAP: No Cardiac: Yes (Heart stent x1) Hypertension Neurological: No Reproductive Disorders: No Female Reproductive Disorders: Denies Sexually Transmitted Disease: No HIV/AIDS: No Genitourinary: No UTI-Chronic Gastrointestinal: Yes Gastroesophageal Reflux, Chronic Constipation Musculoskeletal: Yes (right humeral neck fracture March 2017) Arthritis, Fractures Endocrine: Yes (Type 2 Diabetic) Diabetes, Non-Insulin dep HEENT: Yes Glaucoma Loss of Vision: Denies Hearing Impairment: Denies Cancer: Yes (LYMPH NODES, RIGHT BREAST) Breast Did You Recieve Any Treatments: Yes What Type of Treatment Did You: Chemotherapy, Radiation, Surgical Intervention Psychosocial: No Integumentary: Yes (Patient states she had shingles a few years prior.) Blood Disorders: No Adverse Reaction/Blood Tranf: No Family Medical History Alzheimer's disease 19 MOTHER Arthritis 19 MOTHER Cardiovascular disease 19 MOTHER Completed stroke Grandmother FH: breast cancer Grandmother FH: multiple sclerosis 19 FATHER FHx: multiple sclerosis Myocardial infarction 19 MOTHER G8 BROTHER Cancer, CVA, Psychiatric Problems Review of Systems-General Constitutional: weakness EENTM: no symptoms reported Respiratory: cough, dyspnea on exertion Cardiovascular: no symptoms reported Gastrointestinal: nausea, vomiting Genitourinary: no symptoms reported Musculoskeletal: other (right arm chronic lymphoedema) Psychiatric/Neurological: No Symptoms Reported Physical Exam-General Problems Physical Exam Vital Signs Vital Signs - First Documented 03/08/18 20:34 Temp 97.0 Pulse 94 Resp 28 B/P (MAP) 212/98 (136) Pulse Ox 94 O2 Delivery Room Air Capillary Refill : Less Than 3 Seconds General Appearance: no apparent distress HEENT: PERRL/EOMI Neck: non-tender, supple Respiratory: lungs clear, no respiratory distress, no accessory muscle use, other (3cm lesion in the mid of chest wall, most likely cancer) Cardiovascular: regular rate, rhythm, no gallop, no JVD Gastrointestinal: non tender, soft, no organomegaly Extremities: no pedal edema, swelling, other (right arm lymphedema, limited motion) Neurologic/Psychiatric: alert, oriented x 3 Assessment/Plan Assessment/Plan Admission Diagnosis/Plan 1. Intractable nausea vomiting, better today after IVF, IV emetics and IV antibiotics. Will continue for now. I hope she will continue to improve with current treatment and be discharged to home in a few days. 2. Metastatic ER negative, MO negative and HER-2/roxane positive right breast cancer to lungs diagnosed in September 2006, status post right modified radical mastectomy and axillary node dissection followed by initial chemotherapy with weekly Herceptin and paclitaxel until February 2007 followed by high-dose Taxol plus Herceptin with significant toxicity. On Herceptin alone from mid-2006 until mid 2012 with clinical and radiographic complete response. Off treatment for approximately [address] Zee to discuss her future care. 3. UTI on IV antibiotics day 2. Appears improving. 4. Slowly advance diet as long as she is able to tolerate. Admission Status: Inpatient Order (span 2 midnights) Clinical Quality Measures DVT/VTE Risk/Contraindication: Risk Factor Score Per Nursin RFS Level Per Nursing on Admit: 3=High WILLOW COPELAND MD March 10, 2018 14:56
[2018-03-10 15:32] VITALS: BP 121/57
[2018-03-10] MEDS: 1/2 NS W/KCL 20 MEQ/L 1,000 ML IV SCH (16:51)
[2018-03-11 00:55] VITALS: BP 136/61
[2018-03-11] MEDS: RT-ALBUTEROL SULF 2.5 MG/3 ML PRE-MIX VIAL INH SCH ×6 (02:19→22:58)
[2018-03-11] MEDS: PIPERACILLIN SODIUM/TAZOBACTAM 4.5 GM in D5W 100 ML IVPB 100 ML IV SCH ×3 (05:45→21:28)
[2018-03-11] MEDS: 1/2 NS W/KCL 20 MEQ/L 1,000 ML IV SCH ×2 (05:45→13:15)
[2018-03-11] MEDS: inSUlin ASPART (NovoLOG) 1 UNIT/0.01 ML (CHARGE PER UNIT) SC SCH ×4 (05:48→21:28)
[2018-03-11 08:00] VITALS: BP 157/69
[2018-03-11 15:50] VITALS: BP 134/60
[2018-03-11] MEDS ORDERED: ACETAMINOPHEN 325 MG TABLET/CAPLET (TYLENOL) ONE (21:44)
[2018-03-11] MEDS: ACETAMINOPHEN 325 MG TABLET/CAPLET (TYLENOL) PO PRN (21:51)
[2018-03-11 23:35] VITALS: BP 130/69
[2018-03-12] MEDS: RT-ALBUTEROL SULF 2.5 MG/3 ML PRE-MIX VIAL INH SCH ×3 (02:59→18:35)
[2018-03-12] MEDS: 1/2 NS W/KCL 20 MEQ/L 1,000 ML IV SCH ×3 (04:12→22:39)
[2018-03-12] MEDS: PIPERACILLIN SODIUM/TAZOBACTAM 4.5 GM in D5W 100 ML IVPB 100 ML IV SCH ×3 (05:08→20:58)
[2018-03-12] MEDS: inSUlin ASPART (NovoLOG) 1 UNIT/0.01 ML (CHARGE PER UNIT) SC SCH ×4 (05:39→22:21)
[2018-03-12 07:31] VITALS: BP 130/69
[2018-03-12] MEDS ORDERED: RT-ALBUTEROL SULF 2.5 MG/3 ML PRE-MIX VIAL INH PRN (07:45)
[2018-03-12] MEDS: ACETAMINOPHEN 325 MG TABLET/CAPLET (TYLENOL) PO PRN (08:02)
[2018-03-12 08:30] VITALS: BP 168/67
[2018-03-12 09:21] VITALS: BP 168/67
--- NOTE | 2018-03-12 12:09 | Progress Note-Hospitalist ---
Progress Note Progress Notes/Assess & Plan Date Seen 03/12/18 Time Seen by Provider: 12:07 Assessment & Plan The patient reports feeling a bit better than on admission. It is her desire at this point to return home. She believes that her and her son can maintain her satisfactorily at least at this point in time. A social service consult will be ordered to evaluate for any other services or devices that they may need. Physical exam: The patient is alert and oriented. Lungs show rather distant breath sounds. CV is regular. Abdomen is soft. Extremities show minimum ankle edema. Impression: Breast cancer (2006) 2.widely metastatic. KATHY FONTENOT MD March 12, 2018 12:09
[2018-03-12 15:34] VITALS: BP 154/67
--- NOTE | 2018-03-12 17:07 | Physician Progress Note ---
Progress Note Assessment/Plan Date Seen by Provider: March 12, 2018 Time Seen by Provider: 16:45 Events since last exam Pt is feeling better. Able to eat soft diet. No more nausea vomiting but still very weak. She wants to go home and has her son to take care of her at home. Still on Morales catheter. Assessment/Plan 1. Intractable nausea vomiting, better today after IVF, IV emetics and IV antibiotics. Will continue to tomorrow and advance diet and possible home tomorrow. 2. Metastatic ER negative, CT negative and HER-2/roxane positive right breast cancer to lungs diagnosed in September 2006, status post right modified radical mastectomy and axillary node dissection followed by initial chemotherapy with weekly Herceptin and paclitaxel until February 2007 followed by high-dose Taxol plus Herceptin with significant toxicity. On Herceptin alone from mid-2006 until mid 2012 with clinical and radiographic complete response. Off treatment for approximately [address] Zee to discuss her future care. 3. UTI on IV antibiotics day 2. Appears improving. Will D/C Morales tomorrow once Pt is stronger and able to go to bathroom by herself. 4. Physical therapy evaluation tomorrow. D/C Morales tomorrow. addiction social worker to evaluate home situation and discharge plan. 5. I discussed with patient about possible hospice care but she is not ready. She wants her son to take care of her. Her son does not live with her but does live nearby her house. Vitals Last set of Vitals Signs Vital Signs Date Time Temp Pulse Resp B/P (MAP) Pulse Ox O2 Delivery O2 Flow Rate FiO2 03/12/18 15:34 99.4 88 18 154/67 (96) 97 Room Air I&O I&O Intake and Output 03/12/18 00:00 Intake Total 6771 ml Output Total 2350 ml Balance 4421 ml Intake Oral 1471 ml IV Total 5300 ml Output Urine Total 2350 ml Labs Laboratory Tests 03/11/18 20:37: Glucometer 255H 03/12/18 05:37: Glucometer 167H 03/12/18 11:16: Glucometer 314H 03/12/18 15:36: Glucometer 265H Microbiology 03/08/18 Blood Culture - Preliminary, Resulted No growth 03/08/18 Urine Culture - Final, Complete Escherichia coli Clinical Quality Measures DVT/VTE Risk/Contraindication: Risk Factor Score Per Nursin RFS Level Per Nursing on Admit: 3=High WILLOW COPELAND MD March 12, 2018 17:07
[2018-03-12] MEDS: ONDANSETRON 4 MG/2 ML (SDV) Z0FRAN IV PRN (20:50)
[2018-03-13] VITALS: BP 181/82
[2018-03-13] MEDS: ACETAMINOPHEN 325 MG TABLET/CAPLET (TYLENOL) PO PRN ×3 (00:19→20:47)
[2018-03-13] MEDS: PIPERACILLIN SODIUM/TAZOBACTAM 4.5 GM in D5W 100 ML IVPB 100 ML IV SCH (06:15)
[2018-03-13] MEDS: inSUlin ASPART (NovoLOG) 1 UNIT/0.01 ML (CHARGE PER UNIT) SC SCH ×4 (06:16→21:08)
[2018-03-13] MEDS: RT-ALBUTEROL SULF 2.5 MG/3 ML PRE-MIX VIAL INH SCH ×2 (07:10→19:39)
[2018-03-13 08:00] VITALS: BP 149/67
[2018-03-13] MEDS: ONDANSETRON 4 MG/2 ML (SDV) Z0FRAN IV PRN (09:03)
[2018-03-13] MEDS: 1/2 NS W/KCL 20 MEQ/L 1,000 ML IV SCH ×2 (10:23→20:52)
--- NOTE | 2018-03-13 11:54 | Physical Therapy Progress Note ---
Therapy Progress Note PT has attempted to evaluate patient x 3 this a.m. with no success due to patient c/o nausea. PT will continue to attempt. JANA PRADO PT March 13, 2018 11:54
--- NOTE | 2018-03-13 12:52 | Progress Note-Hospitalist ---
Subjective HPI/CC On Admission Date Seen by Provider: March 13, 2018 Time Seen by Provider: 12:46 CC: N/V HPI: This is 77-year-old white female clinic patient of Dr. Carvalho and Dr. Bang with history of breast cancer metastasis for the last several years who presented to the ER through the night with complaints of nausea vomiting found to have slightly elevated lipase consistent with pancreatitis but upon further assessment CT scan of the abdomen and pelvis showed widespread metastasis in the lungs and the lung exam today showed severe rhonchi and wheezing and rales consistent with end-stage metastatic breast cancer disease and we will need an advanced directives consult because she is still full code which is unreasonable and I did speak with Dr. Zee regarding this plan and he even agrees that there is not much we can do at this current time. Patient does live at home with her but she is so debilitated that patient needs hospice enrollment and discharge to keep her comfortable and her last days that she is alive. Very difficult situation and I did speak with Dr. Crespo who will evaluate any possibility of modifying her course of her end-stage illness. Subjective/Events-last exam Pt reports had a rough night and was up vomiting frequently. No nausea now if she lies still in bed. Otherwise no complaints. Was hoping to be able to go home today but does not feel ready now and she has only eaten 1 thing of jello today. Did eat well yesterday and thinks that's what made her worse. Objective Exam Vital Signs Vital Signs Date Time Temp Pulse Resp B/P (MAP) Pulse Ox O2 Delivery O2 Flow Rate FiO2 03/13/18 08:20 Room Air 03/13/18 08:00 98.5 90 18 149/67 (94) 95 Capillary Refill : Less Than 3 Seconds General Appearance: Chronically ill, Mild Distress (ill appearing) Respiratory: Lungs Clear, No Respiratory Distress Cardiovascular: Regular Rate, Rhythm, No Murmur Gastrointestinal: Normal Bowel Sounds, Non Tender, Soft Extremity: Other (right uppere exttemity edema) Neurologic/Psychiatric: Alert, Oriented x3, Normal Mood/Affect Skin: Warm/Dry, Pallor Results/Procedures Lab Patient resulted labs reviewed. Assessment/Plan Assessment and Plan Assess & Plan/Chief Complaint intractable nausea and vomiting Diagnosis/Problems Diagnosis/Problems (1) Intractable nausea and vomiting Status: Acute Assessment & Plan: Worsened yesterday with increase oral intake Will back off on diet Continue IVF Continue Zofran and Phenergan Scopolamine added as well Qualifiers: Vomiting type: unspecified Qualified Codes: R11.2 - Nausea with vomiting, unspecified (2) Breast cancer metastasized to multiple sites Status: Acute Assessment & Plan: Follows with Dr Zee Could consider palliative care and hospice Palliative care consulted, appreciate assistance Qualifiers: Laterality: unspecified laterality Qualified Codes: C50.919 - Malignant neoplasm of unspecified site of unspecified female breast (3) Urinary tract infection Status: Acute Assessment & Plan: E coli on culture Uncomplicated cystitis Has completed 4 days of abx so will DC Qualifiers: Urinary tract infection type: acute cystitis Hematuria presence: without hematuria Qualified Codes: N30.00 - Acute cystitis without hematuria (4) Prophylactic measure Assessment & Plan: SCDs due to thrombocytopenia Reg diet as tolerated IVF Clinical Quality Measures DVT/VTE Risk/Contraindication: Risk Factor Score Per Nursin RFS Level Per Nursing on Admit: 3=High ZAFAR MORALES MD March 13, 2018 12:52
[2018-03-13] MEDS ORDERED: SCOPOLAMINE 1.5 MG (TRANSDERM-SCOP) PATCH TOP SCH (13:00)
--- NOTE | 2018-03-13 14:23 | Occ Therapy Progress Note ---
Therapy Progress Note 1325 Pt nauseated and reported it got worse anytime she moved. she asked OT to come back later. SONDRA RODRÍGUEZ OT March 13, 2018 14:23
--- NOTE | 2018-03-13 14:26 | Physical Therapy Progress Note ---
Therapy Progress Note PT has attempted x 3 this p.m. with patient declining due to nausea and dizziness. Patient is very apologetic and reports she hopes to participate tomorrow. JANA PRADO PT March 13, 2018 14:26
[2018-03-13] MEDS ORDERED: MECLIZINE 25 MG (ANTIVERT) TAB PO PRN (15:00)
[2018-03-13 16:00] VITALS: BP 143/79
[2018-03-13] MEDS ORDERED: FLEET ENEMA ADULT 1 EA BTL PR PRN (16:30)
[2018-03-13] MEDS: DOCUSATE SODIUM 100 MG (COLACE) CAP PO SCH (20:46)
[2018-03-14] VITALS: BP 132/65
[2018-03-14 05:39] LABS: BASOPHILS % (AUTO) 0 % (0-10); EOSINOPHILS # (AUTO) 0.4 10^3/uL (0.0-0.3); EOSINOPHILS % (AUTO) 7 % (0-10); HEMATOCRIT 30 % (35-52); LYMPHOCYTES # (AUTO) 0.6 X 10^3 (1.0-4.0); LYMPHOCYTES % (AUTO) 9 % (12-44); MEAN CORPUSCULAR HEMOGLOBIN 30 PG (25-34); MEAN CORPUSCULAR HGB CONC 33 G/DL (32-36); MEAN CORPUSCULAR VOLUME 91 FL (80-99); MEAN PLATELET VOLUME 9.4 FL (7.4-10.4); MONOCYTES # (AUTO) 0.8 X 10^3 (0.0-1.0); MONOCYTES % (AUTO) 13 % (0-12); NEUTROPHILS # (AUTO) 4.3 X 10^3 (1.8-7.8); NEUTROPHILS % (AUTO) 70 % (42-75); PLATELET COUNT 132 10^3/uL (130-400); RED BLOOD COUNT 3.31 10^6/uL (4.35-5.85); RED CELL DISTRIBUTION WIDTH 15.2 % (10.0-14.5); WHITE BLOOD COUNT 6.1 10^3/uL (4.3-11.0)
[2018-03-14 05:56] LABS: BUN/CREATININE RATIO 13; CALCIUM 9.2 MG/DL (8.5-10.1); CARBON DIOXIDE 21 MMOL/L (21-32); CHLORIDE 104 MMOL/L (98-107); CREATININE SERUM 0.62 MG/DL (0.60-1.30); GFR ESTIMATED > 60; GLUCOSE 129 MG/DL (70-105); POTASSIUM 4.3 MMOL/L (3.6-5.0); SODIUM 136 MMOL/L (135-145)
[2018-03-14] MEDS: inSUlin ASPART (NovoLOG) 1 UNIT/0.01 ML (CHARGE PER UNIT) SC SCH ×4 (06:39→21:18)
[2018-03-14 08:00] VITALS: BP 171/70
[2018-03-14] MEDS: DOCUSATE SODIUM 100 MG (COLACE) CAP PO SCH ×2 (08:24→20:25)
[2018-03-14] MEDS: 1/2 NS W/KCL 20 MEQ/L 1,000 ML IV SCH (08:24)
[2018-03-14] MEDS: RT-ALBUTEROL SULF 2.5 MG/3 ML PRE-MIX VIAL INH SCH ×2 (08:28→18:40)
[2018-03-14] MEDS ORDERED: ONDANSETRON 4 MG (ZOFRAN) ORAL DISSOLVE TAB PO PRN (09:45)
--- NOTE | 2018-03-14 09:47 | Progress Note-Hospitalist ---
Subjective HPI/CC On Admission Date Seen by Provider: March 14, 2018 Time Seen by Provider: 09:43 CC: N/V HPI: This is 77-year-old white female clinic patient of Dr. Carvalho and Dr. Bang with history of breast cancer metastasis for the last several years who presented to the ER through the night with complaints of nausea vomiting found to have slightly elevated lipase consistent with pancreatitis but upon further assessment CT scan of the abdomen and pelvis showed widespread metastasis in the lungs and the lung exam today showed severe rhonchi and wheezing and rales consistent with end-stage metastatic breast cancer disease and we will need an advanced directives consult because she is still full code which is unreasonable and I did speak with Dr. Zee regarding this plan and he even agrees that there is not much we can do at this current time. Patient does live at home with her but she is so debilitated that patient needs hospice enrollment and discharge to keep her comfortable and her last days that she is alive. Very difficult situation and I did speak with Dr. Crespo who will evaluate any possibility of modifying her course of her end-stage illness. Subjective/Events-last exam Pt reports feeling better today. Tolerated dinner last night and just ordered breakfast. Objective Exam Vital Signs Vital Signs Date Time Temp Pulse Resp B/P (MAP) Pulse Ox O2 Delivery O2 Flow Rate FiO2 03/14/18 08:00 100.0 95 16 171/70 (103) 96 Room Air Capillary Refill : Less Than 3 Seconds General Appearance: No Apparent Distress, Chronically ill Respiratory: Lungs Clear, No Respiratory Distress Cardiovascular: Regular Rate, Rhythm, No Murmur Gastrointestinal: Normal Bowel Sounds, Non Tender, Soft Extremity: No Calf Tenderness, No Pedal Edema, Other (RUE edema) Neurologic/Psychiatric: Alert, Oriented x3 Results/Procedures Lab Laboratory Tests 03/14/18 05:30 Patient resulted labs reviewed. Assessment/Plan Assessment and Plan Assess & Plan/Chief Complaint intractable nausea and vomiting Diagnosis/Problems Diagnosis/Problems (1) Intractable nausea and vomiting Status: Acute Assessment & Plan: Improved today Will DC IVF Continue Zofran and Phenergan Scopolamine Qualifiers: Vomiting type: unspecified Qualified Codes: R11.2 - Nausea with vomiting, unspecified (2) Breast cancer metastasized to multiple sites Status: Acute Assessment & Plan: Follows with Dr Zee Palliative care consulted, appreciate assistance Qualifiers: Laterality: unspecified laterality Qualified Codes: C50.919 - Malignant neoplasm of unspecified site of unspecified female breast (3) Urinary tract infection Status: Acute Assessment & Plan: E coli on culture Uncomplicated cystitis Has completed 4 days of abx so will DC Qualifiers: Urinary tract infection type: acute cystitis Hematuria presence: without hematuria Qualified Codes: N30.00 - Acute cystitis without hematuria (4) Prophylactic measure Assessment & Plan: SCDs due to thrombocytopenia Reg diet as tolerated Saline lock Clinical Quality Measures DVT/VTE Risk/Contraindication: Risk Factor Score Per Nursin RFS Level Per Nursing on Admit: 3=High ZAFAR MORALES MD March 14, 2018 09:47
--- NOTE | 2018-03-14 10:58 | Physical Therapy Progress Note ---
Therapy Progress Note Attempted evaluation this morning. Patient refused. Will try again this afternoon. MILKA BLACK PT March 14, 2018 10:58
[2018-03-14] MEDS: ACETAMINOPHEN 325 MG TABLET/CAPLET (TYLENOL) PO PRN ×2 (13:33→23:12)
--- NOTE | 2018-03-14 15:07 | Physical Therapy Evaluation ---
PT Evaluation-General Medical Diagnosis Admission Date March 08, 2018 at 23:35 Medical Diagnosis: pancreatitis, dehydration Onset Date: March 09, 2018 Therapy Diagnosis Therapy Diagnosis: impaired mobility, strength, endurance Height/Weight Height (Feet): 5 Height (Inches): 7.00 Weight (Pounds): 139 Weight (Ounces): 2.0 Precautions Precautions/Isolations: Fall Prevention, Standard Precautions Weight Bear Status Right Lower Extremity: Right Weight Bearing/Tolerated Left Lower Extremity: Left Weight Bearing/Tolerated Referral Physician: Daphney Stokes MD Reason for Referral: Evaluation/Treatment Medical History Pertinent Medical History: Arthritis, Breast CA S/P Mastectomy, CAD, DM, GERD, HTN, Neuropathy Additional Medical History Past Medical History Surgeries: Breast, Orthopedic, Tonsillectomy Currently Using CPAP: No Currently Using BIPAP: No Cardiac: Hypertension Reproductive: No Sexually Transmitted Disease: No HIV/AIDS: No Female Reproductive Disorders: Denies Genitourinary: UTI-Chronic Gastrointestinal: Gastroesophageal Reflux, Chronic Constipation Musculoskeletal: Arthritis, Fractures Endocrine: Diabetes, Non-Insulin dep HEENT: Glaucoma Loss of Vision: Denies Hearing Impairment: Denies Cancer: Breast Did You Recieve Any Treatments: Yes What Type of Treatment Did You: Chemotherapy, Radiation, Surgical Intervention History of Blood Disorders: No Adverse Reaction to Blood Cervantes: No Current History to ER with nausea and vomiting Reviewed History: Yes Social History Home: Single Level Current Living Status: Spouse Entry Into Home: Stairs With Railing PT Steps Into Home: 1 Prior/Core FIM Prior Level of Function Functional [place] Measure 0=Not Assessed/NA 4=Minimal Assistance 1=Total Assistance 5=Supervision or Setup 2=Maximal Assistance 6=Modified [place] 3=Moderate Assistance 7=Complete [place] Bed Mobility: 7 Transfers (B,C,W/C) (FIM): 7 Gait: 7 Patient states she would hold onto furniture in her home PT Evaluation-Current Subjective Patient in bed pre tx, agrees to PT, has no complaints of pain. Patient states she still have been having nausea but seems to have improved for now. Pt/Family Goals "to go home tomorrow" Objective Patient Orientation: Person, Place, Situation Attachments: Morales Catheter ROM/Strength ROM Lower Extremities WNL Strength Lower Extremities right lower extremity (hip flexion 3+/5, knee flexion 3/5, knee extension 4/5, dorsiflexion 3-/5), left lower extremity (hip flexion 3+/5, knee flexion 3/5, knee extension 4/5, dorsiflexion 3-/5) Neuromuscular (Tone, Coordination, Reflexes) NT Sensory Hearing: Functional Sensation Right Lower Extremit: Impaired Sensation Left Lower Extremity: Impaired Sensation Lower Extremities Patient has impaired light touch sensation from mid calf down bilaterally Transfers Functional [place] Measure 0=Not Assessed/NA 4=Minimal Assistance 1=Total Assistance 5=Supervision or Setup 2=Maximal Assistance 6=Modified [place] 3=Moderate Assistance 7=Complete [place] Transfers (B, C, W/C) (FIM): 4 Scootin Rollin Supine to/from Sit: 4 Sit to/from Stand: 4 Patient needed min assist for supine to sit and sit to stand. She stood at the edge of the bed for a few minutes. She did have slight dizziness that stayed constant but did not get any worse. Treatment supine exercises x15 (AP, QS, HS) Assessment/Needs Patient has impaired mobility, strength, endurance. She was able to stand at the edge of the bed but not ambulate at this time. Patient has virtually no use of her right arm. Rehab Potential: Guarded PT Short Term Goals Short Term Goals Time Frame: Mar 21, 2018 Transfers (B,C,W/C) (FIM): 5 Gait (FIM): 1 Gait Distance Comment: 20' Gait Level of Assist: 4 Gait Assistive Device: FWW PT Plan Problem List Problem List: Activity Tolerance, Functional Strength, Safety, Balance, Gait, Transfer, Bed Mobility Treatment/Plan Treatment Plan: Continue Plan of Care Treatment Plan: Bed Mobility, Education, Functional Activity Vincent, Functional Strength, Gait, Safety, Therapeutic Exercise, Transfers Treatment Duration: Mar 21, 2018 Frequency: 6 times per week Estimated Hrs Per Day: .25 hour per day (15-30') Patient and/or Family Agrees t: Yes Safety Risks/Education Patient Education: Transfer Techniques, Correct Positioning, Safety Issues Teaching Recipient: Patient Teaching Methods: Demonstration, Discussion Response to Teaching: Reinforcement Needed Discharge Recommendations Plan Patient will perform bed mobility and transfer training, balance and endurance training, functional strengthening, stair training, gait training, and education , to improve functional mobility and independence at home. Therapy D/C Recommendations: Home w/ Family Support Time/GCodes Time In: 1445 Time Out: 1500 Total Billed Treatment Time: 15 Total Billed Treatment 1 visit [facility] 15' MILKA BLACK PT March 14, 2018 15:07
[2018-03-14 16:00] VITALS: BP 135/60
--- NOTE | 2018-03-14 16:59 | Occupational Therapy Eval ---
OT Evaluation-General/PLF Medical Diagnosis Admission Date March 08, 2018 at 23:35 Medical Diagnosis: pancreatitis, dehydration Onset Date: March 08, 2018 Therapy Diagnosis Therapy Diagnosis: decr self care, weakness, decr funct mobility, decr act jatin Height/Weight Height (Feet): 5 Height (Inches): 7.00 Weight (Pounds): 139 Weight (Ounces): 2.0 Precautions Precautions/Isolations: Fall Prevention, Standard Precautions Safety Interventions: None Referral Physician: Daphney Stokes MD Referral Reason: Evaluation/Treatment Medical History Pertinent Medical History: Arthritis, Breast CA S/P Mastectomy, CAD, DM, GERD, HTN, Neuropathy Additional Medical History CTS approx 4 years ago and damaged nerves in R UE. It is non-functional. Breast cancer, mastectomy R side, 2005, with lymphedema. Cardiac stent. Chronic UTI. Chronic constipation. R humeral head fx 2017. Shingles. Glaucoma Current History Admitted with nausea and vomiting, UTI, dehydration. Identified mets to lungs. Reviewed History: Yes Social History Home: Single Level Current Living Status: Spouse Entry Into Home: Stairs With Railing Steps Into Home: 1 ADL-Prior Level of Function ADL PLOF Comments Pt reported that she has been previously able to manage her basic self care needs. her stands by her when she gets in/out of the bathtub and helps wash her R arm. 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 DME/Equipment: Bath Chair, Shower Hose Retail Specialist, Tub/Shower OT Current Status Subjective Pt seen inroom, up in bed, agreeable to OT. Pain reported 0/10 and no nausea Appearance Alert, cooperative Mental Status/Objective Attachments: Central Line Current Upper Extremity ROM R UE non functional L UE grossly WFL Upper Extremity Strength R UE not tested. L UE grossly 4/5 ADL-Treatment ADL-Current Pt reported that she was able to feed herself mashed potatoes and 'they are still down". She hasn't been up to toilet due to the nausea but said Morales was taken out this afternoon. She got up to EOB with min assist and stood with min assist with PT this afternoon and reported some dizziness - she did not walk. Pt has BSC in room Functional [place] Measure 0=Not Assessed/NA 4=Minimal Assistance 1=Total Assistance 5=Supervision or Setup 2=Maximal Assistance 6=Modified [place] 3=Moderate Assistance 7=Complete IndependenceIRFPAI Quality Coding Scale 6 Independent with activity with or without an assistive device 5 Patient requires set up or clean up by helper. Patient completes activity by themselves 4 Supervision or touching assist (CGA). [place] provide cues , steadying assist 3 The helper provides less than half the effort to complete the activity 2 The helper provides more than half the effort to complete the activity 1 Dependent. The helper does all the effort to complete an activity 7 Patient refused to complete or attempt activity 9 The patient did not perform the activity before the current illness or injury 88 Not attempted due to Medical conditions or safety concerns Education OT Patient Education: Purpose of tx/functional activities, Rehab process, Safety issues Teaching Recipient: Patient Teaching Methods: Discussion Response to Teaching: Verbalize Understanding OT Fpc Goals Boarder Hand Goals Time Frame: Mar 21, 2018 Grooming(FIM): 6 Upper Body Dressing(FIM): 5 Lower Body Dressing(FIM): 5 Toileting(FIM): 5 Toilet/Commode Transfer(FIM): 5 Shower Transfer(FIM): 5 Additional Goals: 1-Demonstrate ADL Tasks, 2-Verbalize Understanding, 3- ImproveStrength/Vincent 1=Demonstrate adherence to instructed precautions during ADL tasks. 2=Patient will verbalize/demonstrate understanding of assistive devices/ modifications for ADL. 3=Patient will improve strength/tolerance for activity to enable patient to perform ADL's. OT Education/Plan Problem List/Assessment Assessment: Decreased Activ Tolerance, Decreased UE Strength, Dependent Transfers, Impaired Self-Care Skills, Restricted Funct UE ROM Pt would benefit from skilled OT to increase her independence in basic self care Discharge Recommendations Plan/Recommendations: Continue POC Treatment Plan/Plan of Care Treatment,Training & Education: Yes Patient would benefit from OT for education, treatment and training to promote independence in ADL's, mobility, safety and/or upper extremity function for ADL' s. Plan of Care: ADL Retraining, Functional Mobility, UE Funct Exercise/Act, OTHER (aenergy conservation education) Treatment Duration: Mar 21, 2018 Frequency: 5 times per week Estimated Hrs Per Day: .25 hour per day (.25 to .5) Agreement: Yes Rehab Potential: Fair Time/GCodes Start Time: 15:35 Stop Time: 15:50 Total Time Billed (hr/min): 15 Billed Treatment Time visit, evaluation moderate intensity 15 minutes SONDRA RODRÍGUEZ OT March 14, 2018 16:59
[2018-03-15] VITALS: BP 129/58
[2018-03-15] MEDS: inSUlin ASPART (NovoLOG) 1 UNIT/0.01 ML (CHARGE PER UNIT) SC SCH ×2 (05:14→13:11)
[2018-03-15] MEDS: RT-ALBUTEROL SULF 2.5 MG/3 ML PRE-MIX VIAL INH SCH (07:25)
[2018-03-15 08:00] VITALS: BP 126/60
[2018-03-15] MEDS: DOCUSATE SODIUM 100 MG (COLACE) CAP PO SCH (08:31)
[2018-03-15] MEDS ORDERED: ONDA4TAB11 PO (09:52)
[2018-03-15] MEDS ORDERED: SCOP1PAT11 TOP (09:52)
[2018-03-15] MEDS ORDERED: HYDR-3812 PO (09:54)
--- NOTE | 2018-03-15 12:27 | Discharge Summary-Hospitalist ---
Diagnosis/Chief Complaint Date of Admission March 08, 2018 at 11:35 pm Date of Discharge Discharge Date: March 15, 2018 Admission Diagnosis Assessment: Acute pancreatitis Generalized abdominal pain Severe nausea and vomiting Widespread breast cancer metastasis to the lungs with abnormal lung exam Chronic debility Plan: Needs DNR Futility nnoted End stage process Needs Hospice Pain control in meantime along with anti-emetics Discharge Diagnosis (1) Intractable nausea and vomiting Status: Acute Assessment & Plan: Improved today Continue Scopolamine (2) Breast cancer metastasized to multiple sites Status: Acute Assessment & Plan: Follows with Dr Zee Palliative care consulted, appreciate assistance (3) Urinary tract infection Status: Acute Assessment & Plan: E coli on culture Uncomplicated cystitis Has completed 4 days of abx so will DC (4) Prophylactic measure Assessment & Plan: SCDs due to thrombocytopenia Reg diet as tolerated Saline lock Discharge Summary Procedures/Consulations Dr Zee Discharge Physical Exam Allergies: Coded Allergies: No Known Drug Allergies (Unverified , 04/07/16) Vitals & I&Os Vital Signs Date Time Temp Pulse Resp B/P (MAP) Pulse Ox O2 Delivery O2 Flow Rate FiO2 03/15/18 08:00 99.1 89 18 126/60 (82) 95 Room Air General Appearance: Alert, Oriented X3 Hospital Course Pt was admitted with intractable nausea and vomiting and acutely ill. She was stabilized throughout admission and symptoms improved. Given her severe disease with metastatic cancer she elected to discharge with hospice. She was discharged to home with comfort meds available. Labs (last 24 hrs) Laboratory Tests 03/14/18 15:35: Glucometer 147H 03/14/18 16:55: Glucometer 135H 03/14/18 20:58: Glucometer 121H 03/15/18 05:13: Glucometer 109 03/15/18 11:28: Glucometer 278H Microbiology 03/08/18 Blood Culture - Final, Complete No growth 03/08/18 Urine Culture - Final, Complete Escherichia coli Patient resulted labs reviewed. Pending Labs Laboratory Tests 03/15/18 05:13: Glucometer 109 03/15/18 11:28: Glucometer 278 Discussion & Recommendations Discharge Planning: >30 minutes discharge planning Discharge Home Medications: Active Scripts Active Hydrocodone-Acetamin 5-325 mg (Hydrocodone/Acetaminophen) 1 Each Tablet 1 Each PO Q6H Transderm-Scop (Scopolamine) 1 Each Patch.td72 1.5 Mg TOP Q72H Ondansetron Odt (Ondansetron) 4 Mg Tab.rapdis 4 Mg PO Q6H PRN Reported Aspirin 81 Mg Tab.chew 81 Mg PO DAILY Acetaminophen 500 Mg Tablet 1,000 Mg PO DAILY PRN TAKES 2 (500 MG) TABLETS / ALTERNATES WITH IBUPROFEN Ibuprofen 200 Mg Tablet 400 Mg PO DAILY PRN TAKES 2 (200MG) TABLETS / ALTERNATES WITH ACETAMINOPHEN Enalapril Maleate 10 Mg Tablet 10 Mg PO BID Omeprazole 40 Mg Capsule.dr 40 Mg PO DAILY Gabapentin 600 Mg Tablet 600 Mg PO BID Glimepiride 4 Mg Tablet 8 Mg PO DAILY TAKES 2 (4 MG) TABLETS Dulcolax Stool Softener (Docusate Sodium) 100 Mg Capsule 100 Mg PO DAILY Instructions to patient/family Please see electronic discharge instructions given to patient. Clinical Quality Measures DVT/VTE Risk/Contraindication: Risk Factor Score Per Nursin RFS Level Per Nursing on Admit: 3=High Problem Qualifiers (1) Intractable nausea and vomiting: Vomiting type: unspecified Qualified Codes: R11.2 - Nausea with vomiting, unspecified (2) Breast cancer metastasized to multiple sites: Laterality: unspecified laterality Qualified Codes: C50.919 - Malignant neoplasm of unspecified site of unspecified female breast (3) Urinary tract infection: Urinary tract infection type: acute cystitis Hematuria presence: without hematuria Qualified Codes: N30.00 - Acute cystitis without hematuria ZAFAR MORALES MD March 15, 2018 12:27 pm
--- NOTE | 2018-03-15 15:15 | Physical Therapy Progress Note ---
Therapy Progress Note RESOURCE SPECIALIST TEACHER attempted to see pt in afternoon, pt declined due to fatigue and stated she was discharging today. Per Nurse, pt is awaiting discharge from Dr Zee. 1 visit, no tx rendered ALBARO HER PTA March 15, 2018 15:15
[2018-03-15 16:41] VITALS: BP 126/60
--- NOTE | 2018-03-16 09:27 | Physician Query Clarification ---
PQ-Further Specificity Admission/Discharge Admission Date: March 08, 2018 at 23:35 Discharge Date: March 15, 2018 at 16:44 The medical record reflects the following clinical scenario: History/Risk Factors: Metastatic lung CA, UTI, dehydration Clinical Findings: intractable nausea an vomiting, multiple lesions in bilateral lungs Treatment: IV Phenergan, IV Fluids, IV Rocephin Question: Can you further specify the underlying cause of the intractable nausea and vomiting per the clinical indicators above? Please document below. 1. metastatic lung cancer 2. intractable nausea and vomiting underlying cause undetermined 3. Other, with explanation of the clinical findings. 4. Clinically undetermined, no explanation for the clinical findings. PHYSICIAN RESPONSE Can you specify per above: 2 In responding to this query, please exercise your independent professional judgment. The purpose of this communication is to more accurately reflect the complexity of your patients condition. The fact that a question is asked does not imply that any particular answer is desired or expected. Thank you for your timely response to this clarification. Requestors name: Jolanta THIS PHYSICIAN QUERY FORM IS A PERMANENT PART OF THE MEDICAL RECORD JOLANTA YEN Mar 16, 2018 09:27 ZAFAR MORALES MD Mar 16, 2018 14:01
[2018-03-16] MEDS ORDERED: SCOPOLAMINE PATCH REMOVAL TP SCH (12:59)
[2018-04-02] MEDS ORDERED: LINE600T7 PO (11:33)
== END 2018-03-15 16:44 | disposition hospice, home (50) | DRG 982 ==
LOC: EDUNIT# 20:34 → ER 20:35 → 4TH 23:35
PROVIDERS: ADMIT Internal Medicine; ATTEND Internal Medicine
PROC: 0JDJ0ZZ Extraction of Right Hand Subcutaneous Tissue and Fascia, Open Approach (ICD-10-PCS; principal; 2018-03-08)
DX: R11.2 Nausea with vomiting, unspecified (principal); C78.01 Secondary malignant neoplasm of right lung; C78.02 Secondary malignant neoplasm of left lung; N30.00 Acute cystitis without hematuria; T23.361A Burn of third degree of back of right hand, initial encounter; E86.0 Dehydration; I25.10 Atherosclerotic heart disease of native coronary artery without angina pectoris; K21.9 Gastro-esophageal reflux disease without esophagitis; E11.622 Type 2 diabetes mellitus with other skin ulcer; I34.0 Nonrheumatic mitral (valve) insufficiency; I37.1 Nonrheumatic pulmonary valve insufficiency; Z95.5 Presence of coronary angioplasty implant and graft; Z85.3 Personal history of malignant neoplasm of breast; I97.2 Postmastectomy lymphedema syndrome; Z79.4 Long term (current) use of insulin; X58.XXXA Exposure to other specified factors, initial encounter
CPT/HCPCS: 36415; 51702; 71045; 74177; 80048; 80053; 81000; 82962; 83605; 83690; 83735; 84484; 85007; 85025; 85027; 85610; 85730; 87040; 87077; 87088; 87186; 93005; 94640; 94760; 96361; 96365; 96375

== ENCOUNTER → 2018-03-08 | Outpatient (CLI) | payer MEDICARE, MEDICAID ==
[~2018-03-08] MED LIST changes: +ASPI-999 PO; +HYDR-3812 PO; +LINE600T7 PO; +ONDA4TAB11 PO; +SCOP1PAT11 TOP; +SORB1SOL2 MC
== END ==
LOC: WOUNDCARE 13:35
PROVIDERS: ATTEND Internal Medicine
DX: T23.361A Burn of third degree of back of right hand, initial encounter (principal); I97.2 Postmastectomy lymphedema syndrome; E11.622 Type 2 diabetes mellitus with other skin ulcer; X58.XXXA Exposure to other specified factors, initial encounter
CPT/HCPCS: 11042

== ENCOUNTER → 2018-03-19 | Outpatient (CLI) | payer MEDICARE, MEDICAID ==
[~2018-03-19] MED LIST changes: +ASPI-999 PO; +HYDR-3812 PO; +LINE600T7 PO; +ONDA4TAB11 PO; +SCOP1PAT11 TOP; +SORB1SOL2 MC
== END ==
LOC: PREOP 05:39
PROVIDERS: ATTEND Surgery
DX: Z01.818 Encounter for other preprocedural examination (principal); R22.9 Localized swelling, mass and lump, unspecified

== ENCOUNTER → 2018-03-20 | Outpatient (CLI) | payer OTHER ==
[2018-03-20 13:33] LABS: BASOPHILS % (AUTO) 0 % (0-10); EOSINOPHILS # (AUTO) 0.2 10^3/uL (0.0-0.3); EOSINOPHILS % (AUTO) 2 % (0-10); HEMATOCRIT 33 % (35-52); HEMOGLOBIN 10.9 G/DL (11.5-16.0); LYMPHOCYTES # (AUTO) 0.8 X 10^3 (1.0-4.0); LYMPHOCYTES % (AUTO) 7 % (12-44); MEAN CORPUSCULAR HEMOGLOBIN 30 PG (25-34); MEAN CORPUSCULAR HGB CONC 33 G/DL (32-36); MEAN CORPUSCULAR VOLUME 91 FL (80-99); MEAN PLATELET VOLUME 9.6 FL (7.4-10.4); MONOCYTES # (AUTO) 0.6 X 10^3 (0.0-1.0); MONOCYTES % (AUTO) 5 % (0-12); NEUTROPHILS # (AUTO) 10.8 X 10^3 (1.8-7.8); NEUTROPHILS % (AUTO) 87 % (42-75); PLATELET COUNT 201 10^3/uL (130-400); RED CELL DISTRIBUTION WIDTH 14.9 % (10.0-14.5); WHITE BLOOD COUNT 12.4 10^3/uL (4.3-11.0)
[2018-03-20 13:53] LABS: ALANINE AMINOTRANSFERASE 14 U/L (0-55); ALBUMIN 3.6 GM/DL (3.2-4.5); ALKALINE PHOSPHATASE 121 U/L (40-136); BILIRUBIN,TOTAL 0.8 MG/DL (0.1-1.0); BUN/CREATININE RATIO 16; CALCIUM 9.5 MG/DL (8.5-10.1); CARBON DIOXIDE 24 MMOL/L (21-32); CHLORIDE 102 MMOL/L (98-107); CREATININE SERUM 0.77 MG/DL (0.60-1.30); GFR ESTIMATED > 60; GLUCOSE 277 MG/DL (70-105); POTASSIUM 4.1 MMOL/L (3.6-5.0); SODIUM 136 MMOL/L (135-145); TOTAL PROTEIN 7.3 GM/DL (6.4-8.2)
== END ==
LOC: ONC 01:45
PROVIDERS: ATTEND Internal Medicine Hematology & Oncology
DX: C50.911 Malignant neoplasm of unspecified site of right female breast (principal); C78.01 Secondary malignant neoplasm of right lung; C78.02 Secondary malignant neoplasm of left lung; Z92.21 Personal history of antineoplastic chemotherapy; Z17.1 Estrogen receptor negative status [ER-]; C77.3 Secondary and unspecified malignant neoplasm of axilla and upper limb lymph nodes; C77.0 Secondary and unspecified malignant neoplasm of lymph nodes of head, face and neck; E55.9 Vitamin D deficiency, unspecified; E11.22 Type 2 diabetes mellitus with diabetic chronic kidney disease; N18.3 Chronic kidney disease, stage 3 (moderate); E78.5 Hyperlipidemia, unspecified; M85.80 Other specified disorders of bone density and structure, unspecified site; Z79.899 Other long term (current) drug therapy; Z90.11 Acquired absence of right breast and nipple
CPT/HCPCS: 80053; 85025; 99213

== ENCOUNTER 2018-03-30 18:26 | Inpatient (IN) | payer MEDICARE, MEDICAID, OTHER ==
[~2018-03-30] VITALS: Ht 172.7 cm; Wt 57.6 kg
[~2018-03-30 18:26] MED LIST changes: -LINE600T7 PO; -SORB1SOL2 MC
[2018-03-30] MEDS ORDERED: ONDANSETRON 4 MG/2 ML (SDV) Z0FRAN IVP ONE (18:45)
[2018-03-30 18:49] LABS: BASOPHILS % (AUTO) 0 % (0-10); EOSINOPHILS # (AUTO) 0.1 10^3/uL (0.0-0.3); EOSINOPHILS % (AUTO) 1 % (0-10); HEMATOCRIT 37 % (35-52); HEMOGLOBIN 12.5 G/DL (11.5-16.0); LYMPHOCYTES # (AUTO) 0.8 X 10^3 (1.0-4.0); LYMPHOCYTES % (AUTO) 8 % (12-44); MEAN CORPUSCULAR HEMOGLOBIN 30 PG (25-34); MEAN CORPUSCULAR HGB CONC 34 G/DL (32-36); MEAN CORPUSCULAR VOLUME 88 FL (80-99); MONOCYTES # (AUTO) 0.6 X 10^3 (0.0-1.0); MONOCYTES % (AUTO) 7 % (0-12); NEUTROPHILS # (AUTO) 7.9 X 10^3 (1.8-7.8); NEUTROPHILS % (AUTO) 84 % (42-75); PLATELET COUNT 205 10^3/uL (130-400); RED BLOOD COUNT 4.15 10^6/uL (4.35-5.85); RED CELL DISTRIBUTION WIDTH 15.1 % (10.0-14.5); WHITE BLOOD COUNT 9.4 10^3/uL (4.3-11.0)
[2018-03-30 19:01] LABS: ALANINE AMINOTRANSFERASE 14 U/L (0-55); ALBUMIN 3.5 GM/DL (3.2-4.5); ALKALINE PHOSPHATASE 98 U/L (40-136); BILIRUBIN,TOTAL 1.5 MG/DL (0.1-1.0); BUN/CREATININE RATIO 26; CALCIUM 9.3 MG/DL (8.5-10.1); CARBON DIOXIDE 24 MMOL/L (21-32); CHLORIDE 99 MMOL/L (98-107); CREATININE SERUM 0.69 MG/DL (0.60-1.30); GFR ESTIMATED > 60; GLUCOSE 163 MG/DL (70-105); MAGNESIUM 1.6 MG/DL (1.8-2.4); POTASSIUM 3.2 MMOL/L (3.6-5.0); SODIUM 137 MMOL/L (135-145); TOTAL PROTEIN 6.6 GM/DL (6.4-8.2)
[2018-03-30 19:57] LABS: BILIRUBIN,URINE 2+ (NEGATIVE); CLARITY,URINE SLIGHTLY CLOUDY; COLOR,URINE AMBER; GLUCOSE, URINE (UA) NEGATIVE (NEGATIVE); KETONES,URINE 4+ (NEGATIVE); LEUKOCYTE ESTERASE ,URINE 3+ (NEGATIVE); NITRITE,URINE POSITIVE (NEGATIVE); PH,URINE 6 (5-9); PROTEIN,URINE 2+ (NEGATIVE); UROBILINOGEN,URINE 12 MG/DL (NORMAL)
[2018-03-30] MEDS ORDERED: PROMETHAZINE INJ 25 MG/ML (PHENERGAN) AMP IVP ONE (20:00)
[2018-03-30 20:05] LABS: BACTERIA,URINE MODERATE /HPF; RBC,URINE 0-2 /HPF; SQUAMOUS EPITHELIAL CELL,UR >50 /HPF; WBC,URINE >100 /HPF; YEAST,URINE MODERATE /HPF
[2018-03-30] MEDS ORDERED: LACTATED RINGERS 1,000 ML IV ONE (20:11)
[2018-03-30] MEDS ORDERED: cefTRIAXone INJECTION 1,000 MG in NS (IVPB) 50 ML IV ONE (20:15)
--- NOTE | 2018-03-30 20:58 | ED GI ---
General Chief Complaint: Abdominal/GI Problems Stated Complaint: N/V Nursing Triage Note: pt presents to ed via ems with n/v x 7 days after aggressive chemo 6 weeks ago. Sepsis Screen: No Definite Risk Source of Information: Patient Exam Limitations: No Limitations History of Present Illness Date Seen by Provider: Mar 30, 2018 Time Seen by Provider: 18:33 Initial Comments This 77-year-old woman presents to the emergency room with complaints of nausea and vomiting for about one week. She has metastatic breast cancer and last underwent chemotherapy about 6 weeks ago. She tried Zofran at home which was not helpful. She denies any constipation or diarrhea. She is afebrile. Last bowel movement was this morning and was normal. She reports being too weak today to ambulate. Allergies and Home Medications Allergies Coded Allergies: No Known Drug Allergies (Unverified , 04/07/16) Home Medications Acetaminophen 500 Mg Tablet, 1,000 MG PO DAILY PRN for PAIN-MILD, (Reported) TAKES 2 (500 MG) TABLETS / ALTERNATES WITH IBUPROFEN Docusate Sodium 100 Mg Capsule, 100 MG PO DAILY, (Reported) Gabapentin 600 Mg Tablet, 600 MG PO BID, (Reported) Hydrocodone/Acetaminophen 1 Each Tablet, 1 EACH PO Q6H Prescribed by: ZAFAR STOKES on 03/15/18953 Ibuprofen 200 Mg Tablet, 400 MG PO DAILY PRN for PAIN-MILD, (Reported) TAKES 2 (200MG) TABLETS / ALTERNATES WITH ACETAMINOPHEN Omeprazole 40 Mg Capsule.dr, 40 MG PO DAILY, (Reported) Ondansetron 4 Mg Tab.rapdis, 4 MG PO Q6H PRN for NAUSEA/VOMITING-1ST LINE Prescribed by: ZAFAR STOKES on 03/15/18951 Scopolamine 1 Each Patch.td72, 1.5 MG TOP Q72H Prescribed by: ZAFAR STOKES on 03/15/18951 Patient Home Medication List Home Medication List Reviewed: Yes Review of Systems Constitutional: see HPI EENTM: No Symptoms Reported Respiratory: No Symptoms Reported Cardiovascular: No Symptoms Reported Gastrointestinal: See HPI Genitourinary: No Symptoms Reported Musculoskeletal: no symptoms reported Skin: no symptoms reported Psychiatric/Neurological: No Symptoms Reported Endocrine: No Symptoms Reported Hematologic/Lymphatic: See HPI Past Uqakqvd-Nbjgww-Jhkwqq Hx Past Med/Social Hx: Reviewed Nursing Past Med/Soc Hx Patient Social History Alcohol Use: Denies Use Recreational Drug Use: No Smoking Status: Never a Smoker Recent Foreign Travel: No Contact w/Someone Who Travel: No Recent Infectious Disease Expo: No Recent Hopitalizations: No Physical Abuse: No Sexual Abuse: No Mistreated: No Fear: No Immunizations Up To Date Tetanus Booster (TDap): Unknown Date of Pneumonia Vaccine: Oct 15, 2013 Seasonal Allergies Seasonal Allergies: No Past Medical History Surgeries: Yes (PORT PLACEMENT, CARPAL TUNNEL RT SIDE) Breast, Orthopedic, Tonsillectomy Respiratory: No Currently Using CPAP: No Currently Using BIPAP: No Cardiac: Yes (Heart stent x1) Hypertension Neurological: No Reproductive Disorders: No Female Reproductive Disorders: Denies Sexually Transmitted Disease: No HIV/AIDS: No Genitourinary: No UTI-Chronic Gastrointestinal: Yes Gastroesophageal Reflux, Chronic Constipation Musculoskeletal: Yes (right humeral neck fracture March 2017) Arthritis, Fractures Endocrine: Yes (Type 2 Diabetic) Diabetes, Non-Insulin dep HEENT: Yes Glaucoma Loss of Vision: Denies Hearing Impairment: Denies Cancer: Yes (LYMPH NODES, RIGHT BREAST with mets) Breast Did You Recieve Any Treatments: Yes What Type of Treatment Did You: Chemotherapy, Radiation, Surgical Intervention Psychosocial: No Nursing Suicide Risk Score: 0 Integumentary: Yes (Patient states she had shingles a few years prior.) Blood Disorders: No Adverse Reaction/Blood Tranf: No Family Medical History Reviewed Nursing Family Hx Alzheimer's disease 19 MOTHER Arthritis 19 MOTHER Cardiovascular disease 19 MOTHER Completed stroke Grandmother FH: breast cancer Grandmother FH: multiple sclerosis 19 FATHER FHx: multiple sclerosis Myocardial infarction 19 MOTHER G8 BROTHER Cancer, CVA, Psychiatric Problems Physical Exam Vital Signs Vital Signs - First Documented 03/30/18 18:40 Temp 97.9 Pulse 78 Resp 20 B/P (MAP) 170/62 (98) Pulse Ox 97 Capillary Refill : Less Than 3 Seconds General Appearance: WD/WN, no apparent distress, thin HEENT: PERRL/EOMI, other (Oropharynx somewhat dry) Neck: normal inspection Respiratory: lungs clear, normal breath sounds, no respiratory distress, no accessory muscle use Cardiovascular: no edema, no murmur, tachycardia Gastrointestinal: normal bowel sounds, non tender, soft Extremities: normal inspection, no pedal edema Neurologic/Psychiatric: educational advisor II-XII nml as tested, no motor/sensory deficits, alert, normal mood/affect, oriented x 3 Skin: normal color, warm/dry Progress/Results/Core Measures Results/Orders Lab Results Laboratory Tests Test 03/30/18 18:35 03/30/18 19:48 Range/Units White Blood Count 9.4 4.3-11.0 10^3/uL Red Blood Count 4.15 L 4.35-5.85 10^6/uL Hemoglobin 12.5 11.5-16.0 G/DL Hematocrit 37 35-52 % Mean Corpuscular Volume 88 80-99 FL Mean Corpuscular Hemoglobin 30 25-34 PG Mean Corpuscular Hemoglobin Concent 34 32-36 G/DL Red Cell Distribution Width 15.1 H 10.0-14.5 % Platelet Count 205 130-400 10^3/uL Mean Platelet Volume 10.0 7.4-10.4 FL Neutrophils (%) (Auto) 84 H 42-75 % Lymphocytes (%) (Auto) 8 L 12-44 % Monocytes (%) (Auto) 7 0-12 % Eosinophils (%) (Auto) 1 0-10 % Basophils (%) (Auto) 0 0-10 % Neutrophils # (Auto) 7.9 H 1.8-7.8 X 10^3 Lymphocytes # (Auto) 0.8 L 1.0-4.0 X 10^3 Monocytes # (Auto) 0.6 0.0-1.0 X 10^3 Eosinophils # (Auto) 0.1 0.0-0.3 10^3/uL Basophils # (Auto) 0.0 0.0-0.1 10^3/uL Sodium Level 137 135-145 MMOL/L Potassium Level 3.2 L 3.6-5.0 MMOL/L Chloride Level 99 98-107 MMOL/L Carbon Dioxide Level 24 21-32 MMOL/L Anion Gap 14 5-14 MMOL/L Blood Urea Nitrogen 18 7-18 MG/DL Creatinine 0.69 0.60-1.30 MG/DL Estimat Glomerular Filtration Rate > 60 BUN/Creatinine Ratio 26 Glucose Level 163 H 70-105 MG/DL Calcium Level 9.3 8.5-10.1 MG/DL Magnesium Level 1.6 L 1.8-2.4 MG/DL Total Bilirubin 1.5 H 0.1-1.0 MG/DL Aspartate Amino Transf (AST/SGOT) 22 5-34 U/L Alanine Aminotransferase (ALT/SGPT) 14 0-55 U/L Alkaline Phosphatase 98 40-136 U/L Total Protein 6.6 6.4-8.2 GM/DL Albumin 3.5 3.2-4.5 GM/DL Urine Color MK H Urine Clarity SLIGHTLY CLOUDY Urine pH 6 5-9 Urine Specific [place] 1.025 H 1.016-1.022 Urine Protein 2+ H NEGATIVE Urine Glucose (UA) NEGATIVE NEGATIVE Urine Ketones 4+ H NEGATIVE Urine Nitrite POSITIVE H NEGATIVE Urine Bilirubin 2+ H NEGATIVE Urine Urobilinogen 12 H NORMAL MG/DL Urine Leukocyte Esterase 3+ H NEGATIVE Urine RBC (Auto) 1+ H NEGATIVE Urine RBC 0-2 /HPF Urine WBC >100 H /HPF Urine Squamous Epithelial Cells >50 H /HPF Urine Crystals NONE /LPF Urine Bacteria MODERATE H /HPF Urine Casts NONE /LPF Urine Mucus NEGATIVE /LPF Urine Yeast MODERATE H /HPF Urine Culture Indicated YES My Orders Orders - SALTY TOVAR MD Ondansetron Injection (Zofran Injectio (03/30/18 18:45) Cbc With Automated Diff (03/30/18 18:43) Comprehensive Metabolic Panel (03/30/18 18:43) Magnesium (03/30/18 18:43) Ua Culture If Indicated (03/30/18 18:43) Promethazine Injection (Phenergan Injec (03/30/18 20:00) Urine Culture (03/30/18 19:48) Ceftriaxone Injection (Rocephin Injectio (03/30/18 20:15) Saline Lock/Iv-Start (03/30/18 20:11) Lactated Ringers (Lr 1000 Ml Iv Solution (03/30/18 20:11) Medications Given in ED Current Medications Medications Dose Ordered Sig/Alex Route Start Time Stop Time Status Last Admin Dose Admin Ceftriaxone Sodium 1000 mg/ Sodium Chloride 50 ml @ 100 mls/hr ONCE ONCE IV 03/30/18 20:15 03/30/18 20:44 DC 03/30/18 21:06 100 MLS/HR Lactated Ringer's 1,000 ml @ 0 mls/hr Q0M ONCE IV 03/30/18 20:11 03/30/18 20:12 DC 03/30/18 20:33 1,000 MLS/HR Promethazine HCl 12.5 mg ONCE ONCE IVP 03/30/18 20:00 03/30/18 20:01 DC 03/30/18 20:02 12.5 MG Vital Signs/I&O 03/30/18 18:40 Temp 97.9 Pulse 78 Resp 20 B/P (MAP) 170/62 (98) Pulse Ox 97 03/31/18 00:00 Intake Total 500 ml Balance 500 ml Blood Pressure Mean: 98 Progress Progress Note : Progress Note Patient was treated with Zofran 8 mg IV but had refractory nausea and vomiting. Phenergan 12 mg IV was then given. She was hydrated with IV fluids. Urinary tract infection was identified on UA. Rocephin was initiated. Case was discussed with Dr. Stokes. During discussion it was revealed that patient was actually discharged from her last visit on hospice service. However, patient states she revoked her hospice status about a week ago. Patient wishes to have aggressive care and wishes to remain a full cardiac code at this time. She does not want to be intubated. Departure Communication (Admissions) Time/Spoke to Admitting Phy: 20:45 Dr. Stokes Impression Primary Impression: UTI (urinary tract infection) Qualified Codes: N39.0 - Urinary tract infection, site not specified Additional Impressions: Nausea and vomiting Qualified Codes: R11.2 - Nausea with vomiting, unspecified Hypokalemia Metastatic breast cancer Disposition: ADMITTED INPATIENT Condition: Improved Admissions Decision to Admit Reason: Admit from ER (General) Decision to Admit/Date: Mar 30, 2018 Time/Decision to Admit Time: 20:30 Departure-Patient Inst. Referrals: MACY JOHANSEN MD (PCP/Family) Primary Care Physician SALTY TOVAR MD Mar 30, 2018 20:58
[2018-03-30 21:40] VITALS: BP 182/74
[2018-03-30] MEDS: FAMOTIDINE 20 MG (PEPCID) TABLET PO SCH (22:08)
[2018-03-30] MEDS: NS W/KCL 40 MEQ/L 1,000 ML IV SCH (22:08)
[2018-03-30 22:20] VITALS: BP 180/71
[2018-03-30] MEDS ORDERED: NITROGLYCERIN 2% OINT 1 GM UNIT DOSE PACKET TOP PRN (22:45)
[2018-03-31 00:28] VITALS: BP 142/84
[2018-03-31 04:28] VITALS: BP 165/69
[2018-03-31 04:40] LABS: BASOPHILS % (AUTO) 0 % (0-10); EOSINOPHILS # (AUTO) 0.1 10^3/uL (0.0-0.3); EOSINOPHILS % (AUTO) 1 % (0-10); HEMATOCRIT 32 % (35-52); HEMOGLOBIN 11.2 G/DL (11.5-16.0); LYMPHOCYTES # (AUTO) 0.7 X 10^3 (1.0-4.0); LYMPHOCYTES % (AUTO) 6 % (12-44); MEAN CORPUSCULAR HEMOGLOBIN 31 PG (25-34); MEAN CORPUSCULAR HGB CONC 35 G/DL (32-36); MEAN CORPUSCULAR VOLUME 89 FL (80-99); MEAN PLATELET VOLUME 10.4 FL (7.4-10.4); MONOCYTES # (AUTO) 0.6 X 10^3 (0.0-1.0); MONOCYTES % (AUTO) 5 % (0-12); NEUTROPHILS % (AUTO) 89 % (42-75); PLATELET COUNT 142 10^3/uL (130-400); RED CELL DISTRIBUTION WIDTH 14.9 % (10.0-14.5); WHITE BLOOD COUNT 12.4 10^3/uL (4.3-11.0)
[2018-03-31 04:57] LABS: BUN/CREATININE RATIO 23; CALCIUM 8.6 MG/DL (8.5-10.1); CARBON DIOXIDE 19 MMOL/L (21-32); CHLORIDE 105 MMOL/L (98-107); CREATININE SERUM 0.64 MG/DL (0.60-1.30); GFR ESTIMATED > 60; GLUCOSE 146 MG/DL (70-105); POTASSIUM 3.8 MMOL/L (3.6-5.0); SODIUM 139 MMOL/L (135-145)
[2018-03-31] MEDS: ONDANSETRON 4 MG/2 ML (SDV) Z0FRAN IV PRN (05:13)
[2018-03-31] MEDS: NS W/KCL 40 MEQ/L 1,000 ML IV SCH ×3 (05:13→23:22)
[2018-03-31 08:00] VITALS: BP 150/65
--- NOTE | 2018-03-31 08:40 | History & Physical-Hospitalist ---
History of Present Illness HPI/Chief Complaint Pt is a 77yoCF with a PMH of metastatic breast cancer known to me from recent admission who returned to the hospital due to weakness, nausea, and vomiting. She states that her symptoms started 4 days ago after revoking hospice a few days before. She states she revoked hospice because she was told by the oncology [employer] that they wouldn't treat her for anything (even nausea) anymore. Shortly afterwards she developed severe nausea and vomiting and tried to take her home medications which helped at first but ultimately she got worse prompting her to seek evaluation in the ER. She was unable to walk she was so weak. She states she has not been able to keep anything solid down. She is having BMs still though. Her last BM was yesterday. She has previously used scopolamine patches with good relief. Source: patient Date Seen 03/31/18 Time Seen by Provider: 08:40 Attending Physician Zafar Stokes MD PCP Walter Carvalho MD Referring Physician Date of Admission Mar 30, 2018 at 20:53 Home Medications & Allergies Home Medications Reviewed patient Home Medication Reconciliation performed by pharmacy medication reconciliations sleep technician and/or nursing. Patients Allergies have been reviewed. Allergies Allergies Coded Allergies No Known Drug Allergies (Unverified04/07/16) Past Irjvijp-Yonloa-Idhnol Hx Past Med/Social Hx: Reviewed Nursing Past Med/Soc Hx Patient Social History Marrital Status: Alcohol Use: Denies Use Number of Drinks Today: AA Recreational Drug Use: No Smoking Status: Never a Smoker Physical Abuse Screen: No Sexual Abuse: No Recent Foreign Travel: No Contact w/other who traveled: No Recent Hopitalizations: No Recent Infectious Disease Expo: No Immunizations Up To Date Tetanus Booster (TDap): Unknown Date of Pneumonia Vaccine: Oct 15, 2013 Seasonal Allergies Seasonal Allergies: No Past Medical History Surgeries: Breast, Orthopedic, Tonsillectomy Currently Using CPAP: No Currently Using BIPAP: No Cardiac: Hypertension Reproductive: No Sexually Transmitted Disease: No HIV/AIDS: No Female Reproductive Disorders: Denies Genitourinary: UTI-Chronic Gastrointestinal: Gastroesophageal Reflux, Chronic Constipation Musculoskeletal: Arthritis, Fractures Endocrine: Diabetes, Non-Insulin dep HEENT: Glaucoma Loss of Vision: Denies Hearing Impairment: Denies Cancer: Breast Did You Recieve Any Treatments: Yes What Type of Treatment Did You: Chemotherapy, Radiation, Surgical Intervention History of Blood Disorders: No Adverse Reaction to Blood Cervantes: No Family History Reviewed Nursing Family Hx Alzheimer's disease 19 MOTHER Arthritis 19 MOTHER Cardiovascular disease 19 MOTHER Completed stroke Grandmother FH: breast cancer Grandmother FH: multiple sclerosis 19 FATHER FHx: multiple sclerosis Myocardial infarction 19 MOTHER G8 BROTHER Cancer, CVA, Psychiatric Problems Review of Systems Constitutional: No chills, No fever; weakness EENTM: No blurred vision, No double vision, No nose congestion, No throat pain Respiratory: No cough, No dyspnea on exertion, No short of breath Cardiovascular: No chest pain, No edema, No palpitations Gastrointestinal: No abdominal pain, No constipation, No diarrhea, No loss of appetite; nausea, vomiting Genitourinary: No discharge, No dysuria, No frequency Musculoskeletal: No joint pain, No muscle pain Skin: No lesions, No rash Psychiatric/Neurological: Denies Headache, Denies Numbness, Denies Tingling Physical Exam Physical Exam Vital Signs Vital Signs - First Documented 03/30/18 03/30/18 18:40 21:12 Temp 97.9 Pulse 78 Resp 20 B/P (MAP) 170/62 (98) Pulse Ox 97 O2 Delivery Room Air Capillary Refill : Less Than 3 Seconds General Appearance: No Apparent Distress, Chronically ill, Thin HEENT: Pharynx Normal, Moist Mucous Membranes; No Scleral Icterus (L), No Scleral Icterus (R) Neck: Normal Inspection, Supple; No JVD, No Thyromegaly Respiratory: Lungs Clear, No Respiratory Distress Cardiovascular: Regular Rate, Rhythm, No Murmur Gastrointestinal: Normal Bowel Sounds, Non Tender, Soft Extremity: No Calf Tenderness, No Pedal Edema, Other (right arm edema) Neurologic/Psychiatric: Alert, Oriented x3, Normal Mood/Affect, Other (right arm weakness) Skin: Pallor Results Results/Procedures Labs Laboratory Tests 03/30/18 18:35 03/31/18 04:24 Patient resulted labs reviewed. Assessment/Plan Admission Diagnosis Intractable nausea and vomiting Admission Status: Inpatient Order (span 2 midnights) Reason for Inpatient Admission: failed outpatient meds, needs IVF Diagnosis/Problems Diagnosis/Problems (1) Intractable nausea and vomiting Status: Acute Assessment & Plan: Continue on Zofran and Phenergan Will add Scopolamine patch as well continue IVF Qualifiers: Vomiting type: unspecified Qualified Codes: R11.2 - Nausea with vomiting, unspecified (2) Hypokalemia Status: Resolved Assessment & Plan: Replacing in IVF Trend (3) Breast cancer metastasized to multiple sites Status: Acute Assessment & Plan: had previously discharged to hospice on this diagnosis Would benefit from hospice again at discharge Will consult Palliative Care, appreciate assistance Qualifiers: Laterality: unspecified laterality Qualified Codes: C50.919 - Malignant neoplasm of unspecified site of unspecified female breast (4) Counseling regarding end of life decision making Assessment & Plan: Discussed code status with patient Had previously been a DNR then last night told Dr Pisano that she would like compressions only and not attempt at ventilation Discussed with her again today and she stated she wouldn't want "anything that could crack her ribs or a breathing machine" Discussed her grim prognosis if she were to suffer from a cardiac or respiratory arrest and gave my medical recommendation that she be allowed to naturally should she suffer that as performing CPR would very likely be futile She agreed that she would not want CPR or intubation and elected to be DNR- code status changed Will continue discussion regarding goals of care through this admission I have attempted to call [facility] hospice as well to discuss details regarding revocation of hospice (5) Asymptomatic bacteriuria Status: Acute Assessment & Plan: UA consistent with contamination Await cx Received Rocephin last night Continue for 2 more doses only unless cx negative before that Not sepsis (6) Prophylactic measure Assessment & Plan: IVF Lovenox Reg diet Clinical Quality Measures DVT/VTE Risk/Contraindication: Risk Factor Score Per Nursin RFS Level Per Nursing on Admit: 3=High ZAFAR STOKES MD Mar 31, 2018 08:40
[2018-03-31] MEDS: FAMOTIDINE 20 MG (PEPCID) TABLET PO SCH ×2 (08:50→20:36)
[2018-03-31] MEDS: SCOPOLAMINE 1.5 MG (TRANSDERM-SCOP) PATCH TOP SCH (09:40)
[2018-03-31] MEDS: ENOXAPARIN 40 MG/0.4 ML (LOVENOX) SYR SC SCH (09:47)
[2018-03-31 13:00] VITALS: BP 163/81
[2018-03-31 15:47] VITALS: BP 130/67
[2018-03-31] MEDS: cefTRIAXone 1 GM/NS 50 ML IVPB IV SCH ×2 (19:38)
[2018-03-31] MEDS ORDERED: ACETAMINOPHEN 325 MG TABLET PO PRN (20:15)
[2018-03-31 20:29] VITALS: BP 134/67
[2018-04-01] VITALS (7 sets, daily range): BP systolic 115–165; BP diastolic 54–85
[2018-04-01] MEDS: ONDANSETRON 4 MG/2 ML (SDV) Z0FRAN IV PRN ×4 (00:03→20:40)
[2018-04-01 06:13] LABS: BASOPHILS % (AUTO) 1 % (0-10); EOSINOPHILS # (AUTO) 0.5 10^3/uL (0.0-0.3); EOSINOPHILS % (AUTO) 9 % (0-10); HEMATOCRIT 35 % (35-52); HEMOGLOBIN 11.8 G/DL (11.5-16.0); LYMPHOCYTES # (AUTO) 0.6 X 10^3 (1.0-4.0); LYMPHOCYTES % (AUTO) 11 % (12-44); MEAN CORPUSCULAR HEMOGLOBIN 30 PG (25-34); MEAN CORPUSCULAR HGB CONC 34 G/DL (32-36); MEAN CORPUSCULAR VOLUME 90 FL (80-99); MEAN PLATELET VOLUME 10.3 FL (7.4-10.4); MONOCYTES # (AUTO) 0.5 X 10^3 (0.0-1.0); MONOCYTES % (AUTO) 9 % (0-12); NEUTROPHILS % (AUTO) 70 % (42-75); PLATELET COUNT 118 10^3/uL (130-400); RED BLOOD COUNT 3.92 10^6/uL (4.35-5.85); RED CELL DISTRIBUTION WIDTH 15.2 % (10.0-14.5); WHITE BLOOD COUNT 5.7 10^3/uL (4.3-11.0)
[2018-04-01 06:29] LABS: BUN/CREATININE RATIO 10; CALCIUM 9.2 MG/DL (8.5-10.1); CARBON DIOXIDE 23 MMOL/L (21-32); CHLORIDE 105 MMOL/L (98-107); CREATININE SERUM 0.61 MG/DL (0.60-1.30); GFR ESTIMATED > 60; GLUCOSE 154 MG/DL (70-105); POTASSIUM 4.4 MMOL/L (3.6-5.0); SODIUM 137 MMOL/L (135-145)
[2018-04-01] MEDS: NS W/KCL 40 MEQ/L 1,000 ML IV SCH ×2 (08:15→17:48)
[2018-04-01] MEDS: FAMOTIDINE 20 MG (PEPCID) TABLET PO SCH ×2 (08:15→20:40)
[2018-04-01] MEDS: ENOXAPARIN 40 MG/0.4 ML (LOVENOX) SYR SC SCH (08:16)
[2018-04-01] MEDS: PROMETHAZINE INJ 25 MG/ML (PHENERGAN) AMP IV PRN ×2 (10:34→17:37)
--- NOTE | 2018-04-01 11:03 | Progress Note-Hospitalist ---
Subjective HPI/CC On Admission Date Seen by Provider: Apr 01, 2018 Time Seen by Provider: 10:57 Pt is a 77yoCF with a PMH of metastatic breast cancer known to me from recent admission who returned to the hospital due to weakness, nausea, and vomiting. She states that her symptoms started 4 days ago after revoking hospice a few days before. She states she revoked hospice because she was told by the oncology [employer] that they wouldn't treat her for anything (even nausea) anymore. Shortly afterwards she developed severe nausea and vomiting and tried to take her home medications which helped at first but ultimately she got worse prompting her to seek evaluation in the ER. She was unable to walk she was so weak. She states she has not been able to keep anything solid down. She is having BMs still though. Her last BM was yesterday. She has previously used scopolamine patches with good relief. Subjective/Events-last exam Pt reports worsening nausea after eating almanza and eggs. Was able to tolerate her diet yesterday but worse today. Discussed eating a more bland diet and she was agreeable. at bedside who states they revoked hospice due to need for CT by Dr Zee and their desire to continue with chemotherapy. Objective Exam Vital Signs Vital Signs Date Time Temp Pulse Resp B/P (MAP) Pulse Ox O2 Delivery O2 Flow Rate FiO2 04/01/18 08:00 97.4 84 16 132/54 (80) 96 Room Air Capillary Refill : Less Than 3 Seconds General Appearance: No Apparent Distress, WD/WN Respiratory: Lungs Clear, No Respiratory Distress Cardiovascular: Regular Rate, Rhythm, No Murmur Extremity: No Calf Tenderness, No Pedal Edema Neurologic/Psychiatric: Alert, Oriented x3 (though seems to have some thought procress disconnect), Other (baseline right upper extremity weakness and edema) Skin: Pallor Results/Procedures Lab Laboratory Tests 04/01/18 05:56 Patient resulted labs reviewed. Assessment/Plan Assessment and Plan Assess & Plan/Chief Complaint Intractable nausea and vomiting Diagnosis/Problems Diagnosis/Problems (1) Intractable nausea and vomiting Status: Acute Assessment & Plan: Continue on Zofran and Phenergan Continue Scopolamine patch as well continue IVF Will change to bland diet Qualifiers: Vomiting type: unspecified Qualified Codes: R11.2 - Nausea with vomiting, unspecified (2) Hypokalemia Status: Resolved Assessment & Plan: Replacing in IVF Trend (3) Breast cancer metastasized to multiple sites Status: Acute Assessment & Plan: had previously discharged to hospice on this diagnosis Would benefit from hospice again at discharge Will consult Palliative Care, appreciate assistance Qualifiers: Laterality: unspecified laterality Qualified Codes: C50.919 - Malignant neoplasm of unspecified site of unspecified female breast (4) Counseling regarding end of life decision making Assessment & Plan: Discussed code status with patient Discussed with her again 03/31 and she stated she wouldn't want "anything that could crack her ribs or a breathing machine" Discussed her grim prognosis if she were to suffer from a cardiac or respiratory arrest and gave my medical recommendation that she be allowed to naturally should she suffer that as performing CPR would very likely be futile She agreed that she would not want CPR or intubation and elected to be DNR- code status changed Will continue discussion regarding goals of care through this admission Discussed with and pt today who will like to continue with chemotherapy and attempts at curative treatment They would like to discuss with Dr Zee believes hospice enrollment would be "giving up" and does not want to do that prior to conversation with oncology (5) Asymptomatic bacteriuria Status: Acute Assessment & Plan: UA consistent with contamination Await cx- GNR growing currently Received Rocephin last night Continue for 1 more dose only unless cx negative before that Not sepsis (6) Prophylactic measure Assessment & Plan: IVF Lovenox Bent diet Clinical Quality Measures DVT/VTE Risk/Contraindication: Risk Factor Score Per Nursin RFS Level Per Nursing on Admit: 3=High ZAFAR MORALES MD Apr 01, 2018 11:03 am
[2018-04-01] MEDS ORDERED: fentaNYL INJECTION 100 MCG/2 ML AMP ONE (13:44)
[2018-04-01] MEDS: fentaNYL INJECTION 100 MCG/2 ML AMP IVP PRN ×2 (13:46→18:48)
[2018-04-01] MEDS: cefTRIAXone 1 GM/NS 50 ML IVPB IV SCH ×2 (20:40)
[2018-04-02] MEDS: PROMETHAZINE INJ 25 MG/ML (PHENERGAN) AMP IV PRN (01:55)
[2018-04-02] MEDS: NS W/KCL 40 MEQ/L 1,000 ML IV SCH ×4 (01:55→18:32)
[2018-04-02 04:59] VITALS: BP 139/72
[2018-04-02 08:00] VITALS: BP 171/75
[2018-04-02] MEDS: ENOXAPARIN 40 MG/0.4 ML (LOVENOX) SYR SC SCH (10:09)
[2018-04-02] MEDS: FAMOTIDINE 20 MG (PEPCID) TABLET PO SCH ×2 (10:09→20:45)
[2018-04-02] MEDS ORDERED: GLIM4TAB PO (11:33)
[2018-04-02] MEDS ORDERED: ENAL10TA PO (11:33)
[2018-04-02] MEDS ORDERED: SORB1SOL2 MC (11:33)
[2018-04-02] MEDS ORDERED: LINE600T33 PO (11:33)
[2018-04-02] MEDS ORDERED: GABA600T2 PO (11:33)
[2018-04-02] MEDS ORDERED: ONDA4TAB11 PO (11:33)
[2018-04-02 12:00] VITALS: BP 148/76
--- NOTE | 2018-04-02 15:05 | Progress Note-Hospitalist ---
Progress Note Progress Notes/Assess & Plan Date Seen 04/02/18 Time Seen by Provider: 15:02 Assessment & Plan The patient reports that she remains nauseated but has not vomited today. In reviewing her case, we have no evidence of liver metastases. There continued to be the pulmonary metastases which have been increasing in size. Her CT scan of the abdomen done in February of this year suggested an abnormality in the gallbladder. It was favored by the radiologist that this was a polyp. All would agree that a metastasis to the gallbladder would be very unusual. I have discussed this with Dr. Crespo and he will review the CT scans and examine the patient. Physical exam: The patient exhibits a depressed affect. Lungs are clear to auscultation. CV is regular without murmur. Abdomen is soft. There is no tenderness to palpation. Impression: 1.metastatic carcinoma of the breast (lungs) 2.persistent/recurrent nausea and vomiting. Plan: Continue present measures. Await Dr. Crespo evaluation. KATHY FONTENOT MD Apr 02, 2018 15:05
[2018-04-02 16:00] VITALS: BP 175/75
[2018-04-02 20:00] VITALS: BP 158/80
--- NOTE | 2018-04-02 23:23 | CONSULTATION REPORT ---
DATE OF SERVICE: 04/02/2018 REFERRING PHYSICIAN: Daphney Stokes MD PRIMARY PHYSICIAN: Walter Carvalho MD. The patient is admitted to room 413. A 77-year-old female with a history of metastatic HER2-positive breast cancer admitted to the hospital with nausea, vomiting and increasing weakness. She was admitted to the hospital recently with similar symptoms. Workup at that time was unrevealing with a negative CT scan of the head. The patient was discharged home with the hospice referral, but the patient and family wanted to know if there was evidence of progressive metastatic disease. Because of this, outpatient restaging scans were scheduled, but the patient became sick at this time and did not keep the appointment. Today, the patient and her family mentioned that she has not had any nausea or vomiting. She felt better after receiving parenteral antiemetics and IV fluids, but continues to be very weak. She is still not eating normally and is only taking small amounts of fluids by mouth. Bowels are working and she denied any significant constipation. PAST MEDICAL HISTORY: 1. Significant for metastatic HER2/roxane-positive right breast cancer to the lungs, diagnosed in 09/2006 and initially on treatment with Herceptin and paclitaxel followed by Herceptin as a single agent until mid 2012. 2. Recurrent disease diagnosed in early 2012 on treatment with weekly Abraxane plus Herceptin regimen, Herceptin and Perjeta x1 stopped due to a skin rash, weekly Navelbine plus Herceptin x4 cycles with worsening neuropathy, weekly Halaven and Herceptin regimen x6 cycles and Kadcyla x17 cycles followed by Herceptin alone. Status post radiation therapy to T7 metastasis completed in 07/2016. She has had a nonhealing ulcer on the right hand, which required a prolonged treatment by wound care and has almost completely healed. 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 3. She has had a history of severe osteoporosis, gastroesophageal reflux disease, diabetes mellitus type 2. PAST SURGICAL HISTORY: Includes tonsillectomy and adenoidectomy, right mastectomy and orthopedic surgery. SOCIAL HISTORY: The patient is and lives in [place], [place] with her . Her children and grandchildren live close by. No history of tobacco, alcohol or other recreational drug use. 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 FAMILY HISTORY: Significant for breast cancer in her grandmother. Mother had coronary artery disease and MT. Brother also had coronary artery disease and MT. No other significant malignancies or major medical problems in the family. PHYSICAL EXAMINATION: GENERAL: Today showed an elderly female, weak appearing, awake and answering questions appropriately. VITAL SIGNS: Temperature was 97.8, pulse rate of 99, respirations 16, blood pressure 175/75 with oxygen saturation of 99% on room air. HEENT: Normocephalic, extraocular muscles intact, conjunctivae pink, oral mucosa slightly dry. NECK: Supple, with no JVD. No cervical or supraclavicular lymphadenopathy palpable. CHEST: Examination showed right mastectomy and axillary dissection changes. A 1inch in diameter lesion was present over the sternum clinically consistent with the recurrent breast cancer. No other skin lesions visible. LUNGS: Fairly clear without wheezes or rales. CARDIOVASCULAR: Regular in rate and rhythm with a few missed beats. No murmurs or gallops are heard. ABDOMEN: Soft with mild diffuse tenderness without guarding or rebound. No hepatosplenomegaly or other masses palpable. EXTREMITIES: Showed significant lymphedema of the right upper extremity with flaccid paralysis. Rest of the extremities showed no edema. NEUROLOGIC: Motor strength was equal bilaterally except the right upper extremity, which has been a chronic problem. LABORATORY DATA: CBC done yesterday showed WBC 5.7, hemoglobin 11.8, platelet count 118,000 with neutrophil count 4.0 and lymphocyte count 0.6. CMP done at the time of admission on 03/30/2018 showed normal electrolytes except potassium level of 3.2, BUN was 18 and creatinine 0.69, with GFR more than 60. Nonfasting glucose elevated at 163. Serum magnesium was below normal at 1.6 and total bilirubin was elevated at 1.5 with rest of the liver function studies within normal limits. Urine culture done on 03/30/2018 showed more than 100,000 colonies of E. coli yeast species. Sensitivities showed that the E. coli is resistant to AMPICILLIN and TRIMETHOPRIM/SULFAMETHOXAZOLE with intermediate resistance to gentamicin. IMPRESSION: 1. Increasing weakness, nausea and vomiting of undetermined etiology. 2. Escherichia coli and yeast urinary tract infection. 3. Metastatic HER2/roxane-positive breast cancer with multiple treatments as mentioned in the history of present illness. Most recently, she has been off treatment for few months. RECOMMENDATIONS: 1. Continue IV fluids and antiemetics as you are doing. 2. Continue treatment of urinary tract infection. 3. If her status improves, we will again discuss about restaging scans. If her performance status does not improve, I would encourage the patient and her family to seriously consider best supportive care with hospice. 4. I will follow the patient with you. Job ID: [id number] DocumentID: [id number] Dictated Date: 04/02/2018 18:39:07 Barrel Lathe Operator Inside Date: 04/02/2018 23:22:09 Dictated By: HILLARY PALACIOS MD MTDD
[2018-04-03 00:20] VITALS: BP 144/72
[2018-04-03] MEDS: NS W/KCL 40 MEQ/L 1,000 ML IV SCH (03:10)
[2018-04-03 04:18] VITALS: BP 146/73
[2018-04-03 06:20] LABS: BASOPHILS % (AUTO) 1 % (0-10); EOSINOPHILS # (AUTO) 0.5 10^3/uL (0.0-0.3); EOSINOPHILS % (AUTO) 10 % (0-10); HEMATOCRIT 35 % (35-52); HEMOGLOBIN 11.5 G/DL (11.5-16.0); LYMPHOCYTES # (AUTO) 0.7 X 10^3 (1.0-4.0); LYMPHOCYTES % (AUTO) 14 % (12-44); MEAN CORPUSCULAR HEMOGLOBIN 30 PG (25-34); MEAN CORPUSCULAR HGB CONC 33 G/DL (32-36); MEAN CORPUSCULAR VOLUME 91 FL (80-99); MEAN PLATELET VOLUME 10.4 FL (7.4-10.4); MONOCYTES # (AUTO) 0.5 X 10^3 (0.0-1.0); MONOCYTES % (AUTO) 10 % (0-12); NEUTROPHILS # (AUTO) 3.5 X 10^3 (1.8-7.8); NEUTROPHILS % (AUTO) 67 % (42-75); PLATELET COUNT 137 10^3/uL (130-400); RED BLOOD COUNT 3.84 10^6/uL (4.35-5.85); RED CELL DISTRIBUTION WIDTH 15.4 % (10.0-14.5); WHITE BLOOD COUNT 5.2 10^3/uL (4.3-11.0)
[2018-04-03 06:39] LABS: BUN/CREATININE RATIO 6; CALCIUM 9.4 MG/DL (8.5-10.1); CARBON DIOXIDE 23 MMOL/L (21-32); CHLORIDE 105 MMOL/L (98-107); CREATININE SERUM 0.62 MG/DL (0.60-1.30); GFR ESTIMATED > 60; GLUCOSE 98 MG/DL (70-105); POTASSIUM 4.6 MMOL/L (3.6-5.0); SODIUM 139 MMOL/L (135-145)
[2018-04-03 08:00] VITALS: BP 189/77
[2018-04-03] MEDS: FAMOTIDINE 20 MG (PEPCID) TABLET PO SCH ×2 (08:08→20:23)
[2018-04-03] MEDS: SCOPOLAMINE 1.5 MG (TRANSDERM-SCOP) PATCH TOP SCH (08:08)
[2018-04-03] MEDS: ENOXAPARIN 40 MG/0.4 ML (LOVENOX) SYR SC SCH (08:09)
[2018-04-03 12:00] VITALS: BP 165/73
--- NOTE | 2018-04-03 13:26 | Progress Note-Hospitalist ---
Progress Note Progress Notes/Assess & Plan Date Seen 04/03/18 Time Seen by Provider: 13:24 Assessment & Plan The patient reports that she did not vomit yesterday or so far today. She is eating on a grilled cheese sandwich. She has not been up so far. Vital signs have been stable. Physical exam: Lungs are distant but clear to auscultation CV is regular. Abdomen is soft. Bowel sounds are somewhat hypoactive. Impression: UTI day 3. 2.recurrent nausea and vomiting etiology unclear. 3.widely metastatic carcinoma of the breast Plan: Increase diet. PT to mobilize KATHY FONTENOT MD Apr 03, 2018 13:26
--- NOTE | 2018-04-03 14:38 | Physical Therapy Progress Note ---
Therapy Progress Note Patient reluctantly attempted to participate with PT, however, with minimal mobility, patient had increase in nausea and declined to continue. PT respects patient wishes and will attempt in a.m. 1 visit JANA PRADO PT Apr 03, 2018 14:37
--- NOTE | 2018-04-03 14:45 | Occ Therapy Progress Note ---
Therapy Progress Note Pt too nauseated to complete PT eval so will defer OT as well until tomorrow. SONDRA RODRÍGUEZ OT Apr 03, 2018 14:45
[2018-04-03 16:00] VITALS: BP 153/67
[2018-04-03] MEDS: ONDANSETRON 8 MG (ZOFRAN) ORAL DISSOLVE TAB PO PRN (17:30)
--- NOTE | 2018-04-03 18:06 | Progress Note-Standard ---
Standard Progress Note Progress Notes/Assess & Plan Date Seen by Provider: Apr 03, 2018 Time Seen by Provider: 18:01 Progress/Assessment & Plan 77-year-old female with metastatic HER-2/roxane positive breast cancer who was admitted to the hospital with increasing weakness, nausea and vomiting. Found to have UTI with Escherichia coli and yeast. Currently on ceftriaxone IV daily. Patient felt better yesterday and today with no vomiting. She was starting to eat better but complained of nausea this evening. She is not drinking much. I will restart IV normal saline at 100 mL per hour. I will also start her on Diflucan 100 mg daily 3 days. She has been on a break from treatment for metastatic breast cancer for the past 3+ months because of the right hand nonhealing ulcer which has healed. Previous restaging CTs have shown minimal disease. Once she is stable, I will obtain restaging CT scans and bone scan and discuss about options with the patient and family. Had a family conference with the patient, her , son and daughter yesterday evening. If her symptoms are related to progressive disease, they are agreeable to proceed with best supportive care and hospice. If her symptoms are due to other reversible conditions, the wanted to continue the treatment. I have discussed the case with Dr. Phi Gudino by phone this evening. Will follow patient with you. HILLARY PALACIOS Apr 03, 2018 18:06
[2018-04-03] MEDS: NS IV 1000 ML 1,000 ML IV SCH (19:21)
[2018-04-03 20:27] VITALS: BP 139/68
[2018-04-04] VITALS (9 sets, daily range): BP systolic 117–203; BP diastolic 54–88
[2018-04-04] MEDS: ONDANSETRON 8 MG (ZOFRAN) ORAL DISSOLVE TAB PO PRN ×2 (00:54→08:41)
[2018-04-04] MEDS: NS IV 1000 ML 1,000 ML IV SCH ×2 (04:05→13:35)
--- NOTE | 2018-04-04 08:35 | Physical Therapy Progress Note ---
Therapy Progress Note Evaluation attempted but patient is still nauseated and vomiting. Upon entering the room, patient is in bed with emesis basin on her chest and she states she has been vomiting a lot this morning. Will try back this afternoon. MILKA BLACK PT Apr 04, 2018 08:35
[2018-04-04] MEDS: FAMOTIDINE 20 MG (PEPCID) TABLET PO SCH (08:42)
[2018-04-04] MEDS: fluCOnazole (DIFLUCAN) 100 MG TAB PO SCH (08:42)
[2018-04-04] MEDS: ENOXAPARIN 40 MG/0.4 ML (LOVENOX) SYR SC SCH (08:42)
[2018-04-04] MEDS: cefTRIAXone INJECTION 1,000 MG in NS (IVPB) 50 ML IV SCH (08:42)
[2018-04-04] MEDS: ONDANSETRON 4 MG/2 ML (SDV) Z0FRAN IVP PRN (09:49)
[2018-04-04] MEDS ORDERED: morphine INJ 4 MG/ML 1 ML (VIAL/SYRINGE) IVP PRN (11:30)
[2018-04-04] MEDS: PROMETHAZINE INJ 25 MG/ML (PHENERGAN) AMP IVP PRN ×2 (12:05→20:22)
--- NOTE | 2018-04-04 12:22 | Diagnostic Imaging Report ---
Indication: Nausea and vomiting. KUB obtained at 1206 hrs. p.m. Compare with 11/13/2015. Abdominal bowel gas pattern is unremarkable. There is moderate stool in the colon. There are phleboliths in the pelvis. There are degenerative findings in the lumbar spine. Calcifications over the left upper quadrant, again which may represent a small splenic artery aneurysm. This is unchanged however compared with 11/13/2015. Impression: Unremarkable bowel gas pattern with no overt obstruction or ileus. Phleboliths in the pelvis. Calcification over the left upper quadrant is likely due to small splenic artery aneurysm that is unchanged compared to the previous study. Dictated by: Dictated on workstation # [id number]
--- NOTE | 2018-04-04 14:35 | Occupational Therapy Eval ---
OT Evaluation-General/PLF Medical Diagnosis Admission Date Mar 31, 2018 at 08:57 Medical Diagnosis: UTI, n/v, hypokalemia, metastatic breast CA Onset Date: Mar 30, 2018 Therapy Diagnosis Therapy Diagnosis: decr self care, weakness, decr funct mobility Height/Weight Height (Feet): 5 Height (Inches): 8.00 Weight (Pounds): 127 Weight (Ounces): 0.0 Precautions Precautions/Isolations: Fall Prevention, Standard Precautions Safety Interventions: Reorient-PRN Referral Physician: Shailesh Referral Reason: Evaluation/Treatment Medical History Pertinent Medical History: Arthritis, Breast CA S/P Mastectomy, CAD, DM, GERD, HTN, Neuropathy Additional Medical History CTS approx 4 years ago and damaged nerves in R UE. It is non-functional. Breast cancer, mastectomy R side, 2005, with lymphedema. cardiac stent. Chronic UTI. Chronic constipation. R humeral head fx . Shingles. Glaucoma Current History Admitted with nausea/vomiting after aggressive chemo. Too weak to ambulate Reviewed History: Yes Social History Home: Single Level Current Living Status: Spouse Entry Into Home: Stairs With Railing Steps Into Home: 1 ADL-Prior Level of Function ADL PLOF Comments Pt reported that she has previously been able to manage her basic self care needs. Her stands by her when she gets in/out of the bathtub and helps wash her R arm. 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 DME/Equipment: Bath Bench, Shower Hose Assembly Loader, Tub/Shower OT Current Status Subjective Pt seen in room, in bed, awake but looking uncomfortable. She reported her arm hurts (4/10) but the nausea and vomiting are what are bothering her. Appearance Alert, reluctantly cooperative Mental Status/Objective Attachments: Central Line, IV Current Upper Extremity ROM R UE non functional. L UE grossly WFL Upper Extremity Strength R UE non functional. L UE grossly 4/5 ADL-Treatment ADL-Current Pt reported that she has been able to eat a little but it doesn't always stay down. She said it takes two people to toilet her on BSC beside bed. Functional [place] Measure 0=Not Assessed/NA 4=Minimal Assistance 1=Total Assistance 5=Supervision or Setup 2=Maximal Assistance 6=Modified [place] 3=Moderate Assistance 7=Complete IndependenceIRFPAI Quality Coding Scale 6 Independent with activity with or without an assistive device 5 Patient requires set up or clean up by helper. Patient completes activity by themselves 4 Supervision or touching assist (CGA). [place] provide cues , steadying assist 3 The helper provides less than half the effort to complete the activity 2 The helper provides more than half the effort to complete the activity 1 Dependent. The helper does all the effort to complete an activity 7 Patient refused to complete or attempt activity 9 The patient did not perform the activity before the current illness or injury 88 Not attempted due to Medical conditions or safety concerns Education OT Patient Education: Purpose of tx/functional activities, Rehab process Teaching Recipient: Patient Teaching Methods: Discussion Response to Teaching: Verbalize Understanding OT Prison Goals Prison Goals Time Frame: Apr 13, 2018 Eating (FIM): 6 Grooming(FIM): 5 Bathing(FIM): 4 Upper Body Dressing(FIM): 5 Lower Body Dressing(FIM): 5 Toileting(FIM): 5 Toilet/Commode Transfer(FIM): 5 Shower Transfer(FIM): 5 Additional Goals: 1-Demonstrate ADL Tasks, 2-Verbalize Understanding, 3- ImproveStrength/Vincent 1=Demonstrate adherence to instructed precautions during ADL tasks. 2=Patient will verbalize/demonstrate understanding of assistive devices/ modifications for ADL. 3=Patient will improve strength/tolerance for activity to enable patient to perform ADL's. OT Education/Plan Problem List/Assessment Assessment: Decreased Activ Tolerance, Decreased UE Strength, Dependent Transfers, Impaired Self-Care Skills Pt would benefit from skilled OT to increase her independence in basic self care to allow her to return to her home safely Discharge Recommendations Plan/Recommendations: Continue POC Treatment Plan/Plan of Care Treatment,Training & Education: Yes Patient would benefit from OT for education, treatment and training to promote independence in ADL's, mobility, safety and/or upper extremity function for ADL' s. Plan of Care: ADL Retraining, Functional Mobility, UE Funct Exercise/Act, UE Neuromus Re-Ed/Coord Treatment Duration: Apr 13, 2018 Frequency: 5 times per week Estimated Hrs Per Day: .5 hour per day Agreement: Yes Rehab Potential: Fair Time/GCodes Start Time: 14:17 Stop Time: 14:28 Total Time Billed (hr/min): 11 Billed Treatment Time visit, evaluation moderate intensity SONDRA RODRÍGUEZ OT Apr 04, 2018 14:35
--- NOTE | 2018-04-04 14:45 | Physical Therapy Progress Note ---
Therapy Progress Note Attempted evaluation this afternoon but patient is on hold now. Patient is still nauseated and almost passed out and vomited trying to go to the bedside commode and BP elevated. Will try back in the morning. MILKA BLACK PT Apr 04, 2018 14:45
[2018-04-04] MEDS ORDERED: BISACODYL 10 MG SUPP (DULCOLAX) PR NR (15:00)
--- NOTE | 2018-04-04 15:15 | Progress Note-Hospitalist ---
Progress Note Progress Notes/Assess & Plan Date Seen 04/04/18 Time Seen by Provider: 15:11 Assessment & Plan The patient is not doing as well today as yesterday. She has not been able to eat since last evening. When she was assisted to the commode this morning she vomited. This was described as being coffee-ground. She has not had a bowel movement in several days. A KUB showed mild to moderate stool but no large bowel distention. Discussed with Dr. Zee and we are going to moving to symptom management with a morphine CLIMATE CHANGE RISK ASSESSOR. Physical exam: She again appears to be depressed. Answers are given in a minimum number of words. Lungs are clear to auscultation CV is regular without murmur Impression: Recurrent nausea and vomiting. 2.metastatic carcinoma of the breast. Plan: Morphine CLIMATE CHANGE RISK ASSESSOR KATHY FONTENOT MD Apr 04, 2018 15:15
[2018-04-04] MEDS: PANTOPRAZOLE 40 MG/10 ML (PROTONIX) VIAL IV SCH (15:57)
[2018-04-04] MEDS: morphine PCA 30 MG/30 ML VIAL IV PRN (15:57)
[2018-04-04] MEDS: ANTACID SUSP 30 ML UDC (MYLANTA) PO SCH ×2 (16:00→20:19)
[2018-04-05] VITALS: BP 121/58
[2018-04-05 04:00] VITALS: BP 100/46
[2018-04-05] MEDS: PROMETHAZINE INJ 25 MG/ML (PHENERGAN) AMP IVP PRN ×2 (04:34→21:47)
[2018-04-05] MEDS: morphine PCA 30 MG/30 ML VIAL IV PRN ×2 (06:10→21:44)
[2018-04-05 08:00] VITALS: BP 87/43
[2018-04-05] MEDS: fluCOnazole (DIFLUCAN) 100 MG TAB PO SCH (08:09)
[2018-04-05] MEDS: ANTACID SUSP 30 ML UDC (MYLANTA) PO SCH (08:10)
[2018-04-05] MEDS: PANTOPRAZOLE 40 MG/10 ML (PROTONIX) VIAL IV SCH (08:18)
[2018-04-05] MEDS: cefTRIAXone INJECTION 1,000 MG in NS (IVPB) 50 ML IV SCH (08:18)
[2018-04-05] MEDS ORDERED: PANTOPRAZOLE 40 MG/10 ML (PROTONIX) VIAL IV SCH (09:00)
--- NOTE | 2018-04-05 09:07 | Occ Therapy Progress Note ---
Therapy Progress Note 905 Unable to wake patient for therapy and unable to wake her either. Will try again this afternoon SONDRA RODRÍGUEZ OT Apr 05, 2018 09:07
--- NOTE | 2018-04-05 10:06 | Physical Therapy Progress Note ---
Therapy Progress Note Patient is currently declining in medical status. PT will continue to monitor patient status and will require new orders if deemed necessary. JANA PRADO PT Apr 05, 2018 10:06
[2018-04-05] MEDS ORDERED: ARTIFICAL TEARS 0.4 ML UNIT DOSE (REFRESH PLUS) OU PRN (10:15)
[2018-04-05] MEDS ORDERED: RT-ALBUTEROL/IPRATROPIUM 3 ML (DUONEB) VIAL INH PRN (10:15)
[2018-04-05] MEDS ORDERED: ACETAMINOPHEN 650 MG SUPP (TYLENOL) PR PRN (10:15)
[2018-04-05] MEDS ORDERED: BISACODYL 10 MG SUPP (DULCOLAX) PR PRN (10:15)
[2018-04-05] MEDS ORDERED: GLYCOPYRROLATE 0.2 MG/ML (ROBINUL) 2 ML VIAL IV PRN (10:15)
[2018-04-05] MEDS ORDERED: ARTIFICIAL TEARS OINT (LACRI-LUBE) 3.5 GM TUBE OU PRN (10:15)
--- NOTE | 2018-04-05 10:18 | Progress Note-Hospitalist ---
Subjective HPI/CC On Admission Date Seen by Provider: Apr 05, 2018 Time Seen by Provider: 09:45 Pt is a 77yoCF with a PMH of metastatic breast cancer known to me from recent admission who returned to the hospital due to weakness, nausea, and vomiting. She states that her symptoms started 4 days ago after revoking hospice a few days before. She states she revoked hospice because she was told by the oncology AUTO EMISSIONS TECHNICIAN that they wouldn't treat her for anything (even nausea) anymore. Shortly afterwards she developed severe nausea and vomiting and tried to take her home medications which helped at first but ultimately she got worse prompting her to seek evaluation in the ER. She was unable to walk she was so weak. She states she has not been able to keep anything solid down. She is having BMs still though. Her last BM was yesterday. She has previously used scopolamine patches with good relief. Subjective/Events-last exam Patient at the end-stage of life and now on comfort care Unresponsive Appears to be in no pain Morphine HEALTH CONSULTANT working well for her Objective Exam Vital Signs Vital Signs Date Time Temp Pulse Resp B/P (MAP) Pulse Ox O2 Delivery O2 Flow Rate FiO2 04/05/18 08:00 97.8 99 18 87/43 (58) 96 Room Air Capillary Refill : Less Than 3 SecondsLess Than 3 Seconds General Appearance: No Apparent Distress, Other (Unresponsive) Respiratory: Lungs Clear Cardiovascular: Regular Rate, Rhythm Results/Procedures Lab Patient resulted labs reviewed. Assessment/Plan Assessment and Plan Assess & Plan/Chief Complaint Assessment: End-of-life status Plan: Comfort care is imminent Diagnosis/Problems Diagnosis/Problems (1) End of life care Status: Acute Clinical Quality Measures DVT/VTE Risk/Contraindication: Risk Factor Score Per Nursin RFS Level Per Nursing on Admit: 3=High MARICRUZ NIETO DO Apr 05, 2018 10:18
--- NOTE | 2018-04-05 17:09 | Progress Note-Standard ---
Standard Progress Note Progress Notes/Assess & Plan Date Seen by Provider: Apr 05, 2018 Time Seen by Provider: 17:06 Progress/Assessment & Plan 77-year-old female with metastatic HER-2/roxane positive breast cancer who was admitted to the hospital with increasing weakness, nausea and vomiting. Found to have UTI with Escherichia coli and yeast. Treated with ceftriaxone IV daily as well as diflucan. Patient has been declining and is unresponsive today. She is comfortable. 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 I have discussed her condition with her this morning and the family is comfortable with best supportive care. Her overall prognosis is poor. Continue terminal care. HILLARY PALACIOS Apr 05, 2018 17:09
[2018-04-05] MEDS: NS IV 1000 ML 1,000 ML IV SCH (17:42)
[2018-04-06] MEDS: ONDANSETRON 4 MG/2 ML (SDV) Z0FRAN IVP PRN (06:41)
[2018-04-06] MEDS: PROMETHAZINE INJ 25 MG/ML (PHENERGAN) AMP IVP PRN (08:22)
[2018-04-06] MEDS: SCOPOLAMINE 1.5 MG (TRANSDERM-SCOP) PATCH TOP SCH (08:22)
--- NOTE | 2018-04-06 08:28 | Occ Therapy Progress Note ---
Therapy Progress Note Will DC OT due to patient medical decline. SONDRA RODRÍGUEZ OT Apr 06, 2018 08:28
--- NOTE | 2018-04-06 12:10 | Progress Note-Hospitalist ---
Subjective HPI/CC On Admission Date Seen by Provider: Apr 06, 2018 Time Seen by Provider: 08:00 Pt is a 77yoCF with a PMH of metastatic breast cancer known to me from recent admission who returned to the hospital due to weakness, nausea, and vomiting. She states that her symptoms started 4 days ago after revoking hospice a few days before. She states she revoked hospice because she was told by the oncology HISTORICAL SITE GUIDE that they wouldn't treat her for anything (even nausea) anymore. Shortly afterwards she developed severe nausea and vomiting and tried to take her home medications which helped at first but ultimately she got worse prompting her to seek evaluation in the ER. She was unable to walk she was so weak. She states she has not been able to keep anything solid down. She is having BMs still though. Her last BM was yesterday. She has previously used scopolamine patches with good relief. Subjective/Events-last exam Pt in end of life care status Pt comfortable Objective Exam Vital Signs Vital Signs Date Time Temp Pulse Resp B/P (MAP) Pulse Ox O2 Delivery O2 Flow Rate FiO2 04/06/18 08:33 90 Room Air 04/06/18 06:00 10 04/05/18 08:00 97.8 99 87/43 (58) Capillary Refill : Less Than 3 SecondsLess Than 3 Seconds General Appearance: No Apparent Distress, Other (dying process) Results/Procedures Lab Patient resulted labs reviewed. Assessment/Plan Assessment and Plan Assess & Plan/Chief Complaint Assessment: End-of-life status Plan: Comfort care is imminent Diagnosis/Problems Diagnosis/Problems (1) End of life care Status: Acute Clinical Quality Measures DVT/VTE Risk/Contraindication: Risk Factor Score Per Nursin RFS Level Per Nursing on Admit: 3=High MARICRUZ NIETO DO Apr 06, 2018 12:10
[2018-04-06] MEDS: morphine PCA 30 MG/30 ML VIAL IV PRN (13:03)
--- NOTE | 2018-04-06 16:39 | Progress Note-Standard ---
Standard Progress Note Progress Notes/Assess & Plan Date Seen by Provider: Apr 06, 2018 Time Seen by Provider: 16:37 Progress/Assessment & Plan 77-year-old female with metastatic HER-2/roxane positive breast cancer who was admitted to the hospital with increasing weakness, nausea and vomiting. Found to have UTI with Escherichia coli and yeast. Treated with ceftriaxone IV daily as well as diflucan. Patient has been on comfort care only since yesterday. She is comfortable and has been sleeping all day. 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 Her overall prognosis is poor. Continue terminal care. Will follow with you. HILLARY PALACIOS Apr 06, 2018 16:39
[2018-04-06] MEDS: SALIVA STIMULANT MOUTH SPRAY (BIOTENE) 1.5 OZ MM PRN (18:09)
[2018-04-06] MEDS: NS IV 1000 ML 1,000 ML IV SCH (18:09)
[2018-04-07] MEDS: PROMETHAZINE INJ 25 MG/ML (PHENERGAN) AMP IVP PRN (00:43)
[2018-04-07] MEDS: morphine PCA 30 MG/30 ML VIAL IV PRN ×2 (04:20→20:02)
--- NOTE | 2018-04-07 11:12 | Progress Note-Hospitalist ---
Subjective HPI/CC On Admission Date Seen by Provider: Apr 07, 2018 Time Seen by Provider: 10:00 Pt is a 77yoCF with a PMH of metastatic breast cancer known to me from recent admission who returned to the hospital due to weakness, nausea, and vomiting. She states that her symptoms started 4 days ago after revoking hospice a few days before. She states she revoked hospice because she was told by the oncology CADASTRAL ENGINEER that they wouldn't treat her for anything (even nausea) anymore. Shortly afterwards she developed severe nausea and vomiting and tried to take her home medications which helped at first but ultimately she got worse prompting her to seek evaluation in the ER. She was unable to walk she was so weak. She states she has not been able to keep anything solid down. She is having BMs still though. Her last BM was yesterday. She has previously used scopolamine patches with good relief. Subjective/Events-last exam Patient in depth process Appears to be in no pain Objective Exam Vital Signs Vital Signs Date Time Temp Pulse Resp B/P (MAP) Pulse Ox O2 Delivery O2 Flow Rate FiO2 04/07/18 08:00 14 04/07/18 08:00 Room Air 04/07/18 07:18 90 04/05/18 08:00 97.8 99 87/43 (58) Capillary Refill : Less Than 3 SecondsLess Than 3 Seconds General Appearance: No Apparent Distress, Other ( process) Results/Procedures Lab Patient resulted labs reviewed. Assessment/Plan Assessment and Plan Assess & Plan/Chief Complaint Assessment: End-of-life status Plan: Comfort care is imminent Diagnosis/Problems Diagnosis/Problems (1) End of life care Status: Acute Clinical Quality Measures DVT/VTE Risk/Contraindication: Risk Factor Score Per Nursin RFS Level Per Nursing on Admit: 3=High MARICRUZ NIETO DO Apr 07, 2018 11:12
[2018-04-07] MEDS: LORazepam INJ 2 MG/ML (ATIVAN) VIAL IVP PRN (11:13)
--- NOTE | 2018-04-07 11:33 | Progress Note-Standard ---
Standard Progress Note Progress Notes/Assess & Plan Date Seen by Provider: Apr 07, 2018 Time Seen by Provider: 11:32 Progress/Assessment & Plan 77-year-old female with metastatic HER-2/roxane positive breast cancer who was admitted to the hospital with increasing weakness, nausea and vomiting. Her condition has been declining over the past few weeks and is on comfort care only since past 2 days. She is comfortable and was arousable this morning. She is not oriented and denied any discomfort. 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 Her overall prognosis is poor. Continue terminal care. Will follow with you. HILLARY PALACIOS Apr 07, 2018 11:33
[2018-04-07] MEDS: NS IV 1000 ML 1,000 ML IV SCH (20:03)
--- NOTE | 2018-04-08 10:58 | Progress Note-Hospitalist ---
Subjective HPI/CC On Admission Date Seen by Provider: Apr 08, 2018 Time Seen by Provider: 10:00 Pt is a 77yoCF with a PMH of metastatic breast cancer known to me from recent admission who returned to the hospital due to weakness, nausea, and vomiting. She states that her symptoms started 4 days ago after revoking hospice a few days before. She states she revoked hospice because she was told by the oncology HABILITATION TRAINING SPECIALIST that they wouldn't treat her for anything (even nausea) anymore. Shortly afterwards she developed severe nausea and vomiting and tried to take her home medications which helped at first but ultimately she got worse prompting her to seek evaluation in the ER. She was unable to walk she was so weak. She states she has not been able to keep anything solid down. She is having BMs still though. Her last BM was yesterday. She has previously used scopolamine patches with good relief. Subjective/Events-last exam Pt in process Will need placement for Hospice Objective Exam Vital Signs Vital Signs Date Time Temp Pulse Resp B/P (MAP) Pulse Ox O2 Delivery O2 Flow Rate FiO2 04/08/18 08:00 Room Air 04/08/18 06:30 14 04/07/18 20:15 91 04/05/18 08:00 97.8 99 87/43 (58) Capillary Refill : Less Than 3 SecondsLess Than 3 Seconds General Appearance: No Apparent Distress, Other (dying process) Results/Procedures Lab Patient resulted labs reviewed. Assessment/Plan Assessment and Plan Assess & Plan/Chief Complaint Assessment: End-of-life status Plan: Comfort care is imminent Diagnosis/Problems Diagnosis/Problems (1) End of life care Status: Acute Clinical Quality Measures DVT/VTE Risk/Contraindication: Risk Factor Score Per Nursin RFS Level Per Nursing on Admit: 3=High MARICRUZ NIETO DO Apr 08, 2018 10:58
[2018-04-08] MEDS: morphine PCA 30 MG/30 ML VIAL IV PRN (11:26)
[2018-04-09] MEDS: morphine PCA 30 MG/30 ML VIAL IV PRN ×2 (02:39→18:17)
[2018-04-09] MEDS: PROMETHAZINE INJ 25 MG/ML (PHENERGAN) AMP IVP PRN (02:45)
[2018-04-09] MEDS: NS IV 1000 ML 1,000 ML IV SCH (06:31)
[2018-04-09] MEDS: SCOPOLAMINE 1.5 MG (TRANSDERM-SCOP) PATCH TOP SCH (09:32)
--- NOTE | 2018-04-09 11:53 | Progress Note-Hospitalist ---
Subjective HPI/CC On Admission Date Seen by Provider: Apr 09, 2018 Time Seen by Provider: 10:00 Intractable N/V Subjective/Events-last exam Pt awakes to verbal response to answer a few yes or no questions. She denies any pain and when asked if we could do anything to help her she declined. at bedside and states he is still unsure of what's wrong with pt and believe no one has told him of her diagnosis of terminal cancer (despite my own conversations and conversations document by other nurses and physicians in chart ). He states his granddaughter is on her way so they can discuss with Dr Zee her condition. I did call and discuss this with Dr Zee who will meet them in the cancer center for family discussion. Objective Exam Vital Signs Vital Signs Date Time Temp Pulse Resp B/P (MAP) Pulse Ox O2 Delivery O2 Flow Rate FiO2 04/09/18 08:15 Room Air 04/09/18 06:55 12 04/08/18 19:16 91 04/05/18 08:00 97.8 99 87/43 (58) Capillary Refill : Less Than 3 SecondsLess Than 3 Seconds General Appearance: No Apparent Distress, Chronically ill Respiratory: Lungs Clear, No Respiratory Distress Cardiovascular: Regular Rate, Rhythm, Normal Peripheral Pulses Gastrointestinal: Normal Bowel Sounds, Soft Neurologic/Psychiatric: Other (drowsy) Results/Procedures Lab Patient resulted labs reviewed. Assessment/Plan Assessment and Plan Assess & Plan/Chief Complaint Intractable nausea and vomiting Diagnosis/Problems Diagnosis/Problems (1) Breast cancer metastasized to multiple sites Status: Acute Assessment & Plan: had previously discharged to hospice on this diagnosis Family has elected comfort measures only though after discussion with this morning I'm not sure they still want this Recommended continuing comfort measures and electing hospice DC to [place] Qualifiers: Laterality: unspecified laterality Qualified Codes: C50.919 - Malignant neoplasm of unspecified site of unspecified female breast (2) Intractable nausea and vomiting Status: Acute Assessment & Plan: Continue on Zofran and Phenergan Continue Scopolamine patch as well Qualifiers: Vomiting type: unspecified Qualified Codes: R11.2 - Nausea with vomiting, unspecified (3) Counseling regarding end of life decision making Assessment & Plan: Discussed with her on 03/31 and she stated she wouldn't want "anything that could crack her ribs or a breathing machine" Discussed her grim prognosis if she were to suffer from a cardiac or respiratory arrest and gave my medical recommendation that she be allowed to naturally should she suffer that as performing CPR would very likely be futile She agreed that she would not want CPR or intubation and elected to be DNR- code status changed would like to discuss with Dr Zee regarding her prognosis (4) Asymptomatic bacteriuria Status: Acute Assessment & Plan: UA consistent with contamination Await cx- GNR growing currently Received Rocephin last night Continue for 1 more dose only unless cx negative before that Not sepsis (5) Prophylactic measure Assessment & Plan: IVF Lovenox Limestone diet Clinical Quality Measures DVT/VTE Risk/Contraindication: Risk Factor Score Per Nursin RFS Level Per Nursing on Admit: 3=High ZAFAR MORALES MD Apr 09, 2018 11:53 am
--- NOTE | 2018-04-09 17:51 | Progress Note-Standard ---
Standard Progress Note Progress Notes/Assess & Plan Date Seen by Provider: Apr 09, 2018 Time Seen by Provider: 17:46 Progress/Assessment & Plan 77-year-old female with metastatic HER-2/roxane positive breast cancer who was admitted to the hospital with increasing weakness, nausea and vomiting. Her condition has been declining over the past few weeks and is on comfort care only since past few days. She is comfortable and opens her eyes occasionally. She is weaker and does not communicate today. Had a lengthy conversation with the patient's and granddaughter at the cancer center today. They still have unrealistic expectations regarding her general condition and disease process. I explained to them that clinically she has evidence of progressive metastatic lung cancer with the skin lesion on anterior chest wall. In her current condition obtaining restaging scans will be difficult. Even if she is found to have recurrent disease, she is in no physical shape to take any treatment. They had questions about possible gallstone and again I explained to them that she is in no physical condition to undergo general anesthesia and surgery. There were more accepting of the prognosis and the possibility of her imminent by the end of our conversation. Because of family dynamics, Dr. King requested that the patient be transferred to the oncology service and I will accept her to my service. Hospitalist service will still cover during the weekends when there is no oncology coverage. HILLARY PALACIOS Apr 09, 2018 17:51
[2018-04-10] MEDS: ONDANSETRON 4 MG/2 ML (SDV) Z0FRAN IVP PRN (02:50)
[2018-04-10] MEDS: PROMETHAZINE INJ 25 MG/ML (PHENERGAN) AMP IVP PRN ×3 (07:49→22:37)
[2018-04-10] MEDS: morphine PCA 30 MG/30 ML VIAL IV PRN (09:34)
[2018-04-10] MEDS: NS IV 1000 ML 1,000 ML IV SCH (12:50)
--- NOTE | 2018-04-10 13:26 | Progress Note-Standard ---
Standard Progress Note Progress Notes/Assess & Plan Date Seen by Provider: Apr 10, 2018 Time Seen by Provider: 13:24 Progress/Assessment & Plan 77-year-old female with metastatic HER-2/roxane positive breast cancer who was admitted to the hospital with increasing weakness, nausea and vomiting. Her condition has been declining over the past few weeks and is on comfort care only since past few days. She is somnolent and resting comfortably. Nursing staff reported an episode of nausea today a.m. which was treated with antiemetics. She does wake up and open her eyes intermittently but does not communicate. Weaker than past few days. Patient is terminal and continue best supportive care. HILLARY PALACIOS Apr 10, 2018 1:26 pm
[2018-04-10] MEDS: LORazepam INJ 2 MG/ML (ATIVAN) VIAL IVP PRN (22:15)
[2018-04-11] MEDS: morphine PCA 30 MG/30 ML VIAL IV PRN ×2 (00:13→16:05)
--- NOTE | 2018-04-11 13:58 | Progress Note-Standard ---
Standard Progress Note Progress Notes/Assess & Plan Date Seen by Provider: Apr 11, 2018 Time Seen by Provider: 13:56 Progress/Assessment & Plan 77-year-old female with metastatic HER-2/roxane positive breast cancer who was admitted to the hospital with increasing weakness, nausea and vomiting. Her condition has been declining over the past few weeks and is on comfort care only since past few days. She is unresponsive and not arousable. Appears comfortable. Short periods of apnea noted. No vomiting reported. Weaker than past few days. Patient is terminal and continue best supportive care. Did meet with patient's today morning and discussed the situation. HILLARY PALACIOS Apr 11, 2018 13:58
[2018-04-11] MEDS: NS IV 1000 ML 1,000 ML IV SCH (21:34)
[2018-04-12] MEDS: SCOPOLAMINE 1.5 MG (TRANSDERM-SCOP) PATCH TOP SCH (08:57)
[2018-04-12] MEDS: morphine PCA 30 MG/30 ML VIAL IV PRN (12:27)
--- NOTE | 2018-04-12 17:35 | Progress Note-Standard ---
Standard Progress Note Progress Notes/Assess & Plan Date Seen by Provider: Apr 12, 2018 Time Seen by Provider: 17:32 Progress/Assessment & Plan 77-year-old female with metastatic HER-2/roxane positive breast cancer who was admitted to the hospital with increasing weakness, nausea and vomiting. Her condition has been declining over the past few weeks and is on comfort care only since past few days. She is somnolent but arousable. Appears comfortable. Denied any new symptoms. No vomiting reported. Weaker than past few days. Patient is terminal and continue best supportive care. Met with patient's and son yesterday evening and they were concerned about her sedation and morphine use. Explained to them that this is only for comfort and to reduce air hunger. We will reduce the dose to 1.5 mg/h per family's request. If she has any discomfort or distress, we will titrate this up. She is unable to eat and drink as she refuses food or drinks. HILLARY PALACIOS Apr 12, 2018 17:35
[2018-04-13] MEDS: PROMETHAZINE INJ 25 MG/ML (PHENERGAN) AMP IVP PRN ×2 (06:03→16:59)
[2018-04-13] MEDS: NS IV 1000 ML 1,000 ML IV SCH (06:04)
[2018-04-13] MEDS: SALIVA STIMULANT MOUTH SPRAY (BIOTENE) 1.5 OZ MM PRN (08:17)
[2018-04-13] MEDS: morphine PCA 30 MG/30 ML VIAL IV PRN (08:24)
--- NOTE | 2018-04-13 11:05 | Progress Note-Standard ---
Standard Progress Note Progress Notes/Assess & Plan Date Seen by Provider: Apr 13, 2018 Time Seen by Provider: 11:00 Progress/Assessment & Plan 77-year-old female with metastatic HER-2/roxane positive breast cancer who was admitted to the hospital with increasing weakness, nausea and vomiting. Her condition has been declining over the past few weeks and is on comfort care only since past few days. She is somnolent but arousable. Not oriented. Appears comfortable. Denied any pain. No vomiting reported. Getting weaker. Patient is terminal and continue best supportive care. She is not eating or drinking. Receiving small amount of IV fluids along with IT SECURITY CONSULTING DIRECTOR. Dr. Giles is covering for me until 2017. No oncology coverage for weekend of 04/21/18 with hospitalist service coverage. HILLARY PALACIOS Apr 13, 2018 11:05
[2018-04-13] MEDS: ONDANSETRON 4 MG/2 ML (SDV) Z0FRAN IVP PRN ×2 (12:45→21:58)
[2018-04-14] MEDS: morphine PCA 30 MG/30 ML VIAL IV PRN (04:29)
[2018-04-14] MEDS: SALIVA STIMULANT MOUTH SPRAY (BIOTENE) 1.5 OZ MM PRN (10:55)
[2018-04-14] MEDS: ONDANSETRON 4 MG/2 ML (SDV) Z0FRAN IVP PRN (10:55)
[2018-04-14] MEDS: NS IV 1000 ML 1,000 ML IV SCH (13:08)
[2018-04-14] MEDS: PROMETHAZINE INJ 25 MG/ML (PHENERGAN) AMP IVP PRN ×2 (15:13→20:41)
--- NOTE | 2018-04-14 16:14 | Physician Progress Note ---
Progress Note Assessment/Plan Date Seen by Provider: Apr 14, 2018 Time Seen by Provider: 15:15 Events since last exam Cover for Dr Zee. Pt is comfortably sleeping with TELEPHONE LINEMAN. When I walked into the room, the grand daughter told me "We want to transfer her to [facility] because you are not doing anything for her here. No body told us what is going on with her." I asked her if she knows anyone in [place] will accept her. She said "you have to call for transfer. It is the physician's call." Pt is under terminal ill and comfort care. Pt IS comfortable with TELEPHONE LINEMAN. I told grand daughter and pt's that pt was diagnosed with stage IV breast cancer with lung metastasis in 2005. Pt was treated with multiple lines of chemotherapy and lived 12 more years under very good care of Dr Zee. Now we have exhausted cancer treatment options for the patient. It is terminal and we are doing comfort care. I told her that I could understand her frustration and not wanting her grandma . But at a point of life, we have to accept the fact of . She said "I can not watch her and your guys not doing anything. You can do biopsy and offer her cancer treatment." However, according to Dr Zee's note, pt was never stable enough to go through any procedure so far. Grand daughter then said "If you are not going to do anything, you should just take off everything and let her ." I then asked pt if we should take off the morphine. He said "No." Then grand daughter walked out the room frustrated and angry. Pt told me that they want to stay here, at least for the weekend and then decide on Monday to go to [facility]. Pt was in deep sleep and comfortable during the entire conversation. Pt did not answer any questions. Assessment/Plan Terminal breast cancer on low-dose morphine TELEPHONE LINEMAN at 2 mg/hr and IVF. She is in sleep and comfortable. Her overall prognosis is very poor. Continue terminal comfort care. Complicated family situation. Vitals Last set of Vitals Signs Vital Signs Date Time Temp Pulse Resp B/P (MAP) Pulse Ox O2 Delivery O2 Flow Rate FiO2 04/14/18 08:00 Room Air 04/13/18 20:30 2.00 04/13/18 17:18 14 04/12/18 19:54 90 04/12/18 13:00 97.8 I&O I&O Intake and Output 04/14/18 00:00 Intake Total 1050 ml Output Total 525 ml Balance 525 ml Intake Oral 50 ml IV Total 1000 ml Output Urine Total 525 ml # Bowel Movements 1 # [place] 3 Labs Microbiology 03/30/18 Urine Culture - Final, Complete Escherichia coli Yeast species See Comments Clinical Quality Measures DVT/VTE Risk/Contraindication: Risk Factor Score Per Nursin RFS Level Per Nursing on Admit: 3=High WILLOW COPELAND MD Apr 14, 2018 16:14
[2018-04-15] MEDS ORDERED: morphine PCA 30 MG/30 ML VIAL IV ONE (00:49)
[2018-04-15] MEDS: PROMETHAZINE INJ 25 MG/ML (PHENERGAN) AMP IVP PRN ×3 (08:00→20:13)
[2018-04-15] MEDS: SALIVA STIMULANT MOUTH SPRAY (BIOTENE) 1.5 OZ MM PRN ×2 (08:03→20:13)
[2018-04-15] MEDS: SCOPOLAMINE 1.5 MG (TRANSDERM-SCOP) PATCH TOP SCH (09:04)
[2018-04-15] MEDS: morphine PCA 30 MG/30 ML VIAL IV PRN (21:05)
[2018-04-16] MEDS: PROMETHAZINE INJ 25 MG/ML (PHENERGAN) AMP IVP PRN ×2 (06:44→17:49)
[2018-04-16] MEDS: morphine PCA 30 MG/30 ML VIAL IV PRN (16:10)
--- NOTE | 2018-04-16 16:34 | Physician Progress Note ---
Progress Note Assessment/Plan Time Seen by Provider: 16:00 Events since last exam No family visit today. Pt is very weak but comfortable. I asked her if she is in pain. She whispered "No". She has on going DIGITAL MEDIA DIRECTOR for pain control morphine 2mg/hr CI. She is not able to swallow anything Assessment/Plan Terminal breast cancer on low-dose morphine DIGITAL MEDIA DIRECTOR at 2 mg/hr and IVF. I have discussion with geriatric social worker about the patient care. It is clear to me that pt is terminal and is too weak to go through any procedure or meaningful cancer treatment. I believe that best treatment option would be swing bed if the family wants to stay here, or custodial with hospice. Since the family is not here, we will have geriatric social worker to call and discuss with them the options. Swing bed evaluation. Vitals Last set of Vitals Signs Vital Signs Date Time Temp Pulse Resp B/P (MAP) Pulse Ox O2 Delivery O2 Flow Rate FiO2 04/16/18 08:00 14 04/16/18 08:00 Room Air 04/13/18 20:30 2.00 04/12/18 19:54 90 04/12/18 13:00 97.8 I&O I&O Intake and Output 04/15/18 23:59 Intake Total 0 ml Output Total 140 ml Balance -140 ml Intake Oral 0 ml Output Urine Total 140 ml # [place] 2 Labs Microbiology 03/30/18 Urine Culture - Final, Complete Escherichia coli Yeast species See Comments Clinical Quality Measures DVT/VTE Risk/Contraindication: Risk Factor Score Per Nursin RFS Level Per Nursing on Admit: 3=High WILLOW COPELAND MD Apr 16, 2018 16:34
[2018-04-17] MEDS: PROMETHAZINE INJ 25 MG/ML (PHENERGAN) AMP IVP PRN ×2 (07:19→12:39)
[2018-04-17] MEDS: NS IV 1000 ML 1,000 ML IV SCH (08:08)
[2018-04-17] MEDS: ONDANSETRON 4 MG/2 ML (SDV) Z0FRAN IVP PRN (09:51)
[2018-04-17] MEDS ORDERED: fentaNYL PATCH 25 MCG (DURAGESIC) TD SCH (11:30)
[2018-04-17] MEDS: morphine PCA 30 MG/30 ML VIAL IV PRN (12:41)
--- NOTE | 2018-04-17 14:30 | Physician Progress Note ---
Progress Note Assessment/Plan Date Seen by Provider: Apr 17, 2018 Time Seen by Provider: 14:20 Events since last exam Pt is deep sleep and comfortable. No family around She had nausea vomiting this morning. In the processing to find her a long-term with hospice care. Change IV morphine CI to Fentanyl patch. Assessment/Plan Terminal breast cancer on low-dose morphine GROUP BURNER MACHINE at 2 mg/hr. Changed to Fentanyl patch for possible moving to long-term with hospice. Vitals Last set of Vitals Signs Vital Signs Date Time Temp Pulse Resp B/P (MAP) Pulse Ox O2 Delivery O2 Flow Rate FiO2 04/17/18 12:41 14 04/17/18 12:25 97.8 04/17/18 07:57 Room Air 04/13/18 20:30 2.00 04/12/18 19:54 90 I&O I&O Intake and Output 04/17/18 00:00 Intake Total 0 ml Output Total 525 ml Balance -525 ml Intake Oral 0 ml Output Urine Total 525 ml # [place] 0 Labs Microbiology 03/30/18 Urine Culture - Final, Complete Escherichia coli Yeast species See Comments Clinical Quality Measures DVT/VTE Risk/Contraindication: Risk Factor Score Per Nursin RFS Level Per Nursing on Admit: 3=High WILLOW COPELAND MD Apr 17, 2018 14:30
[2018-04-18] MEDS: SCOPOLAMINE 1.5 MG (TRANSDERM-SCOP) PATCH TOP SCH (08:28)
[2018-04-18] MEDS: PROMETHAZINE INJ 25 MG/ML (PHENERGAN) AMP IVP PRN ×2 (11:13→20:34)
--- NOTE | 2018-04-18 15:17 | Physician Progress Note ---
Progress Note Assessment/Plan Date Seen by Provider: Apr 18, 2018 Time Seen by Provider: 14:30 Events since last exam Pt is comfortable on Fentanyl patch, off morphine ZINC ETCHER. She was awake when I walked into the room. She has no new request. She wanted to sleep. Her lips were very dry. Her was here before but pt did not want to talk to him so he left. Assessment/Plan Terminal breast cancer Fentanyl patch and possible moving to detention with hospice near future. Moisturizer lip stick. Vitals Last set of Vitals Signs Vital Signs Date Time Temp Pulse Resp B/P (MAP) Pulse Ox O2 Delivery O2 Flow Rate FiO2 04/18/18 08:00 Room Air 04/17/18 22:27 14 04/17/18 12:25 97.8 04/13/18 20:30 2.00 04/12/18 19:54 90 I&O I&O Intake and Output 04/18/18 00:00 Intake Total 0 ml Output Total 500 ml Balance -500 ml Intake Oral 0 ml Output Urine Total 500 ml Labs Microbiology 03/30/18 Urine Culture - Final, Complete Escherichia coli Yeast species See Comments Clinical Quality Measures DVT/VTE Risk/Contraindication: Risk Factor Score Per Nursin RFS Level Per Nursing on Admit: 3=High WILLOW COPELAND MD Apr 18, 2018 15:17
[2018-04-18] MEDS: LORazepam INJ 2 MG/ML (ATIVAN) VIAL IVP PRN (20:34)
[2018-04-18] MEDS: D5 1/2 NS 1000 ML IV SOLUTION 1,000 ML IV SCH (22:54)
[2018-04-19] MEDS: LORazepam INJ 2 MG/ML (ATIVAN) VIAL IVP PRN ×2 (08:29→13:37)
[2018-04-19] MEDS ORDERED: SCOP1PAT11 TOP (11:36)
[2018-04-19] MEDS ORDERED: FENT1PAT8 TD (11:36)
[2018-04-19] MEDS: D5 1/2 NS 1000 ML IV SOLUTION 1,000 ML IV SCH (18:23)
[2018-04-20] MEDS ORDERED: FENTANYL PATCH REMOVAL TP SCH (11:29)
--- NOTE | 2018-04-20 13:25 | Oncology Discharge Summary ---
Diagnosis/Chief Complaint Date of Admission Mar 31, 2018 at 08:57 Date of Discharge Apr 19, 2018 at 18:55 Discharge Date: Apr 19, 2018 Discharge Diagnosis 1. Recurrent metastatic breast cancer, terminal 2. Nausea vomiting 3. Pain control 4. UTI Reason Hospital Visit Ms. Miller is a 77 year old white female with recurrent metastatic breast cancer who was initially diagnosed in 2005 with lung mets. She was admitted this time with nausea vomiting, UTI and general deteriorating and pain control issue. She was put on CISCO ENGINEER morphine, IVF and IV antibiotics. She finished her course of IV antibiotics without any clinical improvement. She was too weak to go for any procedures. She was put on comfort care. After many rounds of discussion with family and patient, family decided to go to halfway with hospice. Her morphine CISCO ENGINEER was changed to Fentanyl patch. She is terminal breast cancer. Discharge Summary Discharge Instructions to patient/family Please see electronic discharge instructions given to patient. Discharge Medications Reviewed and agree with Discharge Medication list on patient's Discharge Instruction sheet Clinical Quality Measures DVT/VTE Risk/Contraindication: Risk Factor Score Per Nursin RFS Level Per Nursing on Admit: 3=High WILLOW COPELAND MD Apr 20, 2018 13:25
== END 2018-04-19 18:55 | disposition hospice, home (50) | DRG 758 ==
LOC: EDUNIT# 18:26 → ER 18:27 → UNDOADMOB 20:53 → 4TH 20:53 → OBSVTOIN 03-31 08:57 → INTOOBSV 03-31 08:57 → UNDODISIN 04-19 18:55
PROVIDERS: ADMIT Family Medicine; ATTEND Internal Medicine Hematology & Oncology
DX: B37.49 Other urogenital candidiasis (principal); R11.2 Nausea with vomiting, unspecified; E87.6 Hypokalemia; C78.01 Secondary malignant neoplasm of right lung; C78.02 Secondary malignant neoplasm of left lung; C79.51 Secondary malignant neoplasm of bone; Z85.3 Personal history of malignant neoplasm of breast; Z66 Do not resuscitate; Z51.5 Encounter for palliative care; I10 Essential (primary) hypertension; E11.9 Type 2 diabetes mellitus without complications; M81.0 Age-related osteoporosis without current pathological fracture; K21.9 Gastro-esophageal reflux disease without esophagitis; K59.09 Other constipation; H40.9 Unspecified glaucoma; M19.90 Unspecified osteoarthritis, unspecified site; Z95.5 Presence of coronary angioplasty implant and graft; Z92.21 Personal history of antineoplastic chemotherapy; Z92.3 Personal history of irradiation; Z90.11 Acquired absence of right breast and nipple; B96.20 Unspecified Escherichia coli [E. coli] as the cause of diseases classified elsewhere
CPT/HCPCS: 36415; 74018; 80048; 80053; 81000; 83735; 85025; 87077; 87088; 87186; 94760; 96361; 96374; 96375; 99284; G0378